=== PATIENT | male | born 1945 | race Caucasian/White ===

== ENCOUNTER 2017-01-22 02:04 | Observation (INO) | payer BC, MEDICARE ==
[~2017-01-22] VITALS: Ht 170.2 cm; Wt 97.5 kg
[~2017-01-22 02:04] MED LIST: BONE HEALTH PO; CARVEDILOL25 MG PO; CO Q-10300 MG PO; GLIMEPIRIDE2 MG PO; HYDROCHLOROTHIA25 MG PO; NORVASC10 MG PO; PRAVASTATIN SOD20 MG PO; VITAMIN B12 PO
[2017-01-22] MEDS ORDERED: LABETALOL HCL IV 5 MG/ML 20ML MDV IV STA (02:17)
[2017-01-22] MEDS ORDERED: HYDRALAZINE HCL 20 MG/ML VIAL IV STA (02:53)
[2017-01-22 02:57] LABS: ALBUMIN 3.6 g/dL (3.5-5.0); ALBUMIN/GLOBULIN RATIO 0.7 (0.8-2.0); CALCIUM 8.9 mg/dL (8.4-10.2); CREATININE, SERUM 1.31 mg/dL (0.72-1.25)
[2017-01-22 02:59] LABS: INR 0.85
[2017-01-22 03:00] LABS: PARTIAL THROMBOPLASTIN TIME 27.2 seconds (23.8-35.5)
[2017-01-22 03:03] LABS: CREATINE KINASE MB 3.3 ng/mL (0.00-5.00); TROPONIN I 0.049 ng/mL (0-0.300)
[2017-01-22 03:06] LABS: BASOPHILS # (AUTO) 0.1 (0.0-0.1); BASOPHILS % 0.7 % (0.0-1.0); EOSINOPHILS # (AUTO) 0.1 (0.0-0.4); EOSINOPHILS % 0.9 % (0.0-6.0); HEMATOCRIT 43.6 % (38.2-49.6); HEMOGLOBIN 15.1 g/dL (14.0-18.0); LYMPHOCYTES # (AUTO) 2.9 (1.0-3.2); LYMPHOCYTES % 31.3 % (18.0-39.1); MEAN CORPUSCULAR HEMOGLOBIN 32.1 pg (28-32); MEAN CORPUSCULAR HGB CONC 34.6 g/dL (31-35); MEAN CORPUSCULAR VOLUME 92.6 fL (81-99); MONOCYTES # (AUTO) 0.9 (0.2-0.8); MONOCYTES % 9.3 % (4.4-11.3); NEUTROPHILS # (AUTO) 5.4 (2.1-6.9); NEUTROPHILS % 57.5 % (38.7-80.0); PLATELET COUNT 230 x10e3/uL (140-360); RED BLOOD COUNT 4.71 x10e6/uL (4.3-5.7)
--- NOTE | 2017-01-22 03:27 | Diagnostic Imaging Report ---
CHEST SINGLE (PORTABLE), 01/22/2017 2:17 AM Technique: CHEST SINGLE (PORTABLE) Comparison: None available. Clinical history: Shortness of breath Findings: See Impression Impression: 1. Mildly enlarged cardiac silhouette. 2. Diffuse bilateral predominantly interstitial pulmonary opacities, favor edema. 3. No significant effusion appreciated on portable view. Signed by: Dr Brooklyn Serna MD on 01/22/2017 3:24 AM
[2017-01-22] MEDS ORDERED: FUROSEMIDE INJ 10 MG/ML 4 ML VIAL IV ONE (03:45)
[2017-01-22] MEDS ORDERED: ONDANSETRON HCL INJ 2 MG/ML VIAL ONE (03:53)
[2017-01-22 03:54] LABS: ANION GAP 13.4 mmol/L (8-16); POTASSIUM 3.4 mmol/L (3.5-5.1)
[2017-01-22] MEDS ORDERED: ONDANSETRON HCL INJ 2 MG/ML VIAL IV STA (03:57)
[2017-01-22] MEDS ORDERED: SODIUM CHLORIDE FLUSH 10 ML SYR INJ PRN (04:00)
[2017-01-22] MEDS ORDERED: HYDRALAZINE HCL 20 MG/ML VIAL IV PRN (04:00)
[2017-01-22 04:20] VITALS: BP 159/72
[2017-01-22] MEDS ORDERED: DEXTROSE 50% SYRINGE 50 ML IV PRN (05:00)
[2017-01-22 05:06] VITALS: BP 142/88
[2017-01-22] MEDS: INSULIN REGULAR, HUMAN 100 UNIT/1 ML 3ML VIAL SQ SCH ×5 (05:34→21:00)
[2017-01-22 07:48] VITALS: BP 146/71
[2017-01-22] MEDS ORDERED: FUROSEMIDE INJ 10 MG/ML 4 ML VIAL IV SCH (09:00)
[2017-01-22] MEDS: LISINOPRIL 10 MG TAB PO SCH (09:09)
[2017-01-22] MEDS: CARVEDILOL 3.125 MG TAB PO SCH ×2 (09:09→17:19)
[2017-01-22] MEDS ORDERED: GUAIFENESIN/DEXTROMETHORPHAN LIQD 5 ML UDC NG PRN (10:45)
[2017-01-22 10:50] LABS: CREATINE KINASE MB 3.7 ng/mL (0.00-5.00); TROPONIN I 0.12 ng/mL (0-0.300)
[2017-01-22] MEDS: CLOPIDOGREL BISULFATE 75 MG TAB PO SCH (10:54)
[2017-01-22 11:42] VITALS: BP 175/84
--- NOTE | 2017-01-22 12:32 | Consultation ---
DATE OF CONSULTATION: January 22, 2017 REASON FOR CONSULTATION: CHF. HPI: This is a 71-year-old male with history of CAD, status post LAD stent in November [address] Durham, hypertension, diabetes, and hyperlipidemia. The patient is a very poor historian and changes his story as the interview progresses. The patient presents to [facility] ER with complaints of shortness of breath for several weeks, 2 to 3 weeks in fact. He states the shortness of breath is at night. He wakes up with a cough. He has to catch his breath when he is lying in bed. After asking the patient if he takes his medications, he finally stated he has not been taking his medications for some time, at least for a month, and does not give any reason, just not taking the medication. He denies any chest pain with activities; however, he states he becomes short of breath with activities and was tired of the feeling of shortness of breath and, therefore, came for further evaluation. PAST MEDICAL HISTORY 1. Status post LAD stent in 2013. 2. Hypertension. 3. Hyperlipidemia. 4. Diabetes. SURGICAL HISTORY: Denies any surgical procedures. FAMILY HISTORY: Mother at age 65 apparently with history of stomach cancer and hypertension. Father at age 70 with history of lung cancer and hypertension. SOCIAL HISTORY: He is . 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 He denies any alcohol use, tobacco use or illicit drugs. REVIEW OF SYSTEMS GENERAL: Denies any weight gains or weight changes, any weakness, fevers, chills, night sweats. SKIN: He denies any rashes or sores or moles. HEENT: Denies any nausea, vomiting or vision changes. Any blurry vision or double vision. Denies any vertigo, earaches or tinnitus. Denies any stuffiness, sneezing or epistaxis. Denies any sore throat, hoarseness, or swollen neck. CARDIAC: Denies any chest pain. However, positive dyspnea on exertion, orthopnea and PND. Denies any lower extremity edema. RESPIRATORY: Positive for shortness of breath. Denies any wheezing. Positive for cough, dry. Denies hemoptysis. GI: Good appetite. No nausea, vomiting, diarrhea, any hematemesis, melena or hematochezia. URINARY: Denies any polyuria, dysuria, nocturia, incontinence. VASCULAR: Denies any leg edema or claudication. MUSCULOSKELETAL: Denies any weakness, joint pains, redness or swelling. NEUROLOGIC: Denies any numbness, tingling, tremors, weakness, paralysis, blackouts, seizures. HEMATOLOGY: No bruising or bleeding. ENDOCRINE: No heat or cold intolerance. No excessive swelling, polyuria, polydipsia, or claudication. PHYSICAL EXAMINATION VITAL SIGNS: Height 67 inches, weight 213 pounds. On admission, blood pressure 223/123, respiratory rate 18, pulse 98, temperature 98.0. GENERAL: Appears his stated age. Unreliable informant. In no acute distress. SKIN: No rashes or bruises noted. HEENT: Normocephalic. Pupils are equal and reactive. Extraocular motor intact. Oral mucosa pink. Poor dentition. No thyromegaly noted. No JVD. No carotid bruit. HEART: Regular rate and rhythm. No murmurs or clicks. PMI in 4th to 5th intercostal space. LUNGS: Bilateral breath sounds are clear to auscultation. No wheezes or rales. ABDOMEN: Soft. Nontender. No organomegaly noted. MUSCULOSKELETAL: Good muscle strength throughout. VASCULAR: Positive +2 bilateral radial pulses and +1 DP and PT bilateral pulses. NEUROLOGIC: Cranial nerves II through XII seem intact. LABS: Sodium 136, potassium 3.4, chloride 104, bicarb 22, BUN 15, creatinine 1.3, glucose 281. BNP 704. White count 9.4, hemoglobin 15, hematocrit 43, platelets 230. Chest x-ray: Bilateral interstitial pulmonary opacities. EKG: None on chart. ASSESSMENT 1. Hypertension urgency. 2. Noncompliance with medical therapy. 3. Congestive heart failure. 4. Coronary artery disease, status post left anterior descending stent in November 2013. 5. Diabetes. 6. Hyperlipidemia. 7. Obesity. PLAN: 1. The patient presents with shortness of breath symptoms and orthopnea for several weeks. Has not been taking his medications for at least 4 months for unknown reasoning. On admission, he was noted to be severely hypertensive, with systolic blood pressure greater than 200. Also, BNP was noted in the 700s. Will go ahead and restart the patient's home medications, his aspirin, his beta barber, his DANIEL. 2. Continue statin therapy. 3. Agree with diuresing the patient for now. 4. Will go ahead and get an echo to evaluate heart function. 5. Long discussion with the patient and at bedside regarding compliance with medical therapy. He understands the importance. 6. Will adjust therapy as clinical course progresses. 7. Will go ahead and get an EKG, since there is not one on the chart. Thank you very much for this consult. Dictated by: Harlan George NP Job#: [id number]
[2017-01-22 15:28] VITALS: BP 155/72
[2017-01-22] MEDS ORDERED: ACETAMINOPHEN 325 MG TAB PO PRN (16:00)
[2017-01-22] MEDS ORDERED: SODIUM CHLORIDE 0.9% 250ML 250 ML ONE (16:55)
[2017-01-22] MEDS: FUROSEMIDE INJ 10 MG/ML 4 ML VIAL IV SCH (16:56)
[2017-01-22] MEDS: CEFEPIME HCL 1 GM VIAL IV SCH (16:56)
[2017-01-22] MEDS: AZITHROMYCIN 500MG/NS 250 ML 250 ML IV SCH (17:19)
[2017-01-22 20:00] VITALS: BP 119/58
[2017-01-22 20:45] LABS: CREATINE KINASE MB 1.8 ng/mL (0.00-5.00); TROPONIN I 0.097 ng/mL (0-0.300)
[2017-01-22] MEDS: ATORVASTATIN 20 MG TAB PO SCH (21:00)
[2017-01-23] VITALS: BP 144/77
[2017-01-23 04:00] VITALS: BP 151/98
[2017-01-23] MEDS: CEFEPIME HCL 1 GM VIAL IV SCH ×2 (05:00→17:45)
--- NOTE | 2017-01-23 07:04 | Diagnostic Imaging Report ---
EXAM: CHEST SINGLE (PORTABLE), AP 1 view DATE: 01/23/2017 7:00 AM Time stamp on exam: 0605 hours INDICATION: Shortness of breath, history of CHF COMPARISON: AP view of the chest January 22, 2017 FINDINGS: LINES/TUBES: None LUNGS: Persistent airspace opacities predominantly in the lung bases, most likely pulmonary edema with atelectasis. PLEURA: Small to moderate bilateral layering pleural effusions. HEART AND MEDIASTINUM: Stable mild cardiac enlargement. BONES AND SOFT TISSUES: No acute findings. IMPRESSION: No interval change. Signed by: Dr. Leatha Nowak M.D. on 01/23/2017 7:01 AM
[2017-01-23 07:43] LABS: BASOPHILS % 0.5 % (0.0-1.0); EOSINOPHILS # (AUTO) 0.1 (0.0-0.4); EOSINOPHILS % 1.3 % (0.0-6.0); HEMATOCRIT 38.6 % (38.2-49.6); HEMOGLOBIN 13.3 g/dL (14.0-18.0); LYMPHOCYTES # (AUTO) 2.4 (1.0-3.2); LYMPHOCYTES % 28.9 % (18.0-39.1); MEAN CORPUSCULAR HGB CONC 34.5 g/dL (31-35); MEAN CORPUSCULAR VOLUME 92.8 fL (81-99); MONOCYTES # (AUTO) 0.9 (0.2-0.8); MONOCYTES % 11.4 % (4.4-11.3); NEUTROPHILS # (AUTO) 4.7 (2.1-6.9); NEUTROPHILS % 57.5 % (38.7-80.0); PLATELET COUNT 212 x10e3/uL (140-360); RED BLOOD COUNT 4.16 x10e6/uL (4.3-5.7); RED CELL DISTRIBUTION WIDTH 13.2 % (11.7-14.4)
[2017-01-23 08:16] LABS: ALBUMIN 3.2 g/dL (3.5-5.0); ALBUMIN/GLOBULIN RATIO 0.9 (0.8-2.0); ANION GAP 10.5 mmol/L (8-16); CALCIUM 8.6 mg/dL (8.4-10.2); CHOL/HDL RATIO 5.1 (3.9-4.7); CREATININE, SERUM 1.41 mg/dL (0.72-1.25); POTASSIUM 3.5 mmol/L (3.5-5.1)
[2017-01-23 08:28] VITALS: BP 146/80
[2017-01-23] MEDS: INSULIN REGULAR, HUMAN 100 UNIT/1 ML 3ML VIAL SQ SCH ×4 (08:30→20:21)
[2017-01-23 08:36] LABS: THYROID STIMULATING HORMONE 1.498 uIU/mL (0.350-4.940)
[2017-01-23] MEDS: LISINOPRIL 10 MG TAB PO SCH (09:13)
[2017-01-23] MEDS: FUROSEMIDE INJ 10 MG/ML 4 ML VIAL IV SCH ×2 (09:13→17:45)
[2017-01-23] MEDS: CLOPIDOGREL BISULFATE 75 MG TAB PO SCH (09:13)
[2017-01-23] MEDS: ASPIRIN 81 MG ENTERIC COATED PO SCH (09:13)
[2017-01-23 12:24] VITALS: BP 152/70
[2017-01-23 16:59] VITALS: BP 158/74
[2017-01-23] MEDS: CARVEDILOL 3.125 MG TAB PO SCH ×2 (17:45→19:25)
[2017-01-23] MEDS: AZITHROMYCIN 500MG/NS 250 ML 250 ML IV SCH (17:45)
[2017-01-23 19:55] VITALS: BP 123/59
[2017-01-23] MEDS: ATORVASTATIN 20 MG TAB PO SCH (20:21)
[2017-01-24 01:34] VITALS: BP 162/74
[2017-01-24 04:19] VITALS: BP 163/82
[2017-01-24] MEDS: CEFEPIME HCL 1 GM VIAL IV SCH (04:38)
[2017-01-24 06:23] LABS: BASOPHILS % 0.5 % (0.0-1.0); EOSINOPHILS # (AUTO) 0.1 (0.0-0.4); EOSINOPHILS % 1.6 % (0.0-6.0); HEMATOCRIT 37.4 % (38.2-49.6); HEMOGLOBIN 12.9 g/dL (14.0-18.0); LYMPHOCYTES % 25.8 % (18.0-39.1); MEAN CORPUSCULAR HEMOGLOBIN 31.7 pg (28-32); MEAN CORPUSCULAR HGB CONC 34.5 g/dL (31-35); MEAN CORPUSCULAR VOLUME 91.9 fL (81-99); MONOCYTES % 12.8 % (4.4-11.3); NEUTROPHILS # (AUTO) 4.6 (2.1-6.9); PLATELET COUNT 185 x10e3/uL (140-360); RED BLOOD COUNT 4.07 x10e6/uL (4.3-5.7); RED CELL DISTRIBUTION WIDTH 12.9 % (11.7-14.4)
[2017-01-24 06:47] LABS: ALBUMIN 3.1 g/dL (3.5-5.0); ALBUMIN/GLOBULIN RATIO 0.9 (0.8-2.0); ANION GAP 11.6 mmol/L (8-16); CALCIUM 8.6 mg/dL (8.4-10.2); CREATININE, SERUM 1.24 mg/dL (0.72-1.25); POTASSIUM 3.6 mmol/L (3.5-5.1)
[2017-01-24 08:38] VITALS: BP 166/78
[2017-01-24] MEDS: FUROSEMIDE INJ 10 MG/ML 4 ML VIAL IV SCH (08:41)
[2017-01-24] MEDS: CARVEDILOL 3.125 MG TAB PO SCH (08:41)
[2017-01-24] MEDS: ASPIRIN 81 MG ENTERIC COATED PO SCH (08:41)
[2017-01-24] MEDS: CLOPIDOGREL BISULFATE 75 MG TAB PO SCH (08:41)
[2017-01-24] MEDS: LISINOPRIL 10 MG TAB PO SCH (08:41)
[2017-01-24] MEDS: INSULIN REGULAR, HUMAN 100 UNIT/1 ML 3ML VIAL SQ SCH ×2 (08:43→13:14)
[2017-01-24 12:00] VITALS: BP 151/73
[2017-01-25] MEDS ORDERED: LISINOPRIL 10 MG TAB PO SCH (09:00)
[2017-01-25] MEDS ORDERED: FUROSEMIDE 40 MG TAB PO SCH (09:00)
== END 2017-01-24 15:19 | disposition home or self-care (01) ==
LOC: ER 02:04 → IMCU 04:13
DX: I11.0 Hypertensive heart disease with heart failure (principal); I50.21 Acute systolic (congestive) heart failure; I16.0 Hypertensive urgency; E11.9 Type 2 diabetes mellitus without complications; I25.10 Atherosclerotic heart disease of native coronary artery without angina pectoris; Z95.5 Presence of coronary angioplasty implant and graft; E78.5 Hyperlipidemia, unspecified; Z91.19 Patient's noncompliance with other medical treatment and regimen; E66.9 Obesity, unspecified; Z68.33 Body mass index [BMI] 33.0-33.9, adult
CPT/HCPCS: 36415 ×3; 71010 ×2; 80053 ×3; 80061; 82550; 82553; 82948 ×3; 83036; 83880 ×2; 84443; 84484; 85025 ×3; 85379; 85610; 85730; 87040; 87086; 93005; 93306; 96367; 96374; 99284; G0378 ×3; J0360; J0456 ×2; J0692 ×3; J1940 ×3; J2405; J3490; J7050

== ENCOUNTER 2017-03-04 14:36 | Emergency (ER) | payer BC ==
[~2017-03-04] VITALS: Ht 170.2 cm; Wt 97.5 kg
[2017-03-04] MEDS ORDERED: ACETAMINOPHEN 325 MG TAB PO ONE (15:15)
--- NOTE | 2017-03-04 16:21 | Diagnostic Imaging Report ---
EXAMINATION: PA and lateral views of the chest. COMPARISON: January 23, 2017 CLINICAL HISTORY: Cough DISCUSSION: Lines/tubes: None. Lungs: The lungs are well inflated and clear. No pneumonia or pulmonary edema. Pleura: There is no pleural effusion or pneumothorax. Heart and mediastinum: The cardiomediastinal silhouette is normal. Bones and soft tissues: No acute bony abnormalities. IMPRESSION: No acute cardiopulmonary abnormalities. Signed by: Dr. Jose Morales M.D. on 03/04/2017 4:17 PM
== END 2017-03-04 16:36 | disposition home or self-care (01) ==
LOC: ER 14:36
DX: R50.9 Fever, unspecified (principal); R05 Cough; J10.1 Influenza due to other identified influenza virus with other respiratory manifestations; J31.0 Chronic rhinitis
CPT/HCPCS: 71020; 87400; 99283

== ENCOUNTER 2018-01-23 12:53 | Emergency (ER) | payer BC ==
[~2018-01-23] VITALS: Ht 170.2 cm; Wt 97.5 kg
--- OUTSIDE RECORDS SUMMARY | 2018-01-23 12:57 | XMS REPORT ---
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 Allergies, Adverse Reactions, Alerts This patient has no known allergies or adverse reactions. Medications This patient has no known medications. Results Test Description Test Time Test Comments Text Results Atomic Results Result Comments CHEST 2 VIEWS [place] [address] Patient Name: SEA COOK MR #: [id number] : 1945 Age/Sex: 71/M Req #: [id number] Adm Physician: Ordered by: CHRISTY MADISON MD Report #: [id number] Location: ER Room/Bed: Procedure: [id number] DX/CHEST 2 VIEWS Exam Date: 03/04/17 Exam Time: 1545 REPORT STATUS: Signed EXAMINATION: PA and lateral views of the chest. COMPARISON: January 23, 2017 CLINICAL HISTORY: Cough DISCUSSION: Lines/tubes: None. Lungs: The lungs are well inflated and clear. No pneumonia or pulmonary edema. Pleura: There is no pleural effusion or pneumothorax. Heart and mediastinum: The cardiomediastinal silhouette is normal. Bones and soft tissues: No acute bony abnormalities. IMPRESSION: No acute cardiopulmonary abnormalities. Signed by: Dr. Alisia Selby M.D. on 03/04/2017 4:17 PM Dictated By: ALISIA SELBY MD 16 Transcribed By: SUMEET on 03/04/171616 COPY TO: CHRISTY MADISON MD CHEST SINGLE (PORTABLE) [place] [address] Patient Name: SEA COOK MR #: [id number] : 1945 Age/Sex: 71/M Req #: [id number] Adm Physician: BRIAN JOLLY MD Ordered by: PHONG TANG MD Report #: [id number] Location: [facility] Room/Bed: [place] [address] Procedure: [id number] DX/CHEST SINGLE (PORTABLE) Exam Date: 01/23/17 Exam Time: 0500 REPORT STATUS: Signed EXAM: CHEST SINGLE (PORTABLE), AP 1 view DATE: 01/23/2017 7:00 AM Time stamp on exam: 0605 hours INDICATION: Shortness of breath, history of CHF COMPARISON: AP view of the chest January 22, 2017 FINDINGS: LINES/TUBES: None LUNGS: Persistent airspace opacities predominantly in the lung bases, most likely pulmonary edema with atelectasis. PLEURA: Small to moderate bilateral layering pleural effusions. HEART AND MEDIASTINUM: Stable mild cardiac enlargement. BONES AND SOFT TISSUES: No acute findings. IMPRESSION: No interval change. Signed by: Dr. Es Nowak M.D. on 01/23/2017 7:01 AM Dictated By: ES NOWAK MD 0 Transcribed By: SUMEET on 01/23/17700 COPY TO: PHONG MARQUEZ MD CHEST SINGLE (PORTABLE) [place] [address] Patient Name: SEA COOK MR #: [id number] : 1945 Age/Sex: 71/M Req #: [id number] Adm Physician: BRIAN JOLLY MD Ordered by: PHONG TANG MD Report #: [id number] Location: [facility] Room/Bed: [place] [address] Procedure: [id number] DX/CHEST SINGLE (PORTABLE) Exam Date: Exam Time: REPORT STATUS: Signed CHEST SINGLE (PORTABLE), 01/22/2017 2:17 AM Technique: CHEST SINGLE (PORTABLE) Comparison: None available. Clinical history: Shortness of breath Findings: See Impression Impression: 1. Mildly enlarged cardiac silhouette. 2. Diffuse bilateral predominantly interstitial pulmonary opacities, favor edema. 3. No significant effusion appreciated on portable view. Signed by: Dr Franky Serna MD on 01/22/2017 3:24 AM Dictated By: FRANKY SERNA MD 3 Transcribed By: SUMEET on 01/22/17323 COPY TO: PHONG TANG MD
[2018-01-23 13:49] LABS: BASOPHILS % 0.5 % (0.0-1.0); EOSINOPHILS % 0.5 % (0.0-6.0); HEMATOCRIT 39.4 % (38.2-49.6); HEMOGLOBIN 13.1 g/dL (14.0-18.0); LYMPHOCYTES # (AUTO) 1.6 (1.0-3.2); LYMPHOCYTES % 19.5 % (18.0-39.1); MEAN CORPUSCULAR HEMOGLOBIN 31.4 pg (28-32); MEAN CORPUSCULAR HGB CONC 33.2 g/dL (31-35); MEAN CORPUSCULAR VOLUME 94.5 fL (81-99); MONOCYTES # (AUTO) 0.7 (0.2-0.8); MONOCYTES % 8.4 % (4.4-11.3); NEUTROPHILS # (AUTO) 5.6 (2.1-6.9); NEUTROPHILS % 70.8 % (38.7-80.0); PLATELET COUNT 194 x10e3/uL (140-360); RED BLOOD COUNT 4.17 x10e6/uL (4.3-5.7); RED CELL DISTRIBUTION WIDTH 14.2 % (11.7-14.4)
[2018-01-23 14:09] LABS: ALBUMIN 3.8 g/dL (3.5-5.0); ALBUMIN/GLOBULIN RATIO 1.1 (0.8-2.0); ANION GAP 13.6 mmol/L (8-16); CALCIUM 9.5 mg/dL (8.4-10.2); CREATININE, SERUM 1.41 mg/dL (0.72-1.25); POTASSIUM 3.6 mmol/L (3.5-5.1)
--- NOTE | 2018-01-23 14:59 | Diagnostic Imaging Report ---
EXAM: XR CHEST 2 VIEWS DATE: 01/23/2018 1:13 PM INDICATION: Cough COMPARISON: 03/04/2017, no report available FINDINGS: Lines and Tubes: None Heart and Mediastinum: Mildly prominent, stable. Lungs and Pleura: Small pleural effusions with minimal bibasilar opacities. Bones and Soft Tissues: No acute findings. IMPRESSION: 1. Small pleural effusions. 2. Basilar opacities could represent atelectasis, edema, or infectious process. Signed by: Dr. Francisco Colbert MD on 01/23/2018 2:56 PM
[2018-01-23] MEDS ORDERED: TYLENOL WITH C1 EACH PO (15:56)
[2018-01-23] MEDS ORDERED: ZITHROMAX TRI-500 MG PO (15:57)
[2018-01-23] MEDS ORDERED: CHLORASEPTIC SPRAY 177 ML BTL MM PRN (16:15)
[2018-01-23] MEDS ORDERED: ACETAMINOPHEN/CODEINE 300MG - 30MG TAB PO ONE (16:15)
== END 2018-01-23 16:31 | disposition home or self-care (01) ==
LOC: ER 12:53
DX: R05 Cough (principal); B34.9 Viral infection, unspecified
CPT/HCPCS: 36415; 71046; 80053; 82550; 82553; 84484; 85025; 87400; 93005; 99284

== ENCOUNTER 2018-01-29 13:38 | Inpatient (IN) | payer BC, MEDICARE ==
[~2018-01-29] VITALS: Ht 170.2 cm; Wt 90.0 kg
[~2018-01-29 13:38] MED LIST changes: +TYLENOL WITH C1 EACH PO; +ZITHROMAX TRI-500 MG PO
[2018-01-29] MEDS ORDERED: LOSARTAN POTAS100 MG PO (14:12)
[2018-01-29] MEDS ORDERED: NITROGLYCERIN 2% OINT 1 GM PKT TOP ONE (14:30)
[2018-01-29] MEDS ORDERED: ASPIRIN 81 MG CHEW TAB PO ONE (14:45)
[2018-01-29 14:47] LABS: BASOPHILS % 0.4 % (0.0-1.0); EOSINOPHILS % 0.4 % (0.0-6.0); HEMATOCRIT 41.5 % (38.2-49.6); HEMOGLOBIN 13.7 g/dL (14.0-18.0); LYMPHOCYTES # (AUTO) 2.1 (1.0-3.2); LYMPHOCYTES % 28.1 % (18.0-39.1); MEAN CORPUSCULAR HEMOGLOBIN 31.5 pg (28-32); MEAN CORPUSCULAR VOLUME 95.4 fL (81-99); MONOCYTES # (AUTO) 0.7 (0.2-0.8); MONOCYTES % 8.9 % (4.4-11.3); NEUTROPHILS # (AUTO) 4.6 (2.1-6.9); NEUTROPHILS % 61.9 % (38.7-80.0); PLATELET COUNT 200 x10e3/uL (140-360); RED BLOOD COUNT 4.35 x10e6/uL (4.3-5.7); RED CELL DISTRIBUTION WIDTH 14.1 % (11.7-14.4)
[2018-01-29 14:51] LABS: INR 0.95; PROTHROMBIN TIME 13.6 seconds (11.9-14.5)
[2018-01-29 14:52] LABS: PARTIAL THROMBOPLASTIN TIME 30.3 seconds (23.8-35.5)
[2018-01-29 15:03] LABS: ALBUMIN/GLOBULIN RATIO 1.1 (0.8-2.0); ANION GAP 14.9 mmol/L (8-16); CREATININE, SERUM 1.45 mg/dL (0.72-1.25); MAGNESIUM 2.1 MG/DL (1.3-2.1); POTASSIUM 3.9 mmol/L (3.5-5.1)
[2018-01-29 15:09] LABS: CREATINE KINASE MB 3.4 ng/mL (0-5.0)
[2018-01-29 15:12] LABS: BILIRUBIN,URINE NEGATIVE (NEGATIVE); CLARITY,URINE CLEAR (CLEAR); COLOR,URINE YELLOW (YELLOW); KETONES,URINE NEGATIVE (NEGATIVE); LEUKOCYTE ESTERASE ,URINE NEGATIVE (NEGATIVE); NITRITE,URINE NEGATIVE (NEGATIVE); PROTEIN,URINE DIPSTICK 2+ (NEGATIVE); URINE UROBILINOGEN 1 mg/dL (0.2 - 1)
--- NOTE | 2018-01-29 15:31 | Diagnostic Imaging Report ---
EXAMINATION: CHEST 2 VIEWS INDICATION: ^CP ^[id number] ^[id number] COMPARISON: 01/23/2018 FINDINGS: PA and lateral views TUBES and LINES: None. LUNGS: Lungs are well inflated. Mild bibasilar hazy opacification. PLEURA: No pneumothorax. HEART AND MEDIASTINUM: The cardiomediastinal silhouette is enlarged. BONES AND SOFT TISSUES: No acute osseous lesion. Degenerative changes of thoracic spine. Soft tissues are unremarkable. UPPER ABDOMEN: No free air under the diaphragm. IMPRESSION: Mild bibasilar hazy opacification, representing small effusions/atelectasis. Underlying infiltrate cannot be excluded. Signed by: Dr. Paresh Yoder MD on 01/29/2018 3:27 PM
[2018-01-29 16:10] LABS: EPITHELIAL CELLS,URINE FEW /LPF
[2018-01-29 16:12] LABS: CALCIUM OXALATE CRYSTALS,UR MODERATE (FEW)
[2018-01-29 16:13] LABS: RBC,URINE 0-5 /HPF (0-5)
[2018-01-29] MEDS ORDERED: ENOXAPARIN SODIUM INJ 100 MG/ML SYR SC ONE (16:15)
[2018-01-29] MEDS ORDERED: MORPHINE SULFATE INJ 4 MG/ML INJ IV PRN (16:30)
[2018-01-29] MEDS ORDERED: ONDANSETRON HCL INJ 2 MG/ML VIAL IV PRN (16:30)
[2018-01-29] MEDS ORDERED: NITROGLYCERIN 0.4 MG SUBL SL PRN (16:30)
[2018-01-29] MEDS ORDERED: DEXTROSE 50% SYRINGE 50 ML IV PRN (17:30)
[2018-01-29] MEDS ORDERED: FUROSEMIDE INJ 10 MG/ML 4 ML VIAL IV ONE (17:30)
[2018-01-29 18:36] VITALS: BP 155/90
--- NOTE | 2018-01-29 18:40 | NUR ---
RECEIVED PATIENT FROM ER HE ARRIVED IN STRETCHER, ABLE TO TRANSFER INDEPENDENTLY STEADY GAIT NO S/S OF RESPIRATORY DISTRESS NOTED, VITAL SIGNS 169/99 HR 80 OXYGEN 3 LITERS NASAL CANULA. ALERT AND ORIENTED X3, REPORTS HE HAS NOT HAD A BOWEL MOVEMENT SINCE DISCHARGE FROM OUR FACILITY ON 01/23/18, WILL PLACE CALL TO DR. JOLLY TO MAKE HIM AWARE PATIENT HAS NOT HAD A BM, AND REPORTS DISCOMFORT TO ABDOMEN AREA AND EPIGASTRIC AREA. PATIENT IS VERBALIZING NEEDS, ORIENTED TO ROOM AND USE OF CALL LIGHT FAMILY AT BEDSIDE, BED IN LOW POSITION, BREAKS ON, BELONGINGS AND CALL LIGHT WITHIN REACH WILL CONTINUE TO MONITOR.
[2018-01-29 18:50] VITALS: BP 169/99
[2018-01-29] MEDS: NITROGLYCERIN 2% OINT 1 GM PKT TOP SCH (18:55)
[2018-01-29] MEDS ORDERED: MAGNESIUM HYDROXIDE 30 ML UDC PO ONE ×2 (19:00→19:15)
[2018-01-29] MEDS ORDERED: SOD PHOSPHATE/SOD BIPHOSPHATE ENEMA 132 ML BTL PR ONE (19:15)
--- NOTE | 2018-01-29 19:25 | NUR ---
HANDOFF REPORT TO ONCOMING NURSE, PATIENT IS IN BED, NO S/S OF DISTRESS FAMILY AT BEDSIDE, INFORMED PATIENT DR. Chip JOLLY CALLED BACK AND GAVE ORDERS FOR MILK OF MAGNESIA 60MG PO AND IF NO BOWEL MOVEMENT IN 4 HOURS, DR. JOLLY GAVE ORDERS TO GIVE HIM AND ENEMA, PATIENT VERBALIZED UNDERSTANDING.
[2018-01-29] MEDS: ENOXAPARIN SOD INJ 40 MG/0.4 ML SYR SC SCH (20:15)
[2018-01-29] MEDS ORDERED: ACETAMINOPHEN/CODEINE 300MG - 30MG TAB PO PRN (20:15)
[2018-01-29] MEDS: PANTOPRAZOLE SOD 40 MG TABEC PO SCH (20:15)
--- NOTE | 2018-01-29 20:20 | NUR ---
DR. Julissa HERNANDEZ DOING HIS ROUNDS AT THIS TIME. NEW ORDERS RCV.
[2018-01-29 20:45] VITALS: BP 155/90
[2018-01-29 20:50] VITALS: BP 155/90
[2018-01-29] MEDS: CARVEDILOL 3.125 MG TAB PO SCH (21:38)
[2018-01-29] MEDS: AMLODIPINE BESYLATE 10 MG TAB PO SCH (21:38)
[2018-01-29] MEDS: INSULIN LISPRO 100 UNIT/1 ML 3ML VIAL SQ SCH (21:39)
[2018-01-29] MEDS: FUROSEMIDE INJ 10 MG/ML 4 ML VIAL IV SCH (21:39)
[2018-01-29] MEDS: ATORVASTATIN 10 MG TAB PO SCH (21:39)
[2018-01-29] MEDS: FAMOTIDINE 20 MG/2 ML VIAL IV SCH (21:39)
--- NOTE | 2018-01-29 22:31 | History and Physical ---
CARDIOLOGY CONSULTATION PRIMARY PHYSICIAN: Dr. Aquiles Up. I am called for cardiology at the [facility]. He has now been admitted to the hospital. I believe he came to the emergency room a couple of times. DIAGNOSES 1. Lnxyk-uh-isfryja congestive heart failure. 2. Patient's BNP is increased and found to be 1384.9 pg/mL. 3. Hypertension, not controlled well. 4. Type 2 diabetes mellitus, uncontrolled at this time. 5. Mild obesity. HISTORY: Mr. 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 He came here for shortness of breath, not able to lie down flat for 3 days. Patient currently does not complain of chest pain. Patient complains of epigastric discomfort. MEDICATIONS: ARB, simvastatin, and glimepiride. PAST SURGICAL HISTORY: Patient did not have any surgeries. ALLERGIES: No ALLERGIES. SOCIAL HISTORY: Patient is . He has got 2 children. He sees only Dr. Aquiles Up as a primary physician. He lives in [place]. Patient does not complain of previous myocardial infarction or stroke. Patient is moderately active. Patient at this time has no nausea or vomiting. No pedal edema. According to him, he has not slept for about 3 to 4 days because he is not able to lie down flat. Chest x-ray does not show any pneumonia. EKG shows nonspecific ST-T changes. His troponin is negative. Patient has renal insufficiency. Creatinine 1.45 and BUN is 19 mg/dL, GFR 48 but I will continue ARB at this time. I am going to add Norvasc 10 mg a day and also Coreg 3.125 mg once a day and also put him on Lasix 40 mg q.8h. for 3 doses and follow him closely. I ordered an echocardiogram and also abdominal ultrasound, and also he complains of constipation for 3 to 4 days, so given laxative. At this time, patient is stable. I discussed with the family members around, and daughter and granddaughter along with the patient. I will review the echocardiogram and also patient to have an abdominal ultrasound and may be we will do a nuclear stress test, we shall do it about 24 to 48 hours later when he is able to lie down flat. Hopefully, the Lasix will help his shortness of breath and also patient has got a mild systolic murmur. A newer echocardiogram will evaluate all his valves also. I will continue to follow the patient from cardiac point of view. Job#: [id number] DANDY
[2018-01-29 23:16] LABS: CREATINE KINASE MB 2.7 ng/mL (0-5.0)
[2018-01-30] VITALS (8 sets, daily range): BP systolic 121–174; BP diastolic 60–97
[2018-01-30] MEDS: ZOLPIDEM TARTRATE 10 MG TAB PO PRN (00:30)
[2018-01-30] MEDS ORDERED: SOD PHOSPHATE/SOD BIPHOSPHATE ENEMA 132 ML BTL PR ONE (00:30)
[2018-01-30] MEDS: NITROGLYCERIN 2% OINT 1 GM PKT TOP SCH ×4 (00:30→18:20)
[2018-01-30 05:38] LABS: BASOPHILS # (AUTO) 0.1 (0.0-0.1); BASOPHILS % 0.7 % (0.0-1.0); EOSINOPHILS % 0.5 % (0.0-6.0); HEMATOCRIT 39.3 % (38.2-49.6); HEMOGLOBIN 13.2 g/dL (14.0-18.0); LYMPHOCYTES # (AUTO) 2.1 (1.0-3.2); LYMPHOCYTES % 26.9 % (18.0-39.1); MEAN CORPUSCULAR HEMOGLOBIN 31.5 pg (28-32); MEAN CORPUSCULAR HGB CONC 33.6 g/dL (31-35); MEAN CORPUSCULAR VOLUME 93.8 fL (81-99); MONOCYTES # (AUTO) 0.8 (0.2-0.8); MONOCYTES % 10.8 % (4.4-11.3); NEUTROPHILS # (AUTO) 4.6 (2.1-6.9); NEUTROPHILS % 60.8 % (38.7-80.0); PLATELET COUNT 200 x10e3/uL (140-360); RED BLOOD COUNT 4.19 x10e6/uL (4.3-5.7)
--- NOTE | 2018-01-30 05:40 | NUR ---
PT VOICED HAVING LARGE BM AT THIS TIME
[2018-01-30] MEDS: FUROSEMIDE INJ 10 MG/ML 4 ML VIAL IV SCH ×2 (05:51→18:14)
[2018-01-30 06:16] LABS: CREATINE KINASE MB 2.2 ng/mL (0-5.0)
[2018-01-30 06:38] LABS: ANION GAP 14.2 mmol/L (8-16); CALCIUM 9.3 mg/dL (8.4-10.2); CHOL/HDL RATIO 2.8 (3.9-4.7); CREATININE, SERUM 1.3 mg/dL (0.72-1.25); POTASSIUM 4.2 mmol/L (3.5-5.1)
[2018-01-30] MEDS: INSULIN LISPRO 100 UNIT/1 ML 3ML VIAL SQ SCH ×4 (07:30→21:52)
[2018-01-30] MEDS ORDERED: ASPIRIN 81 MG ENTERIC COATED PO SCH (09:00)
[2018-01-30] MEDS: ASPIRIN 81 MG CHEW TAB PO SCH (09:30)
[2018-01-30] MEDS: LOSARTAN POTASSIUM 100 MG TAB PO SCH (09:30)
[2018-01-30] MEDS: GLIMEPIRIDE 2 MG TAB PO SCH (09:30)
[2018-01-30] MEDS: CARVEDILOL 3.125 MG TAB PO SCH ×2 (09:30→18:14)
[2018-01-30] MEDS: FAMOTIDINE 20 MG/2 ML VIAL IV SCH ×2 (09:30→21:52)
[2018-01-30] MEDS: PANTOPRAZOLE SOD 40 MG TABEC PO SCH (09:30)
[2018-01-30] MEDS: AMLODIPINE BESYLATE 10 MG TAB PO SCH (11:22)
--- NOTE | 2018-01-30 13:14 | Progress Note ---
DATE: January 30, 2018 CARDIOLOGY PROGRESS NOTE IMPRESSION 1. Rkeao-yo-hwcjzhf congestive heart failure. 2. Cardiomyopathy, rule out ischemic cardiomyopathy. 3. Hypertension. 4. Type 2 diabetes mellitus. 5. Obesity. The patient is having shortness of breath and orthopnea. The patient's echocardiogram showed ejection fraction of 25%, systolic congestive heart failure with mild LVH and renal function borderline high. However, the patient is on lasix. Will continue that. add coreg_ at 3.125 mg p.o.bid, and also spironolactone 25 mg once a day. The patient is on Lasix. At this time, will continue all his present medications and monitoring of nuclear stress test for tomorrow to rule out any ischemia. Possibly, he needs a coronary angiogram depending on the results because the LVEF is 20% to 25%. The patient at this time is improving. Will continue present medications. The patient needs to stay in the hospital. The patient was also put on a low salt diet. Discussed with the family about his condition. Job#: [id number] TOREY GLORIA
--- NOTE | 2018-01-30 13:21 | Diagnostic Imaging Report ---
Abdominal ultrasound dated 01/30/2018. History: Pain Comparison: <None available>. Discussion: Transverse and longitudinal images of the abdomen were obtained demonstrating a liver of normal size with increased echogenicity measuring 16.7 cm in length. The portal vein is patent with hepatopetal flow and is within normal limits measuring 9 mm in diameter. The common bile duct measures 4 mm in diameter. The gallbladder is normal without evidence of stones, wall thickening or pericholecystic fluid. The sonographic Lombardo's sign was negative. The kidneys are normal in size and echogenicity bilaterally without evidence of hydronephrosis, stones, or mass. The right kidney measures 10.0 x 4.5 x 4.3 cm and the left kidney measures 10.5 x 5.3 x 5.2 cm. There is a right lower pole renal cyst measuring 1.1 cm. The spleen is normal in size and appearance measuring 11.3 cm in length. The pancreas and aorta are insufficiently visualized to evaluate There is no evidence of free fluid. IMPRESSION: 1. Increased echogenicity of the liver without focal mass. 2. Lower pole right renal cyst. Signed by: Dr. Roberto Rai DO on 01/30/2018 1:17 PM
[2018-01-30] MEDS: POTASSIUM CHLORIDE 10MEQ EA PO SCH (18:15)
[2018-01-30] MEDS: FUROSEMIDE 40 MG TAB PO SCH (18:15)
[2018-01-30] MEDS: ENOXAPARIN SOD INJ 40 MG/0.4 ML SYR SC SCH (18:15)
[2018-01-30] MEDS: ATORVASTATIN 10 MG TAB PO SCH (21:52)
[2018-01-31] VITALS (7 sets, daily range): BP systolic 121–153; BP diastolic 61–83
[2018-01-31] MEDS: NITROGLYCERIN 2% OINT 1 GM PKT TOP SCH ×4 (00:35→17:22)
--- NOTE | 2018-01-31 06:54 | NUR ---
REPORT GIVEN TO ONCOMING NURSE,WALKING ROUNDS MADE.PT RESTING IN BED WITH NO S/S OF DISTRESS.
[2018-01-31] MEDS: INSULIN LISPRO 100 UNIT/1 ML 3ML VIAL SQ SCH ×4 (07:30→21:00)
[2018-01-31] MEDS: PANTOPRAZOLE SOD 40 MG TABEC PO SCH (09:00)
[2018-01-31] MEDS: FUROSEMIDE INJ 10 MG/ML 4 ML VIAL IV SCH ×2 (09:00→17:20)
[2018-01-31] MEDS: CARVEDILOL 3.125 MG TAB PO SCH ×2 (09:00→17:20)
[2018-01-31] MEDS: FAMOTIDINE 20 MG/2 ML VIAL IV SCH ×2 (09:00→21:30)
[2018-01-31] MEDS: POTASSIUM CHLORIDE 10MEQ EA PO SCH ×2 (09:00→17:21)
--- NOTE | 2018-01-31 09:30 | NUR ---
assessment complete no distress noted, updated on poc voiced understanding, denies pain at this time, tele 2454 sr @ 64, r ac 20g no ss of infiltration noted, no other co voiced call light in reach will continue to monitor
--- NOTE | 2018-01-31 10:30 | NUR ---
down to radiology for stress test, left in stable condition
[2018-01-31] MEDS ORDERED: REGADENOSON 0.4 MG/5 ML SYR IV ONE (11:02)
--- NOTE | 2018-01-31 12:39 | Progress Note ---
DATE: January 31, 2018 CARDIOLOGY PROGRESS NOTE The patient was seen in the room again in nuclear medicine lab. DIAGNOSES 1. Ochgq-fs-mcsnvhp congestive heart failure. 2. Type 2 diabetes mellitus. 3. Possible hypertension. The patient came in with acute heart failure. The patient on NSAIDs medication. The patient improved very much. At this time, renal function is normal. Troponin is negative. The patient is going to heart catheterization tomorrow to assess the coronary arteries and reassess left ventricular function, and also pulmonary artery pressure if necessary. It was explained to the , the family and the patient. All agreed with heart catheterization being done tomorrow. The patient's nuclear stress test done today, and results are still pending. However, he needs heart catheterization because the left ventricular ejection fraction is low about 25% to 30%. The patient never had angiogram before. For the proper addressing of the treatment of the heart failure, we need the status of the coronary artery. The patient is agreeable for that. Risks and complications explained to the patient's family. Job#: [id number] TOREY
--- NOTE | 2018-01-31 12:50 | NUR ---
back to rm aaox3 vs stable, no distress noted, call light in reach, will continue to monitor
[2018-01-31] MEDS: ASPIRIN 81 MG CHEW TAB PO SCH (13:09)
[2018-01-31] MEDS: SPIRONOLACTONE 25 MG TAB PO SCH (13:09)
[2018-01-31] MEDS: GLIMEPIRIDE 2 MG TAB PO SCH (13:09)
[2018-01-31] MEDS: LOSARTAN POTASSIUM 100 MG TAB PO SCH (13:10)
[2018-01-31] MEDS: FUROSEMIDE 40 MG TAB PO SCH (13:10)
[2018-01-31] MEDS: AMLODIPINE BESYLATE 10 MG TAB PO SCH (13:11)
--- NOTE | 2018-01-31 15:17 | NUR ---
SOCIAL WORK INITIAL ASSESSMENT Corduroy Brusher Operator to bedside to discuss plan of care with patient/family. CM/SW role and care transitions discussed. Anticipated discharge plan discussed along with duration of care. CM/SW discussed patients right to make decisions in care. CM/SW work hours given. 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 Name and number was also written on the patients whiteboard. Patient verbalized understanding of discussion. CM will follow-up with ongoing discharge and transition of care needs.
[2018-01-31] MEDS: ENOXAPARIN SOD INJ 40 MG/0.4 ML SYR SC SCH (17:21)
--- NOTE | 2018-01-31 19:10 | NUR ---
REPORT RECEIVED FROM OFF GOING NURSE, PT RESTING IN BED ALERT AND ORIENTED, VISITING WITH FAMILY, TELEMETRY NOTED, DENIES NEEDS, CALL LIGHT IN REACH, INSTRUCTED TO CALL WITH NEEDS
[2018-01-31] MEDS: ATORVASTATIN 10 MG TAB PO SCH (21:30)
[2018-01-31] MEDS: ZOLPIDEM TARTRATE 10 MG TAB PO PRN (21:30)
[2018-02-01] VITALS (7 sets, daily range): BP systolic 103–149; BP diastolic 55–72
[2018-02-01] MEDS: NITROGLYCERIN 2% OINT 1 GM PKT TOP SCH ×4 (05:14→17:09)
--- NOTE | 2018-02-01 05:15 | NUR ---
PT RESTING IN BED WITH EYES CLOSED, OPENS EYES UPON APPROACH, PT ALERT AND ORIENTED, DENIES NEEDS, NO DISTRESS NOTED, CALL LIGHT IN REACH, INSTRUCTED TO CALL WITH NEEDS, TELEMETRY IN PLACE, PT NPO SINCE MID NIGHT
--- NOTE | 2018-02-01 07:00 | NUR ---
SHIFT REPORT RECEIVED FROM NIGHT RN. PT DENIES NEEDS AT THIS TIME.
[2018-02-01] MEDS: INSULIN LISPRO 100 UNIT/1 ML 3ML VIAL SQ SCH ×4 (07:30→20:37)
[2018-02-01] MEDS: GLIMEPIRIDE 2 MG TAB PO SCH (08:00)
[2018-02-01] MEDS: FUROSEMIDE INJ 10 MG/ML 4 ML VIAL IV SCH ×2 (08:24→17:08)
[2018-02-01] MEDS: ASPIRIN 81 MG CHEW TAB PO SCH (08:25)
[2018-02-01] MEDS: SPIRONOLACTONE 25 MG TAB PO SCH (08:25)
[2018-02-01] MEDS: FAMOTIDINE 20 MG/2 ML VIAL IV SCH ×2 (08:25→20:57)
[2018-02-01] MEDS: CARVEDILOL 3.125 MG TAB PO SCH ×2 (08:26→17:08)
[2018-02-01] MEDS: FUROSEMIDE 40 MG TAB PO SCH (08:27)
[2018-02-01] MEDS: PANTOPRAZOLE SOD 40 MG TABEC PO SCH (08:27)
[2018-02-01] MEDS: LOSARTAN POTASSIUM 100 MG TAB PO SCH (08:27)
[2018-02-01] MEDS: AMLODIPINE BESYLATE 10 MG TAB PO SCH (08:28)
[2018-02-01] MEDS: POTASSIUM CHLORIDE 10MEQ EA PO SCH ×2 (08:30→17:08)
[2018-02-01] MEDS: ENOXAPARIN SOD INJ 40 MG/0.4 ML SYR SC SCH (17:00)
--- NOTE | 2018-02-01 19:10 | NUR ---
REPORT RECEIVED FROM OFF GOING NURSE, PT SITTING UP IN BED ALERT AND ORIENTED, VISITING WITH , DENIES NEEDS, TELEMETRY NOTED, CALL LIGHT IN REACH, NO DISTRESS NOTED, INSTRUCTED TO CALL WITH NEEDS
--- NOTE | 2018-02-01 20:24 | Progress Note ---
DATE: February 01, 2018 CARDIOLOGY PROGRESS NOTE Patient is seen in the room. Patient still has got some mild orthopnea. Patient still has congestive heart failure. Continue IV Lasix. EF was about 25%. I scheduled heart catheterization today, but I postponed it. I want to give him some more Lasix and able to lie down flat with less short of breath. We will do the heart catheterization on Sunday. I explained to the patient. He is agreeable. Patient need to stay in the hospital because the patient still in acute congestive heart failure. His newly diagnosed LV dysfunction, acute CHF, with which he came to the hospital, is improving slowly and gradually with rule out the possibility of coronary artery disease priot to discharging him to the house, which will do on Sunday. We will continue present medicines. Job#: [id number] REBEKAH GLORIA
[2018-02-01] MEDS: ATORVASTATIN 10 MG TAB PO SCH (20:57)
[2018-02-02] VITALS (7 sets, daily range): BP systolic 124–146; BP diastolic 66–76
[2018-02-02] MEDS: NITROGLYCERIN 2% OINT 1 GM PKT TOP SCH ×4 (00:36→17:39)
--- NOTE | 2018-02-02 05:37 | NUR ---
PT RESTING IN BED WITH EYES CLOSED, OPENS EYES UPON APPROACH, NO DISTRESS NOTED, TELEMETRY IN PLACE, PT HAS BEEN NPO SINCE MIDNIGHT AND RE EDUCATED WITH DRINKS AND FOOD OUT OF REACH DENIES NEEDS, CALL LIGHT IN REACH, INSTRUCTED TO CALL WITH NEEDS
--- NOTE | 2018-02-02 07:00 | NUR ---
SHIFT REPORT RECEIVED FROM NIGHT RN. PT DENIES NEEDS AT THIS TIME.
[2018-02-02] MEDS: INSULIN LISPRO 100 UNIT/1 ML 3ML VIAL SQ SCH ×4 (07:30→20:52)
[2018-02-02] MEDS: GLIMEPIRIDE 2 MG TAB PO SCH (08:00)
[2018-02-02] MEDS: SPIRONOLACTONE 25 MG TAB PO SCH (08:05)
[2018-02-02] MEDS: FAMOTIDINE 20 MG/2 ML VIAL IV SCH ×2 (08:05→21:00)
[2018-02-02] MEDS: ASPIRIN 81 MG CHEW TAB PO SCH (08:05)
[2018-02-02] MEDS: LOSARTAN POTASSIUM 100 MG TAB PO SCH (08:05)
[2018-02-02] MEDS: FUROSEMIDE INJ 10 MG/ML 4 ML VIAL IV SCH ×2 (08:05→16:41)
[2018-02-02] MEDS: PANTOPRAZOLE SOD 40 MG TABEC PO SCH (08:06)
[2018-02-02] MEDS: POTASSIUM CHLORIDE 10MEQ EA PO SCH ×2 (08:06→16:42)
[2018-02-02] MEDS: FUROSEMIDE 40 MG TAB PO SCH (08:06)
[2018-02-02] MEDS: CARVEDILOL 3.125 MG TAB PO SCH ×2 (09:00→16:41)
[2018-02-02] MEDS: AMLODIPINE BESYLATE 10 MG TAB PO SCH (09:00)
--- NOTE | 2018-02-02 13:28 | Progress Note ---
DATE: INTERNAL MEDICINE PROGRESS NOTE Patient is doing well. No significant complaint. PHYSICAL EXAMINATION VITAL SIGNS: Blood pressure 130/76, temperature 96.8, heart rate 68 per minute, respiratory rate 20 per minute, oxygen saturation 94%. HEART: Showed regular rhythm. Normal S1, S2 sounds. LUNGS: Clear bilaterally. ABDOMEN: Soft. EXTREMITIES: Show no evidence of cyanosis, edema, or trauma. LABORATORY DATA: On the BMP, sodium 141, potassium 4.2, chloride 101, CO2 of 30, BUN 19, creatinine 1.30, glucose 175. On the CBC, white blood count 7.61, hemoglobin 13.2, hematocrit 39.3, platelet count 200,000. PT 13.6, PTT 30.3, INR 0.95. AST 15, ALT 23, total bilirubin 4.0, alkaline phosphatase 77. FINAL IMPRESSION 1. Gykwz-qc-mkvkgdg systolic congestive heart failure. 2. Uncontrolled diabetes mellitus type 2 with chronic renal insufficiency. 3. Chronic renal insufficiency, stage 3. 4. Hypertension with chronic renal insufficiency. Patient had a cardiac cath done. We are waiting for the report. We are going to continue in the meantime morphine 2 mg IV q.3 hours as needed for pain, Pepcid 20 mg twice a day, nitroglycerin 1 g q.6 hours topically, amlodipine 10 mg daily, Lovenox 40 mg subcutaneously daily, losartan 100 mg daily, furosemide 40 mg daily, Zofran 4 mg IV q.4 hours as needed, carvedilol 3.125 mg twice a day, Ambien 10 mg at night p.r.n. for sleep, Protonix 40 mg daily, potassium chloride 10 mEq twice a day, aspirin 81 mg daily, Tylenol No. 3 one tablet q.6 hours as needed for pain, Aldactone 25 mg daily. Continue monitoring blood sugar a.c. and at bedtime. Continue Lipitor 10 mg daily, glimepiride 2 mg daily, and furosemide 40 mg twice a day. We are waiting for the report on the cardiac cath done by Dr. Rodriguez. Job#: [id number] JESSE
[2018-02-02] MEDS: ENOXAPARIN SOD INJ 40 MG/0.4 ML SYR SC SCH (16:36)
--- NOTE | 2018-02-02 17:58 | Progress Note ---
DATE: February 02, 2018 CARDIOLOGY PROGRESS NOTE Patient seen in the room. Patient is ambulatory and also got physical therapy involved for him to rehabilitate on the floor. Patient is dramatically improved with anti CHF medications. I postponed heart catheterization to Sunday so that he can be able to lie down flat on heart catheterization table. Patient is having heart catheterization to rule out any coronary artery disease. Patient's ejection fraction is 35%. He has new onset acute congestive failure. Patient has already been investigated for cardiac issue. At this time, patient agreeable to heart catheterization which is scheduled for Sunday. I explained the risks and complications. We will continue all his present medications. Job#: [id number] LPA
--- NOTE | 2018-02-02 19:05 | NUR ---
REPORT RECEIVED FROM OFF GOING NURSE, PT SITTING IN RECLINER AT BEDSIDE, TELEMETRY NOTED, AT BEDSIDE, NO DISTRESS NOTED, DENIES NEEDS, CALL LIGHT IN REACH, INSTRUCTED TO CALL WITH NEEDS
[2018-02-02] MEDS: ATORVASTATIN 10 MG TAB PO SCH (21:00)
[2018-02-03] VITALS (8 sets, daily range): BP systolic 111–153; BP diastolic 53–79
[2018-02-03] MEDS: NITROGLYCERIN 2% OINT 1 GM PKT TOP SCH ×4 (05:40→17:18)
--- NOTE | 2018-02-03 05:41 | NUR ---
PT RESTING IN BED ALERT AND ORIENTED, NO DISTRESS NOTED, TELEMETRY NOTED, HOB ELEVATED, DENIES NEEDS, CALL LIGHT IN REACH, INSTRUCTED TO CALL WITH NEEDS
--- NOTE | 2018-02-03 07:00 | NUR ---
SHIFT REPORT RECEIVED FROM NIGHT RN. PT DENIES NEEDS AT THIS TIME.
[2018-02-03 07:11] LABS: ANION GAP 14.6 mmol/L (8-16); CALCIUM 9.1 mg/dL (8.4-10.2); CREATININE, SERUM 1.3 mg/dL (0.72-1.25); POTASSIUM 3.6 mmol/L (3.5-5.1)
[2018-02-03] MEDS: ASPIRIN 81 MG CHEW TAB PO SCH (08:59)
[2018-02-03] MEDS: GLIMEPIRIDE 2 MG TAB PO SCH (08:59)
[2018-02-03] MEDS: FUROSEMIDE INJ 10 MG/ML 4 ML VIAL IV SCH ×2 (08:59→17:17)
[2018-02-03] MEDS: SPIRONOLACTONE 25 MG TAB PO SCH (08:59)
[2018-02-03] MEDS: CARVEDILOL 3.125 MG TAB PO SCH ×2 (08:59→17:17)
[2018-02-03] MEDS: FAMOTIDINE 20 MG/2 ML VIAL IV SCH ×2 (08:59→20:40)
[2018-02-03] MEDS: LOSARTAN POTASSIUM 100 MG TAB PO SCH (09:00)
[2018-02-03] MEDS: FUROSEMIDE 40 MG TAB PO SCH (09:00)
[2018-02-03] MEDS: PANTOPRAZOLE SOD 40 MG TABEC PO SCH (09:00)
[2018-02-03] MEDS: POTASSIUM CHLORIDE 10MEQ EA PO SCH ×2 (09:00→17:17)
[2018-02-03] MEDS: AMLODIPINE BESYLATE 10 MG TAB PO SCH (09:00)
[2018-02-03] MEDS: INSULIN LISPRO 100 UNIT/1 ML 3ML VIAL SQ SCH ×4 (09:03→20:40)
--- NOTE | 2018-02-03 13:42 | Progress Note ---
DATE: INTERNAL MEDICINE PROGRESS NOTE SUBJECTIVE: Patient is doing well. No significant complaint. PHYSICAL EXAM VITAL SIGNS: Blood pressure 138/68, temperature 96.4, heart rate is 62 per minute, respiratory rate 18 per minute, and oxygen saturation 96%. HEART: Shows regular rate and rhythm. Normal S1, S2 sounds. LUNGS: Clear bilaterally. ABDOMEN: Soft. EXTREMITIES: Show no evidence of cyanosis, edema, or trauma. BLOOD WORK: We have BMP with sodium 136, potassium 3.6, chloride 102, CO2 of 23, BUN 22, creatinine 1.30, glucose 165. On the CBC, white blood count 7.61, hemoglobin 13.2, hematocrit 39.3, platelet count 200,000. PT 13.6, INR 0.95, and PTT 30.3. AST 16, ALT 23, total bilirubin 4.0, alkaline phosphatase 77. FINAL IMPRESSION 1. Episode of chest pain, rule out coronary artery disease. 2. Znnqc-nt-zrgwntp systolic and diastolic congestive heart failure. 3. Uncontrolled diabetes mellitus type 2 with chronic renal insufficiency. 4. Chronic renal insufficiency stage 2 to 3. 5. Hypertension with chronic renal insufficiency. PLAN OF TREATMENT: Continue morphine 2 mg IV every 3 hours as needed for pain, Pepcid 20 mg twice a day, nitroglycerin patch 1 inch q.6 hours, nitroglycerin sublingual 0.5 mg q.5 minutes p.r.n. sublingual for chest pain, no more than 3 tablets. Continue amlodipine 10 mg daily, Lovenox 40 mg 1 tablet daily for DVT prophylaxis, losartan 100 mg daily, furosemide 40 mg daily, Zofran 4 mg IV q.4 hours as needed, carvedilol 3.125 mg twice a day, Ambien 10 mg at night p.r.n. for sleep, Protonix 40 mg daily, potassium chloride 10 mEq twice a day, aspirin 81 mg daily, Tylenol No. 3 one tablet q.6 hours as needed for pain, and Aldactone 25 mg daily. Continue monitoring blood sugar a.c. and h.s. Continue diabetic and renal diet. Continue Lipitor 10 mg daily, glimepiride 2 mg daily, and furosemide 40 mg twice a day. Job#: [id number] EDWIGE
--- NOTE | 2018-02-03 15:55 | Progress Note ---
DATE: CARDIOLOGY PROGRESS NOTE Patient is seen in the room. Patient is awake and alert. Patient with no chest pain, no orthopnea. Patient came in with acute and chronic congestive heart failure and some atypical chest pain; however, patient has got low ejection fraction about 20 to 25%. He has got risk factors for coronary artery disease. Nuclear stress shows mild abnormalities. At this time, he is going to schedule to have heart catheterization tomorrow rule out any significant coronary artery disease. Patient is to continue present medication and discussed with him risk and complications of procedure and the benefits. This patient understands and signed the consent. Job#: [id number] TANNER
[2018-02-03] MEDS: ENOXAPARIN SOD INJ 40 MG/0.4 ML SYR SC SCH (17:00)
--- NOTE | 2018-02-03 19:10 | NUR ---
REPORT RECEIVED FROM OFF GOING NURSE, PT SITTING UP IN BED ALERT AND ORIENTED, AT BEDSIDE, TELEMETRY IN PLACE, CALL LIGHT IN REACH, INSTRUCTED TO CALL WITH NEEDS
[2018-02-03] MEDS: ATORVASTATIN 10 MG TAB PO SCH (20:40)
[2018-02-04] VITALS (23 sets, daily range): BP systolic 121–162; BP diastolic 69–91
[2018-02-04] MEDS: NITROGLYCERIN 2% OINT 1 GM PKT TOP SCH ×2 (01:00→06:00)
--- NOTE | 2018-02-04 06:06 | NUR ---
PT ALERT AND ORIENTED, NO DISTRESS NOTED, DENIES NEEDS, CALL LIGHT IN REACH, PT HAS HAD HIBICLENS SHOWER, INSTRUCTED TO CALL WITH NEEDS, PT HAS BEEN NPO SINCE MIDNIGHT
--- NOTE | 2018-02-04 07:00 | NUR ---
SHIFT REPORT RECEIVED FROM NIGHT RN. PT DENIES NEEDS AT THIS TIME.
[2018-02-04] MEDS: INSULIN LISPRO 100 UNIT/1 ML 3ML VIAL SQ SCH ×4 (07:30→21:27)
[2018-02-04] MEDS: GLIMEPIRIDE 2 MG TAB PO SCH ×2 (08:00→13:53)
[2018-02-04] MEDS: FUROSEMIDE INJ 10 MG/ML 4 ML VIAL IV SCH ×2 (08:10→16:33)
[2018-02-04] MEDS: FAMOTIDINE 20 MG/2 ML VIAL IV SCH ×2 (08:10→21:26)
[2018-02-04] MEDS: AMLODIPINE BESYLATE 10 MG TAB PO SCH ×2 (08:11→13:54)
[2018-02-04] MEDS: SPIRONOLACTONE 25 MG TAB PO SCH (08:11)
[2018-02-04] MEDS: PANTOPRAZOLE SOD 40 MG TABEC PO SCH (08:11)
[2018-02-04] MEDS: ASPIRIN 81 MG CHEW TAB PO SCH (08:11)
[2018-02-04] MEDS: POTASSIUM CHLORIDE 10MEQ EA PO SCH ×2 (08:11→16:34)
[2018-02-04] MEDS: FUROSEMIDE 40 MG TAB PO SCH (08:11)
[2018-02-04] MEDS: LOSARTAN POTASSIUM 100 MG TAB PO SCH ×2 (08:11→13:53)
[2018-02-04] MEDS: CARVEDILOL 3.125 MG TAB PO SCH ×2 (08:13→16:34)
[2018-02-04] MEDS ORDERED: MIDAZOLAM HCL 2 MG/2 ML VIAL ONE (09:22)
[2018-02-04] MEDS ORDERED: SODIUM CHLORIDE 0.9% 1000ML 1,000 ML ONE (09:23)
[2018-02-04] MEDS ORDERED: FENTANYL CITRATE/PF 100MCG/2 ML INJ ONE (09:23)
[2018-02-04] MEDS ORDERED: HEPARIN SOD/SOD CHLORIDE 2,000 ML ONE (09:23)
[2018-02-04] MEDS ORDERED: IOPAMIDOL 370 MG/ML 200 ML INFUS..BTL INJ ONE ×2 (09:23→10:11)
[2018-02-04] MEDS ORDERED: LIDOCAINE HCL 1% LOCAL INJ 20 ML VIAL ONE (09:49)
--- NOTE | 2018-02-04 09:50 | NUR ---
PT OFF THE UNIT TO DEVELOPER PROGRAMMER ANALYST.
[2018-02-04] MEDS ORDERED: NITROGLYCERIN/D5W 200 MCG/ML 250 ML ONE (10:13)
[2018-02-04] MEDS ORDERED: HEPARIN SOD (PORCINE) 1000 UNIT/ML 30ML ONE (10:13)
[2018-02-04] MEDS ORDERED: EPTIFIBATIDE 100 ML ONE (10:32)
[2018-02-04] MEDS ORDERED: EPTIFIBATIDE 20 ML ONE (10:32)
[2018-02-04] MEDS ORDERED: CLOPIDOGREL BISULFATE 75 MG TAB ONE (10:49)
[2018-02-04] MEDS ORDERED: ASPIRIN 325 MG TAB ONE (10:50)
--- NOTE | 2018-02-04 11:36 | Progress Note ---
DATE: February 04, 2018 CARDIOLOGY PROGRESS NOTE Patient came with severe congestive heart failure and some substernal discomfort. Nuclear stress test was abnormal. The patient's CHF is very much improved. Left ventricular ejection fraction is about 25%. After complete treatment of congestive heart failure, the patient underwent a coronary angiogram today, 02/04/2018. The patient was found to have significant 95% lesion, which was stented with a 3.5 x 38-mm Resolute Mer[place] stent. The patient tolerated the procedure well. The patient will stay in the ICU 24 hours. I discussed with the about it. The patient is in stable condition without significant problem or chest pain. Job#: [id number]
--- NOTE | 2018-02-04 12:35 | NUR ---
Called report to Frieda RUSH. Reviewed medications given in procedure, orders, and procedural events. Frieda RUSH verbalized understanding and did not have any questions at this time.
--- NOTE | 2018-02-04 12:41 | NUR ---
Patient transferred to room 190. No distress noted at time of transfer. Bedside handoff performed with Frieda RUSH.
--- NOTE | 2018-02-04 12:43 | NUR ---
Rec'd patient to Room 190; VSS, no acute distress. at bedside; patient verbalizes understand to keep right leg straight and immobilized.
--- NOTE | 2018-02-04 12:46 | Operative Report ---
DATE OF PROCEDURE: PROCEDURES PERFORMED 1. Left heart catheterization, left ventricular angiogram, and coronary angiogram. 2. Angioplasty, stent placement of the 95% lesion in the mid right coronary artery with 3.5 x 38-mm Resolute Penfield stent. INDICATIONS FOR PROCEDURE: Severe congestive heart failure class 3 and EF 25% and abnormal nuclear stress test. The procedure done at [facility] with informed consent, after conscious sedation, the right femoral artery. After draping the patient and sterilizing the right groin area, right femoral artery was punctured using Seldinger technique. A 6 sheath was introduced. After that, proceeded with the procedure with 6 diagnostic RCA GR side-hole catheter for the intervention of right coronary artery. Results of tests as follows: Right coronary arteriogram shows 95% mid RCA lesion noted. Left coronary arteriogram shows left main artery is normal, significant calcification noted, circumflex artery 20% lesion noted and 25% lesion noted to mid circumflex artery is 1.52 mm diameter. Mild disease noted OM-1 and OM-2 arteries. LAD artery proximally has got a 50% to 60% lesion of the diagonal-1 artery and some disease noted to the diagonal-2 artery at bifurcation and LAD is noted to have 30% lesion at the bifurcation of diagonal-2 arteries. Diffuse disease of the LAD noted distally. Left ventricular angiogram showed ejection fraction is 25% due to global hypokinesia noted. CORONARY INTERVENTION: At this time, I performed RCA coronary intervention with Hi-Torque floppy guidewire, extra support, and first dilated with 2.5 x 15 mm balloon that I deployed, drug-eluting Resolute Franki stent which is 3.5 x 38 mm. Post stent lesion is 0%. NITHIN-3 flow noted and pre-stent lesion is 95% NITHIN-3 noted. Patient was given aspirin, heparin, Integrilin, Plavix per protocol. Patient will go to ICU and will continue Integrilin for 18 hours and the patient's right femoral artery sheath was removed by the ICU nurse. This will be done after 6 hours. Meantime, patient will follow in ICU. Job#: [id number] NELY
[2018-02-04] MEDS ORDERED: INFLUENZA VIRUS VAC SPLIT INJ 0.5 ML SYR IM NR (13:00)
[2018-02-04] MEDS ORDERED: PNEUMOCOCCAL VACCINE POLYVALENT 23 MCG/0.5 ML VIAL IM NR (13:00)
[2018-02-04] MEDS: ENOXAPARIN SOD INJ 40 MG/0.4 ML SYR SC SCH (16:34)
--- NOTE | 2018-02-04 16:34 | NUR ---
Nutrition Screen Note RD Recommendation for Physician: -Rec adding ADA to cardiac diet Plan of Care: RD following, monitoring for tolerance and adequacy Nutrition reason for involvement: LOS Primary Diagnose(s): 1. Episode of chest pain, rule out coronary artery disease. 2. Fvldk-lf-jqyxedk systolic and diastolic congestive heart failure. 3. Uncontrolled diabetes mellitus type 2 with chronic renal insufficiency. PMH: HTN, DM, obesity Ht: 67in Wt: 214.44lb BMI: 33.6kg/m2 IBW: 148lb RD Assessment: (02/04/18) Chart reviewed. Labs and meds reviewed. 72 yo M, who is admitted for SOB. Visited pt in the room. Pt was out for heart cath; provided all info. Pt has been eating well without any GI complains. LBM 02/03. No chewing or swallowing difficulty reported. No recent weight loss reported. Will continue to monitor and follow. Current Diet: cardiac diet Malnutrition Evaluation (02/04/18) The patient does not meet criteria for a specified degree of malnutrition at this time. Will re-evaluate at follow-up as appropriate. Diet Education Needs Assessment: Diet education not indicated. Nutrition Care Level: low Signed: Melissa Akins, MS, RD, LD
[2018-02-04] MEDS: EPTIFIBATIDE 100 ML IV SCH ×2 (16:37→23:00)
--- NOTE | 2018-02-04 16:44 | NUR ---
CM SPOKE TO PATIENT AT BEDSIDE. PATIENT LIVES IN [place], [place] IN [place] [address] HOME WITH JOAQUIN COOK: [phone]. PATIENT HAS CPAP AT HOME BUT NO DME. PATIENT EMPLOYED AND GETS SUPPORT FROM DAUGHTER JYOTI WOMACK [phone]. PATIENT SEES DR. IGGY PETIT HIS PCP. CM TO ASSIST WITH SET UP FOR FOLLOW UP APPOINTMENT PRIOR TO DISCHARGE.
--- NOTE | 2018-02-04 19:00 | NUR ---
Report received. Assumed care. Assessment done.
--- NOTE | 2018-02-04 20:26 | NUR ---
ACT 131. Right femoral sheath dcd. Manual pressure held x 20 min with hemostasis. Pressure drsg applied.
[2018-02-04] MEDS: ATORVASTATIN 10 MG TAB PO SCH (21:26)
[2018-02-04] MEDS: ZOLPIDEM TARTRATE 10 MG TAB PO PRN (21:45)
--- NOTE | 2018-02-04 21:45 | NUR ---
Scout given for sleep per request.
--- NOTE | 2018-02-04 23:32 | NUR ---
Right fem site remains without signs of hematoma.
[2018-02-05] VITALS (18 sets, daily range): BP systolic 118–154; BP diastolic 59–86
[2018-02-05] MEDS: INSULIN LISPRO 100 UNIT/1 ML 3ML VIAL SQ SCH ×4 (07:30→21:00)
[2018-02-05] MEDS: GLIMEPIRIDE 2 MG TAB PO SCH (07:41)
[2018-02-05] MEDS: SPIRONOLACTONE 25 MG TAB PO SCH (08:44)
[2018-02-05] MEDS: AMLODIPINE BESYLATE 10 MG TAB PO SCH (08:44)
[2018-02-05] MEDS: FUROSEMIDE INJ 10 MG/ML 4 ML VIAL IV SCH (08:44)
[2018-02-05] MEDS: ASPIRIN 81 MG CHEW TAB PO SCH (08:44)
[2018-02-05] MEDS: POTASSIUM CHLORIDE 10MEQ EA PO SCH ×2 (08:44→16:54)
[2018-02-05] MEDS: LOSARTAN POTASSIUM 100 MG TAB PO SCH (08:44)
[2018-02-05] MEDS: PANTOPRAZOLE SOD 40 MG TABEC PO SCH (08:44)
[2018-02-05] MEDS: FAMOTIDINE 20 MG/2 ML VIAL IV SCH ×2 (08:44→21:48)
[2018-02-05] MEDS: CARVEDILOL 3.125 MG TAB PO SCH ×2 (08:44→16:54)
--- NOTE | 2018-02-05 13:15 | NUR ---
Report given to ADRI Contreras for Room 204. Telemetry box placed on patient.
[2018-02-05] MEDS ORDERED: CLOPIDOGREL BISULFATE 75 MG TAB PO ONE (17:45)
--- NOTE | 2018-02-05 17:53 | Progress Note ---
DATE: February 05, 2018 CARDIOLOGY PROGRESS NOTE Patient is seen in room. Patient at this time does not have any complains. Patient dispensed from the ICU. Groin is normal. DIAGNOSES 1. Ischemic cardiomyopathy. 2. Significant osteal lesion, had a stent put in on February 04, 2018. 3. Type 2 diabetes mellitus. 4. History of hypertension. Patient mainly came with significant orthopnea and acute congestive heart failure. This is a new diagnosis of him. The LVEF was about 25% to 30%. Coronary angiogram shows significant osteal lesion, stented. He still has some diffuse LAD that will be treated medially. Patient will discharge on February 06, 2018 with the following medications; aspirin 75 mg once a day, Plavix 75 mg once a day, Lipitor 20 mg once a day, metoprolol tartrate 50 mg p.o. b.i.d. and lisinopril 10 mg once a day. Patient at this time also need to continue diabetic medication. Will continue what home medication he was taking. Advised low-fat low-salt diet. Monitor . Patient may discharge cardiac point of view. The patient discharged. I would like to follow him in the office in 1 week and then discharge, advised to go home, take at least minimum 2 to 3 weeks rest. Then, only he can go back to work. I advised to come for cardiac rehab at [facility]. He was available. Otherwise, we can make arrangements any place; however, he prefer he comes to hospital for cardiac rehabilitation. Patient at this time still with table condition. Job#: [id number] TANNER
--- NOTE | 2018-02-05 18:34 | Progress Note ---
DATE: February 05, 2018 CARDIOLOGY PROGRESS NOTE Patient seen again in the room and have been through all his medications. Patient is doing well. Patient has no chest pain. Groin is normal. Patient is ambulatory. Patient is anxious to go home. We will discharge him tomorrow. DIAGNOSES 1. Ischemic cardiomyopathy. 2. Coronary artery disease. 3. Hypertension. 4. Type 2 diabetes mellitus. 5. New onset congestive heart failure. Angioplasty and stent placed for coronary artery. Please see my operative report. Patient has to go home with a LifeVest because his left ventricular ejection fraction is about 25% and he is to go with the following medications include aspirin 325 mg once a day, Plavix 75 mg once a day, Coreg 6.25 mg p.o. b.i.d., spironolactone 25 mg once a day, Lasix 40 mg once a day, amlodipine 10 mg once a day, Amaryl 2 mg once a day, and Lipitor 20 mg once a day. The patient is to take all his medications, especially he should not miss aspirin and Plavix. If he misses the aspirin or Plavix, he will have a stent thrombosis . This explained to him very well. He understands and also he needs to have a LifeVest because his ejection fraction is 25%, which he is to bear for the next 3 months. Then, we will reassess the left ventricular ejection fraction. Patient is advised not to go to work for next 3 weeks. He has to go to cardiac rehab. He is to come back to this hospital for cardiac rehab. I explained to him everything very clearly. is not there. I left a prescription with the nurse for the above such medications. Patient can be discharged tomorrow. Patient is to follow with my office in 1 week from the discharge. Job#: [id number] SANJUANA
[2018-02-05] MEDS: ATORVASTATIN 10 MG TAB PO SCH (21:48)
[2018-02-06] VITALS: BP 131/67
[2018-02-06 02:59] VITALS: BP 131/67
[2018-02-06 04:00] VITALS: BP 118/55
[2018-02-06] MEDS: INSULIN LISPRO 100 UNIT/1 ML 3ML VIAL SQ SCH ×3 (07:30→16:30)
[2018-02-06 08:00] VITALS: BP 120/62
[2018-02-06] MEDS: FAMOTIDINE 20 MG/2 ML VIAL IV SCH (08:20)
[2018-02-06] MEDS: SPIRONOLACTONE 25 MG TAB PO SCH (08:20)
[2018-02-06] MEDS: GLIMEPIRIDE 2 MG TAB PO SCH (08:20)
[2018-02-06] MEDS: CARVEDILOL 3.125 MG TAB PO SCH ×2 (08:21→16:55)
[2018-02-06] MEDS: LOSARTAN POTASSIUM 100 MG TAB PO SCH (08:21)
[2018-02-06] MEDS: POTASSIUM CHLORIDE 10MEQ EA PO SCH ×2 (08:21→17:03)
[2018-02-06] MEDS: AMLODIPINE BESYLATE 10 MG TAB PO SCH (08:21)
[2018-02-06] MEDS: PANTOPRAZOLE SOD 40 MG TABEC PO SCH (08:21)
[2018-02-06] MEDS ORDERED: ASPIRIN 325 MG TAB PO SCH (09:00)
[2018-02-06] MEDS ORDERED: CLOPIDOGREL BISULFATE 75 MG TAB PO SCH (09:00)
[2018-02-06] MEDS ORDERED: FUROSEMIDE 40 MG TAB PO SCH (09:00)
--- NOTE | 2018-02-06 11:13 | NUR ---
LOTUS spoke with ADRI Colunga. Per Tonio with Life[employer]est, he needs more documentation to get LifeVest approved at this time. Dr. Rodriguez was informed by nursing he needs to finalize testing reports and Tonio left a form for him to sign on pt's chart.
[2018-02-06 11:40] VITALS: BP 101/55
[2018-02-06 16:16] VITALS: BP 116/56
--- NOTE | 2018-02-06 18:25 | NUR ---
PATIENT DISCHARGE HOME- PATIENT OFF THE UNIT AT 1804 PER WHEELCHAIR ACCOMPANIED BY STAFF MEMBER AND TO THE FRONT LOBBY. PATIENT IS IN STABLE CONDITION WITH NO S/S OF RESPIRATORY DISTRESS. NO PAIN VOICED. IV REMOVED WITH TIP INTACT AT 1755. DISCHARGE TEACHING, INSTRUCTIONS, AND MEDICATIONS GIVEN TO THE PATIENT. ALL PERSONAL ITEMS TAKEN WITH THE PATIENT AND HIS FAMILY ( AND SON-IN-LAW).
--- NOTE | 2018-02-08 13:37 | Cardiology Report ---
DATE OF STUDY: January 29, 2018 NUCLEAR GATED MYOCARDIAL PERFUSION SCAN Nuclear gated myocardial perfusion scan performed as per protocol at nuclear medicine lab at [facility]. I supervised and interpreted the stress test. Lexiscan injected 0.4 mg intravenously as stress agent. No evidence of any EKG changes. Patient had abnormal EKG and Cardiolite injected 10.9 mCi for resting protocol and 33 mCi for stress protocol. IMPRESSION: Abnormal nuclear gated myocardial perfusion scan. Inferoapical ischemia noted. Dilated left ventricle noted. Left ventricular ejection fraction 25%. Dilated ischemic cardiomyopathy, abnormal nuclear stress test described above. Job#: [id number] TA
== END 2018-02-06 18:05 | disposition home or self-care (01) | DRG 246 ==
LOC: ER 13:38 → ERHOLD 16:19 → MED/SURG 18:36 → ICU 02-04 11:46 → MED/SURG2 02-05 13:53
PROC: 027034Z Dilation of Coronary Artery, One Artery with Drug-eluting Intraluminal Device, Percutaneous Approach (ICD-10-PCS; principal; 2018-02-04)
PROC: 4A023N7 Measurement of Cardiac Sampling and Pressure, Left Heart, Percutaneous Approach (ICD-10-PCS; 2018-02-04)
PROC: B2111ZZ Fluoroscopy of Multiple Coronary Arteries using Low Osmolar Contrast (ICD-10-PCS; 2018-02-04)
PROC: B2151ZZ Fluoroscopy of Left Heart using Low Osmolar Contrast (ICD-10-PCS; 2018-02-04)
DX: I13.0 Hypertensive heart and chronic kidney disease with heart failure and stage 1 through stage 4 chronic kidney disease, or unspecified chronic kidney disease (principal); I50.23 Acute on chronic systolic (congestive) heart failure; E66.9 Obesity, unspecified; I25.10 Atherosclerotic heart disease of native coronary artery without angina pectoris; E11.65 Type 2 diabetes mellitus with hyperglycemia; N18.3 Chronic kidney disease, stage 3 (moderate); Z79.4 Long term (current) use of insulin; Z68.33 Body mass index [BMI] 33.0-33.9, adult; E11.22 Type 2 diabetes mellitus with diabetic chronic kidney disease
CPT/HCPCS: 36415; 71046; 76700; 78452; 80048; 80053; 80061; 81001; 82550; 82553; 82948; 83690; 83735; 83880; 84152; 84484; 85025; 85347; 85610; 85730; 87086; 92928; 93005; 93017; 93306; 93458; 96372; 96376; 99284; A9502; C1766; C1874; J1327; J1644; J1650; J1940; J2001; J2250; J7030; Q9967

== ENCOUNTER → 2019-05-08 | Outpatient (CLI) | payer BC, MEDICARE ==
[~2019-05-08] MED LIST changes: +AMIODARONE HCL200 MG; +CARVEDILOL12.5 MG PO; +LASIX40 MG PO; +LIPITOR20 MG; +LOSARTAN POTAS100 MG PO; +SPIRONOLACTONE25 MG PO; +TESSALON PERLE100 MG
--- NOTE | 2019-05-08 13:51 | Diagnostic Imaging Report ---
EXAM: CHEST 2 VIEWS DATE: 05/08/2019 12:00 AM INDICATION: Cough, shortness of breath COMPARISON: 01/29/2018 FINDINGS: Left-sided dual-lead AICD identified in place. The trachea is midline. There are increased right basilar opacities which may reflect atelectasis and/or trace effusion. There is no evidence for large focal consolidation or pneumothorax. There is a questionable nodular opacity identified within the mid left lower lung zone on the frontal view measuring up to 1.7 cm. The cardiomediastinal mediastinal silhouette remains prominent. No acute osseous abnormality is identified. IMPRESSION: Possible nodular opacity identified within the left lower lung zone. Consider further evaluation with dedicated CT of the chest. Right basilar opacities which may reflect atelectasis and/or trace effusion. No evidence for lobar pneumonia. Signed by: Dr. Domo Gilliland MD on 05/08/2019 1:47 PM
== END ==
LOC: RAD 12:40
DX: R06.02 Shortness of breath (principal); R05 Cough
CPT/HCPCS: 71046

== ENCOUNTER 2019-05-14 16:30 | Emergency (ER) | payer BC, MEDICARE ==
[~2019-05-14] VITALS: Ht 170.2 cm; Wt 89.8 kg
[~2019-05-14 16:30] MED LIST changes: -AMIODARONE HCL200 MG; -CARVEDILOL12.5 MG PO; -LASIX40 MG PO; -LIPITOR20 MG; -SPIRONOLACTONE25 MG PO; -TESSALON PERLE100 MG
[2019-05-15] MEDS ORDERED: TESSALON PERLE100 MG (00:01)
[2019-05-15] MEDS ORDERED: CARVEDILOL12.5 MG PO (00:03)
[2019-05-15] MEDS ORDERED: LASIX40 MG PO (00:03)
[2019-05-15] MEDS ORDERED: GLIMEPIRIDE2 MG PO (00:03)
[2019-05-15] MEDS ORDERED: SPIRONOLACTONE25 MG PO (00:03)
[2019-05-15] MEDS ORDERED: LIPITOR20 MG (00:03)
[2019-05-15] MEDS ORDERED: AMIODARONE HCL200 MG (00:03)
== END 2019-05-14 17:09 | disposition home or self-care (01) ==
LOC: ER 16:30
DX: R05 Cough (principal); J12.9 Viral pneumonia, unspecified; I10 Essential (primary) hypertension; E11.9 Type 2 diabetes mellitus without complications
CPT/HCPCS: 36415; 82948; 99282

== ENCOUNTER 2019-05-14 18:36 | Inpatient (IN) | payer BC, MEDICARE, OTHER ==
[~2019-05-14] VITALS: Ht 170.2 cm; Wt 89.8 kg
[2019-05-14 19:02] LABS: BASOPHILS # (AUTO) 0.1 (0.0-0.1); BASOPHILS % 0.5 % (0.0-1.0); EOSINOPHILS # (AUTO) 0.1 (0.0-0.4); EOSINOPHILS % 0.6 % (0.0-6.0); HEMATOCRIT 37.5 % (38.2-49.6); HEMOGLOBIN 12.2 g/dL (14.0-18.0); LYMPHOCYTES # (AUTO) 1.7 (1.0-3.2); LYMPHOCYTES % 17.9 % (18.0-39.1); MEAN CORPUSCULAR HEMOGLOBIN 30.7 pg (28-32); MEAN CORPUSCULAR HGB CONC 32.5 g/dL (31-35); MEAN CORPUSCULAR VOLUME 94.5 fL (81-99); MONOCYTES # (AUTO) 1.2 (0.2-0.8); MONOCYTES % 12.1 % (4.4-11.3); NEUTROPHILS # (AUTO) 6.5 (2.1-6.9); NEUTROPHILS % 68.6 % (38.7-80.0); PLATELET COUNT 236 x10e3/uL (140-360); RED BLOOD COUNT 3.97 x10e6/uL (4.3-5.7); RED CELL DISTRIBUTION WIDTH 13.8 % (11.7-14.4)
[2019-05-14 19:08] LABS: INR 1.05; PROTHROMBIN TIME 14.3 seconds (11.9-14.5)
[2019-05-14] MEDS ORDERED: ALBUTEROL SULFATE HFA 8GM INHALATION AEROSOL INH PRN ×2 (19:15)
[2019-05-14 19:20] LABS: ALBUMIN 3.5 g/dL (3.5-5.0); ANION GAP 13.2 mmol/L (8-16); CALCIUM 9.2 mg/dL (8.4-10.2); CREATININE, SERUM 1.54 mg/dL (0.72-1.25); POTASSIUM 4.2 mmol/L (3.5-5.1)
--- NOTE | 2019-05-14 19:20 | NUR ---
DENNY JIM (DR. MUNIZ) SPOKE TO DR. REYNOLDS
[2019-05-14 19:30] LABS: CREATINE KINASE MB 2.2 ng/mL (0-5.0)
[2019-05-14] MEDS: CEFTRIAXONE SOD 1 GM/NS 50 ML 50 ML IV SCH (19:38)
[2019-05-14 19:46] LABS: STREPTOCOCCUS GRP A ANTIGEN NEGATIVE (NEGATIVE)
[2019-05-14 19:53] LABS: INFLUENZAE A&B ANTIGEN (RAPID) NEGATIVE (NEGATIVE)
[2019-05-14] MEDS: AZITHROMYCIN 500MG/NS 250 ML 250 ML IV SCH (20:04)
[2019-05-14 20:11] LABS: MAGNESIUM 1.9 MG/DL (1.3-2.1)
--- NOTE | 2019-05-14 20:35 | Diagnostic Imaging Report ---
EXAMINATION: CHEST SINGLE (PORTABLE) INDICATION: ^COUGH ^[id number] ^1944 COMPARISON: Chest radiograph 05/08/2019 FINDINGS: AP view TUBES and LINES: Stable 2-lead ICD with leads overlying the right atrial appendage and right ventricle. LUNGS: Lungs are well inflated. Bilateral pulmonary edema. Bibasilar atelectasis. PLEURA: Small right pleural effusion. No pneumothorax. HEART AND MEDIASTINUM: Moderate enlargement of the cardiac silhouette, unchanged. Enlarged pulmonary arteries consistent with pulmonary hypertension. BONES AND SOFT TISSUES: No acute osseous lesion. Soft tissues are unremarkable. UPPER ABDOMEN: No free air under the diaphragm. IMPRESSION: Interval development of bilateral pulmonary edema and small right pleural effusion. Signed by: Dr. Stacey Mccartney M.D. on 05/14/2019 8:32 PM
[2019-05-14] MEDS ORDERED: DEXTROSE 50% SYRINGE 50 ML IV PRN (21:45)
[2019-05-14] MEDS ORDERED: ACETAMINOPHEN 325 MG TAB PO PRN (21:45)
[2019-05-14] MEDS ORDERED: FUROSEMIDE INJ 10 MG/ML 4 ML VIAL IV ONE (21:45)
[2019-05-14] MEDS ORDERED: ACETAMINOPHEN/CODEINE 300MG - 30MG TAB PO PRN (21:45)
--- NOTE | 2019-05-14 21:55 | NUR ---
Pulmonary [id number] rx pneumonia rx CHF pleural effusion Thanks
[2019-05-14 23:00] VITALS: BP 145/88
[2019-05-14 23:01] VITALS: BP 145/88
[2019-05-14 23:29] VITALS: BP 145/88
[2019-05-14 23:30] VITALS: BP 145/88
[2019-05-15] VITALS (9 sets, daily range): BP systolic 145–162; BP diastolic 70–88
[2019-05-15] MEDS ORDERED: TESSALON PERLE100 MG (00:01)
[2019-05-15] MEDS ORDERED: CARVEDILOL12.5 MG PO (00:03)
[2019-05-15] MEDS ORDERED: LIPITOR20 MG (00:03)
[2019-05-15] MEDS ORDERED: GLIMEPIRIDE2 MG PO (00:03)
[2019-05-15] MEDS ORDERED: SPIRONOLACTONE25 MG PO (00:03)
[2019-05-15] MEDS ORDERED: AMIODARONE HCL200 MG (00:03)
[2019-05-15] MEDS ORDERED: LASIX40 MG PO (00:03)
[2019-05-15 00:37] LABS: CREATINE KINASE 54 IU/L (30-200)
--- NOTE | 2019-05-15 00:55 | Consultation ---
DATE OF CONSULTATION: 05/14/2019 Pulmonary Medicine Consult REASON FOR REFERRAL: Pneumonia. HISTORY OF PRESENT ILLNESS: Mr. Linda is a pleasant 74-year-old gentleman with shortness of breath. Onset for just less than 2 weeks. The patient with pattern of persistence and progression. The patient went to his PCP today, Dr. Avelar and was found to have infiltrate on x-ray. The patient with significant concern for worsening based on his chronic comorbidities. X-ray showed bilateral involvement. He is admitted. PAST MEDICAL HISTORY: Hypertension, diabetes, hyperlipidemia, coronary artery disease status post PTCA on February 04, 2018, January 2018, echocardiogram with LVEF 20-25% EF, obstructive sleep apnea, not on therapy, diabetes, hypertension. MEDICATIONS: Medication list reviewed per the chart record, include: 1. Tylenol No. 3. 2. Glimepiride. 3. Losartan. 4. Pravastatin. 5. Azithromycin just written. ALLERGIES: NO KNOWN DRUG ALLERGIES. SOCIAL HISTORY: No smoking. No drinking. No drugs. 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 The patient with a current job in [employer] for the last 15 years with people who just got out of [employer]. 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 FAMILY HISTORY: Noncontributory to this. REVIEW OF SYSTEMS: GENERAL: No weight changes. OPHTHALMOLOGIC: No double vision. ENT: Includes no mouth ulcers. ENDOCRINE: No known thyroid disease. PULMONARY: No asthma. IMMUNOLOGIC: No allergies. CARDIAC: No MA known. GI: No bleeding from rectum. : No kidney stones. PSYCHIATRIC: No depression. NEUROLOGIC: No seizures. OBJECTIVE: VITAL SIGNS: Temperature 98 degrees, 88 heart rate, 157/88 blood pressure, other vitals per the chart record. GENERAL: In no acute distress. Alert, slightly pale and weak, but talking. HEENT: Normocephalic, atraumatic. NECK: Supple. Throat midline. LUNGS: Bilateral air entry, decreased breath sounds at bases. CARDIOVASCULAR: S1, S2. No murmurs, rubs, or gallops. ABDOMEN: Soft, nontender. EXTREMITIES: No clubbing. No cyanosis. There is only trace edema. INTEGUMENT: No rash or purpura. LABORATORY DATA: White count 9.5, 37 hematocrit, 236 platelets. Coagulation times normal. Chemistry includes 4.2 potassium, 18 BUN, 1.5 creatinine, total bilirubin 2.8, CK 66, albumin 3.5. IMPRESSION AND PLAN: 1. Community-acquired pneumonia. 2. Suggesting associated fluid overload. 3. Acute on chronic systolic congestive heart failure. 4. Chronic kidney disease. 5. Coronary artery disease, status post percutaneous coronary intervention in 2018. 6. Diabetes. 7. Hypertension. 8. Hyperlipidemia. 9. Obstructive sleep apnea, not on therapy. 10. Mild decrease exertional capacity, walks 2 blocks at baseline. 11. 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 12. History of environmental exposure, COVID-19 pandemic in community. Check TSH level. Check BNP. Give diuretics as tolerated. Empiric antibiotics continue. Mobilize early. Assess the patient. Improve strong by tomorrow. He did end up on a February 2018 echocardiogram with LVEF 20-25%, so we will consider if we have a need to repeat any echocardiogram. Follow up closely. Thank you very much, Dr. Avelar for this consult. Please call for questions. MD SONYA Tobias/MODL /[id number]
[2019-05-15 06:39] LABS: CREATINE KINASE MB 1.9 ng/mL (0-5.0)
[2019-05-15 06:57] LABS: ANION GAP 14.2 mmol/L (8-16); CREATININE, SERUM 1.35 mg/dL (0.72-1.25); POTASSIUM 4.2 mmol/L (3.5-5.1)
--- NOTE | 2019-05-15 07:00 | NUR ---
RECEIVED PATIENT RESTING IN BED NO S/S OF DISTRESS. BED LOW, WHEELS LOCKED, SIDE RAILS X2. CALL LIGHT IN REACH WILL CONTINUE TO MONITOR PATIENT.
[2019-05-15 07:20] LABS: FREE THYROXINE INDEX 2.6102 (1.4-3.8); THYROID STIMULATING HORMONE 1.961 uIU/mL (0.350-4.940)
[2019-05-15] MEDS: INSULIN REGULAR, HUMAN 100 UNIT/1 ML 3ML VIAL SQ SCH ×4 (07:30→20:13)
[2019-05-15] MEDS ORDERED: PRAVASTATIN 20 MG TAB PO SCH (09:00)
--- NOTE | 2019-05-15 10:55 | Diagnostic Imaging Report ---
EXAM: CHEST SINGLE (PORTABLE) DATE: 05/15/2019 5:00 AM INDICATION: CHF, pneumonia COMPARISON: 05/14/2019 FINDINGS: Left-sided AICD identified in stable position. The trachea is midline. There is prominence of the interstitium and central pulmonary vasculature. There is a stable small right pleural effusion. Again noted are patchy bibasilar opacities which may reflect atelectasis. There is no evidence for new large focal consolidation or pneumothorax. The cardiac silhouette remains enlarged. Mediastinal contours are unremarkable. No acute osseous abnormality is identified. IMPRESSION: No significant interval change from 05/14/2019. Small right pleural effusion and findings suggestive of interstitial edema. Signed by: Dr. Dmoo Gilliland MD on 05/15/2019 10:51 AM
--- NOTE | 2019-05-15 11:00 | Consultation ---
DATE OF CONSULTATION: HISTORY OF PRESENT ILLNESS: Mr. Linda is a very pleasant 74-year-old gentleman, comes to the emergency room with shortness of breath. The patient has been sick for a couple of weeks, getting progressively worse since we are in the mid of COVID-19 outbreak. There was concern that this could be it. The patient to have history of hypertension, diabetes mellitus, hyperlipidemia, coronary artery disease, PTCA in February 04, 2018. In January 2018, echocardiogram with left ventricle ejection fraction 20% to 25%, obstructive sleep apnea, diabetes mellitus, hypertension. HOME MEDICATIONS: 1. Glyburide. 2. Losartan. 3. Pravastatin. The patient came to the emergency room, where he was admitted, discussed with the ER physician. LABORATORY DATA: On admission, his white count 9.52, hemoglobin of 12, his platelet of 236, monocyte is elevated 21. Influenza A and B are negative. COVID-19 is pending. Sodium 141, potassium 4.2, creatinine 1.54. PHYSICAL EXAMINATION: GENERAL: He is currently alert, oriented, does not seem acute distress. VITAL SIGNS: Stable, currently afebrile. HEENT: Not icteric. NECK: Supple. CHEST: Few crackles. COR: S1, S2. No S3, S4, or murmur. ABDOMEN: Soft. Bowel sounds present. No tenderness. EXTREMITIES: No edema. SKIN: No rash. IMPRESSION: Community-acquired pneumonia, concerned about COVID-19, agree with Rocephin, agree with azithromycin. History of underlying congestive heart failure, chronic obstructive pulmonary disease. We will put the patient on droplet isolation. Obtain COVID-19, suspicious for COVID-19 case. MD STEPH Suárez/KRZYSZTOF /[id number]
--- NOTE | 2019-05-15 12:54 | NUR ---
Pulmonary Medicine DATE 05/15/2019 SUBJECTIVE: no fevers better mildly sob on speaking still CXR with stable right moderate pleural effusion, right pneumonitis RA fio2 REVIEW OF SYSTEMS: no headaches, no rash OBJECTIVE: VITAL SIGNS: vitals reviewed per the chart record. GENERAL: no acute distress. Alert, slightly pale and weak, but talking. HEENT: Normocephalic, atraumatic. NECK: Supple. Throat midline. LUNGS: Bilateral air entry, decreased breath sounds at bases. CARDIOVASCULAR: S1, S2. No murmurs, rubs, or gallops. ABDOMEN: Soft, nontender. EXTREMITIES: No clubbing. No cyanosis. trace edema. INTEGUMENT: No rash, no purpura. LABORATORY DATA: 4.2 k , cr 1.36. IMPRESSION AND PLAN: 1. Community-acquired pneumonia. 2. Suggesting associated fluid overload. BNP 890. 3. Acute on chronic systolic congestive heart failure. 4. Chronic kidney disease. 5. Coronary artery disease, status post percutaneous coronary intervention in 2018. 6. Diabetes. 7. Hypertension. 8. Hyperlipidemia. 9. Obstructive sleep apnea, not on therapy. 10. Mild decrease exertional capacity, walks 2 blocks at baseline. 11. 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 12. History of environmental exposure, COVID-19 pandemic in community. tfts normal Continue diuretics redose Empiric antibiotics Mobilize early February 2018 echocardiogram with LVEF 20-25%. Follow if repeat necessary Intermittent CXR until clear. Check US chest, assess if drainable effusion Thank you very much, Dr. Avelar for this consult. Please call for questions.
[2019-05-15 13:02] LABS: CREATINE KINASE MB 1.7 ng/mL (0-5.0)
[2019-05-15] MEDS ORDERED: FUROSEMIDE INJ 10 MG/ML 4 ML VIAL IV SCH (14:15)
--- NOTE | 2019-05-15 15:24 | Diagnostic Imaging Report ---
EXAM: US CHEST (INCL MEDIASTINUM) DATE: 05/15/2019 12:00 AM INDICATION: Pleural effusion COMPARISON: Chest radiograph from earlier 05/15/2019 FINDINGS: Limited sonographic images were obtained of the right chest with assessment of pleural fluid. There is at most trace pleural fluid present. Not sufficient for diagnostic or therapeutic thoracentesis. IMPRESSION: Trace right pleural fluid present. Not sufficient for diagnostic or therapeutic thoracentesis. Signed by: Dr. Domo Gilliland MD on 05/15/2019 3:21 PM
--- NOTE | 2019-05-15 17:31 | NUR ---
PATIENT COMPLAINING OF COUGHING SPELLS. DR. JOLLY PAGED FOR ORDERS.
--- NOTE | 2019-05-15 17:41 | NUR ---
SPOKE WITH DR. JOLLY NEW ORDERS FOR TESSALON PERLES 200 MG PO TID AND ROBITUSSIN DM 5CC Q4 HR PRN. NEW ORDERS IMPLEMENTED.
[2019-05-15] MEDS: GUAIFENESIN/DEXTROMETHORPHAN LIQD 5 ML UDC PO PRN (18:11)
[2019-05-15] MEDS: BENZONATATE 100 MG CAP PO SCH (19:50)
[2019-05-15] MEDS: CEFTRIAXONE SOD 1 GM/NS 50 ML 50 ML IV SCH (19:50)
[2019-05-15] MEDS: FUROSEMIDE INJ 10 MG/ML 4 ML VIAL IV SCH (19:50)
[2019-05-15] MEDS: AZITHROMYCIN 500MG/NS 250 ML 250 ML IV SCH (21:08)
[2019-05-16] VITALS (8 sets, daily range): BP systolic 115–172; BP diastolic 59–106
[2019-05-16] MEDS: GUAIFENESIN/DEXTROMETHORPHAN LIQD 5 ML UDC PO PRN ×3 (04:34→20:25)
[2019-05-16 05:05] LABS: BASOPHILS # (AUTO) 0.1 (0.0-0.1); BASOPHILS % 0.5 % (0.0-1.0); EOSINOPHILS # (AUTO) 0.1 (0.0-0.4); EOSINOPHILS % 0.6 % (0.0-6.0); HEMATOCRIT 40.2 % (38.2-49.6); HEMOGLOBIN 12.9 g/dL (14.0-18.0); LYMPHOCYTES # (AUTO) 1.8 (1.0-3.2); LYMPHOCYTES % 19.7 % (18.0-39.1); MEAN CORPUSCULAR HEMOGLOBIN 30.6 pg (28-32); MEAN CORPUSCULAR HGB CONC 32.1 g/dL (31-35); MEAN CORPUSCULAR VOLUME 95.5 fL (81-99); MONOCYTES # (AUTO) 1.1 (0.2-0.8); MONOCYTES % 11.4 % (4.4-11.3); NEUTROPHILS # (AUTO) 6.2 (2.1-6.9); NEUTROPHILS % 67.4 % (38.7-80.0); PLATELET COUNT 163 x10e3/uL (140-360); RED BLOOD COUNT 4.21 x10e6/uL (4.3-5.7); RED CELL DISTRIBUTION WIDTH 13.8 % (11.7-14.4)
[2019-05-16 05:23] LABS: ANION GAP 15.8 mmol/L (8-16); CALCIUM 9.2 mg/dL (8.4-10.2); CREATININE, SERUM 1.25 mg/dL (0.72-1.25); POTASSIUM 3.8 mmol/L (3.5-5.1)
--- NOTE | 2019-05-16 07:11 | NUR ---
RECEIVED PATIENT RESTING IN BED NO S/S OF DISTRESS. BED LOW, WHEELS LOCKED, SIDE RAILS X2. CALL LIGHT IN REACH WILL CONTINUE TO MONITOR PATIENT.
[2019-05-16] MEDS: INSULIN REGULAR, HUMAN 100 UNIT/1 ML 3ML VIAL SQ SCH ×4 (07:30→20:25)
[2019-05-16] MEDS: BENZONATATE 100 MG CAP PO SCH ×3 (08:21→20:25)
[2019-05-16] MEDS: FUROSEMIDE INJ 10 MG/ML 4 ML VIAL IV SCH ×2 (08:21→20:25)
--- NOTE | 2019-05-16 08:49 | NUR ---
SPOKE WITH DR. SHANAE HOPE TO CONTINUE CARVEDILOL.
--- NOTE | 2019-05-16 09:05 | NUR ---
Telephonic visit. Pt. expressed no spiritual or emotional concerns at this time. Defect Cutter provided hospitality and information on how to reach cnc service technician, if needed. No need to follow at this time. KATE VELIZ Defect Cutter Spiritual Care Department O: [phone]
[2019-05-16] MEDS: CARVEDILOL 12.5 MG TAB PO SCH ×2 (09:27→16:36)
[2019-05-16 09:36] LABS: CLARITY,URINE CLEAR (CLEAR); COLOR,URINE YELLOW (YELLOW); LEUKOCYTE ESTERASE ,URINE NEGATIVE (NEGATIVE); NITRITE,URINE NEGATIVE (NEGATIVE)
[2019-05-16 09:37] LABS: BILIRUBIN,URINE NEGATIVE (NEGATIVE); KETONES,URINE NEGATIVE (NEGATIVE); PROTEIN,URINE DIPSTICK 1+ (NEGATIVE); URINE UROBILINOGEN 0.2 mg/dL (0.2 - 1)
[2019-05-16 09:44] LABS: BACTERIA,URINE FEW /HPF; EPITHELIAL CELLS,URINE FEW /LPF
--- NOTE | 2019-05-16 18:00 | NUR ---
Pulmonary attending I saw and examined the patient on 05/16/19 with Inés Johnson NP. I agree with her findings. Await COVID testing. Repeat CXR tomorrow. Rx pneumonia + fluid overload
[2019-05-16] MEDS: CEFTRIAXONE SOD 1 GM/NS 50 ML 50 ML IV SCH (20:25)
[2019-05-16] MEDS ORDERED: PRAVASTATIN 20 MG TAB PO SCH (21:00)
[2019-05-16] MEDS: AZITHROMYCIN 500MG/NS 250 ML 250 ML IV SCH (21:00)
[2019-05-16] MEDS ORDERED: FUROSEMIDE INJ 10 MG/ML 4 ML VIAL IV SCH (21:00)
--- NOTE | 2019-05-16 21:10 | NUR ---
RECEIVED PT (R) SIDE LAYING SEMI FOWLERS IN BED, AAOX3, RR EEN AND NON-LABORED, DRY COUGH NOTED. PT HAS NON-REBREATHER IN PLACE O2 AT BEDSIDE IS 96-98%. INSTRUCTED PT ON HOW TO CALL NURSES AND STEREOTYPE MOLDER'S. LEFT PT (R) SIDE LAYING IN BED, BED IN LOW LOCKED POSITION, SIDE RAILS UPX2, CALL LIGHT AND PHONE WITHIN REACH. Addendum: 05/16/19 at 2123 by Alisha Collier RN INCORRECT TIME, CORRECT TIME IS 2009.
[2019-05-17] VITALS: BP 123/63
[2019-05-17 04:00] VITALS: BP 138/65
[2019-05-17] MEDS: GUAIFENESIN/DEXTROMETHORPHAN LIQD 5 ML UDC PO PRN ×2 (04:30→10:45)
[2019-05-17 05:26] LABS: BASOPHILS % 0.4 % (0.0-1.0); EOSINOPHILS # (AUTO) 0.1 (0.0-0.4); HEMOGLOBIN 12.4 g/dL (14.0-18.0); LYMPHOCYTES # (AUTO) 1.9 (1.0-3.2); LYMPHOCYTES % 19.2 % (18.0-39.1); MEAN CORPUSCULAR HEMOGLOBIN 30.4 pg (28-32); MEAN CORPUSCULAR HGB CONC 32.6 g/dL (31-35); MEAN CORPUSCULAR VOLUME 93.1 fL (81-99); MONOCYTES # (AUTO) 1.2 (0.2-0.8); MONOCYTES % 12.3 % (4.4-11.3); NEUTROPHILS # (AUTO) 6.4 (2.1-6.9); NEUTROPHILS % 66.8 % (38.7-80.0); PLATELET COUNT 231 x10e3/uL (140-360); RED BLOOD COUNT 4.08 x10e6/uL (4.3-5.7); RED CELL DISTRIBUTION WIDTH 13.8 % (11.7-14.4)
[2019-05-17 05:46] LABS: ANION GAP 13.8 mmol/L (8-16); CALCIUM 9.2 mg/dL (8.4-10.2); CREATININE, SERUM 1.38 mg/dL (0.72-1.25); POTASSIUM 3.8 mmol/L (3.5-5.1)
--- NOTE | 2019-05-17 06:53 | Progress Note ---
DATE: 05/16/2019 SUBJECTIVE: Mr. Linda who is remains in medical floor, doing better. He is feeling better. OBJECTIVE: VITAL SIGNS: Stable. There is no fever since admission. HEENT: Not icteric. CHEST: Clear bilateral. HEART: S1, S2. No S3, S4 or murmurs. ABDOMEN: Soft. Bowel sounds present. No tenderness. EXTREMITIES: No edema. SKIN: No rash. His COVID-19 is still pending. IMPRESSION: 1. Pulmonary edema. 2. Acute on chronic congestive heart failure. His COVID-19 still pending. 3. Influenza A and B are negative. 4. Acute on chronic kidney disease, stable. Creatinine is 1.25. He is currently on Rocephin and azithromycin. I think mainly his issue is congestive heart failure, probably could be discharged home soon. We will discuss with the medical team. MD STEPH Suárez/KRZYSZTOF /[id number]
--- NOTE | 2019-05-17 07:00 | NUR ---
bedside report received pt in stable condition, denies pain at this time, updated on poc voiced understanding, call light in reach will continue to monitor
[2019-05-17] MEDS: INSULIN REGULAR, HUMAN 100 UNIT/1 ML 3ML VIAL SQ SCH ×2 (07:30→11:30)
[2019-05-17 08:00] VITALS: BP 146/77
[2019-05-17 10:45] VITALS: BP 146/77
[2019-05-17] MEDS: BENZONATATE 100 MG CAP PO SCH (10:45)
[2019-05-17] MEDS: FUROSEMIDE INJ 10 MG/ML 4 ML VIAL IV SCH (10:45)
[2019-05-17] MEDS: CARVEDILOL 12.5 MG TAB PO SCH (10:45)
[2019-05-17 12:00] VITALS: BP 125/66
--- NOTE | 2019-05-17 13:01 | Diagnostic Imaging Report ---
EXAMINATION: CHEST SINGLE (PORTABLE) INDICATION: ^Pneumonia ^[id number] ^1210 COMPARISON: Chest radiograph 05/15/2019 FINDINGS: AP view TUBES and LINES: 2-lead ICD device overlying the left upper chest with leads overlying the right atrial appendage and right ventricle, unchanged. LUNGS: Lungs are well inflated. Stable bilateral interstitial edema and right lower lobe consolidation. No new consolidations. PLEURA: Small right pleural effusion. HEART AND MEDIASTINUM: Stable enlargement of the cardiac silhouette.. BONES AND SOFT TISSUES: No acute osseous lesion. Soft tissues are unremarkable. UPPER ABDOMEN: No free air under the diaphragm. IMPRESSION: Stable bilateral interstitial edema and small right pleural effusion. More confluent airspace opacity in the right lower lobe likely loculated edema but cannot exclude overlying pneumonia. Continue to follow-up. Signed by: Dr. Stacey Mccartney M.D. on 05/17/2019 12:58 PM
--- NOTE | 2019-05-17 14:15 | Progress Note ---
DATE: SUBJECTIVE: Mr. Linda is feeling better. No new complaint. His COVID-19 test came back negative. He is happy about it. Discussed with Internal Medicine. REVIEW OF SYSTEMS: HEENT: Negative. PULMONARY: Negative. CARDIAC: Negative. His review of systems otherwise unremarkable. LABORATORY DATA: White count is 9.6, hemoglobin 12.4. His sodium 139, potassium 3.8. PHYSICAL EXAMINATION: GENERAL: He is currently alert, oriented, does not seem to be in acute distress. VITALS: Stable, currently afebrile. HEENT: Not icteric. NECK: Supple. CHEST: Clear. COR: S1, S2. ABDOMEN: Soft. IMPRESSION: Acute on chronic congestive heart failure, seems to be better. From Infectious Disease point of view, the patient could be discharged home to remain social distances and to cover his face with a homemade mask for the next couple of weeks. Follow up with me in 2 weeks. He is to call me if he have fever or worsening shortness of breath. Discussed with the medical team. MD STEPH Suárez/KRZYSZTOF /[id number]
--- NOTE | 2019-05-17 14:50 | NUR ---
PT WHEELED OUT TO FAMILY CAR SEE DISCHARGE NOTED, PT INSTRUCTED TO STAY AT HOME FOR 2 WEEKS AND WEAR MASK, PT TO FOLLOW UP WITH DR REYNOLDS IN 2 WEEKS FOR RETURN TO WORK SLIP, PT VOICED UNDERSTANDING, PT LEFT IN STABLE CONDITION WITH ALL BELONGINGS
--- NOTE | 2019-05-17 15:31 | NUR ---
PULMONARY MEDICINE DATE 05/17/19 SUBJECTIVE: RA fio2 sob better mildly again walked REVIEW OF SYSTEMS: no headaches, no rash OBJECTIVE: VITAL SIGNS: vitals reviewed per the chart record. GENERAL: no acute distress. Alert, slightly pale and weak, but talking. HEENT: Normocephalic, atraumatic. NECK: Supple. Throat midline. LUNGS: Bilateral air entry, decreased breath sounds at bases. CARDIOVASCULAR: S1, S2. No murmurs, rubs, or gallops. ABDOMEN: Soft, nontender. EXTREMITIES: No clubbing. No cyanosis. trace edema. INTEGUMENT: No rash, no purpura. LABORATORY DATA: cr 1.38. IMPRESSION AND PLAN: 1. Community-acquired pneumonia. 2. Suggesting associated fluid overload. BNP 890. 3. Acute on chronic systolic congestive heart failure. 4. Chronic kidney disease. 5. Coronary artery disease, status post percutaneous coronary intervention in 2018. 6. Diabetes. 7. Hypertension. 8. Hyperlipidemia. 9. Obstructive sleep apnea, not on therapy. 10. Mild decrease exertional capacity, walks 2 blocks at baseline. 11. 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 12. History of environmental exposure, COVID-19 pandemic in community. tfts normal Continue diuretics Continue antibiotics Mobilize early February 2018 echocardiogram with LVEF 20-25%. Follow if repeat necessary Intermittent CXR until clear. possible home today if he continues to improve Thank you very much, Dr. Avelar for this consult. Please call for questions.
== END 2019-05-17 15:26 | disposition home or self-care (01) | DRG 177 ==
LOC: ER 18:36 → ERHOLD 19:51 → IMCU 22:45 → OBSVTOIN 05-15 09:46
DX: J69.0 Pneumonitis due to inhalation of food and vomit (principal); I50.23 Acute on chronic systolic (congestive) heart failure; I13.0 Hypertensive heart and chronic kidney disease with heart failure and stage 1 through stage 4 chronic kidney disease, or unspecified chronic kidney disease; N17.9 Acute kidney failure, unspecified; E78.5 Hyperlipidemia, unspecified; I25.10 Atherosclerotic heart disease of native coronary artery without angina pectoris; Z95.5 Presence of coronary angioplasty implant and graft; G47.33 Obstructive sleep apnea (adult) (pediatric); E11.22 Type 2 diabetes mellitus with diabetic chronic kidney disease; N18.3 Chronic kidney disease, stage 3 (moderate); Z79.84 Long term (current) use of oral hypoglycemic drugs; Z20.828 Contact with and (suspected) exposure to other viral communicable diseases
CPT/HCPCS: 36415; 71045; 76604; 80048; 80053; 81001; 82550; 82553; 82948; 83518; 83735; 83880; 84436; 84443; 84479; 84484; 85025; 85610; 85730; 87040; 87070; 87086; 87400; 87635; 99284; G0378; J0456; J0696; J1817; J1940

== ENCOUNTER 2019-11-04 10:59 | Observation (INO) | payer BC, MEDICARE, OTHER ==
[~2019-11-04] VITALS: Ht 170.2 cm; Wt 97.2 kg
[~2019-11-04 10:59] MED LIST changes: +AMIODARONE HCL200 MG; +CARVEDILOL12.5 MG PO; +LASIX40 MG PO; +LIPITOR20 MG; +SPIRONOLACTONE25 MG PO; +TESSALON PERLE100 MG
[2019-11-04 11:26] LABS: BASOPHILS % 0.5 % (0.0-1.0); EOSINOPHILS % 0.3 % (0.0-6.0); HEMATOCRIT 38.6 % (38.2-49.6); HEMOGLOBIN 12.3 g/dL (14.0-18.0); LYMPHOCYTES # (AUTO) 1.5 (1.0-3.2); LYMPHOCYTES % 25.3 % (18.0-39.1); MEAN CORPUSCULAR HEMOGLOBIN 29.6 pg (28-32); MEAN CORPUSCULAR HGB CONC 31.9 g/dL (31-35); MEAN CORPUSCULAR VOLUME 92.8 fL (81-99); MONOCYTES # (AUTO) 0.4 (0.2-0.8); MONOCYTES % 7.3 % (4.4-11.3); NEUTROPHILS % 66.1 % (38.7-80.0); PLATELET COUNT 154 x10e3/uL (140-360); RED BLOOD COUNT 4.16 x10e6/uL (4.3-5.7); RED CELL DISTRIBUTION WIDTH 17.9 % (11.7-14.4)
[2019-11-04 11:49] LABS: ALBUMIN 4.2 g/dL (3.5-5.0); ALBUMIN/GLOBULIN RATIO 1.4 (0.8-2.0); ANION GAP 16.4 mmol/L (8-16); CREATININE, SERUM 1.3 mg/dL (0.72-1.25); POTASSIUM 4.4 mmol/L (3.5-5.1)
--- NOTE | 2019-11-04 11:55 | Emergency Department Note ---
History of Present Illnes History of Present Illness Chief Complaint: General Medicine Complaints History of Present Illness This is a 74 year old male Chief Complaint Comment Patient in from home with complaints of abdominal distension, bilateral lower extremity edema, shortness of breath and decreased appetite. Patient denies liver problems or known liver disease as well as heavy alcohol abuse. 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 Any updates have been documented here. Past Medical History Recent Fever: No Clinical Suspicion of Infectio: No New/Unexplained Change in Ment: No Past Medical History: Hypertension, Diabetes, CHF, Chronic Kidney Disease Past Surgical History: None Other Last Tetanus: UTD Review of Systems Review of Systems Constitutional: Reports no symptoms EENTM: Reports no symptoms Cardiovascular: Reports as per HPI, Reports edema Respiratory: Reports no symptoms Gastrointestinal: Reports as per HPI, Reports other (Swelling) Genitourinary: Reports no symptoms Musculoskeletal: Reports no symptoms Integumentary: Reports no symptoms Neurological: Reports no symptoms Psychological: Reports no symptoms Endocrine: Reports no symptoms Hematological/Lymphatic: Reports no symptoms Physical Exam Related Data Allergies: Coded Allergies: No Known Allergies (Unverified , 01/29/18) Triage Vital Signs Vital Signs Date Time Temp Pulse Resp B/P (MAP) Pulse Ox O2 Delivery O2 Flow Rate FiO2 11/04/19 11:03 97.6 84 16 162/98 100 Room Air Vital signs reviewed: Yes Physical Exam CONSTITUTIONAL Constitutional: Present well-developed, Present well-nourished HENT HENT: Present normocephalic, Present atraumatic, Present oropharynx clear/moist, Present nose normal HENT L/R: Present left ext ear normal, Present right ext ear normal EYES Eyes: Reports PERRL, Reports conjunctivae normal NECK Neck: Present ROM normal PULMONARY Pulmonary: Present effort normal, Present breath sounds normal CARDIOVASCULAR Cardiovascular: Present regular rhythm, Present heart sounds normal, Present capillary refill normal, Present normal rate, Present LLE edema, Present RLE edema GASTROINTESTINAL Abdominal: Present soft, Present nontender, Present bowel sounds normal GENITOURINARY Genitourinary: Present exam deferred SKIN Skin: Present warm, Present dry MUSCULOSKELETAL Musculoskeletal: Present ROM normal NEUROLOGICAL Neurological: Present alert, Present oriented x 3, Present no gross motor or sensory deficits PSYCHOLOGICAL Psychological: Present mood/affect normal, Present judgement normal Results Laboratory Result Diagram: 11/04/19 1116 Laboratory Laboratory Tests Test 11/04/19 11:16 White Blood Count 6.01 x10e3/uL (4.8-10.8) Red Blood Count 4.16 x10e6/uL (4.3-5.7) Hemoglobin 12.3 g/dL (14.0-18.0) Hematocrit 38.6 % (38.2-49.6) Mean Corpuscular Volume 92.8 fL (81-99) Mean Corpuscular Hemoglobin 29.6 pg (28-32) Mean Corpuscular Hemoglobin Concent 31.9 g/dL (31-35) Red Cell Distribution Width 17.9 % (11.7-14.4) Platelet Count 154 x10e3/uL (140-360) Neutrophils (%) (Auto) 66.1 % (38.7-80.0) Lymphocytes (%) (Auto) 25.3 % (18.0-39.1) Monocytes (%) (Auto) 7.3 % (4.4-11.3) Eosinophils (%) (Auto) 0.3 % (0.0-6.0) Basophils (%) (Auto) 0.5 % (0.0-1.0) Neutrophils # (Auto) 4.0 (2.1-6.9) Lymphocytes # (Auto) 1.5 (1.0-3.2) Monocytes # (Auto) 0.4 (0.2-0.8) Eosinophils # (Auto) 0.0 (0.0-0.4) Basophils # (Auto) 0.0 (0.0-0.1) Absolute Immature Granulocyte (auto 0.03 x10e3/uL (0-0.1) Ammonia 33 UG/DL (31-123) Assessment & Plan Medical Decision Making MDM 74-year-old male presents for bilateral lower extremity swelling as well as abdominal swelling. He states he is also short of breath. Examination shows 4+ pitting edema, legs up to the mid abdomen. Vital signs stable, within except limits. Initial differential includes liver failure versus CHF versus dependent edema versus anasarca. Workup shows BNP of 4700. Diagnosis favors CHF exacerbation. He was given 60 mg of IV Lasix and discussed with Dr. Dalton tovar was agreed to admit for CHF exacerbation. Patient is appropriate for transfer to floor. Reassessment Reassessment time: 12:31 Reassessment Well appearing, NAD Assessment & Plan Final Impression: (1) CHF (congestive heart failure) Depart Disposition: ADMITTED Last Vital Signs Date Time Temp Pulse Resp B/P (MAP) Pulse Ox O2 Delivery O2 Flow Rate FiO2 11/04/19 11:03 97.6 84 16 162/98 100 Room Air Home Meds Active Scripts Azithromycin (ZITHROMAX TRI-KI) 500 Mg Tablet, 500 MG PO DAILY for 3 Days, #3 Prov:LISSET CAMPBELL, DO 01/23/18 Acetaminophen With Codeine (TYLENOL WITH CODEINE #3 TABLET) 1 Each Tablet, 300 MG PO Q6H PRN for COUGH, #10 TAB Prov:LISSET CAMPBELL, DO 01/23/18 Reported Medications Atorvastatin Calcium (LIPITOR) 20 Mg Tablet, 20 MG DAILY, #30 TAB 05/15/19 Amiodarone Hcl (AMIODARONE HCL) 200 Mg Tablet, DAILY 05/15/19 Furosemide (LASIX) 40 Mg Tablet, 40 MG PO DAILY, #30 TAB 05/15/19 Carvedilol (CARVEDILOL) 12.5 Mg Tablet, 12.5 MG PO BID, #60 TAB 05/15/19 Glimepiride (GLIMEPIRIDE) 2 Mg Tablet, 2 MG PO DAILY, TAB 05/15/19 Spironolactone (SPIRONOLACTONE) 25 Mg Tablet, 25 MG PO BID, #60 TAB 05/15/19 Benzonatate (TESSALON PERLE) 100 Mg Capsule, 200 TID 05/15/19 Glimepiride (GLIMEPIRIDE) 2 Mg Tablet, 2 MG PO DAILY 08/01/12 EDITH WASHINGTON MD Nov 04, 2019 11:55
[2019-11-04 11:57] LABS: B-TYPE NATRIURETIC PEPTIDE2 4767.1 pg/mL (0-100)
--- NOTE | 2019-11-04 12:16 | Diagnostic Imaging Report ---
EXAM: CHEST SINGLE (PORTABLE) DATE: 11/04/2019 11:35 AM INDICATION: Chest erect, chest pain COMPARISON: 05/15/2019 FINDINGS/IMPRESSION: Left-sided ACD identified in stable position. The trachea is midline. There is persistent opacification of the right lower lung zone which which is favored to represent a combination of small effusion and atelectasis. An underlying airspace process can't be entirely excluded. There is no evidence for pneumothorax. There is stable enlargement of the cardiac silhouette. There is mild prominence of the central pulmonary vasculature which can be seen in setting of edema. No acute osseous abnormality is identified. Signed by: Dr. Domo Gilliland MD on 11/04/2019 12:13 PM
[2019-11-04] MEDS ORDERED: FUROSEMIDE INJ 10 MG/ML 4 ML VIAL IV ONE (12:30)
--- OUTSIDE RECORDS SUMMARY | 2019-11-04 12:43 | XMS REPORT | Continuity of Care Document ---
Author Author [facility] t Organization [facility] Address [address] [place] [address] Phone Unavailable Care Team Providers Care Salt Operator Name Role Phone SHANAE JIM, BRIAN PCP Luther Bean Attphys Unavailable AVELAR, SOUHEKRISTY Attphys Unavailable Dalton WATSON Attphys Unavailable Joy MADISON Attphys Unavailable AVELAR, SOUHEKRISTY Admphys Unavailable Payers Payer Name Policy Type Policy Number Effective Date Expiration Date S dunia Ahuja Medicare [id number] 2018 00:00:00 [facility] Ppo [id number] 2017 00:00:00 [facility] Cdc Review Covid19 [id number] [facility] Medicare A & B [id number] 2012 00:00:00 [facility] Problems Condition Name Condition Details Condition Category Status Onset Date Resolution Date Last Treatment Date Treating Clinician Comments Source Influenza due to influenza virus, type A, human Influenza A Problem Active [facility] Chest pain Chest pain Problem Active [facility] Dyspnea Dyspnea Problem Active [facility] New onset of congestive heart failure New onset of congestiv e heart failure Problem Active [facility] Pneumonia Pneumonia Problem Active [facility] Allergies, Adverse Reactions, Alerts Allergy Name Allergy Type Status Severity Reaction(s) Onset Date Inacti ve Date Treating Clinician Comments Source No Known Allergies DA Active U 2018-05-15 00:00:00 [facility] Medications Ordered Medication Name Filled Medication Name Start Date Stop Da te Current Medication? Ordering Clinician Indication Dosage Frequency Signature (SIG) Comments Components Source Acetaminophen With Codeine (Tylenol With Codeine #3 Ta blet) 1 Each Tablet Acetaminophen With Codeine (Tylenol With Codeine #3 Tablet) 1 Each Tablet 2018-01-23 00:00:00 Yes Ambtra Parrishr Do 300 Every 6 Hours as needed for Cough [facility] Azithromycin (Zithromax Tri-Nathan) 500 Mg Tablet Azithro mycin (Zithromax Tri-Nathan) 500 Mg Tablet 2018-01-23 00:00:00 Yes Ambtra Bethhir Do 500 Daily [facility] Amiodarone Hcl 200 Mg Tablet Amiodarone Hcl 200 Mg Tablet Yes Daily [facility] Atorvastatin Calcium (Lipitor) 20 Mg Tablet Atorvastat in Calcium (Lipitor) 20 Mg Tablet Yes 20 Daily [facility] Benzonatate (Tessalon Perle) 100 Mg Capsule Benzonatat e (Tessalon Perle) 100 Mg Capsule Yes 200 Three Times A Day [facility] Carvedilol 12.5 Mg Tablet Carvedilol 12.5 Mg Tablet Yes 12.5 Twice A Day [facility] Furosemide (Lasix) 40 Mg Tablet Furosemide (Lasix) 40 Mg Tablet Yes 40 Daily [facility] Glimepiride 2 Mg Tablet Glimepiride 2 Mg Tablet Yes 2 Daily [facility] Glimepiride 2 Mg Tablet Glimepiride 2 Mg Tablet Yes 2 Daily [facility] Spironolactone 25 Mg Tablet Spironolactone 25 Mg Tablet Yes 25 Twice A Day [facility] Amlodipine Besylate (Norvasc) 10 Mg Tab, 10 Mg Oral Am lodipine Besylate (Norvasc) 10 Mg Tab, 10 Mg Oral 2018-01-29 00:00:00 No 10 Daily [facility] Bone Health D3 , 2000 Units Oral Bone Health D3 , 2000 Units Ora l 2018-01-29 00:00:00 No 2000 Daily [facility] Carvedilol 25 Mg Tablet, 25 Mg Oral Carvedilol 25 Mg Tablet, 25 Mg Oral 2018-01-29 00:00:00 No 25 Twice A Day [facility] Ubidecarenone (Co Q-10) 300 Mg Capsule, 300 Mg Oral Ub idecarenone (Co Q-10) 300 Mg Capsule, 300 Mg Oral 2018-01-29 00:00:00 No 300 Twice A Day [facility] Vitamin B12 , 1000 Mg Oral Vitamin B12 , 1000 Mg Oral 2017 00:00:00 No 1000 Daily [facility] Hydrochlorothiazide 25 Mg Tablet, 25 Mg Oral Hydrochlo rothiazide 25 Mg Tablet, 25 Mg Oral 2017-01-24 00:00:00 No 25 Daily [facility] Procedures Procedure Date / Time Performed Performing Clinician [facility] e Ultrasound of chest including mediastinum 2019-05-15 00:00:0 0 SOMMER GRIMES [facility] X-ray of chest, two views 2019-05-08 00:00:00 BRIAN AVELAR [facility] Encounters Start Date/Time End Date/Time Encounter Type Admission Type Attendi [facility] Care Department Encounter ID Source 2019-05-15 09:46:00 2019-05-17 15:26:00 Discharged Inpatient 1 JOHNY AVELARKRISTY [facility] [id number] [facility] 2019-05-14 16:30:00 2019-05-14 17:09:00 Departed Emergency Room [facility] [id number] [facility] 2019-05-08 12:40:00 2019-05-08 12:40:00 Registered Clinic 3 BRIAN AVELAR [facility] [id number] [facility] 2018-01-29 16:19:00 2018-02-06 18:05:00 Discharged Inpatient 1 BRIAN AVELAR [facility] [id number] [facility] 2018-01-23 12:53:00 2018-01-23 16:31:00 Departed Emergency Room 1 LISSET WATSON [facility] [id number] [facility] Results Test Description Test Time Test Comments Results Result Comments Source CHEST SINGLE (PORTABLE) 2019-11-04 12:10:00 [facility] [address] [place] [address] Patient Name: SEA COOK MR #: [id number] : 1945 Age/Sex: 74/M Req #: [id number] Adm Physician: Ordered by: Edith Bean MD Report #: [id number] Location: ER Room/Bed: Procedure: [id number] DX/CHEST SINGLE (PORTABLE) Exam Date: 11/04/19 Exam Time: 1135 REPORT STATUS: Signed EXAM: CHEST SINGLE (PORTABLE) DATE: 11/04/2019 11:35 AM INDICATION: Chest erect, chest pain COMPARISON: 05/15/2019 FINDINGS/IMPRESSION: Left-sided ACD identified in stable position. The trachea is midline. There is persistent opacification of the right lower lung zone which which is favored to represent a combination of small effusion and atelectasis. An underlying airspace process can't be entirely excluded. There is no evidence for pneumothorax. There is stable enlargement of the cardiac silhouette. There is mild prominence of the central pulmonary vasculature which can be seen in setting of edema. No acute osseous abnormality is identified. Signed by: Dr. Domo Gilliland MD on 11/04/2019 12:13 PM Dictated By: DOMO GILLILAND MD 12 Transcribed By: SUMEET on 11/04/191212 COPY TO: EDITH BEAN MD CHEST SINGLE (PORTABLE) 2019-05-17 12:56:00 [place] [address] Patient Name: SEA COOK MR #: [id number] : 1945 Age/Sex: 74/M Req #: [id number] Adm Physician: BRIAN AVELAR MD Ordered by: SOMMER GRIMES MD Report #: [id number] Location: [facility] Room/Bed: [place] [address] Procedure: [id number] DX/CHEST SINGLE (PORTABLE) Exam Date: 05/17/19 Exam Time: 1210 REPORT STATUS: Signed EXAMINATION: CHEST SINGLE (PORTABLE) INDICATION: Pneumonia [id number] COMPARISON: Chest radiograph 05/15/2019 FINDINGS: AP view TUBES and LINES: 2-lead ICD device overlying the left upper chest with leads overlying the right atrial appendage and right ventricle, unchanged. LUNGS: Lungs are well inflated. Stable bilateral interstitial edema and right lower lobe consolidation. No new consolidations. PLEURA: Small right pleural effusion. HEART AND MEDIASTINUM: Stable enlargement of the cardiac silhouette.. BONES AND SOFT TISSUES: No acute osseous lesion. Soft tissues are unremarkable. UPPER ABDOMEN: No free air under the diaphragm. IMPRESSION: Stable bilateral interstitial edema and small right pleural effusion. More confluent airspace opacity in the right lower lobe likely loculated edema but cannot exclude overlying pneumonia. Continue to follow-up. Signed by: Dr. Stacey Mccartney M.D. on 05/17/2019 12:58 PM Dictated By: STACEY MCCARTNEY MD 1258 Transcribed By: SUMEET on 05/17/19 1258 COPY TO: SOMMER GRIMES MD, [facility] Coronavirus (PCR) 2019-05-17 12:27:00 Test Item Coronavirus (PCR) (test code = Coronavirus (PCR)) NOT DETECTED NOTD ETECTED SARS-COV-2 (COVID19), HIGHRISK, RT-PCRNegative results do not preclude SARS-CoV- 2 infection and should not be used as the sole basis for patient management deci sions. Negative results must be combined with clinical observations, patient his tory, and epidemiological information. Optimum specimen types and timing for pea k viral levels during infections caused by SARS-CoV-2 have not been determined. Collection of multiple specimens ot types of specimens may be necessary to detec t virus. Improper specimen collection and handling, sequence variability under p rimers/probes, or organism present below the limit of detection may lead to fals e negative results. Positive and negative predictive values of testing are highl y dependent on prevalance. False negative test results are more likely when prev alence is high.The expected result is negative (not detected).The SARS-CoV-2 pema t is intended for the qualitative detection of nucleic acid from SARS-CoV-2 in n asopharyngeal and oropharyngeal swab samples from patients who meet COVID-19 cli nical and or epidemiological criteria. For lower respiratory tract specimens, th e assay is submitted for authoriztion by FDA under an Emergency Use Authorizatio n (EUA). Testing methodology is real time RT-PCR. If received as separate collec tion devices, nasopharygeal and oropharyngeal specimens are combined for analysi s. Additional specimens may be split to a separate accession for analysi and rep orting as this test includes a single unit of service.Test results must be corre lated with clinical presentation and evaluated in the context of other laborator y and epidemiologic data. Test performance can be affected because the epidemiol ogy and clinical spectrum of infection caused by SARS-CoV-2 is not fully known. For example, the optimum types of specimens to collect and when during the cours e of infection these specimens are most likely to contain detectable viral RNA m ay not be known.This test has not been Food and Drug Administration (FDA) cleare d or approved and has been authorized by FDA under an Emergency Use Authorizatio n (EUA). The test is only authorized for the duration of the declaration that ci rcumstances exist justifying the authorization of emergency use of in vitro diag nostic tests for detection and/or diagnosis of SARS-CoV-2 under section 564(b) o f the Act, 21 U.S.C. section 360bbb-3(b)(1), unless the authorization is termina candy or revoked sooner. [facility] are certified under the C linical Laboratory Improvement Amendments of 1988 (CLIA), 42 U.S.C. section 263a , to perform high complexity tests.Specimen sent to [facility] and testing performed by [facility] [address] [place] [address] [phone] Director: Jose Plata M.D.CLIA # [id number] Scott & [facility] IrvingBedside Qyipmqh7777-92-25 08:52:00* Test Item Value Reference Range Interpretation Comments Bedside Glucose (test code = 28954-4) 142 70-120 H Meter ID: [id number] Methodist West HospitalWhite Blood Count 2019-05-17 05:53:00* Test Item Value Reference Range Interpretation Comments White Blood Count (test code = 6690-2) 9.63 4.8-10.8 [facility] IrvingRed Blood Yadtj8305-44-90 05:53:00* Test Item Value Reference Range Interpretation Comments Red Blood Count (test code = 789-8) 4.08 4.3-5.7 L [facility] IrvingHemoglobin2020-04-11 05:53:00* Test Item Value Reference Range Interpretation Comments Hemoglobin (test code = 11745-6) 12.4 14.0-18.0 L [facility] IrvingHematocrit2020-04-11 05:53:00* Test Item Value Reference Range Interpretation Comments Hematocrit (test code = 4544-3) 38.0 38.2-49.6 L [facility] IrvingMean Corpuscular Qkvqbx9526-30-84 05:53:00* Test Item Value Reference Range Interpretation Comments Mean Corpuscular Volume (test code = 787-2) 93.1 81-99 [facility] IrvingMean Corpuscular Zyyfimzncl3314-14-95 05:53:00* Test Item Value Reference Range Interpretation Comments Mean Corpuscular Hemoglobin (test code = 785-6) 30.4 28-32 [facility] IrvingMean Corpuscular Hemoglobin Concent 2019-05-17 05:53:00* Test Item Value Reference Range Interpretation Comments Mean Corpuscular Hemoglobin Concent (test code = 786-4) 32.6 31-35 [facility] IrvingRed Cell Distribution Idiew1457-98-99 05:53:00* Test Item Value Reference Range Interpretation Comments Red Cell Distribution Width (test code = 16798-6) 13.8 11.7 -14.4 [facility] IrvingPlatelet Tmbyf1929-12-05 05:53:00* Test Item Value Reference Range Interpretation Comments Platelet Count (test code = 777-3) 231 140-360 [facility] IrvingNeutrophils (%) (Auto)2019-05-17 05:53:00 * Test Item Value Reference Range Interpretation Comments Neutrophils (%) (Auto) (test code = 25017-0) 66.8 38.7-80.0 [facility] IrvingLymphocytes (%) (Auto)2019-05-17 05:53:00 * Test Item Value Reference Range Interpretation Comments Lymphocytes (%) (Auto) (test code = 736-9) 19.2 18.0-39.1 [facility] IrvingMonocytes (%) (Auto)2019-05-17 05:53:00* Test Item Value Reference Range Interpretation Comments Monocytes (%) (Auto) (test code = 5905-5) 12.3 4.4-11.3 H [facility] IrvingEosinophils (%) (Auto)2019-05-17 05:53:00 * Test Item Value Reference Range Interpretation Comments Eosinophils (%) (Auto) (test code = 713-8) 1.0 0.0-6.0 [facility] IrvingBasophils (%) (Auto)2019-05-17 05:53:00* Test Item Value Reference Range Interpretation Comments Basophils (%) (Auto) (test code = 706-2) 0.4 0.0-1.0 [facility] IrvingIM GRANULOCYTES %2019-05-17 05:53:00* Test Item Value Reference Range Interpretation Comments IM GRANULOCYTES % (test code = IM GRANULOCYTES %) 0.3 0.0- 1.0 [facility] IrvingNeutrophils # (Auto)2019-05-17 05:53:00* Test Item Value Reference Range Interpretation Comments Neutrophils # (Auto) (test code = 751-8) 6.4 2.1-6.9 [facility] IrvingLymphocytes # (Auto)2019-05-17 05:53:00* Test Item Value Reference Range Interpretation Comments Lymphocytes # (Auto) (test code = 41692-7) 1.9 1.0-3.2 [facility] IrvingMonocytes # (Auto)2019-05-17 05:53:00* Test Item Value Reference Range Interpretation Comments Monocytes # (Auto) (test code = 742-7) 1.2 0.2-0.8 H [facility] IrvingEosinophils # (Auto)2019-05-17 05:53:00* Test Item Value Reference Range Interpretation Comments Eosinophils # (Auto) (test code = 711-2) 0.1 0.0-0.4 [facility] IrvingBasophils # (Auto)2019-05-17 05:53:00* Test Item Value Reference Range Interpretation Comments Basophils # (Auto) (test code = 704-7) 0.0 0.0-0.1 [facility] IrvingAbsolute Immature Granulocyte (auto 2019-05-17 05:53:00* Test Item Value Reference Range Interpretation Comments Absolute Immature Granulocyte (auto (pema t code = Absolute Immature Granulocyte (auto) 0.03 0-0.1 [facility] Campusodium Kjhwy4969-34-09 05:48:00* Test Item Value Reference Range Interpretation Comments Sodium Level (test code = 2951-2) 139 136-145 [facility] IrvingPotassium Afevd1575-80-40 05:48:00* Test Item Value Reference Range Interpretation Comments Potassium Level (test code = 2823-3) 3.8 3.5-5.1 [facility] IrvingChloride Nzwda3959-90-31 05:48:00* Test Item Value Reference Range Interpretation Comments Chloride Level (test code = 2075-0) 101 98-107 [facility] IrvingCarbon Dioxide Hvgks4073-66-45 05:48:00* Test Item Value Reference Range Interpretation Comments Carbon Dioxide Level (test code = 2028-9) 28 22-29 [facility] IrvingAnion Adu2366-40-33 05:48:00* Test Item Value Reference Range Interpretation Comments Anion Gap (test code = 97077-6) 13.8 8-16 [facility] IrvingBlood Urea Vzytltyt4923-75-25 05:48:00* Test Item Value Reference Range Interpretation Comments Blood Urea Nitrogen (test code = 3094-0) 28 7-26 H [facility] IrvingCreatinine2020-04-11 05:48:00* Test Item Value Reference Range Interpretation Comments Creatinine (test code = 2160-0) 1.38 0.72-1.25 H [facility] IrvingBUN/Creatinine Fwgvx2916-98-99 05:48:00* Test Item Value Reference Range Interpretation Comments BUN/Creatinine Ratio (test code = 3097-3) 20 6-25 [facility] IrvingEstimat Glomerular Filtration Rate 2019-05-17 05:48:00* Test Item Value Reference Range Interpretation Comments Estimat Glomerular Filtration Rate (test code = 274140017) 51 >60 L Ranges were taken from the National Kidney Disease Education Program and the [facility] literature.Reference ranges:60 or greater: Saboda16-97 ( for 3 consecutive months): Chronic kidney disease 15 or less: Kidney failureBaylor Scott & White Medical Center – IrvingGlucose Xdqxi2417-03-75 05:48:00* Test Item Value Reference Range Interpretation Comments Glucose Level (test code = DKI6687) 106 74-118 [facility] IrvingCalcium Yuusx5323-72-13 05:48:00* Test Item Value Reference Range Interpretation Comments Calcium Level (test code = 93238-4) 9.2 8.4-10.2 [facility] IrvingBlood Kjgpkgm6738-19-89 18:58:00* Test Item Value Reference Range Interpretation Comments Blood Culture (test code = 75322799) NO GROWTH AFTER 48 HOURS [facility] IrvingUrine HLB2542-43-41 09:47:00* Test Item Value Reference Range Interpretation Comments Urine WBC (test code = 5821-4) 6-10 0-5 H [facility] IrvingUrine NJE6120-30-82 09:47:00* Test Item Value Reference Range Interpretation Comments Urine RBC (test code = 82976-1) 6-10 0-5 H [facility] IrvingUrine Rjcjuifb4446-16-75 09:47:00* Test Item Value Reference Range Interpretation Comments Urine Bacteria (test code = 75251-4) FEW NONE [facility] IrvingUrine Epithelial Qruez2310-79-93 09:47:00 * Test Item Value Reference Range Interpretation Comments Urine Epithelial Cells (test code = 60288-9) FEW NONE [facility] IrvingUrine Ulxrj6237-80-36 09:37:00* Test Item Value Reference Range Interpretation Comments Urine Color (test code = 5778-6) YELLOW YELLOW [facility] IrvingUrine Gdrsvjq8474-96-43 09:37:00* Test Item Value Reference Range Interpretation Comments Urine Clarity (test code = 05598-4) CLEAR CLEAR [facility] IrvingUrine Specific Dmmparf5393-90-56 09:37:00 * Test Item Value Reference Range Interpretation Comments Urine Specific Tryon (test code = 5811-5) 1.025 1.010-1.02 5 [facility] IrvingUrine pX3398-79-09 09:37:00* Test Item Value Reference Range Interpretation Comments Urine pH (test code = 92901-7) 5.5 5-7 [facility] IrvingUrine Leukocyte Rmhpgqik4095-64-96 09:37:00* Test Item Value Reference Range Interpretation Comments Urine Leukocyte Esterase (test code = 5799-2) NEGATIVE NEGATIVE [facility] IrvingUrine Bicwqrv7799-16-81 09:37:00* Test Item Value Reference Range Interpretation Comments Urine Nitrite (test code = 46009-0) NEGATIVE NEGATIVE [facility] IrvingUrine Qhfxdaz7753-95-95 09:37:00* Test Item Value Reference Range Interpretation Comments Urine Protein (test code = 5804-0) 1+ NEGATIVE H [facility] Glucose (UA)2019-05-16 09:37:00* Test Item Value Reference Range Interpretation Comments Urine Glucose (UA) (test code = 2349-9) NEGATIVE NEGATIVE [facility] Msahavw0290-10-57 09:37:00* Test Item Value Reference Range Interpretation Comments Urine Ketones (test code = 14600-4) NEGATIVE NEGATIVE [facility] Sioqiqubzdkc5819-51-90 09:37:00* Test Item Value Reference Range Interpretation Comments Urine Urobilinogen (test code = 53519-9) 0.2 0.2-1 [facility] Abacbowck4936-35-97 09:37:00* Test Item Value Reference Range Interpretation Comments Urine Bilirubin (test code = 1978-6) NEGATIVE NEGATIVE [facility] Ozddg4739-14-81 09:37:00* Test Item Value Reference Range Interpretation Comments Urine Blood (test code = 74619-8) TRACE NEGATIVE [facility] Xzvua9725-93-55 05:30:00* Test Item Value Reference Range Interpretation Comments Sodium Level (test code = 2951-2) 139 136-145 [facility] IrvingPotassium Kzyng6597-07-77 05:30:00* Test Item Value Reference Range Interpretation Comments Potassium Level (test code = 2823-3) 3.8 3.5-5.1 [facility] IrvingChloride Ayzwa0161-24-05 05:30:00* Test Item Value Reference Range Interpretation Comments Chloride Level (test code = 2075-0) 102 98-107 [facility] IrvingCarbon Dioxide Ixxqz6030-15-92 05:30:00* Test Item Value Reference Range Interpretation Comments Carbon Dioxide Level (test code = 2028-9) 25 22-29 [facility] IrvingAnion Mow2179-59-61 05:30:00* Test Item Value Reference Range Interpretation Comments Anion Gap (test code = 08325-8) 15.8 8-16 [facility] IrvingBlood Urea Errrzclj8448-25-10 05:30:00* Test Item Value Reference Range Interpretation Comments Blood Urea Nitrogen (test code = 3094-0) 18 7-26 [facility] IrvingCreatinine2020-04-10 05:30:00* Test Item Value Reference Range Interpretation Comments Creatinine (test code = 2160-0) 1.25 0.72-1.25 [facility] IrvingBUN/Creatinine Ouspk9712-54-96 05:30:00* Test Item Value Reference Range Interpretation Comments BUN/Creatinine Ratio (test code = 3097-3) 14 6-25 [facility] IrvingEstimat Glomerular Filtration Rate 2019-05-16 05:30:00* Test Item Value Reference Range Interpretation Comments Estimat Glomerular Filtration Rate (test code = 633988719) 57 >60 L Ranges were taken from the National Kidney Disease Education Program and the [facility] literature.Reference ranges:60 or greater: Bthvsb38-12 ( for 3 consecutive months): Chronic kidney disease 15 or less: Kidney failureBaylor Scott & White Medical Center – IrvingGlucose Rnxhs5647-39-89 05:30:00* Test Item Value Reference Range Interpretation Comments Glucose Level (test code = FQM9077) 107 74-118 [facility] IrvingCalcium Pawmy0749-60-84 05:30:00* Test Item Value Reference Range Interpretation Comments Calcium Level (test code = 26099-7) 9.2 8.4-10.2 [facility] IrvingWhite Blood Viywt5707-16-75 05:06:00* Test Item Value Reference Range Interpretation Comments White Blood Count (test code = 6690-2) 9.24 4.8-10.8 [facility] IrvingRed Blood Ycjjm4014-49-60 05:06:00* Test Item Value Reference Range Interpretation Comments Red Blood Count (test code = 789-8) 4.21 4.3-5.7 L [facility] IrvingHemoglobin2020-04-10 05:06:00* Test Item Value Reference Range Interpretation Comments Hemoglobin (test code = 27667-3) 12.9 14.0-18.0 L [facility] IrvingHematocrit2020-04-10 05:06:00* Test Item Value Reference Range Interpretation Comments Hematocrit (test code = 4544-3) 40.2 38.2-49.6 [facility] Irving[facility] Corpuscular Cykpvu1106-37-59 05:06:00* Test Item Value Reference Range Interpretation Comments Mean Corpuscular Volume (test code = 787-2) 95.5 81-99 [facility] IrvingMean Corpuscular Zfjkxrnnvq1558-96-74 05:06:00* Test Item Value Reference Range Interpretation Comments Mean Corpuscular Hemoglobin (test code = 785-6) 30.6 28-32 [facility] IrvingMean Corpuscular Hemoglobin Concent 2019-05-16 05:06:00* Test Item Value Reference Range Interpretation Comments Mean Corpuscular Hemoglobin Concent (test code = 786-4) 32.1 31-35 [facility] IrvingRed Cell Distribution Wtygk2316-16-05 05:06:00* Test Item Value Reference Range Interpretation Comments Red Cell Distribution Width (test code = 08395-0) 13.8 11.7 -14.4 [facility] IrvingPlatelet Xzelw3086-08-51 05:06:00* Test Item Value Reference Range Interpretation Comments Platelet Count (test code = 777-3) 163 140-360 [facility] IrvingNeutrophils (%) (Auto)2019-05-16 05:06:00 * Test Item Value Reference Range Interpretation Comments Neutrophils (%) (Auto) (test code = 43240-6) 67.4 38.7-80.0 [facility] IrvingLymphocytes (%) (Auto)2019-05-16 05:06:00 * Test Item Value Reference Range Interpretation Comments Lymphocytes (%) (Auto) (test code = 736-9) 19.7 18.0-39.1 [facility] IrvingMonocytes (%) (Auto)2019-05-16 05:06:00* Test Item Value Reference Range Interpretation Comments Monocytes (%) (Auto) (test code = 5905-5) 11.4 4.4-11.3 H [facility] IrvingEosinophils (%) (Auto)2019-05-16 05:06:00 * Test Item Value Reference Range Interpretation Comments Eosinophils (%) (Auto) (test code = 713-8) 0.6 0.0-6.0 [facility] IrvingBasophils (%) (Auto)2019-05-16 05:06:00* Test Item Value Reference Range Interpretation Comments Basophils (%) (Auto) (test code = 706-2) 0.5 0.0-1.0 [facility] IrvingIM GRANULOCYTES %2019-05-16 05:06:00* Test Item Value Reference Range Interpretation Comments IM GRANULOCYTES % (test code = IM GRANULOCYTES %) 0.4 0.0- 1.0 [facility] IrvingNeutrophils # (Auto)2019-05-16 05:06:00* Test Item Value Reference Range Interpretation Comments Neutrophils # (Auto) (test code = 751-8) 6.2 2.1-6.9 [facility] IrvingLymphocytes # (Auto)2019-05-16 05:06:00* Test Item Value Reference Range Interpretation Comments Lymphocytes # (Auto) (test code = 01999-4) 1.8 1.0-3.2 [facility] IrvingMonocytes # (Auto)2019-05-16 05:06:00* Test Item Value Reference Range Interpretation Comments Monocytes # (Auto) (test code = 742-7) 1.1 0.2-0.8 H [facility] IrvingEosinophils # (Auto)2019-05-16 05:06:00* Test Item Value Reference Range Interpretation Comments Eosinophils # (Auto) (test code = 711-2) 0.1 0.0-0.4 [facility] IrvingBasophils # (Auto)2019-05-16 05:06:00* Test Item Value Reference Range Interpretation Comments Basophils # (Auto) (test code = 704-7) 0.1 0.0-0.1 [facility] IrvingAbsolute Immature Granulocyte (auto 2019-05-16 05:06:00* Test Item Value Reference Range Interpretation Comments Absolute Immature Granulocyte (auto (pema t code = Absolute Immature Granulocyte (auto) 0.04 0-0.1 [facility] IrvingBlood Bssgpex2162-98-72 18:58:00* Test Item Value Reference Range Interpretation Comments Blood Culture (test code = 72309072) NO GROWTH AFTER 24 HOURS [facility] IrvingUS CHEST (INCL MEDIASTINUM)2019-05-15 15:18:00 [place] [address] Patient Name: SEA COOK MR #: [id number] : 1945 Age/Sex: 74/M Req #: [id number] Adm Physician: BRIAN AVELAR MD Ordered by: SOMMER GRIMES MD Report #: [id number] Location: [facility] Room/Bed: [place] [address] Procedure: [id number] US/US CHEST (INCL MEDIASTINUM) Exam Date: 05/15/19 Exam Time: 1348 REPORT STATUS: Sig john EXAM: US CHEST (INCL MEDIASTINUM) DATE: 05/15/2019 12:00 AM IN DICATION: Pleural effusion COMPARISON: Chest radiograph from earlier 2019 FINDINGS: Limited sonographic images were obtained of the right ches t with assessment of pleural fluid. There is at most trace pleural fluid prese nt. Not sufficient for diagnostic or therapeutic thoracentesis. IMPRES CHIP: Trace right pleural fluid present. Not sufficient for diagnostic or t herapeutic thoracentesis. Signed by: Dr. Domo Gilliland MD on 05/15/2019 3:2 1 PM Dictated By: DOMO GILLILAND MD 1521 Transcribed By: SUMEET on 05/15/19 1521 COPY TO: SOMMER GRIMES MD, ABI Creatine Kinase [id number] 13:03:00* Test Item Value Reference Range Interpretation Comments Creatine Kinase MB (test code = 77506-2) 1.70 0-5.0 [facility] [id number] 13:03:00* Test Item Value Reference Range Interpretation Comments Troponin I (test code = 47799-0) 0.018 0-0.300 [facility] IrvingCreatine Kinase [id number] 13:03:00* Test Item Value Reference Range Interpretation Comments Creatine Kinase MB (test code = 75901-8) 1.70 0-5.0 [facility] [id number] 13:03:00* Test Item Value Reference Range Interpretation Comments Troponin I (test code = 66843-8) 0.018 0-0.300 [facility] IrvingCreatine Dcwnup4486-79-84 12:20:00* Test Item Value Reference Range Interpretation Comments Creatine Kinase (test code = 2157-6) 46 30-200 [facility] IrvingCreatine Psylhm2241-55-79 12:20:00* Test Item Value Reference Range Interpretation Comments Creatine Kinase (test code = 2157-6) 46 30-200 [facility] IrvingCHEST SINGLE (PORTABLE)2019-05-15 10:49:00 [place] [address] Patient Name: SEA COOK MR #: [id number] : 1945 Age/Sex: 74/M Req #: [id number] Adm Physician: BRIAN AVELAR MD Ordered by: SOMMER GRIMES MD Report #: [id number] Location: [facility] Room/Bed: [place] [address] Procedure: [id number] 8 DX/CHEST SINGLE (PORTABLE) Exam Date: 05/15/19 Robby acosta Time: 1023 REPORT STATUS: Signed EXAM: CHEST SINGLE (PORTABLE) DATE: 05/15/2019 5:00 AM INDICATION: CHF, pneumonia COMPARISON: 05/14/2019 FINDINGS: Left-sided AICD lan ntified in stable position. The trachea is midline. There is prominence of the interstitium and central pulmonary vasculature. There is a stable small ri ght pleural effusion. Again noted are patchy bibasilar opacities which may ref lect atelectasis. There is no evidence for new large focal consolidation or pn eumothorax. The cardiac silhouette remains enlarged. Mediastinal contours a re unremarkable. No acute osseous abnormality is identified. IMPRESSIO N: No significant interval change from 05/14/2019. Small right pleural e ffusion and findings suggestive of interstitial edema. Signed by: Dr. Domo Gilliland MD on 05/15/2019 10:51 AM Dictated By: DOMO GILLILAND MD Electronic ally Signed By: DOMO GILLILAND MD on 05/15/19 1051 Transcribed By: SUMEET on 10/25 1051 COPY TO: SOMMER GRIMES MD, ABIM Free Thyroxine Jkxzt1416-04-74 07:22:00* Test Item Value Reference Range Interpretation Comments Free Thyroxine Index (test code = 84008-6) 2.6102 1.4-3.8 [facility] IrvingThyroxine (T4)2019-05-15 07:22:00* Test Item Value Reference Range Interpretation Comments Thyroxine (T4) (test code = 3026-2) 7.61 4.5-10.9 [facility] IrvingTriiodothyronine (T3) Nwyebf4965-02-28 07:22:00* Test Item Value Reference Range Interpretation Comments Triiodothyronine (T3) Uptake (test code = 3050-2) 34.30 22.5 -37.0 [facility] IrvingThyroid Stimulating Hormone (TSH) 2019-05-15 07:22:00* Test Item Value Reference Range Interpretation Comments Thyroid Stimulating Hormone (TSH) (test code = 31866-0) 1.961 0.350-4.940 [facility] IrvingFree Thyroxine Lqgwq3880-48-23 07:22:00* Test Item Value Reference Range Interpretation Comments Free Thyroxine Index (test code = 45297-9) 2.6102 1.4-3.8 [facility] IrvingThyroxine (T4)2019-05-15 07:22:00* Test Item Value Reference Range Interpretation Comments Thyroxine (T4) (test code = 3026-2) 7.61 4.5-10.9 [facility] IrvingTriiodothyronine (T3) Frdqzk0610-03-90 07:22:00* Test Item Value Reference Range Interpretation Comments Triiodothyronine (T3) Uptake (test code = 3050-2) 34.30 22.5 -37.0 [facility] IrvingThyroid Stimulating Hormone (TSH) 2019-05-15 07:22:00* Test Item Value Reference Range Interpretation Comments Thyroid Stimulating Hormone (TSH) (test code = 59624-9) 1.961 0.350-4.940 [facility] IrvingMagnesium Kuafo6577-25-53 06:58:00* Test Item Value Reference Range Interpretation Comments Magnesium Level (test code = 11339-9) 2.0 1.3-2.1 [facility] IrvingMagnesium Bgeqr8189-54-95 06:58:00* Test Item Value Reference Range Interpretation Comments Magnesium Level (test code = 79247-3) 2.0 1.3-2.1 [facility] IrvingB-Type Natriuretic Pxsjpxw3827-47-61 06:25:00* Test Item Value Reference Range Interpretation Comments B-Type Natriuretic Peptide (test code = 36792-5) 890.9 0-100 H [facility] IrvingB-Type Natriuretic Zffgrsp6290-10-76 06:25:00* Test Item Value Reference Range Interpretation Comments B-Type Natriuretic Peptide (test code = 00937-0) 890.9 0-100 H [facility] IrvingCHEST SINGLE (PORTABLE)2019-05-14 20:29:00 [facility] [address] [place] [address] Patient Name: SEA COOK MR #: [id number] : 1945 Age/Sex: 74/M Req #: [id number] Adm Physician: BRIAN AVELAR MD Ordered by: NELI MUNIZ MD Report #: [id number] Location: [facility] Room/Bed: [place] [address] Procedure: [id number] DX/CHEST SINGLE (PORTABLE) Exam Date: 05/14/19 Exam Time: 1944 REPORT STATUS: Signed EXAMINATION: CHEST SINGLE (PORTABLE) INDICATION: COUGH 2 [id number] COMPARISON: Chest radiograph 05/08/2019 FINDIN GS: AP view TUBES and LINES: Stable 2-lead ICD with leads overlying th e right atrial appendage and right ventricle. LUNGS: Lungs are well infl ated. Bilateral pulmonary edema. Bibasilar atelectasis. PLEURA: Small right pleural effusion. No pneumothorax. HEART AND MEDIASTINUM: Moderate enlargement of the cardiac silhouette, unchanged. Enlarged pulmonary arteries consistent with pulmonary hypertension. BONES AND SOFT TISSUES: No acute osseous lesion. Soft tissues are unremarkable. UPPER ABDOMEN: No free ai r under the diaphragm. IMPRESSION: Interval development of bilateral pulmonary edema and small right pleural effusion. Signed by: Dr. Malorie Mccartney M.D. on 05/14/2019 8:32 PM Dictated By: STACEY MCCARTNEY MD 2 032 Transcribed By: SUMEET on 05/14/192031 COPY TO: NELI MUNIZ MD Aspartate Amino Transf (AST/SGOT)2019-05-14 20:12:00* Test Item Value Reference Range Interpretation Comments Aspartate Amino Transf (AST/SGOT) (test code = Aspartate Amino Transf (AST/SGOT)) 11 [facility] IrvingAlanine Aminotransferase (ALT/SGPT) 2019-05-14 20:12:00* Test Item Value Reference Range Interpretation Comments Alanine Aminotransferase (ALT/SGPT) (test code = 1742-6) 10 0- [facility] IrvingAspartate Amino Transf (AST/SGOT) 2019-05-14 20:12:00* Test Item Value Reference Range Interpretation Comments Aspartate Amino Transf (AST/SGOT) (test code = Aspartate Amino Transf (AST/SGOT)) 11 [facility] IrvingAlanine Aminotransferase (ALT/SGPT) 2019-05-14 20:12:00* Test Item Value Reference Range Interpretation Comments Alanine Aminotransferase (ALT/SGPT) (test code = 1742-6) 10 0-55 [facility] IrvingInfluenza Virus Types A,B Antigen 2019-05-14 19:53:00* Test Item Value Reference Range Interpretation Comments Influenza Virus Types A,B Antigen (test code = 04505-9) NEGATIVE NEGATIVE [facility] IrvingInfluenza Virus Types A,B Antigen 2019-05-14 19:53:00* Test Item Value Reference Range Interpretation Comments Influenza Virus Types A,B Antigen (test code = 74793-7) NEGATIVE NEGATIVE [facility] IrvingGroup A Streptococcus Fjtpva0406-10-09 19:46:00* Test Item Value Reference Range Interpretation Comments Group A Streptococcus Screen (test code = 08436-8) NEGATIVE NEG ATIVE [facility] IrvingGroup A Streptococcus Pkpmbc8145-65-84 19:46:00* Test Item Value Reference Range Interpretation Comments Group A Streptococcus Screen (test code = 69515-3) NEGATIVE NEG ATIVE [facility] IrvingProthrombin Uyte7337-78-25 19:27:00* Test Item Value Reference Range Interpretation Comments Prothrombin Time (test code = 5902-2) 14.3 11.9-14.5 [facility] IrvingProthromb Time International Ratio 2019-05-14 19:27:00* Test Item Value Reference Range Interpretation Comments Prothromb Time International Ratio (test code = 6301-6) 1.05 Oral Anticoagulant Therapy INR Values:1. Low Intensity Therapy 1.5 - 2.02 . Moderate Intensity Therapy 2.0 - 3.03. High Intensity Therapy(1) 2.5 - 3. 54. High Intensity Therapy(2) 3.0 - 4.05. Panic Value INR > 5.0 [facility] IrvingActivated Partial Thromboplast Time 2019-05-14 19:27:00* Test Item Value Reference Range Interpretation Comments Activated Partial Thromboplast Time (test code = 44444-8) 32.0 23.8-35.5 [facility] IrvingProthrombin Gfib3588-15-60 19:27:00* Test Item Value Reference Range Interpretation Comments Prothrombin Time (test code = 5902-2) 14.3 11.9-14.5 [facility] IrvingProthromb Time International Ratio 2019-05-14 19:27:00* Test Item Value Reference Range Interpretation Comments Prothromb Time International Ratio (test code = 6301-6) 1.05 Oral Anticoagulant Therapy INR Values:1. Low Intensity Therapy 1.5 - 2.02 . Moderate Intensity Therapy 2.0 - 3.03. High Intensity Therapy(1) 2.5 - 3. 54. High Intensity Therapy(2) 3.0 - 4.05. Panic Value INR > 5.0 [facility] IrvingActivated Partial Thromboplast Time 2019-05-14 19:27:00* Test Item Value Reference Range Interpretation Comments Activated Partial Thromboplast Time (test code = 58887-9) 32.0 23.8-35.5 [facility] IrvingTotal Qvtlciyyg4389-41-73 19:24:00* Test Item Value Reference Range Interpretation Comments Total Bilirubin (test code = 1974-2) 2.8 0.2-1.2 H [facility] Urkouvj1637-86-74 19:24:00* Test Item Value Reference Range Interpretation Comments Total Protein (test code = 2885-2) 7.1 6.5-8.1 [facility] IrvingAlbumin2020-04-08 19:24:00* Test Item Value Reference Range Interpretation Comments Albumin (test code = 1751-7) 3.5 3.5-5.0 [facility] IrvingGlobulin2020-04-08 19:24:00* Test Item Value Reference Range Interpretation Comments Globulin (test code = 12157-6) 3.6 2.3-3.5 H [facility] IrvingAlbumin/Globulin Mmdag5832-96-03 19:24:00 * Test Item Value Reference Range Interpretation Comments Albumin/Globulin Ratio (test code = 1759-0) 1.0 0.8-2.0 [facility] IrvingAlkaline Jpqrnthzxjj0304-70-71 19:24:00* Test Item Value Reference Range Interpretation Comments Alkaline Phosphatase (test code = 6768-6) 105 40-150 [facility] Nvkqiekis2522-74-25 19:24:00* Test Item Value Reference Range Interpretation Comments Total Bilirubin (test code = 1974-2) 2.8 0.2-1.2 H [facility] Fsrqmat9982-15-63 19:24:00* Test Item Value Reference Range Interpretation Comments Total Protein (test code = 2885-2) 7.1 6.5-8.1 [facility] IrvingAlbumin2020-04-08 19:24:00* Test Item Value Reference Range Interpretation Comments Albumin (test code = 1751-7) 3.5 3.5-5.0 [facility] IrvingGlobulin2020-04-08 19:24:00* Test Item Value Reference Range Interpretation Comments Globulin (test code = 91423-2) 3.6 2.3-3.5 H [facility] IrvingAlbumin/Globulin Ectje9568-13-18 19:24:00 * Test Item Value Reference Range Interpretation Comments Albumin/Globulin Ratio (test code = 1759-0) 1.0 0.8-2.0 [facility] IrvingAlkaline Xifeaznvzsw5143-90-83 19:24:00* Test Item Value Reference Range Interpretation Comments Alkaline Phosphatase (test code = 6768-6) 105 40-150 [facility] IrvingCHEST 2 RAINP7735-11-45 13:40:00 [facility] [address] [place] [address] Patient Name: SEA COOK MR #: [id number] : 1945 Age/Sex: 74/M Req #: [id number] Adm Physician: Ordered by: BRIAN AVELAR MD Report #: [id number] Location: [facility] Room/Bed: Procedure: [id number] D X/CHEST 2 VIEWS Exam Date: 05/08/19 Exam Time: 1257 REPORT STATUS: Signed EXAM: [facility] 2 VIEWS DATE: 05/08/2019 12:00 AM INDICATION: Cough, shortness of b reath COMPARISON: 01/29/2018 FINDINGS: Left-sided dual-lead AICD i dentified in place. The trachea is midline. There are increased right basil ar opacities which may reflect atelectasis and/or trace effusion. There is no evidence for large focal consolidation or pneumothorax. There is a questionabl e nodular opacity identified within the mid left lower lung zone on the fronta l view measuring up to 1.7 cm. The cardiomediastinal mediastinal silhouet te remains prominent. No acute osseous abnormality is identified. IMPR ESSION: Possible nodular opacity identified within the left lower lung zone. C onsider further evaluation with dedicated CT of the chest. Right basilar opacities which may reflect atelectasis and/or trace effusion. No evidence for lobar pneumonia. Signed by: Dr. Domo Gilliland MD on 05/08/2019 1:47 PM Dictated By: DOMO GILLILAND MD 1347 COPY TO: JOHNY AVELAR MD [id number] 08:27:00* Test Item Value Reference Range Interpretation Comments GLUBED (test code = GLUBED) 153 mg/dL 74-106 H Performed by certified operator ground based air defence at [facility] [id number] 20:48:00* Test Item Value Reference Range Interpretation Comments GLUBED (test code = GLUBED) 110 mg/dL 74-106 H Performed by certified operator ground based air defence at [facility] VCFEHR9071-39-91 16:06:00* Test Item Value Reference Range Interpretation Comments GLUBED (test code = GLUBED) 159 mg/dL 74-106 H Performed by certified operator ground based air defence at [facility] [id number] 12:58:00* Test Item Value Reference Range Interpretation Comments GLUBED (test code = GLUBED) 89 mg/dL 74-106 N Performed by certified operator ground based air defence at [facility] - XR CHEST 1 [id number] 11:32:00 FAX: Brian Ortez MD [phone] [place]: B St: REG FAX: Lio Zuniga [phone] Name: SEA COOK [facility] : 1945 Age/S: 73/M [address] Unit #: [id number] Loc: [place] [address] Phys: Lio Segura MD Acct: [id number] Dis Date: Status: REG SDC PHONE #: [phone] Exam Date: 05/17/2018 1112 FAX #: [phone] Reason: ICD EXAMS: CPT CODE: [id number] XR CHEST 1 V 95946 HISTORY: ICD placement. COMPARISON: May 15, 2018. Left ICD with the leads in the right atrium and right ventricle. No pneumothorax. Dependent changes. No infiltrates, effusion or congestion. Moderate cardiomegaly. IMPRESSION: No pneumothorax after left ICD placement with leads in the right atrium and right ventricle. at 1132 Reported and signed by: Wilfred Palomo M.D. CC: Brian Avelar MD; Lio Segura MD Technologist: Shama Pacheco(Bibi) Trnscrd Date/Time/By: 05/17/2018 (1134) : By: [email or web address] Orig Print D/T: S: 05/17/2018 (5981) PAGE 1 Signed Report [id number] 09:22:00* Test Item Value Reference Range Interpretation Comments GLUBED (test code = GLUBED) 126 mg/dL 74-106 H Performed by certified operator ground based air defence at [facility] COMPREHENSIVE METABOLIC [id number] 09:52:00* Test Item Value Reference Range Interpretation Comments SODIUM (test code = NA) 141 mmol/L 136-145 N POTASSIUM (test code = K) 3.9 mmol/L 3.5-5.1 N CHLORIDE (test code = CL) 103.0 mmol/L 98-107 N CARBON DIOXIDE (test code = CO2) 31.0 mmol/L 21-32 N ANION GAP (test code = GAP) 10.9 10-20 N GLUCOSE (test code = GLU) 164 mg/dL 74-106 H BLOOD UREA NITROGEN (test code = BUN) 21 mg/dL 7-18 H GLOMERULAR FILTRATION RATE (test code = GFR) 46 mL/min >=60 Estimated GFR by using Modified MDRD formula.Chronic kidney disease is defined as either kidney damageor GFR <60 mL/min/1.73 m2 for >3 months. CREATININE (test code = CREAT) 1.50 mg/dL 0.7-1.3 H BUN/CREATININE RATIO (test code = BUN/CREA) 14.0 10-20 N TOTAL PROTEIN (test code = PROT) 7.8 gram/dL 6.4-8.2 N ALBUMIN (test code = ALB) 3.9 g/dL 3.4-5.0 N GLOBULIN (test code = GLOB) 3.9 gram/dL 2.7-4.2 N ALBUMIN/GLOBULIN RATIO (test code = A/G) 1.0 0.75-1.50 N CALCIUM (test code = CA) 9.0 mg/dL 8.5-10.1 N BILIRUBIN TOTAL (test code = BILT) 2.10 mg/dL 0.0-1.0 H SGOT/AST (test code = AST) 9 IUnit/L 15-37 L SGPT/ALT (test code = ALT) 18 IUnit/L 12-78 N ALKALINE PHOSPHATASE TOTAL (test code = ALKP) 106 IUnit/L 45-117 N Note change in reference range due to change in reagent. LIPID PROFILE (CORONARY RISK)2018-05-15 09:52:00* Test Item Value Reference Range Interpretation Comments TRIGLYCERIDES (test code = TRIG) 134 mg/dL 20-150 N CHOLESTEROL (test code = CHOL) 90 mg/dL 0-200 N CHOLESTEROL/HDL RATIO (test code = CHOLHDL) 2.0 RATIO 0-4.9 N RISK ASSOCIATED WITH CHOL/HDL RATIOS: Risk Male Female1/2 AVERAGE 3.43 3.27AVERAGE 4.97 4.442X AVERAGE 9.55 7.053X AVERAGE 23.39 11.04 REFERENCE VALUE IS RELATED TO RISK LEVELS ASRECOMMENDED BY THE RACHELL. HEART, LUNG, AND BLOOD INST. HDL CHOLESTEROL (test code = HDL) 36 mg/dL 40-60 L LIPOPROTEIN LDL (test code = LDL) 50 mg/dL 100-129 L Reference Interval: mg/dL mmol/L Optimal <100 <2.6Near/above optimal 100-129 2.6- 3.3Borderline High 130-159 3.4-4.1High 160-189 4.1-4.9Very High >=190 >=4.9========= This LDL result is a direct measurement.========= THYROID STIMULATING [id number] 09:52:00* Test Item Value Reference Range Interpretation Comments THYROID STIMULATING HORMONE (test code = TSH) 3.520 uIU/mL 0.36-3.7 4 N TSH REFERENCE RANGES: EUTHYROID: 0.35 - 4.3 mIU/mL HYPO : > 5.5 mIU/mL HYPER : < 0.35 mIU/mL COMPREHENSIVE METABOLIC [id number] 09:37:00* Test Item Value Reference Range Interpretation Comments SODIUM (test code = NA) 141 mmol/L 136-145 N POTASSIUM (test code = K) 3.9 mmol/L 3.5-5.1 N CHLORIDE (test code = CL) 103.0 mmol/L 98-107 N CARBON DIOXIDE (test code = CO2) mmol/L 21-32 ANION GAP (test code = GAP) 10-20 GLUCOSE (test code = GLU) mg/dL 74-106 BLOOD UREA NITROGEN (test code = BUN) mg/dL 7-18 GLOMERULAR FILTRATION RATE (test code = GFR) mL/min >=60 CREATININE (test code = CREAT) mg/dL 0.7-1.3 BUN/CREATININE RATIO (test code = BUN/CREA) 10-20 TOTAL PROTEIN (test code = PROT) gram/dL 6.4-8.2 ALBUMIN (test code = ALB) g/dL 3.4-5.0 GLOBULIN (test code = GLOB) gram/dL 2.7-4.2 ALBUMIN/GLOBULIN RATIO (test code = A/G) 0.75-1.50 CALCIUM (test code = CA) mg/dL 8.5-10.1 BILIRUBIN TOTAL (test code = BILT) mg/dL 0.0-1.0 SGOT/AST (test code = AST) IUnit/L 15-37 SGPT/ALT (test code = ALT) IUnit/L 12-78 ALKALINE PHOSPHATASE TOTAL (test code = ALKP) IUnit/L 45-117 LIPID PROFILE (CORONARY RISK)2018-05-15 09:37:00* Test Item Value Reference Range Interpretation Comments TRIGLYCERIDES (test code = TRIG) mg/dL 20-150 CHOLESTEROL (test code = CHOL) mg/dL 0-200 CHOLESTEROL/HDL RATIO (test code = CHOLHDL) RATIO 0-4.9 HDL CHOLESTEROL (test code = HDL) mg/dL 40-60 LIPOPROTEIN LDL (test code = LDL) mg/dL 100-129 THYROID STIMULATING [id number] 09:37:00* Test Item Value Reference Range Interpretation Comments THYROID STIMULATING HORMONE (test code = TSH) uIU/mL 0.36-3.7 4 PROTHROMBIN [id number] 09:30:00* Test Item Value Reference Range Interpretation Comments PROTHROMBIN TIME PATIENT (test code = PTP) 11.5 seconds 9.0-14.0 N INTERNATIONAL NORMAL RATIO (test code = INR) 1.0 0.8-1.2 N The therapeutic range for oral anticoagulant therapy formost indications is an international normalized ratio (INR)of between 2.0 and 3.0. The recommended therapeutic INRrange for various clinical situations is listed below: Clinical Situation INR range Pulmonary e mbolism treatment (2.0-3.0)Venous thrombosis treatmentVenous thrombosis prophylaxis (high risk surgery)Prevention of systemic embolism from: Acute myocardial infarction Valvular heart disease Atrial fibrillation Mechanical prosthetic heart valves (2.5-3.5) THROMBOPLASTIN TIME [id number] 09:30:00* Test Item Value Reference Range Interpretation Comments THROMBOPLASTIN TIME PARTIAL (test code = PTT) 35.4 seconds 25.0-36. 5 N CBC W/AUTO LCPT8016-65-66 09:01:00* Test Item Value Reference Range Interpretation Comments WHITE BLOOD CELL (test code = WBC) 8.2 K/mm3 4.5-12.5 N RED BLOOD CELL (test code = RBC) 4.40 mill/mm3 4.0-5.8 N HEMOGLOBIN (test code = HGB) 13.1 gram/dL 13.0-17.5 N HEMATOCRIT (test code = HCT) 42.3 % 42.0-52.0 N MEAN CELL VOLUME (test code = MCV) 96.1 fL 80-98 N MEAN CELL HGB (test code = MCH) 29.8 picogram 27.0-33.0 N MEAN CELL HGB CONCETRATION (test code = MCHC) 31.0 gram/dL 33.0-36. 0 L RED CELL DISTRIBUTION WIDTH (test code = RDW) 14.9 % 11.6-16. 2 N RED CELL DISTRIBUTION WIDTH SD (test code = RDW-SD) 53.8 fL 37 .0-51.0 H PLATELET COUNT (test code = PLT) 207 K/mm3 150-450 N MEAN PLATELET VOLUME (test code = MPV) 10.6 fL 6.7-11.0 N NEUTROPHIL % (test code = NT%) 61.0 % 39.0-69.0 N IMMATURE GRANULOCYTE % (test code = IG%) 0.5 % 0.0-5.0 N LYMPHOCYTE % (test code = LY%) 26.3 % 25.0-55.0 N MONOCYTE % (test code = MO%) 10.7 % 0.0-10.0 H EOSINOPHIL % (test code = EO%) 0.9 % 0.0-5.0 N BASOPHIL % (test code = BA%) 0.6 % 0.0-1.0 N NUCLEATED RBC % (test code = NRBC%) 0.0 % 0-0 N NEUTROPHIL # (test code = NT#) 5.02 K/mm3 1.8-7.7 N IMMATURE GRANULOCYTE # (test code = IG#) 0.04 x10 3/uL 0-0.03 H LYMPHOCYTE # (test code = LY#) 2.16 K/mm3 1.0-5.0 N MONOCYTE # (test code = MO#) 0.88 K/mm3 0-0.8 H EOSINOPHIL # (test code = EO#) 0.07 K/mm3 0.0-0.5 N BASOPHIL # (test code = BA#) 0.05 K/mm3 0.0-0.2 N NUCLEATED RBC # (test code = NRBC#) 0.00 K/mm3 0.0-0.1 N MANUAL DIFF REQUIRED (test code = MDIFF) NO - XR CHEST 2 [id number] 07:31:00 FAX: Brian Ortez MD [phone] [place]: St: PRE FAX: Lio Zuniga [phone] Name: SEA COOK [facility] : 1945 Age/S: 73/M [address] [facility] Unit #: [id number] Loc: [place] [address] Phys: Lio Segura MD Acct: [id number] Dis Date: [facility] PHONE #: [phone] Exam Date: 05/15/2018 0840 FAX #: [phone] Reason: PRE OP EXAMS: CPT CODE: [id number] XR CHEST 2 V 99088 EXAM: Chest x-ray, 2 views; INFORMATION: I50.22; I 2 5.10; preop; FINDINGS: Lungs are clear; infiltrates, edema; no effusions. No pneumothorax. The heart is slightly enlarged. There is a well circumscribed round density projecting over the infra carinal portion of the mediastinum. This has no correlate on the lateral view. IMPRESSION: 1. No signs of active cardiopulmonary disease. 2. Well-circumscribed mediastinal lesion. It is not clear whether this is a cardiac structure or extracardiac mediastinal mass. I recommend a contrast-enhanced CT scan of the chest. at 0731 Reported and signed by: Elias Shell M.D. CC: Brian Avelar MD; Lio Segura MD Technologist: RT Nory(Bibi) Papi rnsdeepti Date/Time/By: 05/15/2018 (0731) : By: ShaniquaW Orig Print D/T: S: 05/15/2018 (0840) PAGE 1 Sign ed Report Stress Test - Treadmill DWER4144-69-32 11:53:00 [place] [address] Patient Name : SEA COOK MR #: [id number] : 1945 Age/Sex: 72/M Adm Physician : BRIAN AVELAR MD Admit Date : 01/29/18 Location : MED/SURG2 Room/Bed : [facility] REPORT: Ca rdiology Report DATE OF STUDY: January 29, 2018 NUCLEAR GATED MYOC ARDIAL PERFUSION SCAN Nuclear gated myocardial perfusion scan performed as per protocol at nuclear medicine lab at [facility]. I supervised and interpreted the stress test. Lexiscan injected 0.4 mg intravenously as stress agent. No evidence of any EKG changes. Patient had abnormal EKG and Cardiolite injected 10.9 mCi for resting protocol and 33 mCi for stress protocol. IMPRESSION: Abnormal nuclear gated myocardial perfus ion scan. Inferoapical ischemia noted. Dilated left ventricle noted. Left ventricular ejection fraction 25%. Dilated ischemic cardiomyopathy, abno rmal nuclear stress test described above. 11: 53 Job#: [id number] TA Signature Date Dictated By: JOHNNA HERNANDEZ MD Transcribed By: SMEDS on 02/08/18 < Electronically signed by JOHNNA HERNANDEZ MD><<Signature on File>>02/20/181911 COPY TO: Bedside Grpszim5069-93-70 16:09:00* Test Item Value Reference Range Interpretation Comments Bedside Glucose (test code = 62796-1) 140 70-120 H Meter ID: [id number] Scott & [facility] – IrvingActivated Clotting Degr4087-87-45 10:29:00* Test Item Value Reference Range Interpretation Comments Activated Clotting Time (test code = BBW2055) 241 Line pull <170 sec or baselinePeripheral and Neuroradiology <400 secAngioplasty 220 secThe [facility] Campusodium Dcwob2946-02-58 07:13:00* Test Item Value Reference Range Interpretation Comments Sodium Level (test code = 2951-2) 136 136-145 [facility] IrvingPotassium Cyzdf0935-53-88 07:13:00* Test Item Value Reference Range Interpretation Comments Potassium Level (test code = 2823-3) 3.6 3.5-5.1 [facility] IrvingChloride Utupj7152-30-03 07:13:00* Test Item Value Reference Range Interpretation Comments Chloride Level (test code = 2075-0) 102 98-107 [facility] IrvingCarbon Dioxide Purjt4291-01-94 07:13:00* Test Item Value Reference Range Interpretation Comments Carbon Dioxide Level (test code = 2028-9) 23 22-29 [facility] IrvingAnion Gao5858-92-41 07:13:00* Test Item Value Reference Range Interpretation Comments Anion Gap (test code = 38743-1) 14.6 8-16 [facility] IrvingBlood Urea Oncchlct3133-39-36 07:13:00* Test Item Value Reference Range Interpretation Comments Blood Urea Nitrogen (test code = 3094-0) 22 7-26 [facility] IrvingCreatinine2018-12-30 07:13:00* Test Item Value Reference Range Interpretation Comments Creatinine (test code = 2160-0) 1.30 0.72-1.25 H [facility] IrvingBUN/Creatinine Awvpa2750-23-69 07:13:00* Test Item Value Reference Range Interpretation Comments BUN/Creatinine Ratio (test code = 3097-3) 17 6-25 [facility] IrvingEstimat Glomerular Filtration Rate 2018-02-03 07:13:00* Test Item Value Reference Range Interpretation Comments Estimat Glomerular Filtration Rate (test code = 016700955) 55 >60 L Ranges were taken from the National Kidney Disease Education Program and the [facility] Foundation literature.Reference ranges:60 or greater: Ubgeah43-35 ( for 3 consecutive months): Chronic kidney disease 15 or less: Kidney failureBaylor Scott & White Medical Center – IrvingGlucose Ondfd0237-53-58 07:13:00* Test Item Value Reference Range Interpretation Comments Glucose Level (test code = KLJ4109) 165 74-118 H [facility] IrvingCalcium Mdjvi7432-78-69 07:13:00* Test Item Value Reference Range Interpretation Comments Calcium Level (test code = 15719-9) 9.1 8.4-10.2 [facility] IrvingProstate Specific Mfkigxp9711-94-10 07:44:00* Test Item Value Reference Range Interpretation Comments Prostate Specific Antigen (test code = 2857-1) 0.6 0.0-4.0 Talib ECLIA methodology.According to the [employer], Serum PSAshould decrease and remain at undetectable levels afterradical prostatectomy. The AUA defines biochemicalrecurrence as an initial PSA value 0.2 ng/mL or grea terfollowed by a subsequent confirmatory PSA value 0.2 ng/mLor greater. Values o btained with different assay methods orkits cannot be used interchangeably. Resu lts cannot beinterpreted as absolute evidence of the presence or absenceof malig nant disease.Performed at: [address] [id number] Director: Dany Carr MD, Phone: [phone] [facility] CenterUS ABDOMEN SWSQBSVQ3114-64-18 13:13:00 [facility] [address] [place] [address] Patient Name: SEA COOK MR #: [id number] : 1945 Age/Sex: 72/M Req #: [id number] Adm Physician: BRIAN AVELAR MD Ordered by: JOHNNA HERNANDEZ MD Report #: [id number] Location: MED/SURG Room/Bed: [facility] Procedure: [id number] US/US ABDOMEN COMPLETE Exam Date: 01/30/18 Exam Time: 0843 REPORT STATUS: Signed Abdominal ultrasound dated 01/30/2018. History: Pain Comparison: <None available>. Discussion: Transverse and longitudinal images of the abdomen were obtained demonstrating a liver of normal size with increased echogenicity measuring 16.7 cm in length. The portal vein is patent with hepatopetal flow and is within normal limits measuring 9 mm in diameter. The common bile duct measures 4 mm in diameter. The gallbladder is normal without evidence of stones, wall thickening or pericholecystic fluid. The sonographic Lombardo's sign was negative. The kidneys are normal in size and echogenicity bilaterally without evidence of hydronephrosis, stones, or mass. The right kidney measures 10.0 x 4.5 x 4.3 cm and the left kidney measures 10.5 x 5.3 x 5.2 cm. There is a right lower pole renal cyst measuring 1.1 cm. The spleen is normal in size and appearance measuring 11.3 cm in length. The pancreas and aorta are insufficiently visualized to evaluate There is no evidence of free fluid. IMPRESSION: 1. Increased echogenicity of the liver without focal mass. 2. Lower pole right renal cyst. Signed by: Dr. Roberto Fletcher DO on 01/30/2018 1:17 PM Dictated By: ROBERTO FLETCHER DO Transcribed By: SUMEET on 01/30/187 COPY TO: JOHNNA HERNANDEZ MD Triglycerides Zoazz3019-24-92 06:57:00* Test Item Value Reference Range Interpretation Comments Triglycerides Level (test code = 2571-8) 142 0-149 [facility] IrvingLDL Ytnushqwfxs9000-97-48 06:57:00* Test Item Value Reference Range Interpretation Comments LDL Cholesterol (test code = 2089-1) 32 60-130 L [facility] IrvingCholesterol Cxxnx0509-99-94 06:38:00* Test Item Value Reference Range Interpretation Comments Cholesterol Level (test code = 2093-3) 93 0-199 Less than 200 mg/dL Low Fkra529 - 239 mg/dL Borderline Jtdj879 m g/dl and greater High Risk [facility] IrvingHDL Fdvvsshipif1851-71-80 06:38:00* Test Item Value Reference Range Interpretation Comments HDL Cholesterol (test code = 2085-9) 33 40-60 L [facility] IrvingCholesterol/HDL Toncx9616-92-23 06:38:00 * Test Item Value Reference Range Interpretation Comments Cholesterol/HDL Ratio (test code = 9830-1) 2.8 3.9-4.7 L [facility] IrvingCreatine Xygerp4099-12-44 06:21:00* Test Item Value Reference Range Interpretation Comments Creatine Kinase (test code = 2157-6) 60 30-200 [facility] IrvingCreatine Kinase GS1120-55-31 06:21:00* Test Item Value Reference Range Interpretation Comments Creatine Kinase MB (test code = 89641-0) 2.20 0-5.0 [facility] IrvingTroponin F9452-15-91 06:21:00* Test Item Value Reference Range Interpretation Comments Troponin I (test code = ZCL0728) 0.173 0-0.300 [facility] IrvingWhite Blood Wubeq7514-27-17 05:40:00* Test Item Value Reference Range Interpretation Comments White Blood Count (test code = 6690-2) 7.61 4.8-10.8 [facility] IrvingRed Blood Vgxym0085-23-84 05:40:00* Test Item Value Reference Range Interpretation Comments Red Blood Count (test code = 789-8) 4.19 4.3-5.7 L [facility] IrvingHemoglobin2018-12-26 05:40:00* Test Item Value Reference Range Interpretation Comments Hemoglobin (test code = 02085-0) 13.2 14.0-18.0 L [facility] IrvingHematocrit2018-12-26 05:40:00* Test Item Value Reference Range Interpretation Comments Hematocrit (test code = 4544-3) 39.3 38.2-49.6 [facility] IrvingMean Corpuscular Ayogpa5572-79-24 05:40:00* Test Item Value Reference Range Interpretation Comments Mean Corpuscular Volume (test code = 787-2) 93.8 81-99 [facility] IrvingMean Corpuscular Mdhznkpfld7475-67-59 05:40:00* Test Item Value Reference Range Interpretation Comments Mean Corpuscular Hemoglobin (test code = 785-6) 31.5 28-32 [facility] IrvingMean Corpuscular Hemoglobin Concent 2018-01-30 05:40:00* Test Item Value Reference Range Interpretation Comments Mean Corpuscular Hemoglobin Concent (test code = 786-4) 33.6 31-35 [facility] IrvingRed Cell Distribution Biqfl2350-30-60 05:40:00* Test Item Value Reference Range Interpretation Comments Red Cell Distribution Width (test code = 67966-9) 14.0 11.7 -14.4 [facility] IrvingPlatelet Fnzjj8744-74-59 05:40:00* Test Item Value Reference Range Interpretation Comments Platelet Count (test code = 777-3) 200 140-360 [facility] IrvingNeutrophils (%) (Auto)2018-01-30 05:40:00 * Test Item Value Reference Range Interpretation Comments Neutrophils (%) (Auto) (test code = 33792-9) 60.8 38.7-80.0 [facility] IrvingLymphocytes (%) (Auto)2018-01-30 05:40:00 * Test Item Value Reference Range Interpretation Comments Lymphocytes (%) (Auto) (test code = 736-9) 26.9 18.0-39.1 [facility] IrvingMonocytes (%) (Auto)2018-01-30 05:40:00* Test Item Value Reference Range Interpretation Comments Monocytes (%) (Auto) (test code = 5905-5) 10.8 4.4-11.3 [facility] IrvingEosinophils (%) (Auto)2018-01-30 05:40:00 * Test Item Value Reference Range Interpretation Comments Eosinophils (%) (Auto) (test code = 713-8) 0.5 0.0-6.0 [facility] IrvingBasophils (%) (Auto)2018-01-30 05:40:00* Test Item Value Reference Range Interpretation Comments Basophils (%) (Auto) (test code = 706-2) 0.7 0.0-1.0 [facility] IrvingIM GRANULOCYTES %2018-01-30 05:40:00* Test Item Value Reference Range Interpretation Comments IM GRANULOCYTES % (test code = IM GRANULOCYTES %) 0.3 0.0- 1.0 [facility] IrvingNeutrophils # (Auto)2018-01-30 05:40:00* Test Item Value Reference Range Interpretation Comments Neutrophils # (Auto) (test code = 751-8) 4.6 2.1-6.9 [facility] IrvingLymphocytes # (Auto)2018-01-30 05:40:00* Test Item Value Reference Range Interpretation Comments Lymphocytes # (Auto) (test code = 89296-2) 2.1 1.0-3.2 [facility] IrvingMonocytes # (Auto)2018-01-30 05:40:00* Test Item Value Reference Range Interpretation Comments Monocytes # (Auto) (test code = 742-7) 0.8 0.2-0.8 [facility] IrvingEosinophils # (Auto)2018-01-30 05:40:00* Test Item Value Reference Range Interpretation Comments Eosinophils # (Auto) (test code = 711-2) 0.0 0.0-0.4 [facility] IrvingBasophils # (Auto)2018-01-30 05:40:00* Test Item Value Reference Range Interpretation Comments Basophils # (Auto) (test code = 704-7) 0.1 0.0-0.1 [facility] IrvingAbsolute Immature Granulocyte (auto 2018-01-30 05:40:00* Test Item Value Reference Range Interpretation Comments Absolute Immature Granulocyte (auto (pema t code = Absolute Immature Granulocyte (auto) 0.02 0-0.1 [facility] IrvingUrine HEY5465-20-00 16:13:00* Test Item Value Reference Range Interpretation Comments Urine WBC (test code = 5821-4) 6-10 0-5 H [facility] IrvingUrine IOL8361-34-29 16:13:00* Test Item Value Reference Range Interpretation Comments Urine RBC (test code = 73937-6) 0-5 0-5 [facility] IrvingUrine Uxjxcyxb1231-67-86 16:13:00* Test Item Value Reference Range Interpretation Comments Urine Bacteria (test code = 36413-9) NONE NONE [facility] IrvingUrine Epithelial Cyclz1367-63-05 16:13:00 * Test Item Value Reference Range Interpretation Comments Urine Epithelial Cells (test code = 46645-7) FEW NONE [facility] IrvingUrine Calcium Oxalate Xdulkupy9278-39-29 16:13:00* Test Item Value Reference Range Interpretation Comments Urine Calcium Oxalate Crystals (test code = 5774-5) MODERATE FE W H [facility] IrvingB-Type Natriuretic Anbehcb2141-45-13 15:39:00* Test Item Value Reference Range Interpretation Comments B-Type Natriuretic Peptide (test code = 57414-3) 1384.9 0-100 H [facility] CenterCHES 2 MYDVN0493-05-29 15:26:00 [facility] [address] [address] Patient Name: SEA COOK MR #: [id number] : 1945 Age/Sex: 72/M Req #: [id number] Adm Physician: Ordered by: NELI MUNIZ MD Report #: [id number] Location: ER Room/Bed: Procedure: [id number] DX/C HEST 2 VIEWS Exam Date: 01/29/18 Exam Time: 1445 REPORT STATUS: Signed EXAMINATION: CHEST 2 VIEWS INDICATION: [id number] COMPARI SON: 01/23/2018 FINDINGS: PA and lateral views TUBES and LINES: None. LUNGS: Lungs are well inflated. Mild bibasilar hazy opacification. PLEURA: No pneumothorax. HEART AND MEDIASTINUM: The cardiomediastinal silhouette is enlarged. BONES AND SOFT TISSUES: No acute osseous le chip. Degenerative changes of thoracic spine. Soft tissues are unremarkable. UPPER ABDOMEN: No free air under the diaphragm. IMPRESSION: Mild bibasilar hazy opacification, representing small effusions/atelectasis. Under lying infiltrate cannot be excluded. Signed by: Dr. Paresh Steen MD on 01/29/2018 3:27 PM Dictated By: PARESH STEEN MD 1527 Transcribed By: SUMEET on 01/29/181526 COPY TO: NELI MUNIZ MD Urine Kmifj2118-90-69 15:13:00* Test Item Value Reference Range Interpretation Comments Urine Color (test code = 5778-6) YELLOW YELLOW [facility] IrvingUrine Ozywrud3068-64-69 15:13:00* Test Item Value Reference Range Interpretation Comments Urine Clarity (test code = 50752-9) CLEAR CLEAR [facility] Specific Lhigvlv4216-69-44 15:13:00 * Test Item Value Reference Range Interpretation Comments Urine Specific Tryon (test code = 5811-5) 1.025 1.010-1.02 5 [facility] IrvingUrine pY4380-40-80 15:13:00* Test Item Value Reference Range Interpretation Comments Urine pH (test code = 98689-7) 6 5-7 [facility] IrvingUrine Leukocyte Nurdlrzy2345-31-10 15:13:00* Test Item Value Reference Range Interpretation Comments Urine Leukocyte Esterase (test code = 5799-2) NEGATIVE NEGATIVE [facility] Sohtghe8421-44-24 15:13:00* Test Item Value Reference Range Interpretation Comments Urine Nitrite (test code = 78971-1) NEGATIVE NEGATIVE [facility] Eycdubz4245-96-72 15:13:00* Test Item Value Reference Range Interpretation Comments Urine Protein (test code = 5804-0) 2+ NEGATIVE H [facility] Glucose (UA)2018-01-29 15:13:00* Test Item Value Reference Range Interpretation Comments Urine Glucose (UA) (test code = 2349-9) 2+ NEGATIVE H [facility] Jxawlyl5137-17-98 15:13:00* Test Item Value Reference Range Interpretation Comments Urine Ketones (test code = 90469-0) NEGATIVE NEGATIVE [facility] Spurkbhoyhoj6077-44-37 15:13:00* Test Item Value Reference Range Interpretation Comments Urine Urobilinogen (test code = 12093-4) 1 0.2-1 [facility] IrvingUrine Kjfnnimgi9255-74-05 15:13:00* Test Item Value Reference Range Interpretation Comments Urine Bilirubin (test code = 1978-6) NEGATIVE NEGATIVE [facility] Jdhht7030-17-82 15:13:00* Test Item Value Reference Range Interpretation Comments Urine Blood (test code = 05095-3) 1+ NEGATIVE H [facility] IrvingMagnesium Qxldz5527-99-80 15:06:00* Test Item Value Reference Range Interpretation Comments Magnesium Level (test code = 43073-2) 2.1 1.3-2.1 [facility] IrvingTotal Mprikohmb0957-28-47 15:06:00* Test Item Value Reference Range Interpretation Comments Total Bilirubin (test code = 1975-2) 4.0 0.2-1.2 H [facility] IrvingAspartate Amino Transf (AST/SGOT) 2018-01-29 15:06:00* Test Item Value Reference Range Interpretation Comments Aspartate Amino Transf (AST/SGOT) (test code = Aspartate Amino Transf (AST/SGOT)) 15 5-34 [facility] IrvingAlanine Aminotransferase (ALT/SGPT) 2018-01-29 15:06:00* Test Item Value Reference Range Interpretation Comments Alanine Aminotransferase (ALT/SGPT) (test code = 1742-6) 23 0-55 [facility] IrvingTotal Wfsxgdr4847-97-18 15:06:00* Test Item Value Reference Range Interpretation Comments Total Protein (test code = 2885-2) 7.5 6.5-8.1 [facility] IrvingAlbumin2018-12-25 15:06:00* Test Item Value Reference Range Interpretation Comments Albumin (test code = 1751-7) 4.0 3.5-5.0 [facility] IrvingGlobulin2018-12-25 15:06:00* Test Item Value Reference Range Interpretation Comments Globulin (test code = 96030-8) 3.5 2.3-3.5 [facility] IrvingAlbumin/Globulin Eizhy6686-90-94 15:06:00 * Test Item Value Reference Range Interpretation Comments Albumin/Globulin Ratio (test code = 1759-0) 1.1 0.8-2.0 [facility] IrvingAlkaline Tuyqwodzhtp2014-41-48 15:06:00* Test Item Value Reference Range Interpretation Comments Alkaline Phosphatase (test code = 6768-6) 77 40-150 [facility] IrvingLipase2018-12-25 15:06:00* Test Item Value Reference Range Interpretation Comments Lipase (test code = 3040-3) 10 8-78 [facility] IrvingProthrombin Pfhq6227-84-22 14:55:00* Test Item Value Reference Range Interpretation Comments Prothrombin Time (test code = 5902-2) 13.6 11.9-14.5 [facility] IrvingProthromb Time International Ratio 2018-01-29 14:55:00* Test Item Value Reference Range Interpretation Comments Prothromb Time International Ratio (test code = 6301-6) 0.95 Oral Anticoagulant Therapy INR Values:1. Low Intensity Therapy 1.5 - 2.02 . Moderate Intensity Therapy 2.0 - 3.03. High Intensity Therapy(1) 2.5 - 3. 54. High Intensity Therapy(2) 3.0 - 4.05. Panic Value INR > 5.0 [facility] IrvingActivated Partial Thromboplast Time 2018-01-29 14:55:00* Test Item Value Reference Range Interpretation Comments Activated Partial Thromboplast Time (test code = 61096-7) 30.3 23.8-35.5 [facility] IrvingCHEST 2 CKOBK5498-01-90 14:54:00 [facility] [address] [place] [address] Patient Name: SEA COOK MR #: [id number] : 1945 Age/Sex: 72/M Req #: [id number] Adm Physician: Ordered by: LISSET WATSON MD Report #: [id number] Location: ER Room/Bed: Procedure: [id number] DX /CHEST 2 VIEWS Exam Date: Exam Time: REPORT STATUS: Signed EXAM: XR CHEST 2 VIEWS DATE: 01/23/2018 1:13 PM INDICATION: Cough COMPARISON: 03/04/2017, no report available FINDINGS: Lines and Tubes: None Heart and Me diastinum: Mildly prominent, stable. Lungs and Pleura: Small pleural effusi ons with minimal bibasilar opacities. Bones and Soft Tissues: No acute find ings. IMPRESSION: 1. Small pleural effusions. 2. Basilar opacitie s could represent atelectasis, edema, or infectious process. Signed by: Noreen Colbert MD on 01/23/2018 2:56 PM Dictated By: EMMANUEL COLBERT MD 55 Transcribed By: Farzad CREWS on 01/23/181455 COPY TO: LISSET WATSON MD Creatine Kinase [id number] 14:20:00* Test Item Value Reference Range Interpretation Comments Creatine Kinase MB (test code = 21206-5) 3.00 0-5.0 [facility] IrvingTroponin [id number] 14:20:00* Test Item Value Reference Range Interpretation Comments Troponin I (test code = KKE6145) 0.036 0-0.300 [facility] Zwhze2222-84-26 14:10:00* Test Item Value Reference Range Interpretation Comments Sodium Level (test code = 2951-2) 138 136-145 [facility] IrvingPotassium Fnjcf4717-13-13 14:10:00* Test Item Value Reference Range Interpretation Comments Potassium Level (test code = 2823-3) 3.6 3.5-5.1 [facility] IrvingChloride Pdaxv7629-19-34 14:10:00* Test Item Value Reference Range Interpretation Comments Chloride Level (test code = 2075-0) 104 98-107 [facility] IrvingInfluenza Virus Types A,B Antigen 2018-01-23 14:10:00* Test Item Value Reference Range Interpretation Comments Influenza Virus Types A,B Antigen (test code = 19182-6) NEGATIVE NEGATIVE [facility] IrvingCarbon Dioxide Tsnnj8903-71-73 14:10:00* Test Item Value Reference Range Interpretation Comments Carbon Dioxide Level (test code = 2028-9) 24 22-29 [facility] IrvingAnion Qhn8857-64-10 14:10:00* Test Item Value Reference Range Interpretation Comments Anion Gap (test code = 96347-6) 13.6 8-16 [facility] IrvingBlood Urea Squyqjnp0600-98-97 14:10:00* Test Item Value Reference Range Interpretation Comments Blood Urea Nitrogen (test code = 3094-0) 16 7-26 [facility] IrvingCreatinine2018-12-19 14:10:00* Test Item Value Reference Range Interpretation Comments Creatinine (test code = 2160-0) 1.41 0.72-1.25 H [facility] IrvingBUN/Creatinine Pbvvk7253-09-48 14:10:00* Test Item Value Reference Range Interpretation Comments BUN/Creatinine Ratio (test code = 3097-3) 11 6- [facility] IrvingEstimat Glomerular Filtration Rate 2018-01-23 14:10:00* Test Item Value Reference Range Interpretation Comments Estimat Glomerular Filtration Rate (test code = 002492591) 50 >60 L Ranges were taken from the National Kidney Disease Education Program and the [facility] literature.Reference ranges:60 or greater: Glgrzb85-49 ( for 3 consecutive months): Chronic kidney disease 15 or less: Kidney failureBaylor [facility] & [facility] – IrvingGlucose Vexbi0593-58-42 14:10:00* Test Item Value Reference Range Interpretation Comments Glucose Level (test code = BLX3498) 235 74-118 H [facility] IrvingCalcium Hqsrp9364-24-18 14:10:00* Test Item Value Reference Range Interpretation Comments Calcium Level (test code = 21028-6) 9.5 8.4-10.2 [facility] IrvingTotal Xslwwysww6601-00-46 14:10:00* Test Item Value Reference Range Interpretation Comments Total Bilirubin (test code = 1975-2) 3.8 0.2-1.2 H [facility] IrvingAspartate Amino Transf (AST/SGOT) 2018-01-23 14:10:00* Test Item Value Reference Range Interpretation Comments Aspartate Amino Transf (AST/SGOT) (test code = Aspartate Amino Transf (AST/SGOT)) 18 5-34 [facility] IrvingAlanine Aminotransferase (ALT/SGPT) 2018-01-23 14:10:00* Test Item Value Reference Range Interpretation Comments Alanine Aminotransferase (ALT/SGPT) (test code = 1742-6) 31 0-55 [facility] IrvingTotal Gydkond9531-47-92 14:10:00* Test Item Value Reference Range Interpretation Comments Total Protein (test code = 2885-2) 7.3 6.5-8.1 [facility] IrvingAlbumin2018-12-19 14:10:00* Test Item Value Reference Range Interpretation Comments Albumin (test code = 1751-7) 3.8 3.5-5.0 [facility] IrvingGlobulin2018-12-19 14:10:00* Test Item Value Reference Range Interpretation Comments Globulin (test code = 43262-1) 3.5 2.3-3.5 [facility] IrvingAlbumin/Globulin Lqwwi0822-07-88 14:10:00 * Test Item Value Reference Range Interpretation Comments Albumin/Globulin Ratio (test code = 1759-0) 1.1 0.8-2.0 [facility] IrvingAlkaline Edmavjazbbe6319-50-58 14:10:00* Test Item Value Reference Range Interpretation Comments Alkaline Phosphatase (test code = 6768-6) 91 40-150 [facility] IrvingCreatine Ozdqay3710-42-86 14:10:00* Test Item Value Reference Range Interpretation Comments Creatine Kinase (test code = 2157-6) 148 30-200 [facility] IrvingInfluenza Virus Types A,B Antigen 2018-01-23 14:10:00* Test Item Value Reference Range Interpretation Comments Influenza Virus Types A,B Antigen (test code = 75407-6) NEGATIVE NEGATIVE [facility] IrvingWhite Blood Kajjh6347-65-18 13:52:00* Test Item Value Reference Range Interpretation Comments White Blood Count (test code = 6690-2) 7.95 4.8-10.8 [facility] IrvingRed Blood Wuqfx3562-98-41 13:52:00* Test Item Value Reference Range Interpretation Comments Red Blood Count (test code = 789-8) 4.17 4.3-5.7 L [facility] IrvingHemoglobin2018-12-19 13:52:00* Test Item Value Reference Range Interpretation Comments Hemoglobin (test code = 05890-9) 13.1 14.0-18.0 L [facility] IrvingHematocrit2018-12-19 13:52:00* Test Item Value Reference Range Interpretation Comments Hematocrit (test code = 4544-3) 39.4 38.2-49.6 [facility] IrvingMean Corpuscular Lpbzes4541-82-20 13:52:00* Test Item Value Reference Range Interpretation Comments Mean Corpuscular Volume (test code = 787-2) 94.5 81-99 [facility] IrvingMean Corpuscular Egqgxzkubv9229-77-11 13:52:00* Test Item Value Reference Range Interpretation Comments Mean Corpuscular Hemoglobin (test code = 785-6) 31.4 28-32 [facility] IrvingMean Corpuscular Hemoglobin Concent 2018-01-23 13:52:00* Test Item Value Reference Range Interpretation Comments Mean Corpuscular Hemoglobin Concent (test code = 786-4) 33.2 31-35 [facility] IrvingRed Cell Distribution Daqum1706-07-15 13:52:00* Test Item Value Reference Range Interpretation Comments Red Cell Distribution Width (test code = 80973-1) 14.2 11.7 -14.4 [facility] IrvingPlatelet Uznlc4682-00-16 13:52:00* Test Item Value Reference Range Interpretation Comments Platelet Count (test code = 777-3) 194 140-360 [facility] IrvingNeutrophils (%) (Auto)2018-01-23 13:52:00 * Test Item Value Reference Range Interpretation Comments Neutrophils (%) (Auto) (test code = 57789-0) 70.8 38.7-80.0 [facility] IrvingLymphocytes (%) (Auto)2018-01-23 13:52:00 * Test Item Value Reference Range Interpretation Comments Lymphocytes (%) (Auto) (test code = 736-9) 19.5 18.0-39.1 [facility] IrvingMonocytes (%) (Auto)2018-01-23 13:52:00* Test Item Value Reference Range Interpretation Comments Monocytes (%) (Auto) (test code = 5905-5) 8.4 4.4-11.3 [facility] IrvingEosinophils (%) (Auto)2018-01-23 13:52:00 * Test Item Value Reference Range Interpretation Comments Eosinophils (%) (Auto) (test code = 713-8) 0.5 0.0-6.0 [facility] IrvingBasophils (%) (Auto)2018-01-23 13:52:00* Test Item Value Reference Range Interpretation Comments Basophils (%) (Auto) (test code = 706-2) 0.5 0.0-1.0 [facility] IrvingIM GRANULOCYTES %2018-01-23 13:52:00* Test Item Value Reference Range Interpretation Comments IM GRANULOCYTES % (test code = IM GRANULOCYTES %) 0.3 0.0- 1.0 [facility] IrvingNeutrophils # (Auto)2018-01-23 13:52:00* Test Item Value Reference Range Interpretation Comments Neutrophils # (Auto) (test code = 751-8) 5.6 2.1-6.9 [facility] IrvingLymphocytes # (Auto)2018-01-23 13:52:00* Test Item Value Reference Range Interpretation Comments Lymphocytes # (Auto) (test code = 83025-8) 1.6 1.0-3.2 [facility] IrvingMonocytes # (Auto)2018-01-23 13:52:00* Test Item Value Reference Range Interpretation Comments Monocytes # (Auto) (test code = 742-7) 0.7 0.2-0.8 [facility] IrvingEosinophils # (Auto)2018-01-23 13:52:00* Test Item Value Reference Range Interpretation Comments Eosinophils # (Auto) (test code = 711-2) 0.0 0.0-0.4 [facility] IrvingBasophils # (Auto)2018-01-23 13:52:00* Test Item Value Reference Range Interpretation Comments Basophils # (Auto) (test code = 704-7) 0.0 0.0-0.1 [facility] IrvingAbsolute Immature Granulocyte (auto 2018-01-23 13:52:00* Test Item Value Reference Range Interpretation Comments Absolute Immature Granulocyte (auto (pema t code = Absolute Immature Granulocyte (auto) 0.02 0-0.1 [facility] IrvingCHEST 2 VIEWS [facility] [address] [address] Patient Name: SEA COOK MR #: [id number] : 1945 Age/Sex: 71/M Req #: [id number] Adm Physician: Ordered by: CHRISTY MADISON MD Report #: [id number] Location: ER Room/Bed: Procedure: [id number] DX/CHEST 2 VIEWS Exam Date : 03/04/17 Exam Time: 1545 REPORT STATUS: Orly d EXAMINATION: PA and lateral views of the chest. COMPARISON: Nikolay garcia 2016 CLINICAL HISTORY: Cough DISCUSSION: Lines/tubes: None. Lungs: The lungs are well inflated and clear. No pneumonia or pulm onary edema. Pleura: There is no pleural effusion or pneumothorax. He art and mediastinum: The cardiomediastinal silhouette is normal. Bones and soft tissues: No acute bony abnormalities. IMPRESSION: No acute c ardiopulmonary abnormalities. Signed by: Susana Ramon on 03/04/2017 4:17 PM Dictated By: ALISIA SELBY MD 16 Transcribed By: SUMEET on 02/06 COPY TO: CHRISTY MADISON MD CHEST SINGLE (PORTABLE) [address] [address] Patient Name: SEA COOK MR #: [id number] : 0 1945 Age/Sex: 71/M Req #: [id number] Adm Physician: BRIAN AVELAR MD Ordered by: PHONG TANG MD Report #: [id number] Loca tion: IMCU Room/Bed: [address] [address] Procedure: [id number] DX/CHEST SINGLE (PORTABLE) Exam Date: 01/23/17 Exam Time: 0500 REPORT STATUS: Signed EXAM: CHEST SINGLE (PORTABLE), AP 1 vi ew DATE: 01/23/2017 7:00 AM Time stamp on exam: 0605 hours INDICATION: Shor tness of breath, history of CHF COMPARISON: AP view of the chest January 22, 2017 FINDINGS: LINES/TUBES: None LUNGS: Persistent airspace opacitie s predominantly in the lung bases, most likely pulmonary edema with atelectasi s. PLEURA: Small to moderate bilateral layering pleural effusions. HE ART AND MEDIASTINUM: Stable mild cardiac enlargement. BONES AND SOFT TISSUE S: No acute findings. IMPRESSION: No interval change. Signed by: Dr. Es Nowak M.D. on 01/23/2017 7:01 AM Dictated By: ES NOWAK MD 0 COPY TO: PHONG TANG MD CHEST SINGLE (PORTABLE) [place] [address] Patient Name: SEA COOK MR #: [id number] : 1945 Age/Sex: 71/M Req #: [id number] Adm Physician: BRIAN AVELAR MD Ordered by: PHONG TANG MD Report #: [id number] Location: [facility] Room/Bed: [address] [address] Procedure: [id number] DX/CHEST SINGLE (PORTABLE) Exam Date: Exam Time: REPORT STATUS: Signed CHEST SINGLE (PORTABLE), 01/22/2017 2:17 AM T echnique: CHEST SINGLE (PORTABLE) Comparison: None available. Clinical histo ry: Shortness of breath Findings: See Impression Impression: 1. Mi ldly enlarged cardiac silhouette. 2. Diffuse bilateral predominantly interstit ial pulmonary opacities, favor edema. 3. No significant effusion appreciated on portable view. Signed by: Dr Franky Vargas MD on 01/22/2017 3:24 AM Dictated By: FRANKY VARGAS MD 3 Transcribed By: SUMEET on 01/22/17323 COPY TO: PHONG MARQUEZ MD
--- NOTE | 2019-11-04 12:55 | Diagnostic Imaging Report ---
CT of the abdomen , without contrast. History: Abdominal distention. Comparison: Abdominal ultrasound from 01/30/2018. Technique: Multidetector CT scanning of the abdomen was performed from without the use of contrast material. Coronal and sagittal multiplanar reformations were obtained. RADIATION DOSE: Total DLP: 523.52 mGy*cm Dose modulation, iterative reconstruction, and/or weight based adjustment of the mA/kV was utilized to reduce the radiation dose to as low as reasonably achievable. FINDINGS: There is a moderate right-sided and small left-sided pleural effusion with associated compressive atelectasis of the lower lobes. Partially visualized pacing leads in coronary atherosclerotic calcifications noted within the heart. There is a moderate volume of ascites present within the abdomen. The liver demonstrates a nodular contour suggestive of cirrhosis. Please note evaluation for focal hepatic lesion is not possible on this noncontrast enhanced examination. The gallbladder is unremarkable without evidence for radiopaque stone. There is no biliary ductal dilatation. The stomach, spleen, pancreas, and bilateral adrenal glands demonstrate an unremarkable noncontrast appearance. The kidneys are normal in size and location. There is no evidence for. Sinuses or hydronephrosis. The visualized portions of the ureters are unremarkable. The abdominal aorta is normal in course and caliber with extensive atherosclerotic calcification within its course and branch vessels. The IVC is normal in caliber. Please note evaluation of bowel is limited without the use of contrast material. The visualized loops of small and large bowel within the abdomen demonstrate no significant abnormalities. There is no intraperitoneal free air visualized within the abdomen. No abnormally enlarged lymph node are identified within the abdomen. The osseous structures demonstrate no evidence for acute fracture or destructive process. Body wall edema noted. IMPRESSION: Limited noncontrast CT of the abdomen demonstrates nodular contour of the liver suggestive of hepatic dysfunction/cirrhosis. Moderate volume of ascites. Moderate right and small left pleural effusions with associated compressive atelectasis. Signed by: Dr. Domo Gilliland MD on 11/04/2019 12:51 PM
[2019-11-04 17:28] VITALS: BP 154/91
--- NOTE | 2019-11-04 17:30 | NUR ---
PT TO THE FLOOR FROM ER. PT'S VITAL WNL. PT DENIES NEEDS AT THIS TIME.
[2019-11-04 17:45] VITALS: BP 154/91
--- NOTE | 2019-11-04 18:55 | NUR ---
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
--- NOTE | 2019-11-04 19:40 | NUR ---
BESIDE SHIFT REPORT RECEIVED FROM DAY RN. PT IS ALERT AND ORIENTED X3. RESPIRATIONS ARE EVEN AND UNLABORED. TELE ON. ENCOURAGED PT TO LIMIT FLUIDS PO. BNP ELEVATED. PT DENIES PAIN. INTERMITENT COUGH NOTED. VOIDING WITHOUT DIFFICULTY. 20 LEFT AC ON. SITE HEALTHY. CALL LIGHT WITHIN REACH. BED IN LOW POSITION.
[2019-11-04 20:00] VITALS: BP 135/89
[2019-11-04] MEDS: ATORVASTATIN 20 MG TAB PO SCH (21:21)
[2019-11-05] VITALS (10 sets, daily range): BP systolic 110–144; BP diastolic 77–94
[2019-11-05 05:58] LABS: BASOPHILS % 0.5 % (0.0-1.0); EOSINOPHILS % 0.3 % (0.0-6.0); HEMATOCRIT 36.1 % (38.2-49.6); HEMOGLOBIN 11.4 g/dL (14.0-18.0); LYMPHOCYTES # (AUTO) 1.4 (1.0-3.2); LYMPHOCYTES % 22.2 % (18.0-39.1); MEAN CORPUSCULAR HEMOGLOBIN 29.5 pg (28-32); MEAN CORPUSCULAR HGB CONC 31.6 g/dL (31-35); MEAN CORPUSCULAR VOLUME 93.5 fL (81-99); MONOCYTES # (AUTO) 0.6 (0.2-0.8); MONOCYTES % 10.1 % (4.4-11.3); NEUTROPHILS # (AUTO) 4.1 (2.1-6.9); NEUTROPHILS % 66.6 % (38.7-80.0); PLATELET COUNT 148 x10e3/uL (140-360); RED BLOOD COUNT 3.86 x10e6/uL (4.3-5.7)
[2019-11-05 06:19] LABS: ANION GAP 15.6 mmol/L (8-16); CALCIUM 8.9 mg/dL (8.4-10.2); CREATININE, SERUM 1.24 mg/dL (0.72-1.25); POTASSIUM 3.6 mmol/L (3.5-5.1)
[2019-11-05] MEDS: SPIRONOLACTONE 25 MG TAB PO SCH ×2 (08:44→16:46)
[2019-11-05] MEDS: GLIMEPIRIDE 2 MG TAB PO SCH (08:44)
[2019-11-05] MEDS ORDERED: FUROSEMIDE 40 MG TAB PO SCH (09:00)
[2019-11-05] MEDS: CARVEDILOL 12.5 MG TAB PO SCH ×2 (09:03→16:47)
--- NOTE | 2019-11-05 10:41 | NUR ---
Attempted to do CHF and DM teaching with patient this am with handouts, the patient education channel and one on one, but patient states he knows about his disease process and takes care of it at home. He states he walks for exercise but could not tell me about his diet.
[2019-11-05 15:55] LABS: INR 1.34; PROTHROMBIN TIME 17.2 seconds (11.9-14.5)
[2019-11-05] MEDS: PIPER-TAZ 3.375 GM 50 ML IV SCH (16:53)
[2019-11-05] MEDS ORDERED: SODIUM CHLORIDE 0.9% 250ML 250 ML ONE (16:56)
[2019-11-05] MEDS ORDERED: AZITHROMYCIN 250MG/NS 100 ML 100 ML IV SCH (17:00)
--- NOTE | 2019-11-05 19:05 | NUR ---
WALKING ROUNDS PERFORMED, RECEIVED PT LAYING SEMI FOWLERS IN BED, AAOX3, RR EVEN AND NON-LABORED, ON ROOM AIR. NO S/SX OF DISTRESS NOTED. LEFT PT LAYING SEMI FOWLERS IN BED, BED IN LOW LOCKED POSITION, SIDE RAILS UPX2, CALL LIGHT AND PHONE WITHIN REACH.
[2019-11-05] MEDS: ATORVASTATIN 20 MG TAB PO SCH (20:33)
[2019-11-06] VITALS: BP 127/85
[2019-11-06] MEDS: PIPER-TAZ 3.375 GM 50 ML IV SCH ×3 (00:16→16:00)
[2019-11-06 04:00] VITALS: BP 140/77
[2019-11-06 06:13] LABS: ALBUMIN 3.5 g/dL (3.5-5.0); ALBUMIN/GLOBULIN RATIO 1.4 (0.8-2.0); ALKALINE PHOSPHATASE 69 IU/L (40-150); ANION GAP 14.7 mmol/L (8-16); BLOOD UREA NITROGEN 17 mg/dL (7-26); BUN/CREATININE RATIO 14 (6-25); CALCIUM 8.5 mg/dL (8.4-10.2); CARBON DIOXIDE 23 mmol/L (22-29); CHLORIDE 104 mmol/L (98-107); CREATININE, SERUM 1.23 mg/dL (0.72-1.25); EST GLOMERULAR FILTRATION RATE 58 ML/MIN (60-); GLUCOSE 60 mg/dL (74-118); POTASSIUM 3.7 mmol/L (3.5-5.1); SODIUM 138 mmol/L (136-145)
[2019-11-06 06:22] LABS: ALANINE AMINOTRANSFERASE < 6 IU/L (0-55)
[2019-11-06 06:38] LABS: BILIRUBIN,DIRECT 0.8 mg/dL (0.0-0.5)
[2019-11-06 08:12] LABS: HEMATOCRIT 36.1 % (38.2-49.6); HEMOGLOBIN 11.5 g/dL (14.0-18.0); MEAN CORPUSCULAR HEMOGLOBIN 29.4 pg (28-32); MEAN CORPUSCULAR HGB CONC 31.9 g/dL (31-35); MEAN CORPUSCULAR VOLUME 92.3 fL (81-99); PLATELET COUNT 133 x10e3/uL (140-360); RED BLOOD COUNT 3.91 x10e6/uL (4.3-5.7); RED CELL DISTRIBUTION WIDTH 17.9 % (11.7-14.4)
[2019-11-06 08:13] LABS: BASOPHILS % 0.4 % (0.0-1.0); EOSINOPHILS % 0.7 % (0.0-6.0); LYMPHOCYTES # (AUTO) 1.3 (1.0-3.2); LYMPHOCYTES % 23.7 % (18.0-39.1); MONOCYTES # (AUTO) 0.5 (0.2-0.8); MONOCYTES % 9.8 % (4.4-11.3); NEUTROPHILS # (AUTO) 3.5 (2.1-6.9); NEUTROPHILS % 65.2 % (38.7-80.0)
[2019-11-06 08:19] VITALS: BP 135/86
--- NOTE | 2019-11-06 08:20 | Diagnostic Imaging Report ---
Exam: CHEST 2 VIEWS Date: 11/06/2019 8:15 AM INDICATION: ^SOB ^[id number] ^0640 Comparison: 11/04/2019 FINDINGS: Lines/Tubes:Left chest wall dual-lead pacemaker is stable. Overlying EKG leads are noted. Lungs:Stable right basilar opacification consistent with a small to moderate right pleural effusion/atelectasis. Negative for pneumothorax. Left lung is clear. Heart/Mediastinum:The cardiomediastinal silhouette is mildly enlarged, stable. Mild central vascular congestion is stable. Bones/Soft Tissues: No acute osseous abnormality. Upper abdomen: Unremarkable. IMPRESSION: Stable exam demonstrating right basilar effusion/atelectasis. Superimposed infection difficult to exclude. Signed by: Cory Vanegas MD on 11/06/2019 8:17 AM
[2019-11-06] MEDS: SPIRONOLACTONE 25 MG TAB PO SCH (08:44)
[2019-11-06] MEDS: GLIMEPIRIDE 2 MG TAB PO SCH (08:44)
[2019-11-06] MEDS: CARVEDILOL 12.5 MG TAB PO SCH (08:45)
[2019-11-06] MEDS ORDERED: FUROSEMIDE INJ 10 MG/ML 4 ML VIAL IV SCH (09:00)
[2019-11-06 09:28] VITALS: BP 135/86
--- NOTE | 2019-11-06 11:13 | NUR ---
Progress Note Note: patient has transferred to Dr Sid Avelar's care from Dr Dalton Avelar Subjective No acute overnight events. Patient is comfortable at this time and asking to go home. Awaiting paracentesis. Physical Exam Vitals: Temp: 97.5FP: 64BP: 135/86RR: 17SpO2 95% General Appearance: The patient is alert, oriented and in no acute distress. Skin: Warm and hydrated without any rash. HEENT: Head is normocephalic, atraumatic. Nontender sinuses. Pupils are equal and reactive. The nares are patent. Oropharynx is moist and clear without lesions. Neck: Supple without lymphadenopathy. No JVD. 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 Normal S1 and S2 without S3/S4. No murmurs, rubs or gallops. Peripheral pulses symmetric +2. Respiratory / Chest: No crackles or wheezes are heard. Symmetric breath sounds. Preserved chest expansion. Abdomen: +distended abdomen, positive for fluid wave; denies tenderness to palpation; unable to assess for organomegaly due to large volume ascites Renal: There is no costovertebral angle tenderness. Extremities: 2+ pitting edema in bilateral lower extremities; otherwise well perfused with full range of motion Neurological: Gross nonfocal. Patient oriented x 3. Cranial nerves II - 12 Grossly intact. DTRs +2. MS: 5/5 globally. Assessment/Plan #Cirrhosis, unspecified #large volume ascites - Large volume ascites causing dyspnea, will likely improve after paracentesis today - paracentesis labs: will need gram stain and culture, cell count and differential, ascites protein (albumin), LDH, and glucose - patient does not drink alcohol; no evidence of stones on CT - further w/u with AFP, hepatitis panel, lipid panel, and iron panel; will need further w/u of cirrhosis outpatient #Lower extremity edema #enlarged cardiac sillhouette - TTE ordered; patient has no known history of heart failure; however presented with BNP >4000 #Right pleural effusion #Community acquired pneumonia? 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
[2019-11-06 11:49] LABS: CHOL/HDL RATIO 2.5 (3.9-4.7)
[2019-11-06 12:02] VITALS: BP 134/76
--- NOTE | 2019-11-06 12:08 | Diagnostic Imaging Report ---
EXAM: US LIVER DATE: 11/06/2019 10:52 AM INDICATION: ^R/O PORTAL VEIN THROMBOSIS ^[id number] ^1052 ^Y COMPARISON: CT dated 11/04/2019 TECHNIQUE: Transverse and longitudinal rodarte scale and color doppler sonographic images of the right upper quadrant were obtained. FINDINGS: LIVER 19.4 cm in the right midclavicular line. Heterogeneous echotexture with nodular contours, no masses. GALLBLADDER No gallbladder wall thickening, distension, stone, or pericholecystic fluid. Negative reported sonographic Lombardo's sign. BILE DUCTS No intra nor extra-hepatic biliary dilation. Common bile duct measures 0.3cm PANCREAS: Visualized portions are normal. RIGHT KIDNEY: 9.9 cm Echogenicity: Normal Collecting System: No hydronephrosis Stones: None Cyst/Mass: None VESSELS: Aorta: Visualized portions are within normal size limits Inferior Vena Cava: Visualized portions are normal Main Portal Vein: 1.0 cm, normal size with hepatopetal flow. FREE FLUID: Small volume ascites is noted. IMPRESSION: 1. Cirrhotic morphology with small volume ascites. 2. Main portal vein is patent with hepatopedal flow. Signed by: Cory Vanegas MD on 11/06/2019 12:05 PM
[2019-11-06 12:11] LABS: FERRITIN 207.58 ng/mL (21.81-274.66)
--- NOTE | 2019-11-06 14:04 | Diagnostic Imaging Report ---
HISTORY : Symptomatic ascites. Technique/findings: Informed written consent was obtained. Discussion of risks, benefits, and alternatives were made with the patient. The patient expressed understanding and agreed to proceed. A universal timeout was performed prior to starting the procedure. Initial ultrasound images demonstrate small volume of ascites. A pocket of fluid was identified in the left lower quadrant of the abdomen. This area was marked. The area was prepped and draped in the usual sterile fashion. 1% lidocaine was applied to the skin and deep soft tissues. Color ultrasound was used to assess for any vessels within the vicinity of the planned trajectory of the one-step, a image was saved. A 5 Yi one-step catheter was inserted and removed from the peritoneal space and approximately 1.75 liters of clear nya fluid was aspirated from the abdomen. Specimens were collected for the lab. There were no immediate complications. Impression: Successful ultrasound guided paracentesis with aspiration of 1.75 liters of fluid. Signed by: Cory Vanegas MD on 11/06/2019 2:00 PM
[2019-11-06 14:32] LABS: BODY FLUID TYPE PERITONEAL
[2019-11-06 14:33] LABS: BODY FLUID APPEARANCE CLOUDY; BODY FLUID COLOR STRAW
[2019-11-06] MEDS ORDERED: LEVOFLOXACIN250 MG PO ×2 (15:17→15:23)
[2019-11-06 15:36] LABS: RBC,BODY FLUID 3940 cells/uL; WBC,BODY FLUID 356 cells/uL
[2019-11-06 16:39] LABS: LYMPHOCYTES,BODY FLUID 22 %; MONO/MACROPHG,BODY FLUID 66 %; NEUTROPHILS,BODY FLUID 12 %
--- NOTE | 2019-11-06 16:43 | NUR ---
Discharge Summary Patient: Miguel Linda Admission date: 11/04/2019 Discharge date: 11/06/2019 Attending physician: Sid Avelar MD Consultation: Shekhar Avelar MD - GI Admitting Diagnosis: dyspnea, lower extremity edema, abdominal distension, Right pleural effusion, community acquired pneumonia Discharge Diagnosis: unspecified decompensated cirrhosis, hepatic hydrothorax - right, large volume ascites, community acquired pneumonia Procedures: None Hospital Course: Mr Linda is a 74 yo M with PMH significant for non-alcoholic cirrhosis who presented with dyspnea, lower extremity edema, and abdominal distension who as found to have large volume ascites. Patient has been diagnosed in the past with cirrhosis in the outpatient setting but no obvious cause was found yet. He denies drinking alcohol. Imaging confirmed cirrhosis and large volume ascites. He is s/p therapeutic and diagnostic paracentesis on 11/05 with 1.75L removed. Fluid analysis is pending along with further w/u of his ascites. TTE was performed and is pending read. We will follow up all of these results in my clinic. Patient was also seen by Dr Shekhar Avelar and will follow up in his clinic. Prescribed 3 days of 750mg levofloxacin to complete therapy for community acquired pneumonia. Physical Exam Vitals: Temp: 97.5FP: 64BP: 135/86RR: 17SpO2 95% General Appearance: The patient is alert, oriented and in no acute distress. Skin: Warm and hydrated without any rash. HEENT: Head is normocephalic, atraumatic. Nontender sinuses. Pupils are equal and reactive. The nares are patent. Oropharynx is moist and clear without lesions. Neck: Supple without lymphadenopathy. No JVD. 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 Normal S1 and S2 without S3/S4. No murmurs, rubs or gallops. Peripheral pulses symmetric +2. Respiratory / Chest: No crackles or wheezes are heard. Symmetric breath sounds. Preserved chest expansion. Abdomen: +distended abdomen, positive for fluid wave; denies tenderness to palpation; unable to assess for organomegaly due to large volume ascites Renal: There is no costovertebral angle tenderness. Extremities: 2+ pitting edema in bilateral lower extremities; otherwise well perfused with full range of motion Neurological: Gross nonfocal. Patient oriented x 3. Cranial nerves II - 12 Grossly intact. DTRs +2. MS: 5/5 globally. Discharge medications: Levofloxacin 750mg daily x3 days Coreg 12.5mg bid Spironolactone 25mg BID Lasix 40mg daily Atorvastatin 20mg qhs Glimepiride 2mg daily Discharge plan: Condition on discharge: Good Activity: as tolerated Diet: Sodium restricted diet Follow-up: follow-up with Dr Avelar in 1 week, f/u with his network programmer in 1 week Time spent on discharge: 45 minutes
== END 2019-11-06 16:26 | disposition home or self-care (01) ==
LOC: ER 11:18 → ERHOLD 12:40 → INTOOBSV 12:40 → MED/SURG 17:28
DX: K74.60 Unspecified cirrhosis of liver (principal); R18.8 Other ascites; I13.0 Hypertensive heart and chronic kidney disease with heart failure and stage 1 through stage 4 chronic kidney disease, or unspecified chronic kidney disease; I50.9 Heart failure, unspecified; E11.22 Type 2 diabetes mellitus with diabetic chronic kidney disease; N18.2 Chronic kidney disease, stage 2 (mild); Z11.59 Encounter for screening for other viral diseases; Z79.84 Long term (current) use of oral hypoglycemic drugs; J94.8 Other specified pleural conditions; J18.9 Pneumonia, unspecified organism
CPT/HCPCS: 36415 ×3; 49083; 71045; 71046; 74150; 76705; 80048; 80053 ×2; 80061; 82105; 82140; 82248; 82728; 82945; 82948 ×2; 83540; 83880; 84155; 84157; 84466; 84484; 85025 ×3; 85610; 86704; 86706; 86803; 87070; 87205; 87340; 89051; 93005; 93306; 99284; G0378 ×3; J1940 ×2; J2543 ×2; J7050; U0002

== ENCOUNTER 2020-01-05 11:34 | Inpatient (IN) | payer BC, MEDICARE ==
[~2020-01-05] VITALS: Ht 170.2 cm; Wt 84.8 kg
[~2020-01-05 11:34] MED LIST changes: +LEVOFLOXACIN250 MG PO
--- OUTSIDE RECORDS SUMMARY | 2020-01-05 11:47 | XMS REPORT | Clinical Summary ---
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 Default OP ins Active furosemide (LASIX) 40 mg Take 40 mg by 0 tablet mouth 2 (two) times a day. Active lisinopriL (PRINIVIL) 5 Take 5 mg by 0 mg tablet mouth daily. Active carvediloL (COREG) 12.5 Take 12.5 mg 0 MG tablet by mouth 2 (two) times a day with meals. Active amIODarone (PACERONE) 200 Take 200 mg 0 MG tablet by mouth daily. Active spironolactone Take 25 mg by 0 (ALDACTONE) 25 MG tablet mouth daily. 11/10/2019 Discontinued (Stop Taking at Discharge) glimepiride (AMARYL) 2 MG Take 2 mg by 0 tablet mouth daily before breakfast. Active Problems No known active problems Resolved Problems Problem Noted Date Resolved Date Hypoglycemia secondary to sulfonylurea 11/08/2019 11/10/2019 Hypoglycemia 11/08/2019 11/10/2019 Encounters Care Team Description Date Type Specialty 11/08/2019 Travel Garrett Courtney MD Roberts, Nate Pruett, Zamzam Steve MD Bavare, Arusha Amod, MD Hypoglycemia secondary to sulfonylurea, accidental or unintentional, initial encounter (Primary Dx) 11/07/2019 [facility] dicine - Encounter 11/10/2019 after 01/04/2019 Medical History Medical History Date Comments Diabetes mellitus (HCC) Liver damage Pacemaker Hypertension Social History Date Tobacco Use Types Packs/Day Years Used Never Smoker Smokeless Tobacco: Never Used Drinks/Week oz/Week Comments Alcohol Use Not Currently Alcohol Habits Answer Date Recorded How often do you have a drink containing alcohol? Never 11/07/2019 How many drinks containing alcohol do you have on No t asked a typical day when you are drinking? How often do you have six or more drinks on one Not asked occasion? Sex Assigned at Date Recorded Not on file Last Filed Vital Signs Reading Time Taken Comments Vital Sign 133/68 11/10/2019 10:15 AM CDT Blood Pressure 58 11/10/2019 10:15 AM CDT Pulse 36.2 C (97.2 F) 11/10/2019 10:15 AM CDT Temperature 18 11/10/2019 10:15 AM CDT Respiratory Rate 97% 11/10/2019 10:15 AM CDT Oxygen Saturation - - Inhaled Oxygen Concentration 99.8 kg (220 lb) 11/08/2019 5:34 AM CDT Weight 170.2 cm (5' 7") 11/08/2019 5:34 AM CDT Height 34.46 11/08/2019 5:34 AM CDT Body Mass Index Plan of Treatment Health Maintenance Due Date Last Done Comments COLONOSCOPY SCREENING 1997 SHINGLES VACCINES (#1) 1997 65+ PNEUMOCOCCAL VACCINE 2012 (1 of 1 - PPSV23) INFLUENZA VACCINE 09/06/2019 Procedures Comments Procedure Name Priority Date/Time Associated Diag nosis POC GLUCOSE Routine 11/10/2019 6:31 AM CDT IONIZED CALCIUM Routine 11/09/2019 9:20 PM CDT POC GLUCOSE Routine 11/09/2019 8:28 PM CDT POC GLUCOSE Routine 11/09/2019 3:56 PM CDT POC GLUCOSE Routine 11/09/2019 11:31 AM CDT POC GLUCOSE Routine 11/09/2019 10:16 AM CDT POC GLUCOSE Routine 11/09/2019 7:42 AM CDT POC GLUCOSE Routine 11/09/2019 6:18 AM CDT POC GLUCOSE Routine 11/09/2019 3:41 AM CDT MAGNESIUM LEVEL Routine 11/09/2019 3:34 AM CDT IONIZED CALCIUM Routine 11/09/2019 3:34 AM CDT PHOSPHORUS LEVEL Routine 11/09/2019 3:34 AM CDT ESTIMATED GFR Routine 11/09/2019 3:34 AM CDT COMPREHENSIVE METABOLIC Routine 11/09/2019 PANEL 3:34 AM CDT HC COMPLETE BLD COUNT Routine 11/09/2019 W/AUTO DIFF 3:34 AM CDT POC GLUCOSE Routine 11/08/2019 11:31 PM CDT POC GLUCOSE Routine 11/08/2019 9:00 PM CDT POC GLUCOSE Routine 11/08/2019 7:22 PM CDT POC GLUCOSE Routine 11/08/2019 6:25 PM CDT POC GLUCOSE Routine 11/08/2019 5:32 PM CDT POC GLUCOSE Routine 11/08/2019 3:39 PM CDT URINALYSIS SCREEN AND STAT 11/08/2019 MICROSCOPY, WITH REFLEX 3:19 PM CDT TO CULTURE URINE CULTURE STAT 11/08/2019 3:19 PM CDT POC GLUCOSE Routine 11/08/2019 3:05 PM CDT POC GLUCOSE Routine 11/08/2019 2:24 PM CDT POC GLUCOSE Routine 11/08/2019 12:12 PM CDT POC GLUCOSE Routine 11/08/2019 11:02 AM CDT POC GLUCOSE Routine 11/08/2019 10:16 AM CDT POC GLUCOSE Routine 11/08/2019 9:20 AM CDT POC GLUCOSE Routine 11/08/2019 8:45 AM CDT POC GLUCOSE Routine 11/08/2019 6:45 AM CDT POC GLUCOSE Routine 11/08/2019 6:21 AM CDT POC GLUCOSE Routine 11/08/2019 5:51 AM CDT ESTIMATED GFR Routine 11/08/2019 4:56 AM CDT BASIC METABOLIC PANEL Routine 11/08/2019 4:56 AM CDT HC COMPLETE BLD COUNT Routine 11/08/2019 W/AUTO DIFF 4:56 AM CDT HEMOGLOBIN A1C Routine 11/08/2019 4:56 AM CDT POC GLUCOSE Routine 11/08/2019 3:48 AM CDT POC GLUCOSE Routine 11/08/2019 2:49 AM CDT POC GLUCOSE Routine 11/08/2019 2:04 AM CDT COVID-19 QUALITATIVE PCR STAT 11/08/2019 1:36 AM CDT POC GLUCOSE Routine 11/08/2019 1:34 AM CDT POC GLUCOSE Routine 11/08/2019 1:00 AM CDT POC GLUCOSE Routine 11/08/2019 12:24 AM CDT POC GLUCOSE Routine 11/07/2019 11:52 PM CDT XR CHEST 1 VW STAT 11/07/2019 11:45 PM CDT ECG ED PRELIMINARY Routine 11/07/2019 INTERPRETATION 11:23 PM CDT ESTIMATED GFR STAT 11/07/2019 11:23 PM CDT MAGNESIUM LEVEL STAT 11/07/2019 11:23 PM CDT COMPREHENSIVE METABOLIC STAT 11/07/2019 PANEL 11:23 PM CDT HC COMPLETE BLD COUNT STAT 11/07/2019 W/AUTO DIFF 11:23 PM CDT ECG 12-LEAD STAT 11/07/2019 11:17 PM CDT POC GLUCOSE Routine 11/07/2019 11:08 PM CDT after 01/04/2019 Results * POC glucose (11/10/2019 6:31 AM CDT) Only the most recent of 32 results within the time period is included. [facility] POC glucose 110 (H) 65 - 100 mg/dL ABSECON Comment: [facility] Customer Solutions Representative Name: Beena Islas PELICAN Device ID: [id number] HOSPITAL Specimen Blood Performing Organization Address City/[facility] [place] [address] PATHOLOGY AND GENOMIC MEDICINE [address] * Ionized calcium (11/09/2019 9:20 PM CDT) Only the most recent of 2 results within the time period is included. [facility] pH 7.39 [facility] Ionized calcium 1.13 1.11 - 1.32 mmol/L [facility] Specimen Blood Performing Organization Address City/[facility] [place] [address] PATHOLOGY AND GENOMIC MEDICINE [address] * Estimated GFR (11/09/2019 3:34 AM CDT) Only the most recent of 3 results within the time period is included. [facility] Estimated GFR 54 (A) mL/min/1.73 m2 ABSECON Comment: [facility]EL[facility] G1 >=90 Normal or high G2 60-89 Mildly decreased G3a 45-59 Mildly to moderately decreased G3b 30-44 Moderately to severely decreased G4 15-29 Severely decreased G5 <15 Kidney failure The eGFR was calculated using the Chronic Kidney Disease Epidemiology Collaboration (CKD-EPI) equation. Interpretation is based on recommendations of the National Kidney Foundation-Kidney Disease Outcomes Quality Initiative (NKF-KDOQI) published in 2014. Specimen Performing Organization Address City/State/ZIP Code P beck Number [facility] [place] [address] [place] [address] PATHOLOGY AND GENOMIC MEDICINE [facility] [address] [place] [id number] [facility]ITAL * CBC with platelet and differential (11/09/2019 3:34 AM CDT) Only the most recent of 3 results within the time period is included. WBC 7.1 4.2 - 11.0 k/uL [facility] RBC 3.44 (L) 4.04 - 5.86 m/uL [facility] HGB 10.5 (L) 13.0 - 17.3 g/dL [facility] HCT 31.8 (L) 34.0 - 45.0 % [facility] MCV 92.4 80.0 - 98.0 fL [facility] MCH 30.5 27.0 - 34.0 pg [facility] MCHC 33.0 31.5 - 36.5 g/dL [facility] RDW - SD 59.1 (H) 37.0 - 51.0 fL [facility] MPV 12.3 (H) 7.4 - 10.4 fL [facility] Platelet count 101 (L) 150 - 400 k/uL [facility] Nucleated RBC 0.00 /100 WBC [facility] Neutrophils 89.6 (H) 36.0 - 66.0 % [facility] Lymphocytes 8.4 (L) 24.0 - 44.0 % [facility] Monocytes 1.5 0.0 - 6.0 % [facility] Eosinophils 0.0 0.0 - 6.0 % [facility] Basophils 0.1 0.0 - 1.2 % [facility] Immature 0.4 0.0 - 1.0 % [facility] granulocytes [facility] Specimen Blood Performing Organization Address City/[facility] P beck Number [facility] [place] [address] [place] [address] PATHOLOGY AND GENOMIC MEDICINE [facility] [address] [place] [address] * Phosphorus level (11/09/2019 3:34 AM CDT) Phosphorus 3.1 2.4 - 4.5 mg/dL [facility] Specimen Performing Organization Address [facility] P beck Number [facility] [place] [address] [place] [address] PATHOLOGY AND GENOMIC MEDICINE [address] * Magnesium level (11/09/2019 3:34 AM CDT) Only the most recent of 2 results within the time period is included. Magnesium 1.80 1.60 - 2.40 mg/dL [facility] Specimen Blood Performing Organization Address [facility] P beck Number [facility] [place] [address] PATHOLOGY AND GENOMIC MEDICINE [address] * Comprehensive metabolic panel (11/09/2019 3:34 AM CDT) Only the most recent of 2 results within the time period is included. Sodium 136 135 - 150 mEq/L [facility] Potassium 3.6 3.5 - 5.0 mEq/L [facility] Chloride 98 98 - 112 mEq/L [facility] CO2 28 24 - 31 mmol/L [facility] Anion gap 10@ANIO 7 - 15 mEq/L [facility] BUN 18 7 - 18 mg/dL [facility] Creatinine 1.30 (H) 0.70 - 1.20 mg/dL [facility] Glucose 210 (H) 65 - 100 mg/dL [facility] Calcium 8.4 (L) 8.8 - 10.2 mg/dL [facility] Protein 5.6 (L) 6.3 - 8.3 g/dL [facility] Albumin 3.1 (L) 3.5 - 5.0 g/dL [facility] A/G ratio 1.2 0.7 - 3.8 [facility] Alkaline 60 0 - 129 U/L [facility] phosphatase [facility] AST 10 10 - 50 U/L [facility] ALT 5 5 - 50 U/L [facility] Total bilirubin 2.9 (H) 0.2 - 1.2 mg/dL [facility] Specimen Blood Performing Organization Address City/State/ZIP Code P beck Number [facility] [place] [address] [facility] [place] [place] [address] PATHOLOGY AND GENOMIC MEDICINE [facility] [address] [facility] [address] * Urinalysis screen and microscopy, with reflex to culture (11/08/2019 3:19 PM CDT) Specimen site Catheterized [facility] Color, UA Yellow [facility] Appearance, UA Clear [facility] Specific 1.010 1.001 - 1.035 [facility] gravity, [facility] pH, UA 6.0 5.0 - 8.5 [facility] Protein, UA Negative Negative [facility] Glucose, UA Negative Negative [facility] Ketones, UA Negative Negative [facility] Bilirubin, UA Negative Negative [facility] Blood, UA Small (A) Negative [facility] Nitrite, UA Negative Negative [facility] Urobilinogen, 2.0 (A) <2.0 [facility] Leukocyte Negative Negative [facility] esterase, [facility] Epithelial Few /HPF [facility] cells, UA [facility] WBC, UA 1 0 - 1 /HPF [facility] RBC, UA 2 0 - 5 /HPF [facility] Bacteria, UA None seen None seen [facility] Yeast, UA None seen [facility] Yeast with None seen [facility] pseudohyphae, [facility] Specimen Urine Performing Organization Address City/State/ZIP Code P beck Number [facility] [place] [address] [place] [address] PATHOLOGY AND GENOMIC MEDICINE [facility] [address] * Urine culture (11/08/2019 3:19 PM CDT) Urine culture SEE COMMENTComment: ABSECON Bacteriuria screen negative. [facility] Specimen Urine Performing Organization Address City/[facility] P beck Number [facility] [place] [place] [address] [place] [address] PATHOLOGY AND GENOMIC MEDICINE [facility] [address] [place] [address] * Hemoglobin A1c (11/08/2019 4:56 AM CDT) Hemoglobin A1C 5.7 (H) 4.0 - 5.6 % AB[facility]CON Comment: EVANGELICAL HbA1c cutoffs for diagnosing PELICAN diabetes: HOSPITAL 4.0% - 5.6% = normal 5.7% - 6.4% = increased risk for diabetes (prediabetes)9 >=6.5% = diabetes9 Goals for glycemic control (ADA 2016) < 7.0% Target for non adults with diabetes. More or less stringent targets may be appropriate for individual patients. <7.5% Target for Children and adolescents with type 1 diabetes. Specimen Blood Performing Organization Address City/[facility] P beck Number [facility] [place] [address] [place] [address] PATHOLOGY AND GENOMIC MEDICINE [facility] [address] * Basic metabolic panel (11/08/2019 4:56 AM CDT) Sodium 142 135 - 150 mEq/L [facility] Potassium 3.4 (L) 3.5 - 5.0 mEq/L [facility] Chloride 101 98 - 112 mEq/L [facility] CO2 33 (H) 24 - 31 mmol/L [facility] Anion gap 8@ANIO 7 - 15 mEq/L [facility] BUN 17 7 - 18 mg/dL [facility] Creatinine 1.50 (H) 0.70 - 1.20 mg/dL [facility] Glucose 27 (LL) 65 - 100 mg/dL [facility] Comment: EVANGELICAL Results called to and read PELICAN back by __KIAN MORENO RN HOSPITAL at 11/08/2019 05:40 (date/time) by SM__. Calcium 8.7 (L) 8.8 - 10.2 mg/dL [facility] Specimen Blood Performing Organization Address City/[facility]/ZIP Code P beck Number [facility] [place] [address] [place] [address] PATHOLOGY AND GENOMIC MEDICINE [facility] [address] * COVID-19 qualitative PCR (11/08/2019 1:36 AM CDT) Interpretation Negative results do not ARREAGA preclude 2019-nCoV infection [facility] and should not be used as the HOSPITAL sole basis for treatment or other patient management decisions. Negative results must be combined with clinical observations, patient history, and epidemiological information. COVID-19 Not-Detected Not-Detected [facility] qualitative PCR [facility] result HOSPITAL COVID-19 See link below for PDF Lab ABSECON qualitative PCR ReportComment: Case Number: [facility] [id number] [facility]OSPITAL Specimen Nasal swab Performing Organization Address [facility] P beck Number [facility] DEPARTMENT OF [address] [place] [address] PATHOLOGY AND GENOMIC MEDICINE [facility] [address] [place] [address] [facility] * XR Chest 1 Vw (11/07/2019 11:45 PM CDT) Specimen Narrative Performed At EXAMINATION: XR CHEST 1 VW RADIANT CLINICAL HISTORY: syncope COMPARISON: None. IMPRESSION: Moderate enlargement of cardiac silhoue tte. Left cardiac device is in place. Hilar and perihilar infiltrates bilater ally are identified suggestive of moderate vascular congestion/edema. Mul tifocal infection could cause similar appearance. Small right pleural effusio n. No pneumothorax. No acute osseous abnormalities. Mild de generative change of the thoracic spine. Left cardiac device is in satisfactory location. [facility]-[id number] Procedure Note Hm Interface, Radiology Results Incoming - 11/08/2019 12:02 AM CDT EXAMINATION: XR CHEST 1 VW CLINICAL HISTORY: syncope COMPARISON: None. IMPRESSION: Moderate enlargement of cardiac silhouette. Left cardiac device is in place. Hilar and perihilar infiltrates bilaterally are identified suggestive of moderate vascular congestion/edema. Multifocal infection could cause similar appearance. Small right pleural effusion. No pneumothorax. No acute osseous abnormalities. Mild degenerative change of the thoracic spine. Left cardiac device is in satisfactory location. [facility]-[id number] Performing Organization Address City/[facility]/ZIP Code [facility] [address] [place] [address] * ECG ED Preliminary Interpretation - Not an Order (11/07/2019 11:23 PM CDT) Narrative Performed At Garrett Courtney MD 11/08/2019 1:42 PM ECG ED Preliminary Interpretation - Not an Order Performed by: Garrett Courtney MD Authorized by: Garrett Courtney MD ECG reviewed by ED Physician in the abs ence of a bankruptcy processor: yes Interpretation: Interpretation: non-specific Rate: ECG rate: 61 ECG rate assessment: normal Rhythm: Rhythm: sinus rhythm Ectopy: Ectopy: none QRS: QRS axis: Normal QRS intervals: Normal Conduction: Conduction: normal ST segments: ST segments: Non-specific T waves: T waves: non-specific Other findings: Other findings: poor R wave progressi on Comments: Low voltage * ECG 12 lead (11/07/2019 11:17 PM CDT) Ventricular 61 [facility] rate Atrial rate 61 [facility] OK interval 188 [facility] QRSD interval 102 [facility] QT interval 444 [facility] QTC interval 446 [facility] P axis 1 61 [facility] QRS axis 1 11 [facility] T wave axis 162 [facility] EKG impression Sinus rhythm with premature [facility] atrial complexes-Low voltage QRS-Septal infarct , age undetermined-Abnormal ECG-No previous ECGs available- Specimen Narrative Performed At This result has an attachment that is n ot available. 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
--- OUTSIDE RECORDS SUMMARY | 2020-01-05 11:48 | XMS REPORT | Continuity of Care Document ---
Author Author [facility] t Organization [facility] Address [address] [place] [address] Phone Unavailable Care Team Providers Care Hotel Receptionist Name Role Phone SHANAE JIM, MD TORRES PCP Roz JIM, Bobby Tucker Attphys Flynn Mo DO Attphys [phone] Zac JIM, Patricia Antoinesealfonzo Attphys Carlos JIM, Oneyda Bryant Attphys BRIAN JOLLY Attphys Unavailable Dalton WATSON Attphys Unavailable Joy MADISON Attphys Unavailable EDITH MO Admphys Unavailable BRIAN JOLLY Admphys Unavailable Payers Payer Name Policy Type Policy Number Effective Date Expiration Date S [facility] [id number] [id number] 2018 00:00:00 [facility] Medicare [id number] 2018 00:00:00 [facility] Ppo [id number] 2017 00:00:00 [facility] Cdc Review Covid19 [id number] [facility] Medicare A & B [id number] 2012 00:00:00 C [facility] Problems Condition Name Condition Details Condition Category Status Onset Date Resolution Date Last Treatment Date Treating Clinician Comments Source Influenza due to influenza virus, type A, human Influenza A Problem Active [facility] Chest pain Chest pain Problem Active [facility] Dyspnea Dyspnea Problem Active [facility] Congestive heart failure New onset of congestive heart failure Proble m Active [facility] Pneumonia Pneumonia Problem Active [facility] Decompensation of cirrhosis of liver Problem Active [facility] Hypoglycemia Hypoglycemia Disease Resolved 2019-11-08 00:00:00 2 00:00:00 2019-11-10 09:38:16 Gibson Meth odist Allergies, Adverse Reactions, Alerts Allergy Name Allergy Type Status Severity Reaction(s) Onset Date Inacti ve Date Treating Clinician Comments Source No Known Allergies DA Active U 2018-05-15 00:00:00 [facility] Social History Social Habit Start Date Stop Date Quantity Comments Source History SDOH Alcohol Std Drinks Gibson Choi History SDOH Alcohol Binge Gibson Choi Sex Assigned At Yanely Choi Tobacco use and exposure 2019-11-08 00:00:00 2019-11-08 00:00:00 Joanne garcia used Gibson Choi Alcohol intake 2019-11-08 00:00:00 2019-11-08 00:00:00 Ex-drinker (fi nding) Gibson Choi History SDOH Alcohol Frequency 2019-11-07 00:00:00 2019-11-07 00:00:0 0 1 Gibson Choi Smoking Status Start Date Stop Date Source Never smoker Gibson jasso Medications Ordered Medication Name Filled Medication Name Start Date Stop Da te Current Medication? Ordering Clinician Indication Dosage Frequency Signature (SIG) Comments Components Source glimepiride (AMARYL) 2 MG tablet 2019-11-10 12:56:01 2019-11 00:00:00 No 2mg QD Take 2 mg by mouth daily before breakfast. Gibson Choi atorvastatin (LIPITOR) 20 mg tablet 2019-11-10 12:55:59 Yes 20mg QD Take 20 mg by mouth daily. Default OP ins Yanely Choi furosemide (LASIX) 40 mg tablet 2019-11-10 12:55:59 Yes 40mg Q.5D Take 40 mg by mouth 2 (two) times a day. Ayesha Choi lisinopriL (PRINIVIL) 5 mg tablet 2019-11-10 12:55:59 Yes 5mg QD Take 5 mg by mouth daily. Gibson Choi carvediloL (COREG) 12.5 MG tablet 2019-11-10 12:55:59 Yes 12.5mg Q.5D Take 12.5 mg by mouth 2 (two) times a day with meals. Gibson Choi amIODarone (PACERONE) 200 MG tablet 2019-11-10 12:55:59 Yes 200mg QD Take 200 mg by mouth daily. Gibson Young odist spironolactone (ALDACTONE) 25 MG tablet 2019-11-10 12:55:59 Yes 25mg QD Take 25 mg by mouth daily. Gibson Stinson dist Azithromycin (Zithromax Tri-Nathan) 500 Mg TABLET Azithro mycin (Zithromax Tri-Nathan) 500 Mg TABLET 2018-01-23 14:57:00 2019-11-04 00:00:00 No 500 Daily [facility] Acetaminophen With Codeine (Tylenol With Codeine #3 Ta blet) 1 Each TABLET Acetaminophen With Codeine (Tylenol With Codeine #3 Tablet) 1 Each TABLET 2018-01-23 14:56:00 Yes 300 Every 6 Hours as n eeded for Cough [facility] Amiodarone Hcl Amiodarone Hcl Yes Daily [facility] Atorvastatin Calcium (Lipitor) 20 Mg TABLET Atorvastat in Calcium (Lipitor) 20 Mg TABLET Yes 20 Daily [facility] Carvedilol Carvedilol Yes 12.5 Twice A Day [facility] Furosemide (Lasix) 40 Mg TABLET Furosemide (Lasix) 40 Mg TABLET Yes 40 Daily [facility] Glimepiride Glimepiride Yes 2 Daily [facility] Glimepiride Glimepiride Yes 2 Daily [facility] Levofloxacin Levofloxacin Yes 250 Daily [facility] Spironolactone Spironolactone Yes 25 Twice A Da y [facility] Levofloxacin Levofloxacin 2019-11-06 00:00:00 No 250 Daily [facility] Benzonatate (Tessalon Perle) 100 Mg CAPSULE Benzonatat e (Tessalon Perle) 100 Mg CAPSULE 2019-11-04 00:00:00 No 200 Three Times A Da y [facility] Amlodipine Besylate (Norvasc) 10 Mg TAB Amlodipine Besylate (Norvasc) 10 Mg TAB 2018-01-29 00:00:00 No 10 Daily [facility] Bone Health D3 Bone Health D3 2018-01-29 00:00:00 No 2000 Daily [facility] Carvedilol Carvedilol 2018-01-29 00:00:00 No 25 Twi ce A Day [facility] Ubidecarenone (Co Q-10) 300 Mg CAPSULE Ubidecarenone (Co Q-10) 3 00 Mg CAPSULE 2018-01-29 00:00:00 No 300 Twice A Day [facility] Vitamin B12 Vitamin B12 2018-01-29 00:00:00 No 1000 D aily [facility] Hydrochlorothiazide Hydrochlorothiazide 2017-01-24 00:00:00 No 25 Daily [facility] Vital Signs Vital Name Observation Time Observation Value Comments Source Systolic blood pressure 2019-11-10 10:15:07 133 mm[Hg] Gibson Martinezist Diastolic blood pressure 2019-11-10 10:15:07 68 mm[Hg] Gibson Choi Heart rate 2019-11-10 10:15:07 58 /min [facility] Body temperature 2019-11-10 10:15:07 36.22 Marah Hous ton Mandaeism Respiratory rate 2019-11-10 10:15:07 18 /min [place] [facility] Oxygen saturation in Arterial blood by Pulse oximetry 2019-02 10:15:07 97 /min Gibson Choi Body height 2019-11-08 05:34:00 170.2 cm Gibson Choi Body weight 2019-11-08 05:34:00 99.791 kg Gibson Choi BMI 2019-11-08 05:34:00 34.46 kg/m2 Gibson Choi Body Temperature 2019-11-06 12:02:00 97.5 [degF] [facility] BMI (Body Mass Index) 2019-11-06 09:29:00 33.6 kg/m2 [facility] Weight 2019-11-04 18:02:00 214.31 [lb_av] [facility] Procedures Procedure Date / Time Performed Performing Clinician Sourc e POC GLUCOSE 2019-11-10 06:31:00 AbouelseZamzam christy ohjunior A Arreaga Mandaeism IONIZED CALCIUM 2019-11-09 21:20:00 Denisha Olivares Mandaeism POC GLUCOSE 2019-11-09 20:28:00 AbouelseZamzam christy ohamed A Arreaga Mandaeism POC GLUCOSE 2019-11-09 15:56:00 DwayneuelseZamzam christy ohamed A Arreaga Mandaeism POC GLUCOSE 2019-11-09 11:31:00 AbouelseoudZamzam ohamed A Arreaga Mandaeism POC GLUCOSE 2019-11-09 10:16:00 AbouelseoudArashsealfonzo Acosta ohamed A Arreaga Mandaeism POC GLUCOSE 2019-11-09 07:42:00 AbouelsekirstydZamzam ohamed A Arreaga Mandaeism POC GLUCOSE 2019-11-09 06:18:00 AbouelsekirstydArashsealfonzo Acosta ohamed A Garrison Mandaeism POC GLUCOSE 2019-11-09 03:41:00 AbouelseZamzam christy ohamed A Arreaga Mandaeism HC COMPLETE BLD COUNT W/AUTO DIFF 2019-11-09 03:34:00 Isrrael Lopez COMPREHENSIVE METABOLIC PANEL 2019-11-09 03:34:00 Jairo Lopez ESTIMATED GFR 2019-11-09 03:34:00 Jairo Lopez PHOSPHORUS LEVEL 2019-11-09 03:34:00 Jairo Lopez IONIZED CALCIUM 2019-11-09 03:34:00 Jairo Lopez MAGNESIUM LEVEL 2019-11-09 03:34:00 Denisha Olivares Mandaeism POC GLUCOSE 2019-11-08 23:31:00 AbouelseoudZamzam ohamed A Garrison Mandaeism POC GLUCOSE 2019-11-08 21:00:00 AbouelseoudZamzam ohamed A Garrison Mandaeism POC GLUCOSE 2019-11-08 19:22:00 AbouelseoudZamzam ohamed A Garrison Mandaeism POC GLUCOSE 2019-11-08 18:25:00 Abouelseoud, Zamzam Acosta ohamed A Garrison Mandaeism POC GLUCOSE 2019-11-08 17:32:00 Abouelseoud, Zamzam Acosta ohamed A Garrison Mandaeism POC GLUCOSE 2019-11-08 15:39:00 Abouelseoud, Zamzam Acosta ohamed A Garrison Mandaeism URINE CULTURE 2019-11-08 15:19:00 AbouelseoudZamzam ohamed A Garrison Mandaeism URINALYSIS SCREEN AND MICROSCOPY, WITH REFLEX TO CULTURE 202 15:19:00 Abouelseoud, Zamzam Colemanamed A Garrison Mandaeism POC GLUCOSE 2019-11-08 15:05:00 Abouelseoud, Zamzam Acosta ohamed A Garrison Mandaeism POC GLUCOSE 2019-11-08 14:24:00 Abouelseoud, Zamzam Acosta ohamed A Garrison Mandaeism POC GLUCOSE 2019-11-08 12:12:00 Abouelseoud, Zamzam Acosta ohamed A Garrison Mandaeism POC GLUCOSE 2019-11-08 11:02:00 Abouelseoud, Zamzam Acosta ohamed A Garrison Mandaeism POC GLUCOSE 2019-11-08 10:16:00 Abouelseoud, Zamzam Acosta ohamed A Garrison Mandaeism POC GLUCOSE 2019-11-08 09:20:00 Abouelseoud, Zamzam Acosta ohamed A Garrison Mandaeism POC GLUCOSE 2019-11-08 08:45:00 Abouelseoud, Zamzam Acosta ohamed A Garrison Mandaeism POC GLUCOSE 2019-11-08 06:45:00 Edith Mo ton Mandaeism POC GLUCOSE 2019-11-08 06:21:00 Edith Mo ton Mandaeism POC GLUCOSE 2019-11-08 05:51:00 Edith Mo Mandaeism HEMOGLOBIN A1C 2019-11-08 04:56:00 Katya Cullen odfabrizio HC COMPLETE BLD COUNT W/AUTO DIFF 2019-11-08 04:56:00 Garrett Courtney BASIC METABOLIC PANEL 2019-11-08 04:56:00 Garrett Courtney Yanely jones Mandaeism ESTIMATED GFR 2019-11-08 04:56:00 Garrett Courtney Gibson Acosta ethodist POC GLUCOSE 2019-11-08 03:48:00 Edith Mo Mandaeism POC GLUCOSE 2019-11-08 02:49:00 Edith Mo Mandaeism POC GLUCOSE 2019-11-08 02:04:00 Edith Mo Mandaeism COVID-19 QUALITATIVE PCR 2019-11-08 01:36:00 Garrett Courtney POC GLUCOSE 2019-11-08 01:34:00 Edith Mo Mandaeism POC GLUCOSE 2019-11-08 01:00:00 Garrett Courtney Arreaga Karla ethodist POC GLUCOSE 2019-11-08 00:24:00 Garrett Courtney Gibson Acosta ethodist POC GLUCOSE 2019-11-07 23:52:00 Garrett Courtney Arreaga Karla ethodist XR CHEST 1 VW 2019-11-07 23:45:17 Garrett Courtney Gibson Acosta ethodist ECG ED PRELIMINARY INTERPRETATION 2019-11-07 23:23:16 Garrett Courtney HC COMPLETE BLD COUNT W/AUTO DIFF 2019-11-07 23:23:00 Garrett Courtney COMPREHENSIVE METABOLIC PANEL 2019-11-07 23:23:00 Zhou MAGNESIUM LEVEL 2019-11-07 23:23:00 Garrett Courtney Arreaga Karla ethodist ESTIMATED GFR 2019-11-07 23:23:00 Garrett Courtney Gibson Karla ethodist ECG 12-LEAD 2019-11-07 23:17:24 Garrett Courtney Gibson Karla ethodist POC GLUCOSE 2019-11-07 23:08:00 Provider, Naman Arreaga Va thodist X-ray of chest, two views 2019-11-06 00:00:00 [facility] US guided paracentesis 2019-11-06 00:00:00 [facility] US Liver 2019-11-06 00:00:00 [facility] Computed tomography of abdomen without contrast 2019-11-04 00:00 :00 [facility] Ultrasound of chest including mediastinum 2019-05-15 00:00:0 0 SOMMER GRIMES [facility] X-ray of chest, two views 2019-05-08 00:00:00 BRIAN JOLLY [facility] Plan of Care Planned Activity Planned Date Details Comments Source Future Scheduled Test 2019-09-06 00:00:00 INFLUENZA VACCINE [code = INFLUENZA VACCINE] [facility] Scheduled Test 2012 00:00:00 65+ PNEUMOCOCCAL V ACCINE (1 of - PPSV23) [code = 65+ PNEUMOCOCCAL VACCINE (1 of - PPSV23)] [facility] Scheduled Test 1997 00:00:00 COLONOSCOPY SCREEN ING [code = COLONOSCOPY SCREENING] [facility] Scheduled Test 1997 00:00:00 SHINGLES VACCINES (#1) [code = SHINGLES VACCINES (#1)] [facility] Instructions Type 2 Diabetes [facility] Instructions Diabetes and Diet [facility] Instructions Hypertension [facility] Instructions Low Sodium Diet [facility] Encounters Start Date/Time End Date/Time Encounter Type Admission Type Attendi [facility] Care Department Encounter ID Source 2019-11-07 00:00:00 2019-11-10 00:00:00 Inpatient ZAMZAM CALLAHAN [facility] [id number] [facility] 2019-05-15 09:46:00 2019-05-17 15:26:00 Discharged Inpatient 1 BRIAN JOLLY [facility] [id number] [facility] 2019-05-14 16:30:2019-05-14 17:09:[address] [facility] [id number] [facility] dical [place] 2019-05-08 12:40:00 2019-05-08 12:40:00 Registered Clinic [facility] [id number] [facility] 2018-01-29 16:19:00 2018-02-06 18:05:00 Discharged Inpatient 1 BRIAN JOLLY [facility] [id number] [facility] 2018-01-23 12:53:00 2018-01-23 16:31:00 Departed Emergency Room 1 LISSET WATSON [facility] [id number] [facility] Results Test Description Test Time Test Comments Results Result Comments Source ECG 12 lead 2019-11-12 23:14:22 Test Item Ventricular rate (test code = 253) 61 Atrial rate (test code = 255) 61 [place] interval (test code = 266) 188 QRSD interval (test code = 260) 102 QT interval (test code = 264) 444 QTC interval (test code = 265) 446 P axis 1 (test code = 267) 61 QRS axis 1 (test code = 268) 11 T wave axis (test code = 270) 162 EKG impression (test code = 273) Sinus rhythm with pre mature atrial complexes- Low voltage QRS-Septal infarct , age undetermined-Abnormal ECG-No previous ECGs available- [facility] [id number] 06:40:20* Test Item Value Reference Range Interpretation Comments POC glucose (test code = 43663-6) 110 mg/dL 65-100 [facility] Executive Director Name: Beena Tan ID: [id number] Lab Interpretation (test code = 51050-1) Abnormal [facility] [id number] 21:31:06* Test Item Value Reference Range Interpretation Comments pH (test code = 2753-2) 7.39 Ionized calcium (test code = 1994-0) 1.13 mmol/L 1.11-1.32 [facility] [id number] 10:45:43* Test Item Value Reference Range Interpretation Comments Magnesium (test code = 46710-8) 1.80 mg/dL 1.6-2.4 [facility] [id number] 07:54:07* Test Item Value Reference Range Interpretation Comments Sodium (test code = 2951-2) 136 135- 150 mEq/L Potassium (test code = 2823-3) 3.6 3.5- 5.0 mEq/L Chloride (test code = 2075-0) 98 98- 112 mEq/L CO2 (test code = 8-9) 28 mmol/L 24-31 Anion gap (test code = 12630-7) 10@ANIO 7- 15 mEq/L BUN (test code = 3094-0) 18 mg/dL 7-18 Creatinine (test code = 2160-0) 1.30 mg/dL 0.7-1.2 H Glucose (test code = 2345-7) 210 mg/dL 65-100 H Calcium (test code = 79182-9) 8.4 mg/dL 8.8-10.2 L Protein (test code = 2885-2) 5.6 g/dL 6.3-8.3 L Albumin (test code = 1751-7) 3.1 g/dL 3.5-5 L A/G ratio (test code = 1759-0) 1.2 0.7-3.8 Alkaline phosphatase (test code = 6768-6) 60 U/L 0-129 AST (test code = 192-8) 10 U/L 10-50 ALT (test code = 1742-6) 5 U/L 5-50 Total bilirubin (test code = 1974-2) 2.9 mg/dL 0.2-1.2 H Lab Interpretation (test code = 76831-0) Abnormal [facility] MethodistPhosph[facility] [id number] 03:56:45* Test Item Value Reference Range Interpretation Comments Phosphorus (test code = 2777-1) 3.1 mg/dL 2.4-4.5 [facility] MethodistEstimated [id number] 03:56:45* Test Item Value Reference Range Interpretation Comments Estimated GFR (test code = 5488) 54 mL/min/1.73 m2 A Catergory Units InterpretationG1 >=90 Normal or highG2 60-89 Mildly kmalxjazuN3b 45-59 Mildly to moderately tcrmonbojK1w 30-44 Moderately to severely decreasedG4 15-29 Severely decreasedG5 <15 Kidney failureThe eGFR was calculated using the Chronic Kidney Disease Epidemiology Collaboration (CKD-EPI) equation. Interpretation is based on recommendations of the National Kidney Foundation-Kidney Disease Outcomes Quality Initiative (NKF-KDOQI) published in 2014. Lab Interpretation (test code = 38925-9) Abnormal [facility] MethodistCBC with platelet and [id number] 03:46:21* Test Item Value Reference Range Interpretation Comments WBC (test code = 32693-2) 7.1 4.2- 11.0 k/uL RBC (test code = 42190-3) 3.44 m/uL 4.04-5.86 L HGB (test code = 718-7) 10.5 g/dL 13-17.3 L HCT (test code = 4544-3) 31.8 % 34-45 L MCV (test code = 787-2) 92.4 fL 80-98 MCH (test code = 785-6) 30.5 pg 27-34 MCHC (test code = 786-4) 33.0 g/dL 31.5-36.5 RDW - SD (test code = 82599-1) 59.1 fL 37-51 H MPV (test code = 28613-2) 12.3 fL 7.4-10.4 H Platelet count (test code = 35093-9) 101 150- 400 k/uL L Nucleated RBC (test code = 33120-7) 0.00 /100 WBC Neutrophils (test code = 04675-0) 89.6 % 36-66 H Lymphocytes (test code = 74597-3) 8.4 % 24-44 L Monocytes (test code = 28555-2) 1.5 % 0-6 Eosinophils (test code = 47813-3) 0.0 % 0-6 Basophils (test code = 26229-1) 0.1 % 0-1.2 Immature granulocytes (test code = 07604-8) 0.4 % 0-1 Lab Interpretation (test code = 65764-6) Abnormal [facility] MethodistUrinalysis screen and microscopy, with reflex to culture 2019-11-08 15:53:49* Test Item Value Reference Range Interpretation Comments Specimen site (test code = 2504015) Catheterized Color, UA (test code = 5778-6) Yellow Appearance, UA (test code = 5767-9) Clear Specific gravity, UA (test code = 5811-5) 1.010 1.001-1.035 pH, UA (test code = 5803-2) 6.0 5.0-8.5 Protein, UA (test code = 01116-4) Negative Negative Glucose, UA (test code = 30468-5) Negative Negative Ketones, UA (test code = 2514-8) Negative Negative Bilirubin, UA (test code = 5770-3) Negative Negative Blood, UA (test code = 5794-3) Small Negative A Nitrite, UA (test code = 5802-4) Negative Negative Urobilinogen, UA (test code = 26626-5) 2.0 <2.0 A Leukocyte esterase, UA (test code = 5799-2) Negative Negative Epithelial cells, UA (test code = 5787-7) Few /HPF WBC, UA (test code = 5821-4) 1 0- 1 /HPF RBC, UA (test code = 94045-0) 2 0- 5 /HPF Bacteria, UA (test code = 88197-8) None seen None seen Yeast, UA (test code = 43407-3) None seen Yeast with pseudohyphae, UA (test code = 57514-3) None seen Lab Interpretation (test code = 85987-2) Abnormal Arreaga MandaeismUrine [id number] 15:50:21* Test Item Value Reference Range Interpretation Comments Urine culture (test code = 3184631) SEE COMMENT Bacteriuria screen negative. Gibson MartinezistCOVID-19 qualitative [id number] 09:57:13* Test Item Value Reference Range Interpretation Comments Interpretation (test code = 0239213) Negative results do not preclude 2019-nCoV infection and should not be used as the sole basis for treatment or other patient management decisions. Negative results must be combined with clinical observations, patient history, and epidemiological information. COVID-19 qualitative PCR result (test code = 04365-4) Not-Detect ed Not-Detected COVID-19 qualitative PCR (test code = 8684) See link below for P DF Lab Report [facility] MethodistBasic metabolic [id number] 05:40:22* Test Item Value Reference Range Interpretation Comments Sodium (test code = 2951-2) 142 135- 150 mEq/L Potassium (test code = 2823-3) 3.4 3.5- 5.0 mEq/L L Chloride (test code = 2075-0) 101 98- 112 mEq/L CO2 (test code = 2027-9) 33 mmol/L 24-31 H Anion gap (test code = 42288-8) 8@ANIO 7- 15 mEq/L BUN (test code = 3094-0) 17 mg/dL 7-18 Creatinine (test code = 2160-0) 1.50 mg/dL 0.7-1.2 H Glucose (test code = 2345-7) 27 mg/dL 65-100 LL Results called to and read back by __KIAN MORENO RN at 11/08/2019 05:40 (date/time) by SM__. Calcium (test code = 66873-9) 8.7 mg/dL 8.8-10.2 L Lab Interpretation (test code = 41127-6) Abnormal [facility] MethodistHemoglobin [id number] 05:31:17* Test Item Value Reference Range Interpretation Comments Hemoglobin A1C (test code = 67152-4) 5.7 % 4-5.6 H HbA1c cutoffs for diagnosing diabetes:4.0% - 5.6% = normal5.7% - 6.4% = increased risk for diabetes (prediabetes)9>=6.5% = [id number] for glycemic control (ADA 2016)< 7.0% Target for non adults with diabetes. More or less stringent targets may be appropriate for individual patients. <7.5% Target for Children and adolescents with type 1 diabetes. Lab Interpretation (test code = 97778-7) Abnormal [facility] MethodistXR Chest 1 [id number] 23:59:03Hm Interface, Radiology Results - 11/08/2019 12:02 AM CDTEXAMINATION: XR CHEST 1 VWCLINICAL HISTORY: syncopeCOMPARISON: None.IMPRESSION:Moderate enlargement of cardiac silhouette. Left cardiac device is in place.Hilar and perihilar infiltrates bilaterally are identified suggestive of moderate vascular congestion/edema. Multifocal infection could cause similar appearance. Small right pleural effusion. No pneumothorax.No acute osseous abnormalities. Mild degenerative change of the thoracic spine.Left cardiac device is in satisfactory location.[facility]-[id number] [facility] ED Preliminary Interpretation - Not an [id number] 23:23:16Garrett Courtney MD 11/08/2019 1:42 [facility] ED Preliminary Interpretation - Not an OrderPerformed by: Garrett Courtney MDAuthorized by: Garrett Courtney MD ECG reviewed by ED Physician in the absence of a alley worker: yes Interpretation: Interpretation: non-specific Rate: ECG rate: 61 ECG rate assessment: normal Rhythm: Rhythm: sinus rhythm Ectopy: Ectopy: none QRS: QRS axis: Normal QRS intervals: NormalConduction: Conduction: normal ST segments: ST segments: Non-specificT waves: T waves: non-specific Other findings: Other findings: poor R wave progression Comments: Low voltageGarrison MethodistBody fluid glucose measurement (mass/volume)2019-11-06 15:07:00* Test Item Value Reference Range Interpretation Comments Body Fluid Glucose (test code = 2344-0) 72 [facility] (mass/volume)2019-11-06 15:07:00* Test Item Value Reference Range Interpretation Comments Body Fluid Total Protein (test code = 2881-1) 3.1 [facility] [id number] 14:00:00 [place] [address] Patient Name: SEA LINDA MR #: [id number] : 1945 Age/Sex: 74/M Req #: [id number] Adm Physician: BRIAN JOLLY MD Ordered by: JEANNE JOLLY MD R eport #: [id number] Location: MED/SURG Room /Bed: [facility] Procedure: [id number] US/US GUIDED PARACENTESIS Exam Date: 11/06/19 Exam Time: 1308 REPORT STATUS: Signed HISTORY : Sy mptomatic ascites. Technique/findings: Informed written consent was obtai john. Discussion of risks, benefits, and alternatives were made with the patien t. The patient expressed understanding and agreed to proceed. A universal franc eout was performed prior to starting the procedure. Initial ultrasound images demonstrate small volume of ascites. A pocket of fluid was identified i n the left lower quadrant of the abdomen. This area was marked. The area was p repped and draped in the usual sterile fashion. 1% lidocaine was applied to th e skin and deep soft tissues. Color ultrasound was used to assess for any vess els within the vicinity of the planned trajectory of the one-step, a image was saved. A 5 Greek one-step catheter was inserted and removed from the periton eal space and approximately 1.75 liters of clear nya fluid was aspirated fro m the abdomen. Specimens were collected for the lab. There were no immediat e complications. Impression: Successful ultrasound guided paracente sis with aspiration of 1.75 liters of fluid. Signed by: MD jose l Felton 11/06/2019 2:00 PM Dictated By: CORY CHE MD 1400 Transcribed By: SUMEET on 11/06/19 1400 COPY TO: JEANNE JOLLY MD Specimen source identification of body [id number] 13:26:00* Test Item Value Reference Range Interpretation Comments Body Fluid Type (test code = 70930-7) [facility] 2019-11-06 13:26:00* Test Item Value Reference Range Interpretation Comments Body Fluid Color (test code = 6824-7) STRAW [facility]BERCH[facility] TylerDetermination of appearance of body [id number] 13:26:00* Test Item Value Reference Range Interpretation Comments Body Fluid Appearance (test code = 9335-1) [facility] leukocytes count (number/volume)2019-11-06 13:26:00* Test Item Value Reference Range Interpretation Comments Body Fluid WBC (test code = 6743-9) [address] [facility] [place], [place] body fluid erythrocytes count (number/volume)2019-11-06 13:26:00* Test Item Value Reference Range Interpretation Comments Body Fluid RBC (test code = 6741-3) 3940 [facility] CenterUS FIPVS2337-36-80 12:03:00 [facility] [address] [address] Patient Name: SEA LINDA MR #: [id number] : 1945 Age/Sex: 74/M Req #: [id number] Adm Physician: BRIAN JOLLY MD Ordered by: JEANNE JOLLY MD Report #: [id number] Location: MED/SURG Room/Bed: [facility] Procedure: [id number] US/US LIVER Exam Date: 11/06/19 Exam Time: 1052 REPORT STATUS: Signed EXAM: US LIVER DATE: 11/06/2019 10:52 AM INDICATION: R/O PORTAL VEIN THROMBOSIS [id number] 10 54 Y COMPARISON: CT dated 11/04/2019 TECHNIQUE: Transverse and longitudin al rodarte scale and color doppler sonographic images of the right upper quadrant were obtained. FINDINGS: LIVER 19.4 cm in the right midclavic ular line. Heterogeneous echotexture with nodular contours, no masses. GA LLBLADDER No gallbladder wall thickening, distension, stone, or pericholecysti c fluid. Negative reported sonographic Lombardo's sign. BILE DUCTS No int ra nor extra-hepatic biliary dilation. Common bile duct measures 0.3cm PA NCREAS: Visualized portions are normal. RIGHT KIDNEY: 9.9 cm Echogenicity : Normal Collecting System: No hydronephrosis Stones: None Cyst/Mass: No ne VESSELS: Aorta: Visualized portions are within normal size limits Inferior Vena Cava: Visualized portions are normal Main Portal Vein: 1.0 cm, normal size with hepatopetal flow. FREE FLUID: Small volume ascites is note d. IMPRESSION: 1. Cirrhotic morphology with small volume ascites. 2. Main portal vein is patent with hepatopedal flow. Signed by: Cory Che MD on 11/06/2019 12:05 PM Dictated By: CORY CHE MD Electronically Si gned By: CORY CHE MD on 11/06/19 1205 Transcribed By: SUMEET on 11/06/19 1205 COPY TO: JEANNE JOLLY MD Serum or plasma iron measurement (mass/volume)2019-11-06 11:16:00* Test Item Value Reference Range Interpretation Comments Iron Level (test code = 2498-4) 34 65-175 [facility] iron binding capacity measurement (mass/volume)2019-11-06 11:16:00* Test Item Value Reference Range Interpretation Comments Total Iron Binding Capacity (test code = 2500-7) 251 261-4 78 [facility] or plasma iron saturation measurement (mass fraction)2019-11-06 11:16:00* Test Item Value Reference Range Interpretation Comments Percent Iron Saturation (test code = 2502-3) 14 15-50 [facility] or plasma transferrin measurement (mass/volume)2019-11-06 11:16:00* Test Item Value Reference Range Interpretation Comments Transferrin (test code = 3034-6) 179 174-364 [facility] or plasma ferritin measurement (mass/volume)2019-11-06 11:16:00* Test Item Value Reference Range Interpretation Comments Ferritin (test code = 2276-4) 207.58 21.81-274.66 [facility] or plasma triglyceride measurement (mass/volume)2019-11-06 11:16:00* Test Item Value Reference Range Interpretation Comments Triglycerides Level (test code = 2571-8) 86 0-149 [facility] or plasma cholesterol measurement (mass/volume)2019-11-06 11:16:00* Test Item Value Reference Range Interpretation Comments Cholesterol Level (test code = 2093-3) 69 0-199 Less than 200 mg/dL Low Lkjc158 - 239 mg/dL Borderline Fqrh358 m g/dl and greater High Risk [facility] or plasma cholesterol in LDL measurement (mass/volume) 2019-11-06 11:16:00* Test Item Value Reference Range Interpretation Comments LDL Cholesterol (test code = 2089-1) 24 60-130 [facility] or plasma cholesterol in HDL measurement (mass/volume)2019-11-06 11:16:00* Test Item Value Reference Range Interpretation Comments HDL Cholesterol (test code = 2085-9) 28 40-60 [facility] or plasma total cholesterol/cholesterol in HDL mass plagk9755-11-30 11:16:00* Test Item Value Reference Range Interpretation Comments Cholesterol/HDL Ratio (test code = 9830-1) 2.5 3.9-4.7 [facility] CenterCHEST 2 MAJNP6535-93-82 08:15:00 [facility] [address] [place] [address] Patient Name: SEA LINDA MR #: [id number] : 1945 Age/Sex: 74/M Req #: [id number] Adm Physician: MISTY JOLLY MD Ordered by: BRIAN JOLLY MD Report #: [id number] Location: MED/SURG Room/Bed: [facility] Procedure: [id number] DX/CHEST 2 V IEWS Exam Date: 11/06/19 Exam Time: 0640 REPORT STATUS: Signed Exam: CHEST 2 VIEWS Date: 11/06/2019 8:15 AM INDICATION: SOB [id number] Colt rison: 11/04/2019 FINDINGS: Lines/Tubes:Left chest wall dual-lead pacem munir is stable. Overlying EKG leads are noted. Lungs:Stable right basilar opacification consistent with a small to moderate right pleural effusion/atel ectasis. Negative for pneumothorax. Left lung is clear. Heart/Mediastinum :The cardiomediastinal silhouette is mildly enlarged, stable. Mild central vas cular congestion is stable. Bones/Soft Tissues: No acute osseous abnormalit y. Upper abdomen: Unremarkable. IMPRESSION: Stable exam demonstra ting right basilar effusion/atelectasis. Superimposed infection difficult to e xclude. Signed by: Cory Che MD on 11/06/2019 8:17 AM Dictated By: CORY CHE MD 6 Transcribed By: SUMEET on 11/06/19816 COPY TO: BRIAN JOLLY MD Blood leukocytes automated count (number/volume)2019-11-06 07:36:00* Test Item Value Reference Range Interpretation Comments White Blood Count (test code = 6690-2) 5.40 4.8-10.8 [facility] CenterBlood erythrocytes automated count (number/volume)2019-11-06 07:36:00* Test Item Value Reference Range Interpretation Comments Red Blood Count (test code = 789-8) 3.91 4.3-5.7 [facility] CenterBlood hemoglobin measurement (moles/volume)2019-11-06 07:36:00* Test Item Value Reference Range Interpretation Comments Hemoglobin (test code = 51240-8) 11.5 14.0-18.0 [facility] CenterAutomated blood hematocrit (volume fraction)2019-11-06 07:36:00* Test Item Value Reference Range Interpretation Comments Hematocrit (test code = 4544-3) 36.1 38.2-49.6 [facility] CenterAutomated erythrocyte mean corpuscular zmgwvx6164-55-27 07:36:00* Test Item Value Reference Range Interpretation Comments Mean Corpuscular Volume (test code = 787-2) 92.3 81-99 [facility] CenterAutomated erythrocyte mean corpuscular hemoglobin (mass per erythrocyte)2019-11-06 07:36:00* Test Item Value Reference Range Interpretation Comments Mean Corpuscular Hemoglobin (test code = 785-6) 29.4 28-32 [facility] CenterAutomated erythrocyte mean corpuscular hemoglobin concentration measurement (mass/volume)2019-11-06 07:36:00* Test Item Value Reference Range Interpretation Comments Mean Corpuscular Hemoglobin Concent (test code = 786-4) 31.9 31-35 [facility] CenterRDW LuzDq-Xvj4498-41-01 07:36:00* Test Item Value Reference Range Interpretation Comments Red Cell Distribution Width (test code = 46367-8) 17.9 11.7 -14.4 [facility] CenterAutomated blood platelet count (count/volume)2019-11-06 07:36:00* Test Item Value Reference Range Interpretation Comments Platelet Count (test code = 777-3) 133 140-360 [facility] segmented neutrophil count as percentage of total rzowgmbrqu2378-16-08 07:36:00* Test Item Value Reference Range Interpretation Comments Neutrophils (%) (Auto) (test code = 28780-9) 65.2 38.7-80.0 [facility] CenterAutomated blood lymphocyte count as percentage ot total fdwxzwzrbh4175-54-53 07:36:00* Test Item Value Reference Range Interpretation Comments Lymphocytes (%) (Auto) (test code = 736-9) 23.7 18.0-39.1 [facility] monocyte count as percentage of total wipnvglaet1765-87-93 07:36:00* Test Item Value Reference Range Interpretation Comments Monocytes (%) (Auto) (test code = 5905-5) 9.8 4.4-11.3 [facility] CenterAutomated blood eosinophil count as percentage of total vdwqervxlk9587-14-55 07:36:00* Test Item Value Reference Range Interpretation Comments Eosinophils (%) (Auto) (test code = 713-8) 0.7 0.0-6.0 [facility] CenterAutadventhealthed blood basophil count as percentage of total nxjuahvbfr5751-12-08 07:36:00* Test Item Value Reference Range Interpretation Comments Basophils (%) (Auto) (test code = 706-2) 0.4 0.0-1.0 [facility] CenterFluoroscopic procedure less than one hour vgbpopim6820-44-32 07:36:00* Test Item Value Reference Range Interpretation Comments IM GRANULOCYTES % (test code = IM GRANULOCYTES %) 0.2 0.0- 1.0 [facility] CenterAutadventhealthed blood neutrophil count 2019-11-06 07:36:00* Test Item Value Reference Range Interpretation Comments Neutrophils # (Auto) (test code = 751-8) 3.5 2.1-6.9 [facility] CenterBlood lymphocytes count (number/volume) 2019-11-06 07:36:00* Test Item Value Reference Range Interpretation Comments Lymphocytes # (Auto) (test code = 12405-0) 1.3 1.0-3.2 [facility] CenterBlood monocytes automated count (number/volume)2019-11-06 07:36:00* Test Item Value Reference Range Interpretation Comments Monocytes # (Auto) (test code = 742-7) 0.5 0.2-0.8 [facility] CenterAutomated blood eosinophil count 2019-11-06 07:36:00* Test Item Value Reference Range Interpretation Comments Eosinophils # (Auto) (test code = 711-2) 0.0 0.0-0.4 [facility] CenterAutomated blood basophil count (count/volume)2019-11-06 07:36:00* Test Item Value Reference Range Interpretation Comments Basophils # (Auto) (test code = 704-7) 0.0 0.0-0.1 [facility] CenterFluoroscopic procedure less than one hour ktcywear5073-66-56 07:36:00* Test Item Value Reference Range Interpretation Comments Absolute Immature Granulocyte (auto (pema t code = Absolute Immature Granulocyte (auto) 0.01 0-0.1 [facility] or plasma sodium measurement (moles/volume)2019-11-06 05:15:00* Test Item Value Reference Range Interpretation Comments Sodium Level (test code = 2951-2) 138 136-145 [facility] Camp[facility]um or plasma potassium measurement (moles/volume)2019-11-06 05:15:00* Test Item Value Reference Range Interpretation Comments Potassium Level (test code = 2823-3) 3.7 3.5-5.1 [facility] Camp[facility]um or plasma chloride measurement (moles/volume)2019-11-06 05:15:00* Test Item Value Reference Range Interpretation Comments Chloride Level (test code = 2075-0) 104 98-107 [facility] Camp[facility]um or plasma carbon dioxide, total measurement (moles/volume)2019-11-06 05:15:00* Test Item Value Reference Range Interpretation Comments Carbon Dioxide Level (test code = 2028-9) 23 22-29 [facility] Camp[facility]um or plasma anion sas5226-46-22 05:15:00* Test Item Value Reference Range Interpretation Comments Anion Gap (test code = 09178-7) 14.7 8-16 [facility] or plasma urea nitrogen measurement (mass/volume)2019-11-06 05:15:00* Test Item Value Reference Range Interpretation Comments Blood Urea Nitrogen (test code = 3094-0) 17 7-26 [facility] or plasma creatinine measurement (mass/volume)2019-11-06 05:15:00* Test Item Value Reference Range Interpretation Comments Creatinine (test code = 2160-0) 1.23 0.72-1.25 [facility] or plasma urea nitrogen/creatinine mass ykqww8600-72-36 05:15:00* Test Item Value Reference Range Interpretation Comments BUN/Creatinine Ratio (test code = 3097-3) 14 6-25 [facility] CenterEstimated glomerular filtration rate (GFR) hhoeaynuzrssq1868-06-08 05:15:00* Test Item Value Reference Range Interpretation Comments Estimat Glomerular Filtration Rate (test code = 308953469) 58 >60 Ranges were taken from the National Kidney Disease Education Program and the [facility] literature.Reference ranges:60 or greater: Tfnblx19-14 ( for 3 consecutive months): Chronic kidney disease 15 or less: Kidney failurePeterson Regional Medical CenterGlucose rgiybehzzuj5063-56-80 05:15:00* Test Item Value Reference Range Interpretation Comments Glucose Level (test code = NEA3465) 60 74-118 [facility] or plasma calcium measurement (mass/volume)2019-11-06 05:15:00* Test Item Value Reference Range Interpretation Comments Calcium Level (test code = 14776-9) 8.5 8.4-10.2 [facility] Camp[facility]um or plasma total bilirubin measurement (mass/volume)2019-11-06 05:15:00* Test Item Value Reference Range Interpretation Comments Total Bilirubin (test code = 1975-2) 5.7 0.2-1.2 [facility] Camp[facility]um or plasma conjugated bilirubin measurement (mass/volume)2019-11-06 05:15:00* Test Item Value Reference Range Interpretation Comments Direct Bilirubin (test code = 21790-4) 0.8 0.0-0.5 [facility] Camp[facility]um or plasma indirect bilirubin measurement (mass/volume)2019-11-06 05:15:00* Test Item Value Reference Range Interpretation Comments Indirect Bilirubin (test code = 1971-1) 4.9 0.3-1.2 [facility] CenterFluoroscopic procedure less than one hour gqspxanj3552-46-92 05:15:00* Test Item Value Reference Range Interpretation Comments Aspartate Amino Transf (AST/SGOT) (test code = Aspartate Amino Transf (AST/SGOT)) 13 5-34 [facility] Camp[facility] or plasma alanine aminotransferase measurement (enzymatic activity/volume)2019-11-06 05:15:00* Test Item Value Reference Range Interpretation Comments Alanine Aminotransferase (ALT/SGPT) (test code = 1742-6) < 6 0-55 [facility] Camp[facility] or plasma protein measurement (mass/volume)2019-11-06 05:15:00* Test Item Value Reference Range Interpretation Comments Total Protein (test code = 2885-2) 6.0 6.5-8.1 [facility] or plasma albumin measurement (mass/volume)2019-11-06 05:15:00* Test Item Value Reference Range Interpretation Comments Albumin (test code = 1751-7) 3.5 3.5-5.0 [facility] CenterPlasma globulin measurement (mass/volume) 2019-11-06 05:15:00* Test Item Value Reference Range Interpretation Comments Globulin (test code = 48120-3) 2.5 2.3-3.5 [facility] or plasma albumin/globulin mass rpxzp8506-86-48 05:15:00* Test Item Value Reference Range Interpretation Comments Albumin/Globulin Ratio (test code = 1759-0) 1.4 0.8-2.0 [facility] or plasma alkaline phosphatase measurement (enzymatic activity/volume)2019-11-06 05:15:00* Test Item Value Reference Range Interpretation Comments Alkaline Phosphatase (test code = 6768-6) 69 40-150 [facility] CenterProthrombin time (PT) in platelet poor plasma by coagulation hyvyj0768-26-98 15:40:00* Test Item Value Reference Range Interpretation Comments Prothrombin Time (test code = 5902-2) 17.2 11.9-14.5 [facility] CenterINR in Platelet poor plasma by Coagulation ksigi5794-93-85 15:40:00* Test Item Value Reference Range Interpretation Comments Prothromb Time International Ratio (test code = 6301-6) 1.34 Oral Anticoagulant Therapy INR Values:1. Low Intensity Therapy 1.5 - 2.02 . Moderate Intensity Therapy 2.0 - 3.03. High Intensity Therapy(1) 2.5 - 3. 54. High Intensity Therapy(2) 3.0 - 4.05. Panic Value INR > 5.0 [facility] CenterFluoroscopic procedure less than one hour foyziqew6043-00-13 13:00:00* Test Item Value Reference Range Interpretation Comments Coronavirus (PCR) (test code = Coronavirus (PCR)) NOT DETECTED NOTD ETECTED SARS-CoV-2 PCRHologic Aptima SARS-CoV-2 assay is a nucleic amplification test in tended for the qualitative detection of RNA from SARS-CoV-2 from nasopharyngeal (OPTIONS ADVISOR) specimens. It is used under Emergency Use Authorization (EUA) by FDA.A posi tive result is indicative of the presence of SARS-CoV-2 RNA. Clinical correlatio n with patient history and other diagnostic information is necessary to determin e patient infection status.A negative (Not Detected) result does not preclude SA RS-CoV-2 infection. Clinical Correlation with patient history and other diagnost ic information should be used in patient management decisions.Invalid: Unable to generate a valid result on this specimen. Please submit a new specimen for repr at testing oc clinically indicated.Tesing performed by:[facility] Laboratory Services[address] [place] [address] [id number], Jairo manrique MD, PhDPeterson Regional Medical CenterCT ABDOMEN QF5832-88-75 12:44:[address] [address] Patient Name: SEA LINDA MR #: [id number] : 1945 Age/Sex: 74/M Req #: [id number] Adm Physician: BRIAN JOLLY MD Ordered by: Edith Bean MD Report #: [id number] Location: [facility] Room/Bed: [place] [address] Procedure: [id number] CT/CT AB [place] Exam Date: 11/04/19 Exam Time: 1200 REPORT STATUS: Signed CT of the abdomen , without contrast. History: Abdominal distention. Comparison: Ab dominal ultrasound from 01/30/2018. Technique: Multidetector CT scanning of the abdomen was performed from without the use of contrast material. Coronal and sagittal multiplanar reformations were obtained. RADIATION DOSE: Total DLP: 523.52 mGy*cm Dose modulation, iterative reconstruction, and/or weight based adjustment of the mA/kV was utilized to reduce the radiati on dose to as low as reasonably achievable. FINDINGS: There is a moder ate right-sided and small left-sided pleural effusion with associated compress ronak atelectasis of the lower lobes. Partially visualized pacing leads in coron william atherosclerotic calcifications noted within the heart. There is a moder ate volume of ascites present within the abdomen. The liver demonstrates a nodular contour suggestive of cirrhosis. Please note evaluation for focal hepa tic lesion is not possible on this noncontrast enhanced examination. The gallb ladder is unremarkable without evidence for radiopaque stone. There is no bili william ductal dilatation. The stomach, spleen, pancreas, and bilateral adrenal gl ands demonstrate an unremarkable noncontrast appearance. The kidneys are normal in size and location. There is no evidence for. Sinuses or hydronephros is. The visualized portions of the ureters are unremarkable. The abdominal aorta is normal in course and caliber with extensive atherosclerotic calcifica tion within its course and branch vessels. The IVC is normal in caliber. Please note evaluation of bowel is limited without the use of contrast materia l. The visualized loops of small and large bowel within the abdomen demonstrat e no significant abnormalities. There is no intraperitoneal free air visualize d within the abdomen. No abnormally enlarged lymph node are identified within the abdomen. The osseous structures demonstrate no evidence for acute fract ure or destructive process. Body wall edema noted. IMPRESSION: Roxy sutton noncontrast CT of the abdomen demonstrates nodular contour of the liver suggestive of hepatic dysfunction/cirrhosis. Moderate volume of ascites. Moderate right and small left pleural effusions with associated compressive atelectasis. Signed by: Dr. Domo Gilliland MD on 11/04/2019 12:51 PM Dictated By: DOMO GILLILAND MD 1251 COPY TO: HILLARY BEAN MD CHEST SINGLE (PORTABLE)2019-11-04 12:10:00 [facility] [address] [address] Patient Name: SEA LINDA MR #: [id number] : 1945 Age/Sex: 74/M Req #: [id number] Adm Physician: Ordered by: Edith Bean MD Report #: [id number] Location: ER Room/Bed: Procedure: [id number] DX/CHEST SINGLE (PORTABLE) Exam Date: 11/04/19 Exam Time: 11 35 REPORT STATUS: Signed EXAM: CHEST SINGLE (PORTABLE) DATE: 11/04/2019 11:35 AM INDICATION: Chest e rect, chest pain COMPARISON: 05/15/2019 FINDINGS/IMPRESSION: Left-si ded ACD identified in stable position. The trachea is midline. There is per sistent opacification of the right lower lung zone which which is favored to r epresent a combination of small effusion and atelectasis. An underlying airspa ce process can't be entirely excluded. There is no evidence for pneumothorax. There is stable enlargement of the cardiac silhouette. There is mild promin ence of the central pulmonary vasculature which can be seen in setting of maxi a. No acute osseous abnormality is identified. Signed by: Dr. Domo Griffith i, MD on 11/04/2019 12:13 PM Dictated By: DOMO GILLILAND MD 1213 Transcribed By: SUMEET on 11/04/19 1213 COPY TO: EDITH BEAN MD Ammonia Hga-iBeu8767-02-29 11:16:00* Test Item Value Reference Range Interpretation Comments Ammonia (test code = 35129-8) 33 31-123 [facility] Uyn-nKew7707-97-29 11:16:00* Test Item Value Reference Range Interpretation Comments B-Type Natriuretic Peptide (test code = 62505-7) 4767.1 0-100 [facility] CenterTroponin I measurement by highly sensitive enzyme yfsneanopcr0152-24-54 11:16:00* Test Item Value Reference Range Interpretation Comments Troponin I (test code = 75420-6) 0.026 0-0.300 [facility] CenterCHEST SINGLE (PORTABLE)2019-05-17 12:56:00 [place] [address] Patient Name: SEA LINDA MR #: [id number] : 1945 Age/Sex: 74/M Req #: [id number] Adm Physician: BRIAN JOLLY MD Ordered by: SOMMER GRIMES MD Report #: [id number] Location: [facility] Room/Bed: [place] [address] Procedure: [id number] DX/CHEST SINGLE (PORTABLE) Exam Date: 05/17/19 Robby karla Time: 1210 REPORT STATUS: Signed EXAMINATION: CHEST SINGLE (PORTABLE) INDICATION: Pneumonia [id number] COMPARISON: Chest radiograph 05/15/2019 FINDINGS: AP view TUBES and LINES: 2-lead ICD device overlying the lef t upper chest with leads overlying the right atrial appendage and right ventri blane, unchanged. LUNGS: Lungs are well inflated. Stable bilateral intersti tial edema and right lower lobe consolidation. No new consolidations. P LEURA: Small right pleural effusion. HEART AND MEDIASTINUM: Stable enlarg ement of the cardiac silhouette.. BONES AND SOFT TISSUES: No acute osseo us lesion. Soft tissues are unremarkable. UPPER ABDOMEN: No free air und er the diaphragm. IMPRESSION: Stable bilateral interstitial edema an d small right pleural effusion. More confluent airspace opacity in the righ t lower lobe likely loculated edema but cannot exclude overlying pneumonia. Co ntinue to follow-up. Signed by: Dr. Stacey Rincon M.D. on 05/06 12:58 PM Dictated By: STACEY RINCON MD Electronically S igned By: SATCEY RINCON MD on 05/17/19 1258 Transcribed By: SUMEET mcgovern 05/17/19 1258 COPY TO: SOMMER GRIMES MD, [facility] Coronavirus (PCR)2019-05-17 12:27:00* Test Item Value Reference Range Interpretation Comments Coronavirus (PCR) (test code = Coronavirus (PCR)) [...] to perform high complexity tests.Specimen sent to [facility] and testing performed by Clinical Pathology [address] [place] [address] [phone] Director: Jose Plata M.D.CLIA # [id number] Regional Medical CenterBedside Hvufsfy1393-95-02 08:52:00* Test Item Value Reference Range Interpretation Comments Bedside Glucose (test code = 50240-2) 142 70-120 H Meter ID: [id number] [facility] TylerWhite Blood Count 2019-05-17 05:53:00* Test Item Value Reference Range Interpretation Comments White Blood Count (test code = 6690-2) 9.63 4.8-10.8 [facility] CenterRed Blood Pqkdq3711-57-49 05:53:00* Test Item Value Reference Range Interpretation Comments Red Blood Count (test code = 789-8) 4.08 4.3-5.7 L [facility] CenterHemoglobin2020-04-11 05:53:00* Test Item Value Reference Range Interpretation Comments Hemoglobin (test code = 03190-8) 12.4 14.0-18.0 L [facility] CenterHematocrit2020-04-11 05:53:00* Test Item Value Reference Range Interpretation Comments Hematocrit (test code = 4544-3) 38.0 38.2-49.6 L [facility] CenterMean Corpuscular Nskvgg7909-77-86 05:53:00* Test Item Value Reference Range Interpretation Comments Mean Corpuscular Volume (test code = 787-2) 93.1 81-99 [facility] CenterMean Corpuscular Fwitbrrzfd4414-29-62 05:53:00* Test Item Value Reference Range Interpretation Comments Mean Corpuscular Hemoglobin (test code = 785-6) 30.4 28-32 [facility] CenterMean Corpuscular Hemoglobin Concent 2019-05-17 05:53:00* Test Item Value Reference Range Interpretation Comments Mean Corpuscular Hemoglobin Concent (test code = 786-4) 32.6 31-35 [facility] CenterRed Cell Distribution Oywuq8545-25-53 05:53:00* Test Item Value Reference Range Interpretation Comments Red Cell Distribution Width (test code = 14826-9) 13.8 11.7 -14.4 [facility] CenterPlatelet Wtppv4263-01-41 05:53:00* Test Item Value Reference Range Interpretation Comments Platelet Count (test code = 777-3) 231 140-360 [facility] CenterNeutrophils (%) (Auto)2019-05-17 05:53:00 * Test Item Value Reference Range Interpretation Comments Neutrophils (%) (Auto) (test code = 17718-4) 66.8 38.7-80.0 [facility] CenterLymphocytes (%) (Auto)2019-05-17 05:53:00 * Test Item Value Reference Range Interpretation Comments Lymphocytes (%) (Auto) (test code = 736-9) 19.2 18.0-39.1 [facility] CenterMonocytes (%) (Auto)2019-05-17 05:53:00* Test Item Value Reference Range Interpretation Comments Monocytes (%) (Auto) (test code = 5905-5) 12.3 4.4-11.3 H [facility] CenterEosinophils (%) (Auto)2019-05-17 05:53:00 * Test Item Value Reference Range Interpretation Comments Eosinophils (%) (Auto) (test code = 713-8) 1.0 0.0-6.0 [facility] CenterBasophils (%) (Auto)2019-05-17 05:53:00* Test Item Value Reference Range Interpretation Comments Basophils (%) (Auto) (test code = 706-2) 0.4 0.0-1.0 [facility] CenterIM GRANULOCYTES %2019-05-17 05:53:00* Test Item Value Reference Range Interpretation Comments IM GRANULOCYTES % (test code = IM GRANULOCYTES %) 0.3 0.0- 1.0 [facility] CenterNeutrophils # (Auto)2019-05-17 05:53:00* Test Item Value Reference Range Interpretation Comments Neutrophils # (Auto) (test code = 751-8) 6.4 2.1-6.9 [facility] CenterLymphocytes # (Auto)2019-05-17 05:53:00* Test Item Value Reference Range Interpretation Comments Lymphocytes # (Auto) (test code = 13633-9) 1.9 1.0-3.2 [facility] CenterMonocytes # (Auto)2019-05-17 05:53:00* Test Item Value Reference Range Interpretation Comments Monocytes # (Auto) (test code = 742-7) 1.2 0.2-0.8 H [facility] CenterEosinophils # (Auto)2019-05-17 05:53:00* Test Item Value Reference Range Interpretation Comments Eosinophils # (Auto) (test code = 711-2) 0.1 0.0-0.4 [facility] CenterBasophils # (Auto)2019-05-17 05:53:00* Test Item Value Reference Range Interpretation Comments Basophils # (Auto) (test code = 704-7) 0.0 0.0-0.1 [facility] CenterAbsolute Immature Granulocyte (auto 2019-05-17 05:53:00* Test Item Value Reference Range Interpretation Comments Absolute Immature Granulocyte (auto (pema t code = Absolute Immature Granulocyte (auto) 0.03 0-0.1 [facility] Campusodium Odosc1638-56-83 05:48:00* Test Item Value Reference Range Interpretation Comments Sodium Level (test code = 2951-2) 139 136-145 [facility] CenterPotassium Ylumk1675-59-60 05:48:00* Test Item Value Reference Range Interpretation Comments Potassium Level (test code = 2823-3) 3.8 3.5-5.1 [facility] CenterChloride Mnbpx8970-56-56 05:48:00* Test Item Value Reference Range Interpretation Comments Chloride Level (test code = 2075-0) 101 98-107 [facility] CenterCarbon Dioxide Uweqs1686-98-92 05:48:00* Test Item Value Reference Range Interpretation Comments Carbon Dioxide Level (test code = 2028-9) 28 22-29 [facility] CenterAnion Bnn8851-75-30 05:48:00* Test Item Value Reference Range Interpretation Comments Anion Gap (test code = 74800-3) 13.8 8-16 [facility] CenterBlood Urea Aeixjnkv3840-39-09 05:48:00* Test Item Value Reference Range Interpretation Comments Blood Urea Nitrogen (test code = 3094-0) 28 7-26 H [facility] CenterCreatinine2020-04-11 05:48:00* Test Item Value Reference Range Interpretation Comments Creatinine (test code = 2160-0) 1.38 0.72-1.25 H [facility] CenterBUN/Creatinine Dzdcg9316-89-51 05:48:00* Test Item Value Reference Range Interpretation Comments BUN/Creatinine Ratio (test code = 3097-3) 20 6-25 [facility] CenterEstimat Glomerular Filtration Rate 2019-05-17 05:48:00* Test Item Value Reference Range Interpretation Comments Estimat Glomerular Filtration Rate (test code = 491281741) 51 >60 L Ranges were taken from the National Kidney Disease Education Program and the [facility] literature.Reference ranges:60 or greater: Kkfzgx90-11 ( for 3 consecutive months): Chronic kidney disease 15 or less: Kidney failurePeterson [facility] Medical CenterGlucose Yrcdn0849-61-87 05:48:00* Test Item Value Reference Range Interpretation Comments Glucose Level (test code = WNA2070) 106 74-118 [facility] CenterCalcium Txbse1590-72-58 05:48:00* Test Item Value Reference Range Interpretation Comments Calcium Level (test code = 21883-1) 9.2 8.4-10.2 [facility] CenterBlood Xtvrwoi7073-57-36 18:58:00* Test Item Value Reference Range Interpretation Comments Blood Culture (test code = 48908597) NO GROWTH AFTER 48 HOURS [facility] CenterUrine GSX0007-26-67 09:47:00* Test Item Value Reference Range Interpretation Comments Urine WBC (test code = 5821-4) 6-10 0-5 H [facility] CenterUrine HRN1348-06-71 09:47:00* Test Item Value Reference Range Interpretation Comments Urine RBC (test code = 35940-3) 6-10 0-5 H [facility] CenterUrine Dfpgasbi7685-18-27 09:47:00* Test Item Value Reference Range Interpretation Comments Urine Bacteria (test code = 69573-8) FEW NONE [facility] CenterUrine Epithelial Bmvyr5344-28-71 09:47:00 * Test Item Value Reference Range Interpretation Comments Urine Epithelial Cells (test code = 92381-7) FEW NONE [facility] CenterUrine Ilcnl1418-15-65 09:37:00* Test Item Value Reference Range Interpretation Comments Urine Color (test code = 5778-6) YELLOW YELLOW [facility] CenterUrine Anyazpk0727-68-73 09:37:00* Test Item Value Reference Range Interpretation Comments Urine Clarity (test code = 41830-0) CLEAR CLEAR [facility] CenterUrine Specific Pqjuflp8818-10-92 09:37:00 * Test Item Value Reference Range Interpretation Comments Urine Specific [place] (test code = 5811-5) 1.025 1.010-1.02 5 [facility] CenterUrine vB3074-25-79 09:37:00* Test Item Value Reference Range Interpretation Comments Urine pH (test code = 33050-3) 5.5 5-7 [facility] CenterUrine Leukocyte Lahjwrre9712-60-82 09:37:00* Test Item Value Reference Range Interpretation Comments Urine Leukocyte Esterase (test code = 5799-2) NEGATIVE NEGATIVE [facility] Nqccauy7318-15-35 09:37:00* Test Item Value Reference Range Interpretation Comments Urine Nitrite (test code = 55013-3) NEGATIVE NEGATIVE [facility] Rghaqjp2612-20-84 09:37:00* Test Item Value Reference Range Interpretation Comments Urine Protein (test code = 5804-0) 1+ NEGATIVE H [facility] Glucose (UA)2019-05-16 09:37:00* Test Item Value Reference Range Interpretation Comments Urine Glucose (UA) (test code = 2349-9) NEGATIVE NEGATIVE [facility] CenterUrine Vjclkon8327-60-78 09:37:00* Test Item Value Reference Range Interpretation Comments Urine Ketones (test code = 35840-9) NEGATIVE NEGATIVE [facility] Zfzyfwixpyjj2289-79-92 09:37:00* Test Item Value Reference Range Interpretation Comments Urine Urobilinogen (test code = 39652-0) 0.2 0.2-1 [facility] CenterUrine Pgcxhqdzw2057-38-88 09:37:00* Test Item Value Reference Range Interpretation Comments Urine Bilirubin (test code = 1978-6) NEGATIVE NEGATIVE [facility] CenterUrine Ixdtq2067-39-19 09:37:00* Test Item Value Reference Range Interpretation Comments Urine Blood (test code = 88132-4) TRACE NEGATIVE [facility] CenterUrine color tfzgbfrnwqwhn1076-89-40 09:20:00* Test Item Value Reference Range Interpretation Comments Urine Color (test code = 5778-6) YELLOW YELLOW [facility] CenterUrine zebvxpg7375-69-96 09:20:00* Test Item Value Reference Range Interpretation Comments Urine Clarity (test code = 92761-9) CLEAR CLEAR [facility]pecific gravity of Urine by Test strip 2019-05-16 09:20:00* Test Item Value Reference Range Interpretation Comments Urine Specific [place] (test code = 5811-5) 1.025 1.010-1.02 5 [facility] CenterUrine pH measurement by automated test zvohj1724-77-65 09:20:00* Test Item Value Reference Range Interpretation Comments Urine pH (test code = 86295-3) 5.5 5-7 [facility] CenterUrine leukocyte esterase detection by iujlslyo6633-92-58 09:20:00* Test Item Value Reference Range Interpretation Comments Urine Leukocyte Esterase (test code = 5799-2) NEGATIVE NEGATIVE [facility] CenterUrine nitrite vsxankixb4343-95-70 09:20:00* Test Item Value Reference Range Interpretation Comments Urine Nitrite (test code = 30223-4) NEGATIVE NEGATIVE [facility] CenterUrine protein measurement by test strip (mass/volume)2019-05-16 09:20:00* Test Item Value Reference Range Interpretation Comments Urine Protein (test code = 5804-0) 1+ NEGATIVE [facility] CenterUrine glucose styrutqpm1718-35-19 09:20:00* Test Item Value Reference Range Interpretation Comments Urine Glucose (UA) (test code = 2349-9) NEGATIVE NEGATIVE [facility] CenterUrine ketones detection by automated test nsslb7545-57-57 09:20:00* Test Item Value Reference Range Interpretation Comments Urine Ketones (test code = 72335-7) NEGATIVE NEGATIVE [facility] CenterUrine urobilinogen measurement by test strip (mass/volume)2019-05-16 09:20:00* Test Item Value Reference Range Interpretation Comments Urine Urobilinogen (test code = 72556-6) 0.2 0.2-1 [facility] CenterUrine total bilirubin measurement (mass/volume)2019-05-16 09:20:00* Test Item Value Reference Range Interpretation Comments Urine Bilirubin (test code = 1978-6) NEGATIVE NEGATIVE [facility] CenterUrine erythrocytes kemfskups0842-49-31 09:20:00* Test Item Value Reference Range Interpretation Comments Urine Blood (test code = 15536-5) TRACE NEGATIVE [facility] CenterAutomated urine sediment leukocyte count by microscopy (number/high power field)2019-05-16 09:20:00* Test Item Value Reference Range Interpretation Comments Urine WBC (test code = 5821-4) 6-10 0-5 [facility] CenterErythrocytes detection in urine sediment by light ghuphlpjmi0145-24-33 09:20:00* Test Item Value Reference Range Interpretation Comments Urine RBC (test code = 95220-1) 6-10 0-5 [facility] CenterBacteria detection in urine sediment by light zscmxklezx4421-76-83 09:20:00* Test Item Value Reference Range Interpretation Comments Urine Bacteria (test code = 69276-3) FEW NONE [facility] CenterEpithelial cells detection in urine sediment by light pwndplnvkl3997-10-28 09:20:00* Test Item Value Reference Range Interpretation Comments Urine Epithelial Cells (test code = 27461-4) FEW NONE [facility] Campusodium Bpenu8223-20-80 05:30:00* Test Item Value Reference Range Interpretation Comments Sodium Level (test code = 2951-2) 139 136-145 [facility] CenterPotassium Qsbsu1577-20-42 05:30:00* Test Item Value Reference Range Interpretation Comments Potassium Level (test code = 2823-3) 3.8 3.5-5.1 [facility] CenterChloride Dnoha5864-64-64 05:30:00* Test Item Value Reference Range Interpretation Comments Chloride Level (test code = 2075-0) 102 98-107 [facility] CenterCarbon Dioxide Ygjcg1474-92-72 05:30:00* Test Item Value Reference Range Interpretation Comments Carbon Dioxide Level (test code = 2028-9) 25 22-29 [facility] CenterAnion Tsf3911-54-82 05:30:00* Test Item Value Reference Range Interpretation Comments Anion Gap (test code = 19534-5) 15.8 8-16 [facility] CenterBlood Urea Pldnxval6553-57-16 05:30:00* Test Item Value Reference Range Interpretation Comments Blood Urea Nitrogen (test code = 3094-0) 18 7-26 [facility] CenterCreatinine2020-04-10 05:30:00* Test Item Value Reference Range Interpretation Comments Creatinine (test code = 2160-0) 1.25 0.72-1.25 [facility] CenterBUN/Creatinine Jmeuu0166-76-21 05:30:00* Test Item Value Reference Range Interpretation Comments BUN/Creatinine Ratio (test code = 3097-3) 14 6- [facility] CenterEstimat Glomerular Filtration Rate 2019-05-16 05:30:00* Test Item Value Reference Range Interpretation Comments Estimat Glomerular Filtration Rate (test code = 421454390) 57 >60 L Ranges were taken from the National Kidney Disease Education Program and the [facility] Kidney Foundation literature.Reference ranges:60 or greater: Lbqjzu94-15 ( for 3 consecutive months): Chronic kidney disease 15 or less: Kidney failurePeters[facility] Regional Medical CenterGlucose Bkgls8993-90-78 05:30:00* Test Item Value Reference Range Interpretation Comments Glucose Level (test code = ASM5942) 107 74-118 [facility] CenterCalcium Ilfxy0960-40-68 05:30:00* Test Item Value Reference Range Interpretation Comments Calcium Level (test code = 62588-7) 9.2 8.4-10.2 [facility] CenterWhite Blood Vuetk7369-97-04 05:06:00* Test Item Value Reference Range Interpretation Comments White Blood Count (test code = 6690-2) 9.24 4.8-10.8 [facility] CenterRed Blood Zfwpz4174-20-64 05:06:00* Test Item Value Reference Range Interpretation Comments Red Blood Count (test code = 789-8) 4.21 4.3-5.7 L [facility] CenterHemoglobin2020-04-10 05:06:00* Test Item Value Reference Range Interpretation Comments Hemoglobin (test code = 53363-8) 12.9 14.0-18.0 L [facility] CenterHematocrit2020-04-10 05:06:00* Test Item Value Reference Range Interpretation Comments Hematocrit (test code = 4544-3) 40.2 38.2-49.6 [facility] CenterMean Corpuscular Sjihaz8282-43-76 05:06:00* Test Item Value Reference Range Interpretation Comments Mean Corpuscular Volume (test code = 787-2) 95.5 81-99 [facility] CenterMean Corpuscular Jbjpzpsnuw3054-39-10 05:06:00* Test Item Value Reference Range Interpretation Comments Mean Corpuscular Hemoglobin (test code = 785-6) 30.6 28-32 [facility] CenterMean Corpuscular Hemoglobin Concent 2019-05-16 05:06:00* Test Item Value Reference Range Interpretation Comments Mean Corpuscular Hemoglobin Concent (test code = 786-4) 32.1 31-35 [facility] CenterRed Cell Distribution Rxilo7206-90-13 05:06:00* Test Item Value Reference Range Interpretation Comments Red Cell Distribution Width (test code = 19702-6) 13.8 11.7 -14.4 [facility] CenterPlatelet Adqbp3653-43-22 05:06:00* Test Item Value Reference Range Interpretation Comments Platelet Count (test code = 777-3) 163 140-360 [facility] CenterNeutrophils (%) (Auto)2019-05-16 05:06:00 * Test Item Value Reference Range Interpretation Comments Neutrophils (%) (Auto) (test code = 63326-6) 67.4 38.7-80.0 [facility] CenterLymphocytes (%) (Auto)2019-05-16 05:06:00 * Test Item Value Reference Range Interpretation Comments Lymphocytes (%) (Auto) (test code = 736-9) 19.7 18.0-39.1 [facility] CenterMonocytes (%) (Auto)2019-05-16 05:06:00* Test Item Value Reference Range Interpretation Comments Monocytes (%) (Auto) (test code = 5905-5) 11.4 4.4-11.3 H [facility] CenterEosinophils (%) (Auto)2019-05-16 05:06:00 * Test Item Value Reference Range Interpretation Comments Eosinophils (%) (Auto) (test code = 713-8) 0.6 0.0-6.0 [facility] CenterBasophils (%) (Auto)2019-05-16 05:06:00* Test Item Value Reference Range Interpretation Comments Basophils (%) (Auto) (test code = 706-2) 0.5 0.0-1.0 [facility] CenterIM GRANULOCYTES %2019-05-16 05:06:00* Test Item Value Reference Range Interpretation Comments IM GRANULOCYTES % (test code = IM GRANULOCYTES %) 0.4 0.0- 1.0 [facility] CenterNeutrophils # (Auto)2019-05-16 05:06:00* Test Item Value Reference Range Interpretation Comments Neutrophils # (Auto) (test code = 751-8) 6.2 2.1-6.9 [facility] CenterLymphocytes # (Auto)2019-05-16 05:06:00* Test Item Value Reference Range Interpretation Comments Lymphocytes # (Auto) (test code = 08125-0) 1.8 1.0-3.2 [facility] CenterMonocytes # (Auto)2019-05-16 05:06:00* Test Item Value Reference Range Interpretation Comments Monocytes # (Auto) (test code = 742-7) 1.1 0.2-0.8 H [facility] CenterEosinophils # (Auto)2019-05-16 05:06:00* Test Item Value Reference Range Interpretation Comments Eosinophils # (Auto) (test code = 711-2) 0.1 0.0-0.4 [facility] CenterBasophils # (Auto)2019-05-16 05:06:00* Test Item Value Reference Range Interpretation Comments Basophils # (Auto) (test code = 704-7) 0.1 0.0-0.1 [facility] CenterAbsolute Immature Granulocyte (auto 2019-05-16 05:06:00* Test Item Value Reference Range Interpretation Comments Absolute Immature Granulocyte (auto (pema t code = Absolute Immature Granulocyte (auto) 0.04 0-0.1 [facility] CenterBlood Pexftsu0652-02-19 18:58:00* Test Item Value Reference Range Interpretation Comments Blood Culture (test code = 74234561) NO GROWTH AFTER 24 HOURS [facility] CenterUS CHEST (INCL MEDIASTINUM)2019-05-15 15:18:00 [facility] [address] [address] Patient Name: SEA LINDA MR #: [id number] : 1945 Age/Sex: 74/M Req #: [id number] Adm Physician: BRIAN JOLLY MD Ordered by: SOMMER GRIMES MD Report #: [id number] Location: [facility] Room/Bed: [place] [address] Procedure: 0409-000 5 US/US CHEST (INCL MEDIASTINUM) [...] sufficient for diagnostic or therapeutic thoracentesis. IMPRES AJAY: Trace right pleural fluid present. Not sufficient for diagnostic or t herapeutic thoracentesis. Signed by: Dr. Domo Gilliland MD on 05/15/2019 3:2 1 PM Dictated By: DOMO GILLILAND MD 20 Transcribed By: SUMEET on 05/15/19 152 COPY TO: SOMMER GRIMES MD, [facility] Capillary blood glucose measurement by glucometer (mass/volume)2019-05-15 15:00:00* Test Item Value Reference Range Interpretation Comments Bedside Glucose (test code = 86080-0) 143 70-120 Meter ID: [id number] Regional Medical CenterCreatine Kinase MB 2019-05-15 13:03:00* Test Item Value Reference Range Interpretation Comments Creatine Kinase MB (test code = 94358-1) 1.70 0-5.0 [place] 12108020-04-09 13:03:00* Test Item Value Reference Range Interpretation Comments Troponin I (test code = 80399-4) 0.018 0-0.300 [facility] CenterCreatine Kinase II9951-10-61 13:03:00* Test Item Value Reference Range Interpretation Comments Creatine Kinase MB (test code = 38548-0) 1.70 0-5.0 [place] 12108020-04-09 13:03:00* Test Item Value Reference Range Interpretation Comments Troponin I (test code = 59463-8) 0.018 0-0.300 [facility] CenterCreatine Fyqshb7488-19-04 12:20:00* Test Item Value Reference Range Interpretation Comments Creatine Kinase (test code = 2157-6) 46 30-200 [facility] CenterCreatine Uadxhe7076-87-65 12:20:00* Test Item Value Reference Range Interpretation Comments Creatine Kinase (test code = 2157-6) 46 30-200 [facility] Campuserum or plasma creatine kinase measurement (enzymatic activity/volume)2019-05-15 11:15:00* Test Item Value Reference Range Interpretation Comments Creatine Kinase (test code = 2157-6) 46 30-200 [facility] Campuserum or plasma creatine kinase MB measurement (mass/volume)2019-05-15 11:15:00* Test Item Value Reference Range Interpretation Comments Creatine Kinase MB (test code = 85039-0) 1.70 0-5.0 [facility]2019-05-15 10:49:00 [facility] [address] [address] Patient Name: SEA LINDA MR #: [id number] : 1945 Age/Sex: 74/M Req #: [id number] Adm Physician: BRIAN JOLLY MD Ordered by: SOMMER GRIMES MD Report #: [id number] Location: [facility] Room/Bed: [place] [address] Procedure: 0409-000 8 DX/CHEST SINGLE (PORTABLE) Exam [...] 10/25 1051 COPY TO: SOMMER GRIMES MD, ABI Free Thyroxine Wimsn1183-18-62 07:22:00* Test Item Value Reference Range Interpretation Comments Free Thyroxine Index (test code = 35766-6) 2.6102 1.4-3.8 [facility] CenterThyroxine (T4)2019-05-15 07:22:00* Test Item Value Reference Range Interpretation Comments Thyroxine (T4) (test code = 3026-2) 7.61 4.5-10.9 [facility] CenterTriiodothyronine (T3) Uudjav1924-86-22 07:22:00* Test Item Value Reference Range Interpretation Comments Triiodothyronine (T3) Uptake (test code = 3050-2) 34.30 22.5 -37.0 [facility] CenterThyroid Stimulating Hormone (TSH) 2019-05-15 07:22:00* Test Item Value Reference Range Interpretation Comments Thyroid Stimulating Hormone (TSH) (test code = 06349-3) 1.961 0.350-4.940 [facility] CenterFree Thyroxine Tvjwl0082-98-30 07:22:00* Test Item Value Reference Range Interpretation Comments Free Thyroxine Index (test code = 10633-9) 2.6102 1.4-3.8 [facility] CenterThyroxine (T4)2019-05-15 07:22:00* Test Item Value Reference Range Interpretation Comments Thyroxine (T4) (test code = 3026-2) 7.61 4.5-10.9 [facility] CenterTriiodothyronine (T3) Qprlme9802-16-44 07:22:00* Test Item Value Reference Range Interpretation Comments Triiodothyronine (T3) Uptake (test code = 3050-2) 34.30 22.5 -37.0 [facility] CenterThyroid Stimulating Hormone (TSH) 2019-05-15 07:22:00* Test Item Value Reference Range Interpretation Comments Thyroid Stimulating Hormone (TSH) (test code = 87309-0) 1.961 0.350-4.940 [facility] CenterMagnesium Lffjx7001-78-50 06:58:00* Test Item Value Reference Range Interpretation Comments Magnesium Level (test code = 77798-6) 2.0 1.3-2.1 [facility] CenterMagnesium Clkvo4063-36-14 06:58:00* Test Item Value Reference Range Interpretation Comments Magnesium Level (test code = 19088-1) 2.0 1.3-2.1 [facility] CenterB-Type Natriuretic Gllhcro6638-09-17 06:25:00* Test Item Value Reference Range Interpretation Comments B-Type Natriuretic Peptide (test code = 88392-0) 890.9 0-100 H [facility] CenterB-Type Natriuretic Jfvvafp0095-50-48 06:25:00* Test Item Value Reference Range Interpretation Comments B-Type Natriuretic Peptide (test code = 43226-1) 890.9 0-100 H [facility] Campuserum or plasma magnesium measurement (mass/volume)2019-05-15 04:50:00* Test Item Value Reference Range Interpretation Comments Magnesium Level (test code = 86054-2) 2.0 1.3-2.1 [facility] CenterFree thyroxine qzyvd4863-78-97 04:50:00* Test Item Value Reference Range Interpretation Comments Free Thyroxine Index (test code = 06212-6) 2.6102 1.4-3.8 [facility] Camp[facility]um or plasma thyroxine (T4) measurement (mass/volume)2019-05-15 04:50:00* Test Item Value Reference Range Interpretation Comments Thyroxine (T4) (test code = 3026-2) 7.61 4.5-10.9 [facility] Campuserum or plasma triiodothyronine resin uptake (T3RU)2019-05-15 04:50:00* Test Item Value Reference Range Interpretation Comments Triiodothyronine (T3) Uptake (test code = 3050-2) 34.30 22.5 -37.0 [facility] Camp[facility]um or plasma thyrotropin measurement by detection limit <= 0.005 miu/l (units/volume)2019-05-15 04:50:00* Test Item Value Reference Range Interpretation Comments Thyroid Stimulating Hormone (TSH) (test code = 19629-6) 1.961 0.350-4.940 [facility] SINGLE (PORTABLE)2019-05-14 20:29:00 [facility] [address] [address] Patient Name: SEA LINDA MR #: [id number] : 1945 Age/Sex: 74/M Req #: [id number] Adm Physician: BRIAN JOLLY MD Ordered by: NELI MUNIZ MD Report #: [id number] Location: [facility] Room/Bed: [place] [address] Procedure: [id number] DX/CHEST SINGLE (PORTABLE) Exam Date: 05/14/19 Exam Time: 1944 REPORT STATUS: Signed EXAMINATION: CHEST SINGLE (PORTABLE) INDICATION: COUGH 2 [id number] COMPARISON: Chest radiograph 05/08/2019 FINDIN GS: AP [...] right pleural effusion. Signed by: Dr. Malorie Rincon M.D. on 05/14/2019 8:32 PM Dictated By: STACEY RINCON MD 2 032 Transcribed By: SUMEET on 05/14/192031 COPY TO: NELI MUNIZ MD Aspartate Amino Transf (AST/SGOT)2019-05-14 20:12:00* Test Item Value Reference Range Interpretation Comments Aspartate Amino Transf (AST/SGOT) (test code = Aspartate Amino Transf (AST/SGOT)) 11 -34 [facility] CenterAlanine Aminotransferase (ALT/SGPT) 2019-05-14 20:12:00* Test Item Value Reference Range Interpretation Comments Alanine Aminotransferase (ALT/SGPT) (test code = 1742-6) 10 0-55 [facility] CenterAspartate Amino Transf (AST/SGOT) 2019-05-14 20:12:00* Test Item Value Reference Range Interpretation Comments Aspartate Amino Transf (AST/SGOT) (test code = Aspartate Amino Transf (AST/SGOT)) 11 [facility] CenterAlanine Aminotransferase (ALT/SGPT) 2019-05-14 20:12:00* Test Item Value Reference Range Interpretation Comments Alanine Aminotransferase (ALT/SGPT) (test code = 1742-6) 10 0-55 [facility] CenterInfluenza Virus Types A,B Antigen 2019-05-14 19:53:00* Test Item Value Reference Range Interpretation Comments Influenza Virus Types A,B Antigen (test code = 85401-7) NEGATIVE NEGATIVE [facility] CenterInfluenza Virus Types A,B Antigen 2019-05-14 19:53:00* Test Item Value Reference Range Interpretation Comments Influenza Virus Types A,B Antigen (test code = 59149-7) NEGATIVE NEGATIVE [facility] CenterGroup A Streptococcus Ztaaut2150-56-59 19:46:00* Test Item Value Reference Range Interpretation Comments Group A Streptococcus Screen (test code = 11207-2) NEGATIVE NEG ATIVE [facility] CenterGroup A Streptococcus Ofiafs8562-83-84 19:46:00* Test Item Value Reference Range Interpretation Comments Group A Streptococcus Screen (test code = 78401-3) NEGATIVE NEG ATIVE [facility] CenterProthrombin Jlsf8852-91-97 19:27:00* Test Item Value Reference Range Interpretation Comments Prothrombin Time (test code = 5902-2) 14.3 11.9-14.5 [facility] CenterProthromb Time International Ratio 2019-05-14 19:27:00* Test Item Value Reference Range Interpretation Comments Prothromb Time International Ratio (test code = 6301-6) 1.05 Oral Anticoagulant Therapy INR Values:1. Low Intensity Therapy 1.5 - 2.02 . Moderate Intensity Therapy 2.0 - 3.03. High Intensity Therapy(1) 2.5 - 3. 54. High Intensity Therapy(2) 3.0 - 4.05. Panic Value INR > 5.0 [facility] CenterActivated Partial Thromboplast Time 2019-05-14 19:27:00* Test Item Value Reference Range Interpretation Comments Activated Partial Thromboplast Time (test code = 27507-1) 32.0 23.8-35.5 [facility] CenterProthrombin Rtwx3509-01-14 19:27:00* Test Item Value Reference Range Interpretation Comments Prothrombin Time (test code = 5902-2) 14.3 11.9-14.5 [facility] CenterProthromb Time International Ratio 2019-05-14 19:27:00* Test Item Value Reference Range Interpretation Comments Prothromb Time International Ratio (test code = 6301-6) 1.05 Oral Anticoagulant Therapy INR Values:1. Low Intensity Therapy 1.5 - 2.02 . Moderate Intensity Therapy 2.0 - 3.03. High Intensity Therapy(1) 2.5 - 3. 54. High Intensity Therapy(2) 3.0 - 4.05. Panic Value INR > 5.0 [facility] CenterActivated Partial Thromboplast Time 2019-05-14 19:27:00* Test Item Value Reference Range Interpretation Comments Activated Partial Thromboplast Time (test code = 72131-5) 32.0 23.8-35.5 [facility] CenterTotal Inemgztaq9263-92-32 19:24:00* Test Item Value Reference Range Interpretation Comments Total Bilirubin (test code = 1975-2) 2.8 0.2-1.2 H [facility] Dutraog4183-02-95 19:24:00* Test Item Value Reference Range Interpretation Comments Total Protein (test code = 2885-2) 7.1 6.5-8.1 [facility] CenterAlbumin2020-04-08 19:24:00* Test Item Value Reference Range Interpretation Comments Albumin (test code = 1751-7) 3.5 3.5-5.0 [facility] CenterGlobulin2020-04-08 19:24:00* Test Item Value Reference Range Interpretation Comments Globulin (test code = 65154-6) 3.6 2.3-3.5 H [facility] CenterAlbumin/Globulin Wkqfx1076-25-24 19:24:00 * Test Item Value Reference Range Interpretation Comments Albumin/Globulin Ratio (test code = 1759-0) 1.0 0.8-2.0 [facility] CenterAlkaline Mtukjnzmelr3702-87-55 19:24:00* Test Item Value Reference Range Interpretation Comments Alkaline Phosphatase (test code = 6768-6) 105 40-150 [facility] CenterTotal Xiklgaxbc1541-54-66 19:24:00* Test Item Value Reference Range Interpretation Comments Total Bilirubin (test code = 1975-2) 2.8 0.2-1.2 H [facility] Qnfgyps4329-13-61 19:24:00* Test Item Value Reference Range Interpretation Comments Total Protein (test code = 2885-2) 7.1 6.5-8.1 [facility] CenterAlbumin2020-04-08 19:24:00* Test Item Value Reference Range Interpretation Comments Albumin (test code = 1751-7) 3.5 3.5-5.0 [facility] CenterGlobulin2020-04-08 19:24:00* Test Item Value Reference Range Interpretation Comments Globulin (test code = 05361-9) 3.6 2.3-3.5 H [facility] CenterAlbumin/Globulin Gpeyn1401-22-67 19:24:00 * Test Item Value Reference Range Interpretation Comments Albumin/Globulin Ratio (test code = 1759-0) 1.0 0.8-2.0 [facility] CenterAlkaline Skeekfyzhdf7707-70-36 19:24:00* Test Item Value Reference Range Interpretation Comments Alkaline Phosphatase (test code = 6768-6) 105 40-150 [facility] CenterInfluenza virus A and B antigen identification by qtkuqxjznqnvdfvmfa2845-91-01 19:18:00* Test Item Value Reference Range Interpretation Comments Influenza Virus Types A,B Antigen (test code = 63823-0) NEGATIVE NEGATIVE [facility] Campustreptococcus pyogenes antigen detection in ktbgqb9124-33-90 19:18:00* Test Item Value Reference Range Interpretation Comments Group A Streptococcus Screen (test code = 01794-2) NEGATIVE NEG ATIVE [facility] CenterActivated partial thromboplastin time (aPTT) in platelet poor plasma by coagulation cojgh0656-22-90 18:48:00* Test Item Value Reference Range Interpretation Comments Activated Partial Thromboplast Time (test code = 27000-8) 32.0 23.8-35.5 [facility] CenterBlood qhvdrcf4035-88-43 18:48:00* Test Item Value Reference Range Interpretation Comments Blood Culture (test code = 85076508) NO GROWTH AFTER 5 DAYS, FINAL REPORT [facility] CenterCHEST 2 GATXZ8016-14-44 13:40:00 [facility] [address] [address] Patient Name: SEA LINDA MR #: [id number] : 1945 Age/Sex: 74/M Req #: [id number] Adm Physician: Ordered by: BRIAN JOLLY MD Report #: [id number] Location: [facility] Room/Bed: Procedure: [id number] D X/CHEST 2 VIEWS Exam Date: 05/08/19 Exam Time: 1257 REPORT STATUS: Signed EXAM: NE ST 2 VIEWS DATE: 05/08/2019 12:00 AM [...] DOMO GILLILAND MD 1347 COPY TO: JOHNY JOLLY MD LJCOUC0706-87-42 08:27:00* Test Item Value Reference Range Interpretation Comments GLUBED (test code = GLUBED) 153 mg/dL 74-106 H Performed by certified casting machine operator at [facility] FUGEAL7210-69-98 20:48:00* Test Item Value Reference Range Interpretation Comments GLUBED (test code = GLUBED) 110 mg/dL 74-106 H Performed by certified casting machine operator at [facility] XINQRQ7317-27-24 16:06:00* Test Item Value Reference Range Interpretation Comments GLUBED (test code = GLUBED) 159 mg/dL 74-106 H Performed by certified casting machine operator at [facility] BRNETE5413-39-07 12:58:00* Test Item Value Reference Range Interpretation Comments GLUBED (test code = GLUBED) 89 mg/dL 74-106 N Performed by certified casting machine operator at [facility] - XR CHEST 1 U9835-30-35 11:32:00 FAX: Brian Ortez MD [phone] [place]: St: REG FAX: Lio Zuniga [phone] Name: SEA LINDA [facility] : 1945 Age/S: 73/M [address] [facility]: [id number] Loc: [place] [address] Phys: Lio Segura MD Acct: [id number] Dis Date: Status: REG SDC PHONE #: [phone] Exam Date: 05/17/2018 1112 FAX #: [phone] Reason: ICD EXAMS: CPT CODE: [id number] XR CHEST 1 V 16160 HISTORY: ICD placement. COMPARISON: May 15, 2018. Left ICD with the leads in the right atrium and right ventricle. No pneumothorax. Dependent changes. No infiltrates, effusion or congestion. Moderate cardiomegaly. IMPRESSION: No pneumothorax after left ICD placement with leads in the right atrium and right ventricle. at 1132 Reported and signed by: Wilfred Palomo M.D. CC: Brian Jolly MD; Lio Segura MD Technologist: Shama Pacheco(Bibi) Trnscrd Date/Time/By: 05/17/2018 (5281) : By: FortinoTH4 Orig Print D/T: S: 05/17/2018 (7276) PAGE 1 Signed Report [id number] 09:22:00* Test Item Value Reference Range Interpretation Comments GLUBED (test code = GLUBED) 126 mg/dL 74-106 H Performed by certified casting machine operator at [facility] COMPREHENSIVE METABOLIC HXUXW0678-89-55 09:52:00* Test Item Value Reference Range Interpretation [...] RELATED TO RISK LEVELS ASRECOMMENDED BY THE CIRA. HEART, LUNG, AND BLOOD INST. HDL CHOLESTEROL (test code = HDL) 36 mg/dL 40-60 L LIPOPROTEIN LDL (test code = LDL) 50 mg/dL 100-129 L Reference Interval: mg/dL mmol/L Optimal <100 <2.6Near/above optimal 100-129 2.6- 3.3Borderline High 130-159 3.4-4.1High 160-189 4.1-4.9Very High >=190 >=4.9========= This LDL result is a direct measurement.========= THYROID STIMULATING KPAZIPA3508-73-49 09:52:00* Test Item Value Reference Range Interpretation Comments THYROID STIMULATING HORMONE (test code = TSH) 3.520 uIU/mL 0.36-3.7 4 N TSH REFERENCE RANGES: EUTHYROID: 0.35 - 4.3 mIU/mL HYPO : > 5.5 mIU/mL HYPER : < 0.35 mIU/mL COMPREHENSIVE METABOLIC CKPYY1225-16-67 09:37:00* Test Item Value Reference Range Interpretation [...] code = LDL) mg/dL 100-129 THYROID STIMULATING SUJDDSH0192-68-81 09:37:00* Test Item Value Reference Range Interpretation Comments THYROID STIMULATING HORMONE (test code = TSH) uIU/mL 0.36-3.7 4 PROTHROMBIN WBLL4844-35-95 09:30:00* Test Item Value Reference Range Interpretation [...] Mechanical prosthetic heart valves (2.5-3.5) THROMBOPLASTIN TIME MPOXXTN7078-65-23 09:30:00* Test Item Value Reference Range Interpretation Comments THROMBOPLASTIN TIME PARTIAL (test code = PTT) 35.4 seconds 25.0-36. 5 N CBC W/AUTO JTQC0821-14-18 09:01:00* Test Item Value Reference Range Interpretation [...] = MDIFF) NO - XR CHEST 2 N1021-53-34 07:31:00 FAX: Brian Ortez MD [phone] [place]: O St: PRE FAX: Lio Zuniga [phone] Name: SEA LINDA [facility] : 1945 Age/S: 73/M [address] [facility] Unit #: [id number] Loc: [place] [address] Phys: Lio Segura MD Acct: [id number] Dis Date: Status: PRE SDC PHONE #: [phone] Exam Date: 05/15/2018 08 FAX #: [phone] Reason: PRE OP EXAMS: CPT CODE: [id number] XR CHEST 2 V 79825 EXAM: Chest x-ray, 2 views; INFORMATION: I50.22; [...] signed by: Elias Shell M.D. CC: Brian Jolly MD; Lio Segura MD Technologist: RT Nory(Bibi) Papi rnscrd Date/Time/By: 05/15/2018 (31) : By: FortinoGRW Orig Print D/T: S: 05/15/2018 (0840) PAGE 1 Sign ed Report Stress Test - Treadmill KTRU3409-60-62 11:53:[address] [place] [address] Patient Name : SEA LINDA MR #: [id number] : 1945 Age/Sex: 72/M Adm Physician : BRIAN JOLLY MD Admit Date : 01/29/18 Location : MED/SURG2 Room/Bed : [facility] REPORT: Ca rdiology Report DATE OF STUDY: January 29, 2018 NUCLEAR GATED MYOC ARDIAL PERFUSION SCAN Nuclear gated myocardial perfusion scan performed as per protocol at nuclear medicine lab at [facility]. I supervised and interpreted the stress test. [...] stress test described above. 11: 53 Job#: [id number] TA Signature Date Dictated By: JOHNNA HERNANDEZ MD Transcribed By: SMEDS on 02/08/18 < Electronically signed by JOHNNA HERNANDEZ MD><<Signature on File>>02/20/181911 COPY TO: Bedside Rklvtwj1263-68-47 16:09:00* Test Item Value Reference Range Interpretation Comments Bedside Glucose (test code = 54523-7) 140 70-120 H Meter ID: [id number] Regional Medical CenterActivated Clotting Mnzr4939-82-66 10:29:00* Test Item Value Reference Range Interpretation Comments Activated Clotting Time (test code = DZR0106) 241 Line pull <170 sec or baselinePeripheral and Neuroradiology <400 secAngioplasty 220 secThe Hospitals of Providence Transmountain Campusodium Dxyen4624-39-94 07:13:00* Test Item Value Reference Range Interpretation Comments Sodium Level (test code = 2951-2) 136 136-145 [facility] CenterPotassium Rmbqm4435-98-53 07:13:00* Test Item Value Reference Range Interpretation Comments Potassium Level (test code = 2823-3) 3.6 3.5-5.1 [facility] CenterChloride Yyloi2409-97-07 07:13:00* Test Item Value Reference Range Interpretation Comments Chloride Level (test code = 2075-0) 102 98-107 [facility] CenterCarbon Dioxide Dgwud6349-61-97 07:13:00* Test Item Value Reference Range Interpretation Comments Carbon Dioxide Level (test code = 2028-9) 23 22-29 [facility] CenterAnion Pvf0340-00-19 07:13:00* Test Item Value Reference Range Interpretation Comments Anion Gap (test code = 90357-6) 14.6 8-16 [facility] CenterBlood Urea Rdzhaemm0676-18-91 07:13:00* Test Item Value Reference Range Interpretation Comments Blood Urea Nitrogen (test code = 3094-0) 22 7- [facility] CenterCreatinine2018-12-30 07:13:00* Test Item Value Reference Range Interpretation Comments Creatinine (test code = 2160-0) 1.30 0.72-1.25 H [facility] CenterBUN/Creatinine Ojixi2327-28-07 07:13:00* Test Item Value Reference Range Interpretation Comments BUN/Creatinine Ratio (test code = 3097-3) 17 - [facility] Medical CenterEstimat Glomerular Filtration Rate 2018-02-03 07:13:00* Test Item Value Reference Range Interpretation Comments Estimat Glomerular Filtration Rate (test code = 088803219) 55 >60 L Ranges were taken from the National Kidney Disease Education Program and the [facility] Foundation literature.Reference ranges:60 or greater: Mwwgnz29-16 ( for 3 consecutive months): Chronic kidney disease 15 or less: Kidney failurePeterson Regional Medical CenterGlucose Hphca3982-10-11 07:13:00* Test Item Value Reference Range Interpretation Comments Glucose Level (test code = BRI1787) 165 74-118 H [facility] CenterCalcium Fhjbi8286-85-87 07:13:00* Test Item Value Reference Range Interpretation Comments Calcium Level (test code = 28947-0) 9.1 8.4-10.2 [facility] CenterProstate Specific Rtxqnjs8996-74-87 07:44:00* Test Item Value Reference Range Interpretation Comments Prostate Specific Antigen (test code = 2857-1) 0.6 0.0-4.0 Talib ECLIA methodology.According to the [place] [employer], Serum PSAshould decrease and remain at undetectable levels afterradical prostatectomy. The AUA defines biochemicalrecurrence as an initial PSA value 0.2 ng/mL or grea terfollowed by a subsequent confirmatory PSA value 0.2 ng/mLor greater. Values o btained with different assay methods orkits cannot be used interchangeably. Resu lts cannot beinterpreted as absolute evidence of the presence or absenceof malig nant disease.Performed at: - [facility] [address] [id number] Director: Dany Carr MD, Phone: [phone] Regional Medical CenterUS ABDOMEN ZGHLAOQF3279-28-19 13:13:00 [place] [address] Patient Name: SEA LINDA MR #: [id number] : 1945 Age/Sex: 72/M Req #: [id number] Adm Physician: BRIAN JOLLY MD Ordered by: JOHNNA HERNANDEZ MD Report #: [id number] Location: MED/SURG Room/Bed: [facility] Procedure: [id number] US/US ABDOMEN COMPLETE Exam [...] pole right renal cyst. Signed by: Dr. Colten Fletcher DO on 01/30/2018 1:17 PM Dictated By: COLTEN FLETCHER DO 1317 Transcribed By: SUMEET on 01/30/18 1317 COPY TO: JOHNNA HERNANDEZ MD Triglycerides Ltcyz0000-47-21 06:57:00* Test Item Value Reference Range Interpretation Comments Triglycerides Level (test code = 2571-8) 142 0-149 [facility] CenterLDL Vfruvpbeoad5762-73-12 06:57:00* Test Item Value Reference Range Interpretation Comments LDL Cholesterol (test code = 2089-1) 32 60-130 L [facility] CenterCholesterol Ctzxe1750-03-49 06:38:00* Test Item Value Reference Range Interpretation Comments Cholesterol Level (test code = 2093-3) 93 0-199 Less than 200 mg/dL Low Pejs805 - 239 mg/dL Borderline Plgt114 m g/dl and greater High Risk [facility] CenterHDL Srwqstvavaq1036-21-76 06:38:00* Test Item Value Reference Range Interpretation Comments HDL Cholesterol (test code = 2085-9) 33 40-60 L [facility] CenterCholesterol/HDL Dkzmi2341-14-20 06:38:00 * Test Item Value Reference Range Interpretation Comments Cholesterol/HDL Ratio (test code = 9830-1) 2.8 3.9-4.7 L [facility] CenterCreatine Llwwwt7199-49-28 06:21:00* Test Item Value Reference Range Interpretation Comments Creatine Kinase (test code = 2157-6) 60 30-200 [facility] CenterCreatine Kinase HE1909-88-62 06:21:00* Test Item Value Reference Range Interpretation Comments Creatine Kinase MB (test code = 38551-0) 2.20 0-5.0 [facility] CenterTroponin L4746-30-78 06:21:00* Test Item Value Reference Range Interpretation Comments Troponin I (test code = WXL5994) 0.173 0-0.300 [facility] CenterWhite Blood Mtavz2000-09-53 05:40:00* Test Item Value Reference Range Interpretation Comments White Blood Count (test code = 6690-2) 7.61 4.8-10.8 [facility] CenterRed Blood Gwhij4248-39-62 05:40:00* Test Item Value Reference Range Interpretation Comments Red Blood Count (test code = 789-8) 4.19 4.3-5.7 L [facility] CenterHemoglobin2018-12-26 05:40:00* Test Item Value Reference Range Interpretation Comments Hemoglobin (test code = 47669-6) 13.2 14.0-18.0 L [facility] CenterHematocrit2018-12-26 05:40:00* Test Item Value Reference Range Interpretation Comments Hematocrit (test code = 4544-3) 39.3 38.2-49.6 [facility] CenterMean Corpuscular Ttzpxz0261-02-02 05:40:00* Test Item Value Reference Range Interpretation Comments Mean Corpuscular Volume (test code = 787-2) 93.8 81-99 [facility] CenterMean Corpuscular Vbjcfcdntc7797-45-58 05:40:00* Test Item Value Reference Range Interpretation Comments Mean Corpuscular Hemoglobin (test code = 785-6) 31.5 28-32 [facility] CenterMean Corpuscular Hemoglobin Concent 2018-01-30 05:40:00* Test Item Value Reference Range Interpretation Comments Mean Corpuscular Hemoglobin Concent (test code = 786-4) 33.6 31-35 [facility] CenterRed Cell Distribution Ugoeo2477-44-85 05:40:00* Test Item Value Reference Range Interpretation Comments Red Cell Distribution Width (test code = 57054-5) 14.0 11.7 -14.4 [facility] CenterPlatelet Xwxqs6659-02-63 05:40:00* Test Item Value Reference Range Interpretation Comments Platelet Count (test code = 777-3) 200 140-360 [facility] CenterNeutrophils (%) (Auto)2018-01-30 05:40:00 * Test Item Value Reference Range Interpretation Comments Neutrophils (%) (Auto) (test code = 31529-4) 60.8 38.7-80.0 [facility] CenterLymphocytes (%) (Auto)2018-01-30 05:40:00 * Test Item Value Reference Range Interpretation Comments Lymphocytes (%) (Auto) (test code = 736-9) 26.9 18.0-39.1 [facility] CenterMonocytes (%) (Auto)2018-01-30 05:40:00* Test Item Value Reference Range Interpretation Comments Monocytes (%) (Auto) (test code = 5905-5) 10.8 4.4-11.3 [facility] CenterEosinophils (%) (Auto)2018-01-30 05:40:00 * Test Item Value Reference Range Interpretation Comments Eosinophils (%) (Auto) (test code = 713-8) 0.5 0.0-6.0 [facility] CenterBasophils (%) (Auto)2018-01-30 05:40:00* Test Item Value Reference Range Interpretation Comments Basophils (%) (Auto) (test code = 706-2) 0.7 0.0-1.0 [facility] CenterIM GRANULOCYTES %2018-01-30 05:40:00* Test Item Value Reference Range Interpretation Comments IM GRANULOCYTES % (test code = IM GRANULOCYTES %) 0.3 0.0- 1.0 [facility] CenterNeutrophils # (Auto)2018-01-30 05:40:00* Test Item Value Reference Range Interpretation Comments Neutrophils # (Auto) (test code = 751-8) 4.6 2.1-6.9 [facility] CenterLymphocytes # (Auto)2018-01-30 05:40:00* Test Item Value Reference Range Interpretation Comments Lymphocytes # (Auto) (test code = 01566-4) 2.1 1.0-3.2 [facility] CenterMonocytes # (Auto)2018-01-30 05:40:00* Test Item Value Reference Range Interpretation Comments Monocytes # (Auto) (test code = 742-7) 0.8 0.2-0.8 [facility] CenterEosinophils # (Auto)2018-01-30 05:40:00* Test Item Value Reference Range Interpretation Comments Eosinophils # (Auto) (test code = 711-2) 0.0 0.0-0.4 [facility] CenterBasophils # (Auto)2018-01-30 05:40:00* Test Item Value Reference Range Interpretation Comments Basophils # (Auto) (test code = 704-7) 0.1 0.0-0.1 [facility] CenterAbsolute Immature Granulocyte (auto 2018-01-30 05:40:00* Test Item Value Reference Range Interpretation Comments Absolute Immature Granulocyte (auto (pema t code = Absolute Immature Granulocyte (auto) 0.02 0-0.1 [facility] CenterUrine HMY9322-51-66 16:13:00* Test Item Value Reference Range Interpretation Comments Urine WBC (test code = 5821-4) 6-10 0-5 H [facility] CenterUrine PBC8640-22-55 16:13:00* Test Item Value Reference Range Interpretation Comments Urine RBC (test code = 94431-7) 0-5 0-5 [facility] CenterUrine Zcrlcxdk6391-78-42 16:13:00* Test Item Value Reference Range Interpretation Comments Urine Bacteria (test code = 26671-2) NONE NONE [facility] CenterUrine Epithelial Ifbhx6139-30-77 16:13:00 * Test Item Value Reference Range Interpretation Comments Urine Epithelial Cells (test code = 17177-4) FEW NONE [facility] CenterUrine Calcium Oxalate Xxvflpbp6855-16-37 16:13:00* Test Item Value Reference Range Interpretation Comments Urine Calcium Oxalate Crystals (test code = 5774-5) MODERATE FE W H [facility] Medical CenterB-Type Natriuretic Rsgewqk4079-93-30 15:39:00* Test Item Value Reference Range Interpretation Comments B-Type Natriuretic Peptide (test code = 78741-6) 1384.9 0-100 [facility]CHE[facility] 2 ZYFFO7700-94-75 15:26:00 [facility] [address] [address] Patient Name: SEA LINDA MR #: [id number] : 1945 Age/Sex: 72/M Req #: [id number] Adm Physician: Ordered by: NELI MUNIZ MD Report #: [id number] Location: ER Room/Bed: Procedure: [id number] DX/C HEST 2 VIEWS Exam Date: 01/29/18 Exam Time: 1445 REPORT STATUS: Signed EXAMINATION: CHEST 2 VIEWS INDICATION: [id number] COMPARI SON: 01/23/2018 FINDINGS: PA and lateral views TUBES and LINES: None. LUNGS: Lungs are well inflated. Mild bibasilar hazy opacification. PLEURA: No pneumothorax. HEART AND MEDIASTINUM: The cardiomediastinal silhouette is enlarged. BONES AND SOFT TISSUES: No acute osseous le ajay. Degenerative changes of thoracic spine. Soft tissues are unremarkable. UPPER ABDOMEN: No free air under the diaphragm. IMPRESSION: Mild bibasilar hazy opacification, representing small effusions/atelectasis. Under lying infiltrate cannot be excluded. Signed by: Dr. Vincent Yoder MD on 01/29/2018 3:27 PM Dictated By: VINCENT YODER MD 1527 Transcribed By: SUMEET on 01/29/18 1527 COPY TO: NELI MUNIZ MD Urine Jwumj0915-90-84 15:13:00* Test Item Value Reference Range Interpretation Comments Urine Color (test code = 5778-6) YELLOW YELLOW [facility] Center[facility] Mhlxuqm1126-55-14 15:13:00* Test Item Value Reference Range Interpretation Comments Urine Clarity (test code = 92676-2) CLEAR CLEAR [facility] CenterU[facility] Specific Cksdzjn5616-07-36 15:13:00 * Test Item Value Reference Range Interpretation Comments Urine Specific [place] (test code = 5811-5) 1.025 1.010-1.02 5 [facility] CenterU[facility] bX9620-51-40 15:13:00* Test Item Value Reference Range Interpretation Comments Urine pH (test code = 32536-5) 6 5-7 [facility] Center[facility] Leukocyte Hbfhrslx7798-84-71 15:13:00* Test Item Value Reference Range Interpretation Comments Urine Leukocyte Esterase (test code = 5799-2) NEGATIVE NEGATIVE [facility] CenterU[facility] Hnccdon2222-15-24 15:13:00* Test Item Value Reference Range Interpretation Comments Urine Nitrite (test code = 10394-7) NEGATIVE NEGATIVE [facility] CenterU[facility] Sszzxsg9656-98-76 15:13:00* Test Item Value Reference Range Interpretation Comments Urine Protein (test code = 5804-0) 2+ NEGATIVE H [facility] CenterUrine Glucose (UA)2018-01-29 15:13:00* Test Item Value Reference Range Interpretation Comments Urine Glucose (UA) (test code = 2349-9) 2+ NEGATIVE H [facility] CenterUrine Aiynaoe3006-37-36 15:13:00* Test Item Value Reference Range Interpretation Comments Urine Ketones (test code = 66535-3) NEGATIVE NEGATIVE [facility] Center[facility] Roetdoaxvxia5821-58-82 15:13:00* Test Item Value Reference Range Interpretation Comments Urine Urobilinogen (test code = 49327-2) 1 0.2-1 [facility] CenterU[facility] Jlzxlnvay1814-19-26 15:13:00* Test Item Value Reference Range Interpretation Comments Urine Bilirubin (test code = 1978-6) NEGATIVE NEGATIVE [facility] CenterU[facility] Zvjcj3819-39-40 15:13:00* Test Item Value Reference Range Interpretation Comments Urine Blood (test code = 78469-4) 1+ NEGATIVE H [facility] CenterMagnesium Udimf6950-53-18 15:06:00* Test Item Value Reference Range Interpretation Comments Magnesium Level (test code = 43427-0) 2.1 1.3-2.1 [facility] Fqcvcfexw5351-80-44 15:06:00* Test Item Value Reference Range Interpretation Comments Total Bilirubin (test code = 1975-2) 4.0 0.2-1.2 H [facility] CenterAspartate Amino Transf (AST/SGOT) 2018-01-29 15:06:00* Test Item Value Reference Range Interpretation Comments Aspartate Amino Transf (AST/SGOT) (test code = Aspartate Amino Transf (AST/SGOT)) 15 5-34 [facility] CenterAlanine Aminotransferase (ALT/SGPT) 2018-01-29 15:06:00* Test Item Value Reference Range Interpretation Comments Alanine Aminotransferase (ALT/SGPT) (test code = 1742-6) 23 0-55 [facility] CenterTotal Deippdw3763-69-21 15:06:00* Test Item Value Reference Range Interpretation Comments Total Protein (test code = 2885-2) 7.5 6.5-8.1 [facility] CenterAlbumin2018-12-25 15:06:00* Test Item Value Reference Range Interpretation Comments Albumin (test code = 1751-7) 4.0 3.5-5.0 [facility] CenterGlobulin2018-12-25 15:06:00* Test Item Value Reference Range Interpretation Comments Globulin (test code = 21807-4) 3.5 2.3-3.5 [facility] CenterAlbumin/Globulin Herci7531-26-25 15:06:00 * Test Item Value Reference Range Interpretation Comments Albumin/Globulin Ratio (test code = 1759-0) 1.1 0.8-2.0 [facility] CenterAlkaline Louihlpnscs5224-70-30 15:06:00* Test Item Value Reference Range Interpretation Comments Alkaline Phosphatase (test code = 6768-6) 77 40-150 [facility] CenterLipase2018-12-25 15:06:00* Test Item Value Reference Range Interpretation Comments Lipase (test code = 3040-3) 10 8-78 [facility] CenterProthrombin Nbyf1132-51-95 14:55:00* Test Item Value Reference Range Interpretation Comments Prothrombin Time (test code = 5902-2) 13.6 11.9-14.5 [facility] CenterProthromb Time International Ratio 2018-01-29 14:55:00* Test Item Value Reference Range Interpretation Comments Prothromb Time International Ratio (test code = 6301-6) 0.95 Oral Anticoagulant Therapy INR Values:1. Low Intensity Therapy 1.5 - 2.02 . Moderate Intensity Therapy 2.0 - 3.03. High Intensity Therapy(1) 2.5 - 3. 54. High Intensity Therapy(2) 3.0 - 4.05. Panic Value INR > 5.0 [facility] CenterActivated Partial Thromboplast Time 2018-01-29 14:55:00* Test Item Value Reference Range Interpretation Comments Activated Partial Thromboplast Time (test code = 61089-4) 30.3 23.8-35.5 [facility] CenterCHEST 2 VWIVW1557-19-86 14:54:00 [facility] [address] [place] [address] Patient Name: SEA LINDA MR #: [id number] : 1945 Age/Sex: 72/M Req #: [id number] Adm Physician: Ordered by: LISSET WATSON MD Report #: [id number] Location: ER Room/Bed: Procedure: [id number] DX /CHEST 2 VIEWS Exam Date: Exam [...] 2:56 PM Dictated By: EMMANUEL COLBERT MD 145 Transcribed By: Farzad CREWS on 01/23/18 145 COPY TO: LISSET WATSON MD Creatine Kinase EF1799-38-54 14:20:00* Test Item Value Reference Range Interpretation Comments Creatine Kinase MB (test code = 56434-0) 3.00 0-5.0 [facility] CenterTroponin S4919-92-44 14:20:00* Test Item Value Reference Range Interpretation Comments Troponin I (test code = UMJ5336) 0.036 0-0.300 [facility]odium Zaajo4599-35-36 14:10:00* Test Item Value Reference Range Interpretation Comments Sodium Level (test code = 2951-2) 138 136-145 [facility] CenterPotassium Pzbmh8927-59-21 14:10:00* Test Item Value Reference Range Interpretation Comments Potassium Level (test code = 2823-3) 3.6 3.5-5.1 [facility] CenterChloride Sywpp8178-32-97 14:10:00* Test Item Value Reference Range Interpretation Comments Chloride Level (test code = 2075-0) 104 98-107 [facility] CenterInfluenza Virus Types A,B Antigen 2018-01-23 14:10:00* Test Item Value Reference Range Interpretation Comments Influenza Virus Types A,B Antigen (test code = 11432-4) NEGATIVE NEGATIVE [facility] CenterCarbon Dioxide Wtqxg7466-03-90 14:10:00* Test Item Value Reference Range Interpretation Comments Carbon Dioxide Level (test code = 2028-9) 24 22-29 [facility] CenterAnion Bcp3280-66-95 14:10:00* Test Item Value Reference Range Interpretation Comments Anion Gap (test code = 51005-9) 13.6 8-16 [facility] CenterBlood Urea Zbtdpcnx3599-78-24 14:10:00* Test Item Value Reference Range Interpretation Comments Blood Urea Nitrogen (test code = 3094-0) 16 7-26 [facility] CenterCreatinine2018-12-19 14:10:00* Test Item Value Reference Range Interpretation Comments Creatinine (test code = 2160-0) 1.41 0.72-1.25 H [facility] CenterBUN/Creatinine Xfcuj0811-68-18 14:10:00* Test Item Value Reference Range Interpretation Comments BUN/Creatinine Ratio (test code = 3097-3) 11 6-25 [facility] CenterEstimat Glomerular Filtration Rate 2018-01-23 14:10:00* Test Item Value Reference Range Interpretation Comments Estimat Glomerular Filtration Rate (test code = 828349453) 50 >60 L Ranges were taken from the National Kidney Disease Education Program and the [facility] literature.Reference ranges:60 or greater: Hhnbjc02-39 ( for 3 consecutive months): Chronic kidney disease 15 or less: Kidney failurePeterson Regional Medical CenterGlucose Sgvhv1850-12-83 14:10:00* Test Item Value Reference Range Interpretation Comments Glucose Level (test code = MTO9857) 235 74-118 H [facility] CenterCalcium Itxfk4090-74-81 14:10:00* Test Item Value Reference Range Interpretation Comments Calcium Level (test code = 00789-1) 9.5 8.4-10.2 [facility] CenterTotal Ikvlfrzql3961-70-58 14:10:00* Test Item Value Reference Range Interpretation Comments Total Bilirubin (test code = 1975-2) 3.8 0.2-1.2 H [facility] CenterAspartate Amino Transf (AST/SGOT) 2018-01-23 14:10:00* Test Item Value Reference Range Interpretation Comments Aspartate Amino Transf (AST/SGOT) (test code = Aspartate Amino Transf (AST/SGOT)) 18 5-34 [facility] CenterAlanine Aminotransferase (ALT/SGPT) 2018-01-23 14:10:00* Test Item Value Reference Range Interpretation Comments Alanine Aminotransferase (ALT/SGPT) (test code = 1742-6) 31 0-55 [facility] CenterTotal Zzlnkbt7785-77-14 14:10:00* Test Item Value Reference Range Interpretation Comments Total Protein (test code = 2885-2) 7.3 6.5-8.1 [facility] CenterAlbumin2018-12-19 14:10:00* Test Item Value Reference Range Interpretation Comments Albumin (test code = 1751-7) 3.8 3.5-5.0 [facility] CenterGlobulin2018-12-19 14:10:00* Test Item Value Reference Range Interpretation Comments Globulin (test code = 16902-0) 3.5 2.3-3.5 [facility] CenterAlbumin/Globulin Pvotn8256-60-69 14:10:00 * Test Item Value Reference Range Interpretation Comments Albumin/Globulin Ratio (test code = 1759-0) 1.1 0.8-2.0 [facility] CenterAlkaline Tgvsqzsojfr7129-16-92 14:10:00* Test Item Value Reference Range Interpretation Comments Alkaline Phosphatase (test code = 6768-6) 91 40-150 [facility] CenterCreatine Cglpra8700-23-62 14:10:00* Test Item Value Reference Range Interpretation Comments Creatine Kinase (test code = 2157-6) 148 30-200 [facility] CenterInfluenza Virus Types A,B Antigen 2018-01-23 14:10:00* Test Item Value Reference Range Interpretation Comments Influenza Virus Types A,B Antigen (test code = 73259-9) NEGATIVE NEGATIVE [facility] CenterWhite Blood Xfmmf3310-24-48 13:52:00* Test Item Value Reference Range Interpretation Comments White Blood Count (test code = 6690-2) 7.95 4.8-10.8 [facility] CenterRed Blood Jhugc5928-59-96 13:52:00* Test Item Value Reference Range Interpretation Comments Red Blood Count (test code = 789-8) 4.17 4.3-5.7 L [facility] CenterHemoglobin2018-12-19 13:52:00* Test Item Value Reference Range Interpretation Comments Hemoglobin (test code = 74939-8) 13.1 14.0-18.0 L [facility] CenterHematocrit2018-12-19 13:52:00* Test Item Value Reference Range Interpretation Comments Hematocrit (test code = 4544-3) 39.4 38.2-49.6 [facility] CenterMean Corpuscular Tmftwc3897-10-84 13:52:00* Test Item Value Reference Range Interpretation Comments Mean Corpuscular Volume (test code = 787-2) 94.5 81-99 [facility] CenterMean Corpuscular Dtfqsbzeic1614-32-18 13:52:00* Test Item Value Reference Range Interpretation Comments Mean Corpuscular Hemoglobin (test code = 785-6) 31.4 28-32 [facility] CenterMean Corpuscular Hemoglobin Concent 2018-01-23 13:52:00* Test Item Value Reference Range Interpretation Comments Mean Corpuscular Hemoglobin Concent (test code = 786-4) 33.2 31-35 [facility] CenterRed Cell Distribution Javit0483-18-49 13:52:00* Test Item Value Reference Range Interpretation Comments Red Cell Distribution Width (test code = 04532-2) 14.2 11.7 -14.4 [facility] CenterPlatelet Stuay2169-30-61 13:52:00* Test Item Value Reference Range Interpretation Comments Platelet Count (test code = 777-3) 194 140-360 [facility] CenterNeutrophils (%) (Auto)2018-01-23 13:52:00 * Test Item Value Reference Range Interpretation Comments Neutrophils (%) (Auto) (test code = 85335-0) 70.8 38.7-80.0 [facility] CenterLymphocytes (%) (Auto)2018-01-23 13:52:00 * Test Item Value Reference Range Interpretation Comments Lymphocytes (%) (Auto) (test code = 736-9) 19.5 18.0-39.1 [facility] CenterMonocytes (%) (Auto)2018-01-23 13:52:00* Test Item Value Reference Range Interpretation Comments Monocytes (%) (Auto) (test code = 5905-5) 8.4 4.4-11.3 [facility] CenterEosinophils (%) (Auto)2018-01-23 13:52:00 * Test Item Value Reference Range Interpretation Comments Eosinophils (%) (Auto) (test code = 713-8) 0.5 0.0-6.0 [facility] CenterBasophils (%) (Auto)2018-01-23 13:52:00* Test Item Value Reference Range Interpretation Comments Basophils (%) (Auto) (test code = 706-2) 0.5 0.0-1.0 [facility] CenterIM GRANULOCYTES %2018-01-23 13:52:00* Test Item Value Reference Range Interpretation Comments IM GRANULOCYTES % (test code = IM GRANULOCYTES %) 0.3 0.0- 1.0 [facility] CenterNeutrophils # (Auto)2018-01-23 13:52:00* Test Item Value Reference Range Interpretation Comments Neutrophils # (Auto) (test code = 751-8) 5.6 2.1-6.9 [facility] CenterLymphocytes # (Auto)2018-01-23 13:52:00* Test Item Value Reference Range Interpretation Comments Lymphocytes # (Auto) (test code = 21288-0) 1.6 1.0-3.2 [facility] CenterMonocytes # (Auto)2018-01-23 13:52:00* Test Item Value Reference Range Interpretation Comments Monocytes # (Auto) (test code = 742-7) 0.7 0.2-0.8 [facility] CenterEosinophils # (Auto)2018-01-23 13:52:00* Test Item Value Reference Range Interpretation Comments Eosinophils # (Auto) (test code = 711-2) 0.0 0.0-0.4 [facility] CenterBasophils # (Auto)2018-01-23 13:52:00* Test Item Value Reference Range Interpretation Comments Basophils # (Auto) (test code = 704-7) 0.0 0.0-0.1 [facility] CenterAbsolute Immature Granulocyte (auto 2018-01-23 13:52:00* Test Item Value Reference Range Interpretation Comments Absolute Immature Granulocyte (auto (pema t code = Absolute Immature Granulocyte (auto) 0.02 0-0.1 [facility] CenterCHEST 2 VIEWS [facility] [address] [place] [address] Patient Name: SEA LINDA MR #: [id number] : 1945 Age/Sex: 71/M Req #: [id number] Adm Physician: Ordered by: CHRISTY MADISON MD Report #: [id number] Location: ER Room/Bed: Procedure: [id number] DX/CHEST 2 VIEWS Exam Date : 03/04/17 [...] TO: CHRISTY MADISON MD CHEST SINGLE (PORTABLE) [place] [address] Patient Name: SEA LINDA MR #: [id number] : 0 1945 Age/Sex: 71/M Req #: [id number] Adm Physician: BRIAN JOLLY MD Ordered by: PHONG TANG MD Report #: [id number] Loca tion: [facility] Room/Bed: [address] [place] [address] Procedure: [id number] DX/CHEST SINGLE (PORTABLE) Exam Date: 01/23/17 Exam [...] AM Dictated By: ES NOWAK MD 0 Transcr ibed By: SUMEET on 01/23/17700 COPY TO: PHONG TANG MD CHEST SINGLE (PORTABLE) [place] [address] Patient Name: SEA LINDA MR #: [id number] : 1945 Age/Sex: 71/M Req #: [id number] Adm Physician: BRIAN JOLLY MD Ordered by: PHONG TANG MD Report #: [id number] Location: [facility] Room/Bed: [address] [address] Procedure: [id number] DX/CHEST SINGLE (PORTABLE) Exam Date: Exam Time: [...]
[2020-01-05] MEDS ORDERED: TETANUS/DIPHTHERIA TOX ADULT 0.5 ML SYR IM ONE (12:15)
[2020-01-05 12:19] LABS: BASOPHILS # (AUTO) 0.1 (0.0-0.1); EOSINOPHILS % 0.7 % (0.0-6.0); HEMATOCRIT 34.7 % (38.2-49.6); HEMOGLOBIN 10.6 g/dL (14.0-18.0); LYMPHOCYTES # (AUTO) 1.6 (1.0-3.2); MEAN CORPUSCULAR HEMOGLOBIN 28.1 pg (28-32); MEAN CORPUSCULAR HGB CONC 30.5 g/dL (31-35); MONOCYTES # (AUTO) 0.7 (0.2-0.8); MONOCYTES % 10.9 % (4.4-11.3); NEUTROPHILS # (AUTO) 3.6 (2.1-6.9); NEUTROPHILS % 61.1 % (38.7-80.0); PLATELET COUNT 151 x10e3/uL (140-360); RED BLOOD COUNT 3.77 x10e6/uL (4.3-5.7)
[2020-01-05 12:27] LABS: INR 1.26; PROTHROMBIN TIME 16.4 seconds (11.9-14.5)
[2020-01-05 12:28] LABS: PARTIAL THROMBOPLASTIN TIME 26.3 seconds (23.8-35.5)
[2020-01-05 12:37] LABS: ALBUMIN 3.4 g/dL (3.5-5.0); ALBUMIN/GLOBULIN RATIO 1.2 (0.8-2.0); ANION GAP 14.4 mmol/L (8-16); CALCIUM 8.2 mg/dL (8.4-10.2); CREATININE, SERUM 1.35 mg/dL (0.72-1.25); MAGNESIUM 1.7 MG/DL (1.3-2.1); POTASSIUM 4.4 mmol/L (3.5-5.1)
[2020-01-05 12:44] LABS: CREATINE KINASE MB 1.1 ng/mL (0-5.0)
--- NOTE | 2020-01-05 13:24 | Diagnostic Imaging Report ---
EXAMINATION: CHEST SINGLE (PORTABLE) INDICATION: Fall shortness of breath COMPARISON: CT abdomen and pelvis of the same day FINDINGS: LINES/TUBES:Left chest AICD. EKG leads overlie the chest. LUNGS:The lungs are moderately inflated. Right basilar opacities. PLEURA:Small right pleural effusion. No pneumothorax. MEDIASTINUM:The cardiomediastinal silhouette appears normal in size and shape. Atherosclerotic calcifications of the thoracic aorta. BONES/SOFT TISSUES:No acute osseous injury. ABDOMEN:No free air under the diaphragm. IMPRESSION: Small right pleural effusion. Right basilar opacities, likely a combination of pleural effusion and subsegmental atelectasis. Signed by: Amber Higuera MD on 01/05/2020 1:20 PM
--- NOTE | 2020-01-05 13:28 | Diagnostic Imaging Report ---
Examination: CT head without contrast Clinical Indication: Falls. Technique: Transaxial noncontrast images from the skull base through the vertex were obtained. Sagittal and coronal reformatted images were done. Dose modulation, iterative reconstruction, and/or weight based adjustment of the mA/kV was utilized to reduce the radiation dose to as low as reasonably achievable. Comparison: None. Findings: Scalp: No abnormalities. Bones: Intact. No fractures. No blastic or lytic lesions. Brain sulci: Generalized volume loss. Ventricles: No hydrocephalus. Extra-axial space: No abnormalities. Parenchyma: There are patchy areas of low-attenuation within subcortical and periventricular white matter, nonspecific, but could represent microvascular ischemic disease. No masses, hemorrhage, or acute or chronic cortical based vascular insults. Suprasellar region: No abnormalities. Craniocervical junction: The foramen magnum is patent. No Chiari one malformation. Incidental findings: Atherosclerotic calcification of the cavernous and supraclinoid internal carotid and V4 segments of the bilateral vertebral arteries. Impression: 1. No acute intracranial finding. 2. Generalized volume loss and chronic microvascular ischemic change. Signed by: Dr. Faith Gold M.D. on 01/05/2020 1:25 PM
--- NOTE | 2020-01-05 13:32 | Diagnostic Imaging Report ---
EXAM: CT Abdomen and Pelvis WITHOUT intravenous contrast INDICATION: Cirrhosis, fall COMPARISON: Chest radiograph of the same day TECHNIQUE: Abdomen and pelvis were scanned utilizing a multidetector helical scanner from the lung base to the pubic symphysis without administration of IV contrast. Coronal and sagittal reformations were obtained. IV CONTRAST: None ORAL CONTRAST: Water COMPLICATIONS: None RADIATION DOSE: Total DLP: 783 mGy*cm Dose modulation, iterative reconstruction, and/or weight based adjustment of the mA/kV was utilized to reduce the radiation dose to as low as reasonably achievable. FINDINGS: LOWER THORAX: Small right and trace left pleural effusions. Bibasilar dependent subsegmental atelectasis. Multichamber cardiomegaly. HEPATOBILIARY: Cirrhotic shrunken liver. No focal mass lesion. Unremarkable gallbladder. SPLEEN: No splenomegaly. PANCREAS: Atrophic. No focal mass. ADRENALS: No adrenal nodules. KIDNEYS/URETERS: No hydronephrosis, stones, or solid mass lesions. PELVIC ORGANS/BLADDER: Unremarkable. PERITONEUM / RETROPERITONEUM: Moderate volume ascites. No free air. LYMPH NODES: No lymphadenopathy. VESSELS: Diffuse atherosclerotic calcifications of the nonaneurysmal abdominal aorta and major branches. GI TRACT: No abnormal bowel thickening. No bowel obstruction. BONES AND SOFT TISSUES: No acute osseous injury. No suspicious lytic or blastic lesions. Diffuse anasarca. IMPRESSION: Hepatic cirrhosis and moderate volume abdominal and pelvic ascites. Small right and trace left pleural effusions. Cardiomegaly. Diffuse anasarca. Signed by: Amber Higuera MD on 01/05/2020 1:28 PM
--- NOTE | 2020-01-05 14:16 | Diagnostic Imaging Report ---
Examination: CT CERVICAL SPINE WO CONTRAST HISTORY:Falls. COMPARISON:None. TECHNIQUE: Multidetector helical axial images were obtained without contrast from the foramen magnum to T1. Coronal and sagittal reformatted images were done. Bone and soft tissue windows were evaluated. Dose modulation, iterative reconstruction, and/or weight based adjustment of the mA/kV was utilized to reduce the radiation dose to as low as reasonably achievable. FINDINGS: Alignment:Normal alignment and lordosis. Vertebrae: Normal height and density. Possible C2 fracture. No infection or neoplasm. Disc space heights: Normal height. Caliber of spinal canal: Developmentally normal. Posterior fossa and craniocervical junction: Foramen magnum patent. No Chiari 1 malformation. Soft tissues: A double-lumen left jugular vein catheter. Atherosclerotic calcification of the bilateral carotid bifurcations and cervical internal carotid arteries.. Degenerative changes: Mild left neural foraminal narrowing at C3-C4 and C4-C5 due to uncovertebral and facet arthropathy. No right foraminal or canal stenosis. Diffuse disc osteophyte complex at C5-C6 and bilateral uncovertebral and facet arthropathy result in mild bilateral neural foraminal narrowing. No canal stenosis. Diffuse disc bulge at C6-C7 without canal or foraminal stenosis. Visualized lung apices: Large right greater than left pleural effusion. IMPRESSION: 1. No acute abnormalities. 2. Degenerative change as above. Signed by: Dr. Faith Gold M.D. on 01/05/2020 2:12 PM
[2020-01-05] MEDS ORDERED: ONDANSETRON HCL INJ 2MG/ML 2ML 2 MG/ML VIAL IV PRN (15:00)
--- NOTE | 2020-01-05 15:18 | Emergency Department Note ---
History of Present Illnes History of Present Illness Chief Complaint: General Medicine Complaints History of Present Illness This is a 74 year old male PATIENT IN FROM HOME WITH COMPLAINTS OF WEAKNESS AND SHORTNESS OF BREATH; STATES WAS SENT TO THE ER BY PCP FOR PARACENTESIS. PATIENT WITH CIRRHOSIS OF UNKNOWN ETIOLOGY. PATIENT ALERT AND ORIENTED, RESP NONLABORED, APPEARS IN NO DISTRESS, DENIES PAIN. Historian: Patient, Family Member Arrival Mode: Car Customer Orders Clerk Required: No Onset (how long ago): day(s) Location: abdominal Quality: swelling Radiation: Reports non-radiation Severity: severe Onset quality: gradual Timing of current episode: constant Progression: worsening Chronicity: new Context: Denies recent illness Relieving factors: none Exacerbating factors: none Associated symptoms: Reports denies other symptoms Past Medical/Family History Physician Review I have reviewed the patient's past medical and family history. Any updates have been documented here. Past Medical History Recent Fever: No Clinical Suspicion of Infectio: No New/Unexplained Change in Ment: No Past Medical History: Hypertension, Diabetes, CHF, Liver Disease, Chronic Kidney Disease Other Medical History: CIRRHOSIS Past Surgical History: None Social History Smoking Cessation: Unknown if ever smoked Counseling Performed: No Alcohol Use: None Any Illegal Drug Use: No Physically hurt or threatened: No Family History Family history of heart diseas: No Other Last Tetanus: UTD Any Pre-Existing Lines (PICC,: No Review of Systems Review of Systems Constitutional: Reports no symptoms EENTM: Reports no symptoms Cardiovascular: Reports no symptoms Respiratory: Reports as per HPI Gastrointestinal: Reports as per HPI; Denies abdominal pain Genitourinary: Reports no symptoms Musculoskeletal: Reports no symptoms Integumentary: Reports no symptoms Neurological: Reports no symptoms Psychological: Reports no symptoms Endocrine: Reports no symptoms Hematological/Lymphatic: Reports no symptoms Physical Exam Related Data Allergies: Coded Allergies: No Known Allergies (Unverified , 01/05/20) Triage Vital Signs Vital Signs Date Time Temp Pulse Resp B/P (MAP) Pulse Ox O2 Delivery O2 Flow Rate FiO2 01/05/20 11:34 97.7 114 24 111/75 100 Room Air Vital signs reviewed: Yes Physical Exam CONSTITUTIONAL Constitutional: Present well-developed, Present well-nourished HENT HENT: Present normocephalic, Present atraumatic, Present oropharynx clear/moist, Present nose normal HENT L/R: Present left ext ear normal, Present right ext ear normal EYES Eyes: Reports PERRL, Reports conjunctivae normal NECK Neck: Present ROM normal PULMONARY Pulmonary: Present other (DECR BS's BILAT BASES) CARDIOVASCULAR Cardiovascular: Present irregular rhythm, Present tachycardia GASTROINTESTINAL Abdominal: Present soft, Present nontender, Present distension (MARKED, WITH FLUID WAVE); Absent tender GENITOURINARY Genitourinary: Present exam deferred SKIN Skin: Present warm, Present dry MUSCULOSKELETAL Musculoskeletal: Present edema (3+ BILAT PITTING EDEMA) NEUROLOGICAL Neurological: Present alert, Present oriented x 3, Present no gross motor or sensory deficits PSYCHOLOGICAL Psychological: Present mood/affect normal, Present judgement normal Results Laboratory Result Diagram: 01/05/20 1155 01/05/20 1155 Laboratory Laboratory Tests Test 01/05/20 13:00 01/05/20 12:20 01/05/20 11:55 Ammonia 44 UG/DL (31-123) Coronavirus (PCR) Not detected (NOTDETECTED) White Blood Count 5.96 x10e3/uL (4.8-10.8) Red Blood Count 3.77 x10e6/uL (4.3-5.7) Hemoglobin 10.6 g/dL (14.0-18.0) Hematocrit 34.7 % (38.2-49.6) Mean Corpuscular Volume 92.0 fL (81-99) Mean Corpuscular Hemoglobin 28.1 pg (28-32) Mean Corpuscular Hemoglobin Concent 30.5 g/dL (31-35) Red Cell Distribution Width 20.0 % (11.7-14.4) Platelet Count 151 x10e3/uL (140-360) Neutrophils (%) (Auto) 61.1 % (38.7-80.0) Lymphocytes (%) (Auto) 26.0 % (18.0-39.1) Monocytes (%) (Auto) 10.9 % (4.4-11.3) Eosinophils (%) (Auto) 0.7 % (0.0-6.0) Basophils (%) (Auto) 1.0 % (0.0-1.0) Neutrophils # (Auto) 3.6 (2.1-6.9) Lymphocytes # (Auto) 1.6 (1.0-3.2) Monocytes # (Auto) 0.7 (0.2-0.8) Eosinophils # (Auto) 0.0 (0.0-0.4) Basophils # (Auto) 0.1 (0.0-0.1) Absolute Immature Granulocyte (auto 0.02 x10e3/uL (0-0.1) Prothrombin Time 16.4 seconds (11.9-14.5) Prothromb Time International Ratio 1.26 Activated Partial Thromboplast Time 26.3 seconds (23.8-35.5) Sodium Level 138 mmol/L (136-145) Potassium Level 4.4 mmol/L (3.5-5.1) Chloride Level 101 mmol/L (98-107) Carbon Dioxide Level 27 mmol/L (22-29) Anion Gap 14.4 mmol/L (8-16) Blood Urea Nitrogen 18 mg/dL (7-26) Creatinine 1.35 mg/dL (0.72-1.25) Estimat Glomerular Filtration Rate 52 ML/MIN (60-) BUN/Creatinine Ratio 13 (6-25) Glucose Level 144 mg/dL (74-118) Calcium Level 8.2 mg/dL (8.4-10.2) Magnesium Level 1.7 MG/DL (1.3-2.1) Total Bilirubin 3.0 mg/dL (0.2-1.2) Aspartate Amino Transf (AST/SGOT) 20 IU/L (5-34) Alanine Aminotransferase (ALT/SGPT) 40 IU/L (0-55) Alkaline Phosphatase 90 IU/L (40-150) Creatine Kinase 44 IU/L (30-200) Creatine Kinase MB 1.10 ng/mL (0-5.0) Troponin I 0.010 ng/mL (0-0.300) B-Type Natriuretic Peptide 3317.3 pg/mL (0-100) Total Protein 6.2 g/dL (6.5-8.1) Albumin 3.4 g/dL (3.5-5.0) Globulin 2.8 g/dL (2.3-3.5) Albumin/Globulin Ratio 1.2 (0.8-2.0) Lipase 113 U/L (8-78) Lab results reviewed: Yes Imaging Imaging results reviewed: Yes Procedures 12 Lead ECG Interpretation ECG Interpretation : ECG: ECG 1 Customer Orders Clerk: Interpreted by ED physician Date: Jan 05, 2020 Time: 12:08 Rhythm: atrial fibrillation Rate: tachycardia BPM: 126 QRS axis: normal ST segments normal: Yes T waves flattening: I, aVL, V6 Clinical Impression: abnormal ECG Critical Care Time Total Critical Care Time (min): 30 Critical care time exclusive o: separately billable procedures Critcal care necessary due to: other (a fib with rvr) Critcal care time spent by me: discussion w consultants, discussion w primary provider, examination of patient, order/perform tx or interventions, order/review laboratory studies, order/review radiographic studies, re-evalua tion of patient condition Assessment & Plan Medical Decision Making MDM cirrhotic pt with progressive abd swelling/LE edema and SOB, no abd pain, tachy IRIR heart sounds- check CBC, chem, PT/PTT, UA, cx's, cxr, ct abd/pelvis, COVID swab - r/o ascites, renal insuff, CHF, COVID19, electrolyte abnl, coagulopathy Reassessment Reassessment ADMIT TO DR MISTY JOLLY, WANTS IR TO DO PARACENTESIS - I spoke with IR Assessment & Plan Final Impression: (1) Ascites (2) Cirrhosis (3) Weakness (4) Falls (5) CHF (congestive heart failure) (6) Atrial fibrillation with RVR Depart Disposition: ADMITTED Last Vital Signs Date Time Temp Pulse Resp B/P (MAP) Pulse Ox O2 Delivery O2 Flow Rate FiO2 01/05/20 13:46 119 20 109/88 100 Room Air 01/05/20 11:34 97.7 Home Meds Active Scripts Acetaminophen With Codeine (TYLENOL WITH CODEINE #3 TABLET) 1 Each Tablet, 300 MG PO Q6H PRN for COUGH, #10 TAB Prov:LISSET CAMPBELL, DO 01/23/18 Reported Medications Digoxin (DIGOXIN) 125 Mcg Tablet, 0.125 MG PO DAILY, #30 TAB 01/09/20 Metoprolol Tartrate (METOPROLOL TARTRATE) 25 Mg Tablet, 25 MG PO Q8H, TAB 01/09/20 Mirtazapine (MIRTAZAPINE) 15 Mg Tab, 15 MG PO HS, TAB 01/05/20 Lisinopril (LISINOPRIL) 5 Mg Tablet, 2.5 MG PO DAILY, #30 TAB 01/05/20 Furosemide (LASIX) 40 Mg Tablet, 40 MG PO DAILY, #30 TAB 05/15/19 Spironolactone (SPIRONOLACTONE) 25 Mg Tablet, 25 MG PO BID, #60 TAB 05/15/19 Discontinued Reported Medications Amlodipine Besylate (AMLODIPINE BESYLATE) 10 Mg Tablet, 10 MG PO DAILY, #30 TAB 01/05/20 Levofloxacin (LEVOFLOXACIN) 250 Mg Tablet, 250 MG PO DAILY for 3 Days, TAB 11/06/19 Atorvastatin Calcium (LIPITOR) 20 Mg Tablet, 20 MG DAILY, #30 TAB 05/15/19 Amiodarone Hcl (AMIODARONE HCL) 200 Mg Tablet, DAILY 05/15/19 Carvedilol (CARVEDILOL) 12.5 Mg Tablet, 12.5 MG PO BID, #60 TAB 05/15/19 Glimepiride (GLIMEPIRIDE) 2 Mg Tablet, 2 MG PO DAILY 08/01/12 Glimepiride (GLIMEPIRIDE) 2 Mg Tablet, 2 MG PO DAILY, TAB 05/15/19 Medications in the ED Tetanus/ Diphtheria Toxoids 0.5 ml ONCE ONCE IM Last administered on 01/05/20at 13:39; Admin Dose 0.5 ML; Start 01/05/20 at 12:15; Stop 01/05/20 at 12:16; Status DC Ondansetron HCl 4 mg Q4H PRN IV NAUSEA; Start 01/05/20 at 15:00; Stop 02/04/20 at 14:59 NELI MUNIZ MD Jan 05, 2020 15:18
--- OUTSIDE RECORDS SUMMARY | 2020-01-05 15:25 | XMS REPORT | Continuity of Care Document ---
Author Author [facility] t Organization [facility] Address [address] [place] [address] Phone Unavailable Care Team Providers Care Oceanographer Physical Name Role Phone MD BRIAN JOLLY MD PCP Nabor MUNIZ Attphys Unavailable Roz JIM, Bobby Tucker Attphys Flynn Mo DO Attphys [phone] Zac JIM, Patricia Wyman Attphys Carlos JIM, Oneyda Bryant Attphys BRIAN JOLLY Attphys Unavailable Dalton WATSON Attphys Unavailable Joy MADISON Attphys Unavailable EDITH MO Admphys Unavailable BRIAN JOLLY Admphys Unavailable Payers Payer Name Policy Type Policy Number Effective Date Expiration Date S dunia [facility] [id number] 2018 00:00:00 [facility] Medicare [id number] 2018 00:00:00 [facility] [id number] 2017 00:00:00 [facility] Cdc Review Covid19 [id number] [facility] Medicare A & B [id number] 2012 00:00:00 C [facility] Problems Condition Name Condition Details Condition Category Status Onset Date Resolution Date Last Treatment Date Treating Clinician Comments Source Influenza due to influenza virus, type A, human Influenza A Problem Active [facility] Chest pain Chest pain Problem Active [facility] Dyspnea Dyspnea Problem Active [facility] Congestive heart failure New onset of congestive heart failure Proble m Active [facility] Pneumonia Pneumonia Problem Active [facility] Decompensation of cirrhosis of liver Problem Active [facility] Hypoglycemia Hypoglycemia Disease Resolved 2019-11-08 00:00:00 2 00:00:00 2019-11-10 09:38:16 [facility] Allergies, Adverse Reactions, Alerts Allergy Name Allergy Type Status Severity Reaction(s) Onset Date Inacti ve Date Treating Clinician Comments Source No Known Allergies DA Active U 2018-05-15 00:00:00 [facility] Social History Social Habit Start Date Stop Date Quantity Comments Source History SDOH Alcohol Std Drinks Gibson Choi History SDOH Alcohol Binge Gibson Choi Sex Assigned At Yanely jones Alev[facility] Tobacco use and exposure 2019-11-08 00:00:00 2019-11-08 [...] mg by mouth daily. Default OP ins Yanelymargaret jones Alevism furosemide (LASIX) 40 mg tablet 2019-11-10 12:55:59 Yes 40mg Q.5D Take 40 mg by mouth 2 (two) times a day. Ayesha maguire Alevism lisinopriL (PRINIVIL) 5 mg tablet 2019-11-10 12:55:59 Yes 5mg QD Take 5 mg by mouth daily. Arreaga Alevism carvediloL (COREG) 12.5 MG tablet 2019-11-10 12:55:59 Yes 12.5mg Q.5D Take 12.5 mg by mouth 2 (two) times a day with meals. Arreaga Alevism amIODarone (PACERONE) 200 MG tablet 2019-11-10 12:55:59 Yes 200mg QD Take 200 mg by mouth daily. Arreaga Hannah odist spironolactone (ALDACTONE) 25 MG tablet 2019-11-10 12:55:59 Yes 25mg QD Take 25 mg by mouth daily. Arreaga Metho dist Azithromycin (Zithromax Tri-Nathan) 500 Mg TABLET Azithro mycin (Zithromax Tri-Nathan) 500 Mg TABLET 2018-01-23 14:57:00 2019-11-04 00:00:00 No 500 Daily [facility] Acetaminophen With Codeine (Tylenol With Codeine #3 Ta blet) 1 Each TABLET Acetaminophen With Codeine (Tylenol With Codeine #3 Tablet) 1 Each TABLET 2018-01-23 14:56:00 Yes 300 Every 6 Hours as n eeded for Cough [facility] Amiodarone Hcl Amiodarone Hcl Yes Daily [facility] Atorvastatin Calcium (Lipitor) 20 Mg TABLET Atorvastat in Calcium (Lipitor) 20 Mg TABLET Yes 20 Daily [facility] Carvedilol Carvedilol Yes 12.5 Twice A Day [facility] Furosemide (Lasix) 40 Mg TABLET Furosemide (Lasix) 40 Mg TABLET Yes 40 Daily [facility] Glimepiride Glimepiride Yes 2 Daily [facility] Glimepiride Glimepiride Yes 2 Daily [facility] Levofloxacin Levofloxacin Yes 250 Daily [facility] Spironolactone Spironolactone Yes 25 Twice A Da y [facility] Levofloxacin Levofloxacin 2019-11-06 00:00:00 No 250 Daily [facility] Benzonatate (Tessalon Perle) 100 Mg CAPSULE Benzonatat e (Tessalon Perle) 100 Mg CAPSULE 2019-11-04 00:00:00 No 200 Three Times A Da y [facility] Amlodipine Besylate (Norvasc) 10 Mg TAB Amlodipine Besylate (Norvasc) 10 Mg TAB 2018-01-29 00:00:00 No 10 Daily [facility] Bone Health D3 Bone Health D3 2018-01-29 00:00:00 No 2000 Daily [facility] Carvedilol Carvedilol 2018-01-29 00:00:00 No 25 Twi ce A Day [facility] Ubidecarenone (Co Q-10) 300 Mg CAPSULE Ubidecarenone (Co Q-10) 3 00 Mg CAPSULE 2018-01-29 00:00:00 No 300 Twice A Day [facility] Vitamin B12 Vitamin B12 2018-01-29 00:00:00 No 1000 D aily [facility] Hydrochlorothiazide Hydrochlorothiazide 2017-01-24 00:00:00 No 25 Daily [facility] Vital Signs Vital Name Observation Time Observation Value Comments Source Systolic blood pressure 2019-11-10 10:15:07 133 mm[Hg] Gibson Choi Diastolic blood pressure 2019-11-10 10:15:07 68 mm[Hg] Gibson Choi Heart rate 2019-11-10 10:15:07 58 /min Gibson Choi Body temperature 2019-11-10 10:15:07 36.22 Marah Ayesha Choi Respiratory rate 2019-11-10 10:15:07 18 /min Ayesha Choi Oxygen saturation in Arterial blood by Pulse oximetry 2019-02 005 10:15:07 97 /min Gibson Choi Body height 2019-11-08 05:34:00 170.2 cm Gibson Choi Body weight 2019-11-08 05:34:00 99.791 kg Gibson Choi BMI 2019-11-08 05:34:00 34.46 kg/m2 Gibson Choi Body Temperature 2019-11-06 12:02:00 97.5 [degF] [facility] BMI (Body Mass Index) 2019-11-06 09:29:00 33.6 kg/m2 [facility] Weight 2019-11-04 18:02:00 214.31 [lb_av] [facility] Procedures Procedure Date / Time Performed Performing Clinician Sourc e POC GLUCOSE 2019-11-10 06:31:00 AbouelseoudZamzam ohamed A Gibson [facility] IONIZED CALCIUM 2019-11-09 21:20:00 Denisha Olivares Alevism POC GLUCOSE 2019-11-09 20:28:00 AbouelseoudZamzam ohamed A [facility] POC GLUCOSE 2019-11-09 15:56:00 Abouelseoud, Arashseem Patricia M ohamed A [facility] POC GLUCOSE 2019-11-09 11:31:00 Abouelseoud, Tanseem Hamad M ohamed A [facility] POC GLUCOSE 2019-11-09 10:16:00 Abouelseoud, Arashseem Hamad M ohamed A [facility] POC GLUCOSE 2019-11-09 07:42:00 Abouelseoud, Tanseem Hamad M ohamed A [facility] POC GLUCOSE 2019-11-09 06:18:00 Abouelseoud, Arashseem Loboad Robe ohamed A [facility] POC GLUCOSE 2019-11-09 03:41:00 Abouelseoud, Tanseem Hamad M ohamed A [facility] HC COMPLETE BLD COUNT W/AUTO DIFF 2019-11-09 03:34:00 Isrrael Lopez COMPREHENSIVE METABOLIC PANEL 2019-11-09 03:34:00 Jairo Lopez ESTIMATED GFR 2019-11-09 03:34:00 Jairo Lopez PHOSPHORUS LEVEL 2019-11-09 03:34:00 Jairo Lopez IONIZED CALCIUM 2019-11-09 03:34:00 Jairo Lopez [facility] MAGNESIUM LEVEL 2019-11-09 03:34:00 [facility] POC GLUCOSE 2019-11-08 23:31:00 Abouelseoud, Zamzam Diamondjelena Robe ohamed A [facility] POC GLUCOSE 2019-11-08 21:00:00 Abouelseoud, Arashsealfonzo Diamondjelena M ohamed A [facility] POC GLUCOSE 2019-11-08 19:22:00 Abouelseoud, Arashseem Loboad M ohamed A [facility] POC GLUCOSE 2019-11-08 18:25:00 Abouelseoud, Arashseem Loboad M ohamed A [facility] POC GLUCOSE 2019-11-08 17:32:00 Abouelseoud, Arashsealfonzo Diamondjelena M ohamed A [facility] POC GLUCOSE 2019-11-08 15:39:00 Abouelseoud, Arashsealfonzo Diamondjelena M ohamed A [facility] URINE CULTURE 2019-11-08 15:19:00 Abouelseoud, Arashsealfonzo Diamondjelena M ohamed A [facility] URINALYSIS SCREEN AND MICROSCOPY, WITH REFLEX TO CULTURE 202 15:19:00 Abouelseoud, Zamzam Gomez Mohamed A [facility] POC GLUCOSE 2019-11-08 15:05:00 Abouelseoud, Zamzam Diamondjelena M ohamed A [facility] POC GLUCOSE 2019-11-08 14:24:00 Abouelseoud, Zamzam Diamondjelena M ohamed A [facility] POC GLUCOSE 2019-11-08 12:12:00 Abouelseoud, Arashsealfonzo Diamondjelena M ohamed A [facility] POC GLUCOSE 2019-11-08 11:02:00 Abouelseoud, Arashsealfonzo Diamondad M ohamed A [facility] POC GLUCOSE 2019-11-08 10:16:00 Abouelseoud, Arashsealfonzo Patricia M ohamed A [facility] POC GLUCOSE 2019-11-08 09:20:00 Abouelseoud, Arashseem Loboad M ohamed A [facility] POC GLUCOSE 2019-11-08 08:45:00 Abouelseoud, Arashsealfonzo Gomez M ohamed A [facility] POC GLUCOSE 2019-11-08 06:45:00 Edith Mo Alevism POC GLUCOSE 2019-11-08 06:21:00 Edith Mo Alevism POC GLUCOSE 2019-11-08 05:51:00 Edith Mo [facility] HEMOGLOBIN A1C 2019-11-08 04:56:00 Katya Cullen [facility] HC COMPLETE BLD COUNT W/AUTO DIFF 2019-11-08 04:56:00 Garrett Courtney BASIC METABOLIC PANEL 2019-11-08 04:56:00 Garrett Courtneyu stoshaniqua Choi ESTIMATED GFR 2019-11-08 04:56:00 Garrett Courtney ethodist POC GLUCOSE 2019-11-08 03:48:00 Edith Mo Alevism POC GLUCOSE 2019-11-08 02:49:00 Edith Mo Alevism POC GLUCOSE 2019-11-08 02:04:00 Edith Mo Alevism COVID-19 QUALITATIVE PCR 2019-11-08 01:36:00 Garrett Courtney POC GLUCOSE 2019-11-08 01:34:00 Edith Mo Alevism POC GLUCOSE 2019-11-08 01:00:00 Garrett Courtney ethodist POC GLUCOSE 2019-11-08 00:24:00 Garrett Courtney ethodist POC GLUCOSE 2019-11-07 23:52:00 Garrett Courtney ethodist XR CHEST 1 VW 2019-11-07 23:45:17 Garrett Courtney ethodist ECG ED PRELIMINARY INTERPRETATION 2019-11-07 23:23:16 Garrett Courtney HC COMPLETE BLD COUNT W/AUTO DIFF 2019-11-07 23:23:00 Garrett Courtney COMPREHENSIVE METABOLIC PANEL 2019-11-07 23:23:00 Zhou MAGNESIUM LEVEL 2019-11-07 23:23:00 Garrett Courtney ethodist ESTIMATED GFR 2019-11-07 23:23:00 Garrett Courtney ethodist ECG 12-LEAD 2019-11-07 23:17:24 Garrett Courtney Gibson Acosta ethodist POC GLUCOSE 2019-11-07 23:08:00 Provider, Unknown Arreaga thodi X-ray of chest, two views 2019-11-06 00:00:00 [facility] US guided paracentesis 2019-11-06 00:00:00 [facility] US Liver 2019-11-06 00:00:00 [facility] Computed tomography of abdomen without contrast 2019-11-04 00:00 :00 [facility] Ultrasound of chest including mediastinum 2019-05-15 00:00:0 0 SOMMER GRIMES [facility] X-ray of chest, two views 2019-05-08 00:00:00 BRIAN JOLLY [facility] Plan of Care Planned Activity Planned Date Details Comments Source Future Scheduled Test 2019-09-06 00:00:00 INFLUENZA VACCINE [code = INFLUENZA VACCINE] [facility] Scheduled Test 2012 00:00:00 65+ PNEUMOCOCCAL V ACCINE (1 of - PPSV23) [code = 65+ PNEUMOCOCCAL VACCINE (1 of - PPSV23)] [facility] Scheduled Test 1997 00:00:00 COLONOSCOPY SCREEN ING [code = COLONOSCOPY SCREENING] [facility] Scheduled Test 1997 00:00:00 SHINGLES VACCINES (#1) [code = SHINGLES VACCINES (#1)] [facility] Instructions Type 2 Diabetes [facility] Instructions Diabetes and Diet [facility] Instructions Hypertension [facility] Instructions Low Sodium Diet [facility] Encounters Start Date/Time End Date/Time Encounter Type Admission Type Attendi [facility] Facility Care Department Encounter ID Source 2019-11-07 00:00:00 2019-11-10 00:00:00 Inpatient ZAMZAM CALLAHAN [facility] [id number] [facility] 2019-05-15 09:46:00 2019-05-17 15:26:00 Discharged Inpatient 1 JOLLY, SOUHEIL [id number] [facility] 2019-[facility]-14 16:30:00 2019-05-14 17:09:00 Departed Emergency Room [facility] [id number] [facility] 2019-05-08 12:40:00 2019-05-08 12:40:00 Registered Clinic 3 [id number] 2018-01-29 16:19:00 2018-02-06 18:05:00 Discharged Inpatient 1 JOHNY JOLLYKRISTY [facility] [id number] [facility]3] [facility]sh[facility] 2018-01-23 12:53:00 2018-01-23 16:31:00 Departed Emergency Room 1 [facility] [id number] [facility] Results Test Description Test Time Test Comments Results Result Comments Source CT CERVICAL SPINE 2020-01-05 13:25:00 [facility] 1945 Sex: [place] [id number] Patient Name: SEA LINDA MR #: [id number] : 1945 Age/Sex: 74/M Req #: [id number] Adm Physician: Ordered by: NELI MUNIZ MD Report #: [id number] Location: Room/Bed: Procedure: [id number] CT/CT CERVICAL SPINE WO Exam Date: 01/05/20 Exam Time: 1215 REPORT STATUS: Signed Examination: CT CERVICAL SPINE WO CONTRAST HISTORY:Falls. COMPARISON:None. TECHNIQUE: Multidetector helical axial images were obtained without contrast from the foramen magnum to T1. Coronal and sagittal reformatted images were done. Bone and soft tissue windows were evaluated. Dose modulation, iterative reconstruction, and/or weight based adjustment of the mA/kV was utilized to reduce the radiation dose to as low as reasonably achievable. FINDINGS: Alignment:Normal alignment and lordosis. Vertebrae: Normal height and density. Possible C2 fracture. No infection or neoplasm. Disc space heights: Normal height. Caliber of spinal canal: Developmentally normal. Posterior fossa and craniocervical junction: Foramen magnum patent. No Chiari 1 malformation. Soft tissues: A double-lumen left jugular vein catheter. Atherosclerotic calcification of the bilateral carotid bifurcations and cervical internal carotid arteries.. Degenerative changes: Mild left neural foraminal narrowing at C3-C4 and C4-C5 due to uncovertebral and facet arthropathy. No right foraminal or canal stenosis. Diffuse disc osteophyte complex at C5-C6 and bilateral uncovertebral and facet arthropathy result in mild bilateral neural foraminal narrowing. No canal stenosis. Diffuse disc bulge at C6-C7 without canal or foraminal stenosis. Visualized lung apices: Large right greater than left pleural effusion. IMPRESSION: 1. No acute abnormalities. 2. Degenerative change as above. Signed by: Dr. Faith Gold M.D. on 01/05/2020 2:12 PM Dictated By: FAITH LATIF MD 1412 Transcribed By: SUMEET on 01/05/20 1412 COPY TO: NELI MUNIZ MD CT ABDOMEN/PELVIS WO 2020-01-05 13:24:00 [facility] : 1945 Sex: [place] [id number] Patient Name: SEA LINDA MR #: [id number] : 1945 Age/Sex: 74/M Req #: [id number] Adm Physician: Ordered by: NELI MUNIZ MD Report #: [id number] Location: ER Room/Bed: Procedure: [id number] CT/CT ABDOMEN/PELVIS WO Exam Date: 01/05/20 Exam Time: 1215 REPORT STATUS: Signed EXAM: CT Abdomen and Pelvis WITHOUT intravenous contrast INDICATION: Cirrhosis, fall COMPARISON: Chest radiograph of the same day TECHNIQUE: Abdomen and pelvis were scanned utilizing a multidetector helical scanner from the lung base to the pubic symphysis without administration of IV contrast. Coronal and sagittal reformations were obtained. IV CONTRAST: None ORAL CONTRAST: Water COMPLICATIONS: None RADIATION DOSE: Total DLP: 783 mGy*cm Dose modulation, iterative reconstruction, and/or weight based adjustment of the mA/kV was utilized to reduce the radiation dose to as low as reasonably achievable. FINDINGS: LOWER THORAX: Small right and trace left pleural effusions. Bibasilar dependent subsegmental atelectasis. Multichamber cardiomegaly. HEPATOBILIARY: Cirrhotic shrunken liver. No focal mass lesion. Unremarkable gallbladder. SPLEEN: No splenomegaly. PANCREAS: Atrophic. No focal mass. ADRENALS: No adrenal nodules. KIDNEYS/URETERS: No hydronephrosis, stones, or solid mass lesions. PELVIC ORGANS/BLADDER: Unremarkable. PERITONEUM / RETROPERITONEUM: Moderate volume ascites. No free air. LYMPH NODES: No lymphadenopathy. VESSELS: Diffuse atherosclerotic calcifications of the nonaneurysmal abdominal aorta and major branches. GI TRACT: No abnormal bowel thickening. No bowel obstruction. BONES AND SOFT TISSUES: No acute osseous injury. No suspicious lytic or blastic lesions. Diffuse anasarca. IMPRESSION: Hepatic cirrhosis and moderate volume abdominal and pelvic ascites. Small right and trace left pleural ef fusions. Cardiomegaly. Diffuse anasarca. Signed by: Scooter Greenwood MD on 01/05/2020 1:28 PM Dictated By: SCOOTER GREENWOOD MD 27 Transcribed By: SUMEET on 01/05/201327 COPY TO: NELI MUNIZ MD CT BRAIN WO 2020-01-05 13:23:00 [facility] : 1945 Sex: [place] [phone] Patient Name: SEA LINDA MR #: [id number] : 1945 Age/Sex: 74/M Req #: [id number] Adm Physician: Ordered by: NELI MUNIZ MD Report #: [id number] Location: Room/Bed: Procedure: [id number] CT/CT BRAIN WO Exam Date: 01/05/20 Exam Time: 1215 REPORT STATUS: Signed Examination: CT head without contrast Clinical Indication: Falls. Technique: Transaxial noncontrast images from the skull base through the vertex were obtained. Sagittal and coronal reformatted images were done. Dose modulation, iterative reconstruction, and/or weight based adjustment of the mA/kV was utilized to reduce the radiation dose to as low as reasonably achievable. Comparison: None. Findings: Scalp: No abnormalities. Bones: Intact. No fractures. No blastic or lytic lesions. Brain sulci: Generalized volume loss. Ventricles: No hydrocephalus. Extra-axial space: No abnormalities. Parenchyma: There are patchy areas of low-attenuation within subcortical and periventricular white matter, nonspecific, but could represent microvascular ischemic disease. No masses, hemorrhage, or acute or chronic cortical based vascular insults. Suprasellar region: No abnormalities. Craniocervical junction: The foramen magnum is patent. No Chiari one malformation. Incidental findings: Atherosclerotic calcification of the cavernous and supraclinoid internal carotid and V4 segments of the bilateral vertebral arteries. Impression: 1. No acute intracranial finding. 2. Generalized volume loss and chronic microvascular ischemic change. Signed by: Dr. Faith Gold M.D. on 01/05/2020 1:25 PM Dictated By: FAITH LATIF MD 1325 Transcribed By: SUMEET on 01/05/20 1325 COPY TO: NELI MUNIZ MD CHEST SINGLE (PORTABLE) 2020-01-05 13:18:00 [facility] : 1945 Sex: M [place] [id number] Patient Name: SEA LINDA MR #: [id number] : 1945 Age/Sex: 74/M Req #: [id number] Adm Physician: Ordered by: NELI MUNIZ MD Report #: [id number] Location: ER Room/Bed: Procedure: [id number] DX/CHEST SINGLE (PORTABLE) Exam Date: 01/05/20 Exam Time: 1215 REPORT STATUS: Signed EXAMINATION: CHEST SINGLE (PORTABLE) INDICATION: Fall shortness of breath COMPARISON: CT abdomen and pelvis of the same day FINDINGS: LINES/TUBES:Left chest AICD. EKG leads overlie the chest. LUNGS:The lungs are moderately inflated. Right basilar opacities. PLEURA:Small right pleural effusion. No pneumothorax. MEDIASTINUM:The cardiomediastinal silhouette appears normal in size and shape. Atherosclerotic calcifications of the thoracic aorta. BONES/SOFT TISSUES:No acute osseous injury. ABDOMEN:No free air under the diaphragm. IMPRESSION: Small right pleural effusion. Right basilar opacities, likely a combination of pleural effusion and subsegmental atelectasis. Signed by: Scooter Greenwood MD on 01/05/2020 1:20 PM Dictated By: SCOOTER GREENWOOD MD 1320 Transcribed By: SUMEET on 01/05/20 1320 COPY TO: NELI MUNIZ MD ECG 12 lead 2019-11-12 23:14:22 Test Item Ventricular rate (test code = 253) 61 Atrial rate (test code = 255) 61 OR interval (test code = 266) 188 QRSD [...] , age undetermined-Abnormal ECG-No previous ECGs available- [facility] [id number] 06:40:20* Test Item Value Reference Range Interpretation Comments POC glucose (test code = 13533-1) 110 mg/dL 65-100 H Band Reamer Machine Operator Name: Beena Tan ID: [id number] Lab Interpretation (test code = 82507-2) Abnormal [facility] MethodistIonized [id number] 21:31:06* Test Item Value Reference Range Interpretation Comments pH (test code = 2753-2) 7.39 Ionized calcium (test code = 1994-0) 1.13 mmol/L 1.11-1.32 [facility] MethodistMagnesium [id number] 10:45:43* Test Item Value Reference Range Interpretation Comments Magnesium (test code = 12014-8) 1.80 mg/dL 1.6-2.4 [facility] MethodistComprehensive metabolic [id number] 07:54:07* Test Item Value Reference Range Interpretation Comments Sodium (test code = 2951-2) 136 135- 150 mEq/L Potassium (test code = 2823-3) 3.6 3.5- 5.0 mEq/L Chloride (test code = 5-0) 98 98- 112 mEq/L CO2 (test code = 2027-9) 28 mmol/L 24-31 Anion gap (test code = 43022-8) 10@ANIO 7- 15 mEq/L BUN (test code = 3094-0) 18 mg/dL 7-18 Creatinine (test code = 2160-0) 1.30 mg/dL 0.7-1.2 H Glucose (test code = 2345-7) 210 mg/dL 65-100 H Calcium (test code = 21959-9) 8.4 mg/dL 8.8-10.2 L Protein (test code = 2885-2) 5.6 g/dL 6.3-8.3 L Albumin (test code = 1751-7) 3.1 g/dL 3.5-5 L A/G ratio (test code = 1759-0) 1.2 0.7-3.8 Alkaline phosphatase (test code = 6768-6) 60 U/L 0-129 AST (test code = 1920-8) 10 U/L 10-50 ALT (test code = 1742-6) 5 U/L 5-50 Total bilirubin (test code = 1974-2) 2.9 mg/dL 0.2-1.2 H Lab Interpretation (test code = 30343-7) Abnormal [facility] MethodistPhosphorus [id number] 03:56:45* Test Item Value Reference Range Interpretation Comments Phosphorus (test code = 2777-1) 3.1 mg/dL 2.4-4.5 [facility] MethodistEstimated [id number] 03:56:45* Test Item Value Reference Range Interpretation Comments Estimated GFR (test code = 5488) 54 mL/min/1.73 m2 A Catergory Units InterpretationG1 >=90 Normal or highG2 60-89 Mildly snmbwuoqtX7z 45-59 Mildly to moderately jcqtdfveoS4d 30-44 Moderately to severely decreasedG4 15-29 Severely decreasedG5 <15 Kidney failureThe eGFR was calculated using the Chronic Kidney Disease Epidemiology Collaboration (CKD-EPI) equation. Interpretation is based on recommendations of the National Kidney Foundation-Kidney Disease Outcomes Quality Initiative (NKF-KDOQI) published in 2014. Lab Interpretation (test code = 04815-2) Abnormal [facility] MethodistCBC with platelet and [id number] 03:46:21* Test Item Value Reference Range Interpretation Comments WBC (test code = 18142-7) 7.1 4.2- 11.0 k/uL RBC (test code = 64812-3) 3.44 m/uL 4.04-5.86 L HGB (test code = 718-7) 10.5 g/dL 13-17.3 L HCT (test code = 4544-3) 31.8 % 34-45 L MCV (test code = 787-2) 92.4 fL 80-98 MCH (test code = 785-6) 30.5 pg 27-34 MCHC (test code = 786-4) 33.0 g/dL 31.5-36.5 RDW - SD (test code = 29041-7) 59.1 fL 37-51 H MPV (test code = 39651-0) 12.3 fL 7.4-10.4 H Platelet count (test code = 44059-2) 101 150- 400 k/uL L Nucleated RBC (test code = 56898-8) 0.00 /100 WBC Neutrophils (test code = 69147-5) 89.6 % 36-66 H Lymphocytes (test code = 74660-3) 8.4 % 24-44 L Monocytes (test code = 00922-7) 1.5 % 0-6 Eosinophils (test code = 08407-4) 0.0 % 0-6 Basophils (test code = 27570-0) 0.1 % 0-1.2 Immature granulocytes (test code = 96660-6) 0.4 % 0-1 Lab Interpretation (test code = 05005-4) Abnormal [facility] MethodistUrinalysis screen and microscopy, with reflex to culture 2019-11-08 15:53:49* Test Item Value Reference Range Interpretation Comments Specimen site (test code = 1396951) Catheterized Color, UA (test code = 5778-6) Yellow Appearance, UA (test code = 5767-9) Clear Specific gravity, UA (test code = 5811-5) 1.010 1.001-1.035 pH, UA (test code = 5803-2) 6.0 5.0-8.5 Protein, UA (test code = 91569-1) Negative Negative Glucose, UA (test code = 93350-3) Negative Negative Ketones, UA (test code = 2514-8) Negative Negative Bilirubin, UA (test code = 5770-3) Negative Negative Blood, UA (test code = 5794-3) Small Negative A Nitrite, UA (test code = 5802-4) Negative Negative Urobilinogen, UA (test code = 65765-1) 2.0 <2.0 A Leukocyte esterase, UA (test code = 5799-2) Negative Negative Epithelial cells, UA (test code = 5787-7) Few /HPF WBC, UA (test code = 5821-4) 1 0- 1 /HPF RBC, UA (test code = 03546-1) 2 0- 5 /HPF Bacteria, UA (test code = 94776-2) None seen None seen Yeast, UA (test code = 06587-4) None seen Yeast with pseudohyphae, UA (test code = 69836-7) None seen Lab Interpretation (test code = 01661-1) Abnormal [facility] MethodistUrine zfmkdba7373-41-12 15:50:21* Test Item Value Reference Range Interpretation Comments Urine culture (test code = 2741941) SEE COMMENT Bacteriuria screen negative. [facility] MethodistCOVID-19 qualitative CPF1705-89-50 09:57:13* Test Item Value Reference Range Interpretation Comments Interpretation (test code = 8959650) Negative results do not preclude 2019-nCoV infection and should not be used as the sole basis for treatment or other patient management decisions. Negative results must be combined with clinical observations, patient history, and epidemiological information. COVID-19 qualitative PCR result (test code = 03243-2) Not-Detect ed Not-Detected COVID-19 qualitative PCR (test code = 7070) See link below for P DF Lab Report [facility] MethodistBasic metabolic qsgtc9865-29-06 05:40:22* Test Item Value Reference Range Interpretation Comments Sodium (test code = 2951-2) 142 135- 150 mEq/L Potassium (test code = 2823-3) 3.4 3.5- 5.0 mEq/L L Chloride (test code = 2075-0) 101 98- 112 mEq/L CO2 (test code = 2027-9) 33 mmol/L 24-31 H Anion gap (test code = 30251-6) 8@ANIO 7- 15 mEq/L BUN (test code = 3094-0) 17 mg/dL 7-18 Creatinine (test code = 2160-0) 1.50 mg/dL 0.7-1.2 H Glucose (test code = 2345-7) 27 mg/dL 65-100 LL Results called to and read back by __KIAN MORENO RN at 11/08/2019 05:40 (date/time) by SM__. Calcium (test code = 97730-3) 8.7 mg/dL 8.8-10.2 L Lab Interpretation (test code = 17455-2) Abnormal [facility] MethodistHemoglobin U5u6559-33-41 05:31:17* Test Item Value Reference Range Interpretation Comments Hemoglobin A1C (test code = 88489-9) 5.7 % 4-5.6 H HbA1c cutoffs for diagnosing diabetes:4.0% - 5.6% = normal5.7% - 6.4% = increased risk for diabetes (prediabetes)9>=6.5% = wvplohnt1Jhnsm for glycemic control (ADA 2016)< 7.0% Target for non adults with diabetes. More or less stringent targets may be appropriate for individual patients. <7.5% Target for Children and adolescents with type 1 diabetes. Lab Interpretation (test code = 28974-6) Abnormal [facility] MethodistXR Chest 1 Ut0985-91-38 23:59:03Hm Interface, Radiology Results - 11/08/2019 12:02 [...] thoracic spine.Left cardiac device is in satisfactory location.[id number] [facility] Preliminary Interpretation - Not an Rcfsj6423-36-47 23:23:16Garrett Courtney MD 11/08/2019 1:42 [facility] Preliminary Interpretation - Not an OrderPerformed by: Garrett Courtney MDAuthorized by: Garrett Courtney MD ECG reviewed by ED Physician in the absence of a hardboard grinder: yes Interpretation: Interpretation: non-specific Rate: ECG rate: 61 ECG rate assessment: normal Rhythm: Rhythm: sinus rhythm Ectopy: Ectopy: none QRS: QRS axis: Normal QRS intervals: NormalConduction: Conduction: normal ST segments: ST segments: Non-specificT waves: T waves: non-specific Other findings: Other findings: poor R wave progression Comments: Low voltageHouston MethodistBody fluid glucose measurement (mass/volume)2019-11-06 15:07:00* Test Item Value Reference Range Interpretation Comments Body Fluid Glucose (test code = 2344-0) 72 [facility] CenterBody fluid protein measurement (mass/volume)2019-11-06 15:07:00* Test Item Value Reference Range Interpretation Comments Body Fluid Total Protein (test code = 2881-1) 3.1 [facility] CenterUS GUIDED JSFBFVQKAFHC2800-18-57 14:00:00 [facility] [address] [place] [address] Patient Name: SEA LINDA MR #: [id number] : 1945 Age/Sex: 74/M Req #: [id number] Adm Physician: BRIAN JOLLY MD Ordered by: JEANNE JOLLY MD R eport #: [id number] Location: MED/SURG Room /Bed: [facility] Procedure: [id number] US/US GUIDED PARACENTESIS Exam Date: 11/06/19 Exam [...] one-step, a image was saved. A 5 Vietnamese one-step catheter was inserted and removed from [...] JOLLY MD Specimen source identification of body giebl4904-98-60 13:26:00* Test Item Value Reference Range Interpretation Comments Body Fluid Type (test code = 61996-1) PERITONEAL [facility] CenterEvaluation of color of body fluid 2019-11-06 13:26:00* Test Item Value Reference Range Interpretation Comments Body Fluid Color (test code = 6824-7) STRAW AMBERThe University of [facility]. Anderson Cancer CenterDetermination of appearance of body apsho0943-97-75 13:26:00* Test Item Value Reference Range Interpretation Comments Body Fluid Appearance (test code = 9335-1) CLOUDY [facility] CenterManual body fluid leukocytes count (number/volume)2019-11-06 13:26:00* Test Item Value Reference Range Interpretation Comments Body Fluid WBC (test code = 6743-9) 356 [facility] body fluid erythrocytes count (number/volume)2019-11-06 13:26:00* Test Item Value Reference Range Interpretation Comments Body Fluid RBC (test code = 6741-3) 3940 [facility] CenterUS PNUOV0596-72-28 12:03:00 [facility] [address] [address] Patient Name: SEA LINDA MR #: [id number] : 1945 Age/Sex: 74/M Req #: [id number] Adm Physician: BRIAN JOLLY MD Ordered by: JEANNE JOLLY MD Report #: [id number] Location: MED/SURG Room/Bed: [facility] Procedure: [id number] US/US LIVER Exam Date: 11/06/19 Exam Time: 1052 REPORT STATUS: Signed EXAM: US LIVER DATE: 11/06/2019 10:52 AM INDICATION: R/O PORTAL VEIN THROMBOSIS [id number] 10 54 Y COMPARISON: CT dated 11/04/2019 [...] Si gned By: CORY CHE MD on 11/06/191204 Transcribed By: SUMEET on 11/06/191204 COPY TO: JEANNE JOLLY MD Serum or plasma iron measurement (mass/volume)2019-11-06 11:16:00* Test Item Value Reference Range Interpretation Comments Iron Level (test code = 2498-4) 34 65-175 [facility] or plasma iron binding capacity measurement (mass/volume)2019-11-06 11:16:00* Test Item Value Reference Range Interpretation Comments Total Iron Binding Capacity (test code = 2500-7) 251 261-4 78 [facility] Campuserum or plasma iron saturation measurement (mass fraction)2019-11-06 11:16:00* Test Item Value Reference Range Interpretation Comments Percent Iron Saturation (test code = 2502-3) 14 15-50 [facility]um or plasma transferrin measurement (mass/volume)2019-11-06 11:16:00* Test Item Value Reference Range Interpretation Comments Transferrin (test code = 3034-6) 179 174-364 [facility]um or plasma ferritin measurement (mass/volume)2019-11-06 11:16:00* Test Item Value Reference Range Interpretation Comments Ferritin (test code = 2276-4) 207.58 21.81-274.66 [facility]um or plasma triglyceride measurement (mass/volume)2019-11-06 11:16:00* Test Item Value Reference Range Interpretation Comments Triglycerides Level (test code = 2571-8) 86 0-149 [facility]um or plasma cholesterol measurement (mass/volume)2019-11-06 11:16:00* Test Item Value Reference Range Interpretation Comments Cholesterol Level (test code = 2093-3) 69 0-199 Less than 200 mg/dL Low Rcay011 - 239 mg/dL Borderline Kddo877 m g/dl and greater High Risk [facility]um or plasma cholesterol in LDL measurement (mass/volume) 2019-11-06 11:16:00* Test Item Value Reference Range Interpretation Comments LDL Cholesterol (test code = 2089-1) 24 60-130 [facility]um or plasma cholesterol in HDL measurement (mass/volume)2019-11-06 11:16:00* Test Item Value Reference Range Interpretation Comments HDL Cholesterol (test code = 2085-9) 28 40-60 [facility] Camp[facility]um or plasma total cholesterol/cholesterol in HDL mass ilbgq8620-81-50 11:16:00* Test Item Value Reference Range Interpretation Comments Cholesterol/HDL Ratio (test code = 9830-1) 2.5 3.9-4.7 [facility] CenterCHEST 2 ZYIBK3889-45-97 08:15:00 [facility] [address] [place] [address] Patient Name: SEA LINDA MR #: [id number] : 1945 Age/Sex: 74/M Req #: [id number] Adm Physician: MISTY JOLLY MD Ordered by: BRIAN JOLLY MD Report #: [id number] Location: MED/SURG Room/Bed: [facility] Procedure: [id number] DX/CHEST 2 V IEWS Exam Date: 11/06/19 Exam Time: 0640 REPORT STATUS: Signed Exam: CHEST 2 VIEWS Date: 11/06/2019 8:15 AM INDICATION: SOB [id number] Colt rison: 11/04/2019 FINDINGS: Lines/Tubes:Left chest [...] Count (test code = 6690-2) 5.40 4.8-10.8 [facility] CenterBlood erythrocytes automated count (number/volume)2019-11-06 07:36:00* Test Item Value Reference Range Interpretation Comments Red Blood Count (test code = 789-8) 3.91 4.3-5.7 [facility] CenterBlood hemoglobin measurement (moles/volume)2019-11-06 07:36:00* Test Item Value Reference Range Interpretation Comments Hemoglobin (test code = 78139-5) 11.5 14.0-18.0 [facility] CenterAutomated blood hematocrit (volume fraction)2019-11-06 07:36:00* Test Item Value Reference Range Interpretation Comments Hematocrit (test code = 4544-3) 36.1 38.2-49.6 [facility] CenterAutomated erythrocyte mean corpuscular hovirn6649-47-45 07:36:00* Test Item Value Reference Range Interpretation Comments Mean Corpuscular Volume (test code = 787-2) 92.3 81-99 [facility] CenterAutomated erythrocyte mean corpuscular hemoglobin (mass per erythrocyte)2019-11-06 07:36:00* Test Item Value Reference Range Interpretation Comments Mean Corpuscular Hemoglobin (test code = 785-6) 29.4 28-32 [facility] CenterAutomated erythrocyte mean corpuscular hemoglobin concentration measurement (mass/volume)2019-11-06 07:36:00* Test Item Value Reference Range Interpretation Comments Mean Corpuscular Hemoglobin Concent (test code = 786-4) 31.9 31-35 [facility] CenterRDW NcuSh-Vmu8418-44-01 07:36:00* Test Item Value Reference Range Interpretation Comments Red Cell Distribution Width (test code = 50844-0) 17.9 11.7 -14.4 [facility] CenterAutomated blood platelet count (count/volume)2019-11-06 07:36:00* Test Item Value Reference Range Interpretation Comments Platelet Count (test code = 777-3) 133 140-360 [facility] CenterAutamerican healthcare systemsed blood segmented neutrophil count as percentage of total ymagwhzock4564-33-69 07:36:00* Test Item Value Reference Range Interpretation Comments Neutrophils (%) (Auto) (test code = 97523-2) 65.2 38.7-80.0 [facility] Cancer CenterAutomated blood lymphocyte count as percentage ot total jvjseggtjv2297-51-41 07:36:00* Test Item Value Reference Range Interpretation Comments Lymphocytes (%) (Auto) (test code = 736-9) 23.7 18.0-39.1 [facility] Cancer CenterAutomated blood monocyte count as percentage of total odqslmodhl8050-15-51 07:36:00* Test Item Value Reference Range Interpretation Comments Monocytes (%) (Auto) (test code = 5905-5) 9.8 4.4-11.3 [facility] CenterAutomated blood eosinophil count as percentage of total jzchhzndxx1924-66-97 07:36:00* Test Item Value Reference Range Interpretation Comments Eosinophils (%) (Auto) (test code = 713-8) 0.7 0.0-6.0 [facility] Cancer CenterAutomated blood basophil count as percentage of total fqfqrmlwue6865-49-92 07:36:00* Test Item Value Reference Range Interpretation Comments Basophils (%) (Auto) (test code = 706-2) 0.4 0.0-1.0 [facility] Cancer CenterFluoroscopic procedure less than one hour onyohwpw0150-12-94 07:36:00* Test Item Value Reference Range Interpretation Comments IM GRANULOCYTES % (test code = IM GRANULOCYTES %) 0.2 0.0- 1.0 [facility] Cancer CenterAutomated blood neutrophil count 2019-11-06 07:36:00* Test Item Value Reference Range Interpretation Comments Neutrophils # (Auto) (test code = 751-8) 3.5 2.1-6.9 [facility] CenterBlood lymphocytes count (number/volume) 2019-11-06 07:36:00* Test Item Value Reference Range Interpretation Comments Lymphocytes # (Auto) (test code = 68071-6) 1.3 1.0-3.2 [facility] CenterBlnorth shore health monocytes automated count (number/volume)2019-11-06 07:36:00* Test Item Value Reference Range Interpretation Comments Monocytes # (Auto) (test code = 742-7) 0.5 0.2-0.8 [facility] Cancer CenterAutomated blood eosinophil count 2019-11-06 07:36:00* Test Item Value Reference Range Interpretation Comments Eosinophils # (Auto) (test code = 711-2) 0.0 0.0-0.4 [facility] CenterAutomated blood basophil count (count/volume)2019-11-06 07:36:00* Test Item Value Reference Range Interpretation Comments Basophils # (Auto) (test code = 704-7) 0.0 0.0-0.1 [facility] CenterFluoroscopic procedure less than one hour yrzgenln1860-51-61 07:36:00* Test Item Value Reference Range Interpretation Comments Absolute Immature Granulocyte (auto (pema t code = Absolute Immature Granulocyte (auto) 0.01 0-0.1 [facility]um or plasma sodium measurement (moles/volume)2019-11-06 05:15:00* Test Item Value Reference Range Interpretation Comments Sodium Level (test code = 2951-2) 138 136-145 [facility] Campuserum or plasma potassium measurement (moles/volume)2019-11-06 05:15:00* Test Item Value Reference Range Interpretation Comments Potassium Level (test code = 2823-3) 3.7 3.5-5.1 [facility] Campuserum or plasma chloride measurement (moles/volume)2019-11-06 05:15:00* Test Item Value Reference Range Interpretation Comments Chloride Level (test code = 2075-0) 104 98-107 [facility] Campuserum or plasma carbon dioxide, total measurement (moles/volume)2019-11-06 05:15:00* Test Item Value Reference Range Interpretation Comments Carbon Dioxide Level (test code = 2028-9) 23 22-29 [facility] Camp[facility]um or plasma anion jsm6512-89-86 05:15:00* Test Item Value Reference Range Interpretation Comments Anion Gap (test code = 79053-2) 14.7 8-16 [facility]um or plasma urea nitrogen measurement (mass/volume)2019-11-06 05:15:00* Test Item Value Reference Range Interpretation Comments Blood Urea Nitrogen (test code = 3094-0) 17 7-26 [facility]um or plasma creatinine measurement (mass/volume)2019-11-06 05:15:00* Test Item Value Reference Range Interpretation Comments Creatinine (test code = 2160-0) 1.23 0.72-1.25 [facility]um or plasma urea nitrogen/creatinine mass qseqy2799-77-48 05:15:00* Test Item Value Reference Range Interpretation Comments BUN/Creatinine Ratio (test code = 3097-3) 14 6-25 [facility] Cancer CenterEstimated glomerular filtration rate (GFR) jtkqjwattugns2656-48-17 05:15:00* Test Item Value Reference Range Interpretation Comments Estimat Glomerular Filtration Rate (test code = 909652162) 58 >60 Ranges were taken from the National Kidney Disease Education Program and the [facility] hospitalal Kidney Foundation literature.Reference ranges:60 or greater: Vmvlbo65-68 ( for 3 consecutive months): Chronic kidney disease 15 or less: Kidney failureThe University of Texas M.D. Anderson Cancer CenterGlucose ygwnvbfrkuo4979-75-46 05:15:00* Test Item Value Reference Range Interpretation Comments Glucose Level (test code = WGZ3950) 60 74-118 [facility]um or plasma calcium measurement (mass/volume)2019-11-06 05:15:00* Test Item Value Reference Range Interpretation Comments Calcium Level (test code = 36357-4) 8.5 8.4-10.2 [facility]um or plasma total bilirubin measurement (mass/volume)2019-11-06 05:15:00* Test Item Value Reference Range Interpretation Comments Total Bilirubin (test code = 1975-2) 5.7 0.2-1.2 [facility]um or plasma conjugated bilirubin measurement (mass/volume)2019-11-06 05:15:00* Test Item Value Reference Range Interpretation Comments Direct Bilirubin (test code = 40473-4) 0.8 0.0-0.5 [facility] or plasma indirect bilirubin measurement (mass/volume)2019-11-06 05:15:00* Test Item Value Reference Range Interpretation Comments Indirect Bilirubin (test code = 1971-1) 4.9 0.3-1.2 [facility] Cancer CenterFluoroscopic procedure less than one hour pesmkxdp0197-37-02 05:15:00* Test Item Value Reference Range Interpretation Comments Aspartate Amino Transf (AST/SGOT) (test code = Aspartate Amino Transf (AST/SGOT)) 13 5-34 [facility] Camp[facility]um or plasma alanine aminotransferase measurement (enzymatic activity/volume)2019-11-06 05:15:00* Test Item Value Reference Range Interpretation Comments Alanine Aminotransferase (ALT/SGPT) (test code = 1742-6) < 6 0-55 [facility] Camp[facility]um or plasma protein measurement (mass/volume)2019-11-06 05:15:00* Test Item Value Reference Range Interpretation Comments Total Protein (test code = 2885-2) 6.0 6.5-8.1 [facility] Campuserum or plasma albumin measurement (mass/volume)2019-11-06 05:15:00* Test Item Value Reference Range Interpretation Comments Albumin (test code = 1751-7) 3.5 3.5-5.0 [facility] Cancer CenterPlasma globulin measurement (mass/volume) 2019-11-06 05:15:00* Test Item Value Reference Range Interpretation Comments Globulin (test code = 79698-4) 2.5 2.3-3.5 [facility] Camp[facility]um or plasma albumin/globulin mass rzmeb3402-98-48 05:15:00* Test Item Value Reference Range Interpretation Comments Albumin/Globulin Ratio (test code = 1759-0) 1.4 0.8-2.0 [facility] Camp[facility]um or plasma alkaline phosphatase measurement (enzymatic activity/volume)2019-11-06 05:15:00* Test Item Value Reference Range Interpretation Comments Alkaline Phosphatase (test code = 6768-6) 69 40-150 [facility] Cancer CenterProthrombin time (PT) in platelet poor plasma by coagulation zmurm4174-72-08 15:40:00* Test Item Value Reference Range Interpretation Comments Prothrombin Time (test code = 5902-2) 17.2 11.9-14.5 [facility] CenterINR in Platelet poor plasma by Coagulation xnmbt1904-59-55 15:40:00* Test Item Value Reference Range Interpretation Comments Prothromb Time International Ratio (test code = 6301-6) 1.34 Oral Anticoagulant Therapy INR Values:1. Low Intensity Therapy 1.5 - 2.02 . Moderate Intensity Therapy 2.0 - 3.03. High Intensity Therapy(1) 2.5 - 3. 54. High Intensity Therapy(2) 3.0 - 4.05. Panic Value INR > 5.0 [facility] CenterFluoroscopic procedure less than one hour akqzqzlc1493-66-14 13:00:00* Test Item Value Reference Range Interpretation Comments Coronavirus (PCR) (test code = Coronavirus (PCR)) NOT DETECTED NOTD ETECTED SARS-CoV-2 PCRHologic Aptima SARS-CoV-2 assay is a nucleic amplification test in tended for the qualitative detection of RNA from SARS-CoV-2 from nasopharyngeal (COMMUNITY AFFAIRS DIRECTOR) specimens. It is used under Emergency Use [...] repr at testing oc clinically indicated.Tesing performed by:[facility] Laboratory Services[address] [place] [address] [id number], Jairo manrique MD, PhDThe [facility] of [facility]. Anderson Cancer CenterCT ABDOMEN MW0588-83-90 12:44:00 [facility] [address] [address] Patient Name: SEA LINDA MR #: [id number] : 1945 Age/Sex: 74/M Req #: [id number] Adm Physician: BRIAN JOLLY MD Ordered by: Edith Bean MD Report #: [id number] Location: [facility] Room/Bed: [address] [address] Procedure: [id number] CT/CT AB [facility] Exam Date: 11/04/19 Exam Time: 1200 REPORT [...] HILLARY BEAN MD CHEST SINGLE (PORTABLE)2019-11-04 12:10:[address] [address] Patient Name: SEA LINDA MR #: [id number] : 1945 Age/Sex: 74/M Req #: [id number] Adm Physician: Ordered by: Edith Bean MD Report #: [id number] Location: ER Room/Bed: Procedure: [id number] DX/CHEST SINGLE (PORTABLE) Exam Date: 11/04/19 Exam [...] 1213 COPY TO: EDITH BEAN MD Ammonia Spr-oDvy8838-07-29 11:16:00* Test Item Value Reference Range Interpretation Comments Ammonia (test code = 86007-5) 33 31-123 [facility] Cancer CenterBNP Qng-zAkx8296-80-29 11:16:00* Test Item Value Reference Range Interpretation Comments B-Type Natriuretic Peptide (test code = 38542-8) 4767.1 0-100 [facility] CenterTroponin I measurement by highly sensitive enzyme psysabvhqau7069-73-60 11:16:00* Test Item Value Reference Range Interpretation Comments Troponin I (test code = 22838-8) 0.026 0-0.300 [facility] SINGLE (PORTABLE)2019-05-17 12:56:00 [facility] [address] [address] Patient Name: SEA LINDA MR #: [id number] : 1945 Age/Sex: 74/M Req #: [id number] Adm Physician: BRIAN JOLLY MD Ordered by: SOMMER GRIMES MD Report #: [id number] Location: [facility] Room/Bed: [address] [address] Procedure: [id number] 5 DX/CHEST SINGLE (PORTABLE) Exam Date: 05/17/19 Brandonnabor m Time: 1210 REPORT STATUS: Signed EXAMINATION: CHEST [...] STACEY RINCON MD Electronically S igned By: STACEY RINCON MD on 05/17/19 1250 Transcribed By: SUMEET mcgovern 05/17/19 7572 COPY TO: SOMMER GRIMES MD, [facility] Coronavirus (PCR)2019-05-17 12:27:00* Test Item [...] to perform high complexity tests.Specimen sent to [facility] and testing performed by Clinical Pathology [address] [place] [address] [phone] Director: Jose Plata M.D.CLIA # [id number] University of [facility]. Anderson Cancer CenterBedside Evvihzr2318-00-39 08:52:00* Test Item Value Reference Range Interpretation Comments Bedside Glucose (test code = 56422-1) 142 70-120 H Meter ID: [id number] Texas [facility] CampusWhite Blood Count 2019-05-17 05:53:00* Test Item Value Reference Range Interpretation Comments White Blood Count (test code = 6690-2) 9.63 4.8-10.8 [facility] Cancer CenterRed Blood Rsynm8804-90-69 05:53:00* Test Item Value Reference Range Interpretation Comments Red Blood Count (test code = 789-8) 4.08 4.3-5.7 L [facility] Cancer CenterHemoglobin2020-04-11 05:53:00* Test Item Value Reference Range Interpretation Comments Hemoglobin (test code = 51756-6) 12.4 14.0-18.0 L [facility] Cancer CenterHematocrit2020-04-11 05:53:00* Test Item Value Reference Range Interpretation Comments Hematocrit (test code = 4544-3) 38.0 38.2-49.6 L [facility] CenterMean Corpuscular Ymzoas9741-12-10 05:53:00* Test Item Value Reference Range Interpretation Comments Mean Corpuscular Volume (test code = 787-2) 93.1 81-99 [facility] CenterMean Corpuscular Qlmpubetvd7728-63-83 05:53:00* Test Item Value Reference Range Interpretation Comments Mean Corpuscular Hemoglobin (test code = 785-6) 30.4 28-32 [facility] CenterMean Corpuscular Hemoglobin Concent 2019-05-17 05:53:00* Test Item Value Reference Range Interpretation Comments Mean Corpuscular Hemoglobin Concent (test code = 786-4) 32.6 31-35 [facility] CenterRed Cell Distribution Dtppr0154-22-38 05:53:00* Test Item Value Reference Range Interpretation Comments Red Cell Distribution Width (test code = 59281-3) 13.8 11.7 -14.4 [facility] CenterPlatelet Fdhxp5882-19-45 05:53:00* Test Item Value Reference Range Interpretation Comments Platelet Count (test code = 777-3) 231 140-360 [facility] CenterNeutrophils (%) (Auto)2019-05-17 05:53:00 * Test Item Value Reference Range Interpretation Comments Neutrophils (%) (Auto) (test code = 39172-5) 66.8 38.7-80.0 [facility] CenterLymphocytes (%) (Auto)2019-05-17 05:53:00 * Test Item Value Reference Range Interpretation Comments Lymphocytes (%) (Auto) (test code = 736-9) 19.2 18.0-39.1 [facility] CenterMonocytes (%) (Auto)2019-05-17 05:53:00* Test Item Value Reference Range Interpretation Comments Monocytes (%) (Auto) (test code = 5905-5) 12.3 4.4-11.3 H [facility] CenterEosinophils (%) (Auto)2019-05-17 05:53:00 * Test Item Value Reference Range Interpretation Comments Eosinophils (%) (Auto) (test code = 713-8) 1.0 0.0-6.0 [facility] CenterBasophils (%) (Auto)2019-05-17 05:53:00* Test Item Value Reference Range Interpretation Comments Basophils (%) (Auto) (test code = 706-2) 0.4 0.0-1.0 [facility] CenterIM GRANULOCYTES %2019-05-17 05:53:00* Test Item Value Reference Range Interpretation Comments IM GRANULOCYTES % (test code = IM GRANULOCYTES %) 0.3 0.0- 1.0 [facility] CenterNeutrophils # (Auto)2019-05-17 05:53:00* Test Item Value Reference Range Interpretation Comments Neutrophils # (Auto) (test code = 751-8) 6.4 2.1-6.9 [facility] CenterLymphocytes # (Auto)2019-05-17 05:53:00* Test Item Value Reference Range Interpretation Comments Lymphocytes # (Auto) (test code = 22915-3) 1.9 1.0-3.2 [facility] CenterMonocytes # (Auto)2019-05-17 05:53:00* Test Item Value Reference Range Interpretation Comments Monocytes # (Auto) (test code = 742-7) 1.2 0.2-0.8 H [facility] CenterEosinophils # (Auto)2019-05-17 05:53:00* Test Item Value Reference Range Interpretation Comments Eosinophils # (Auto) (test code = 711-2) 0.1 0.0-0.4 [facility] CenterBasophils # (Auto)2019-05-17 05:53:00* Test Item Value Reference Range Interpretation Comments Basophils # (Auto) (test code = 704-7) 0.0 0.0-0.1 [facility] CenterAbsolute Immature Granulocyte (auto 2019-05-17 05:53:00* Test Item Value Reference Range Interpretation Comments Absolute Immature Granulocyte (auto (pema t code = Absolute Immature Granulocyte (auto) 0.03 0-0.1 [facility] Campusodium Wyqxq3907-71-99 05:48:00* Test Item Value Reference Range Interpretation Comments Sodium Level (test code = 2951-2) 139 136-145 [facility] CenterPotassium Zikyh7957-55-42 05:48:00* Test Item Value Reference Range Interpretation Comments Potassium Level (test code = 2823-3) 3.8 3.5-5.1 [facility] CenterChloride Eawqh4746-70-02 05:48:00* Test Item Value Reference Range Interpretation Comments Chloride Level (test code = 2075-0) 101 98-107 [facility] CenterCarbon Dioxide Ylhvy4469-67-19 05:48:00* Test Item Value Reference Range Interpretation Comments Carbon Dioxide Level (test code = 2028-9) 28 22-29 [facility] CenterAnion Bfs6002-65-55 05:48:00* Test Item Value Reference Range Interpretation Comments Anion Gap (test code = 44839-8) 13.8 8-16 [facility] CenterBlood Urea Nlugamqf3723-00-70 05:48:00* Test Item Value Reference Range Interpretation Comments Blood Urea Nitrogen (test code = 3094-0) 28 7-26 H [facility] CenterCreatinine2020-04-11 05:48:00* Test Item Value Reference Range Interpretation Comments Creatinine (test code = 2160-0) 1.38 0.72-1.25 H [facility] CenterBUN/Creatinine Fmogl1038-09-51 05:48:00* Test Item Value Reference Range Interpretation Comments BUN/Creatinine Ratio (test code = 3097-3) 20 6-25 [facility] CenterEstimat Glomerular Filtration Rate 2019-05-17 05:48:00* Test Item Value Reference Range Interpretation Comments Estimat Glomerular Filtration Rate (test code = 088530440) 51 >60 L Ranges were taken from the National Kidney Disease Education Program and the [facility] Kidney Foundation literature.Reference ranges:60 or greater: Cgwpyy12-01 ( for 3 consecutive months): Chronic kidney disease 15 or less: Kidney failureThe [facility] of [facility] Cancer CenterGlucose Yxogc5322-01-61 05:48:00* Test Item Value Reference Range Interpretation Comments Glucose Level (test code = STP1850) 106 74-118 [facility] CenterCalcium Jxroj9417-45-41 05:48:00* Test Item Value Reference Range Interpretation Comments Calcium Level (test code = 06428-0) 9.2 8.4-10.2 [facility] CenterBlood Qzxlutn3162-60-46 18:58:00* Test Item Value Reference Range Interpretation Comments Blood Culture (test code = 08710509) NO GROWTH AFTER 48 HOURS [facility] CenterUrine MWM4878-62-03 09:47:00* Test Item Value Reference Range Interpretation Comments Urine WBC (test code = 5821-4) 6-10 0-5 H [facility] CenterUrine FAB9889-20-40 09:47:00* Test Item Value Reference Range Interpretation Comments Urine RBC (test code = 58424-1) 6-10 0-5 H [facility] CenterUrine Udvllbav1538-64-06 09:47:00* Test Item Value Reference Range Interpretation Comments Urine Bacteria (test code = 83414-1) FEW NONE [facility] CenterUrine Epithelial Hlykx4609-82-00 09:47:00 * Test Item Value Reference Range Interpretation Comments Urine Epithelial Cells (test code = 63930-3) FEW NONE [facility] CenterUrine Jixxo0254-41-11 09:37:00* Test Item Value Reference Range Interpretation Comments Urine Color (test code = 5778-6) YELLOW YELLOW [facility] CenterUrine Msmxdbm0963-16-38 09:37:00* Test Item Value Reference Range Interpretation Comments Urine Clarity (test code = 46512-4) CLEAR CLEAR [facility] CenterUrine Specific Kixwghs5589-66-14 09:37:00 * Test Item Value Reference Range Interpretation Comments Urine Specific Bath (test code = 5811-5) 1.025 1.010-1.02 5 [facility] CenterUrine hD0496-38-23 09:37:00* Test Item Value Reference Range Interpretation Comments Urine pH (test code = 64576-8) 5.5 5-7 [facility] CenterUrine Leukocyte Mmdklpne4414-50-05 09:37:00* Test Item Value Reference Range Interpretation Comments Urine Leukocyte Esterase (test code = 5799-2) NEGATIVE NEGATIVE [facility] CenterUrine Earzrhe2614-06-56 09:37:00* Test Item Value Reference Range Interpretation Comments Urine Nitrite (test code = 99215-9) NEGATIVE NEGATIVE [facility] CenterUrine Gkqzlhs9573-45-58 09:37:00* Test Item Value Reference Range Interpretation Comments Urine Protein (test code = 5804-0) 1+ NEGATIVE H [facility] CenterUrine Glucose (UA)2019-05-16 09:37:00* Test Item Value Reference Range Interpretation Comments Urine Glucose (UA) (test code = 2349-9) NEGATIVE NEGATIVE [facility] CenterUrine Kxurjms9994-56-69 09:37:00* Test Item Value Reference Range Interpretation Comments Urine Ketones (test code = 14418-6) NEGATIVE NEGATIVE [facility] CenterUrine Ghvrvpucvslz1762-76-06 09:37:00* Test Item Value Reference Range Interpretation Comments Urine Urobilinogen (test code = 48572-4) 0.2 0.2-1 [facility] CenterUrine Rcxxivckd3343-32-92 09:37:00* Test Item Value Reference Range Interpretation Comments Urine Bilirubin (test code = 1978-6) NEGATIVE NEGATIVE [facility] CenterUrine Ubnmc2844-16-88 09:37:00* Test Item Value Reference Range Interpretation Comments Urine Blood (test code = 90613-6) TRACE NEGATIVE [facility] CenterUrine color jtepsxcmmsdvw0128-68-01 09:20:00* Test Item Value Reference Range Interpretation Comments Urine Color (test code = 5778-6) YELLOW YELLOW [facility] CenterUrine wdpurmi4873-94-01 09:20:00* Test Item Value Reference Range Interpretation Comments Urine Clarity (test code = 66708-5) CLEAR CLEAR [facility] Campuspecific gravity of Urine by Test strip 2019-05-16 09:20:00* Test Item Value Reference Range Interpretation Comments Urine Specific Bath (test code = 5811-5) 1.025 1.010-1.02 5 [facility] CenterUrine pH measurement by automated test oqmqg9335-04-47 09:20:00* Test Item Value Reference Range Interpretation Comments Urine pH (test code = 96569-5) 5.5 5-7 [facility] CenterUrine leukocyte esterase detection by xazbvyve7963-14-73 09:20:00* Test Item Value Reference Range Interpretation Comments Urine Leukocyte Esterase (test code = 5799-2) NEGATIVE NEGATIVE [facility] CenterUrine nitrite scyehqtef9648-84-42 09:20:00* Test Item Value Reference Range Interpretation Comments Urine Nitrite (test code = 76419-3) NEGATIVE NEGATIVE [facility] CenterUrine protein measurement by test strip (mass/volume)2019-05-16 09:20:00* Test Item Value Reference Range Interpretation Comments Urine Protein (test code = 5804-0) 1+ NEGATIVE [facility] CenterUrine glucose ifqbdnhfe0011-84-13 09:20:00* Test Item Value Reference Range Interpretation Comments Urine Glucose (UA) (test code = 2349-9) NEGATIVE NEGATIVE [facility] CenterUrine ketones detection by automated test qgjkq1858-41-48 09:20:00* Test Item Value Reference Range Interpretation Comments Urine Ketones (test code = 24650-8) NEGATIVE NEGATIVE [facility] CenterUrine urobilinogen measurement by test strip (mass/volume)2019-05-16 09:20:00* Test Item Value Reference Range Interpretation Comments Urine Urobilinogen (test code = 35120-0) 0.2 0.2-1 [facility] CenterUrine total bilirubin measurement (mass/volume)2019-05-16 09:20:00* Test Item Value Reference Range Interpretation Comments Urine Bilirubin (test code = 1978-6) NEGATIVE NEGATIVE [facility] CenterUrine erythrocytes avnxsvdqa8250-98-03 09:20:00* Test Item Value Reference Range Interpretation Comments Urine Blood (test code = 62630-2) TRACE NEGATIVE [facility] CenterAutomated urine sediment leukocyte count by microscopy (number/high power field)2019-05-16 09:20:00* Test Item Value Reference Range Interpretation Comments Urine WBC (test code = 5821-4) 6-10 0-5 [facility] CenterErythrocytes detection in urine sediment by light aancodfrod7493-42-47 09:20:00* Test Item Value Reference Range Interpretation Comments Urine RBC (test code = 61137-3) 6-10 0-5 [facility] CenterBacteria detection in urine sediment by light amvychqpkd6779-79-34 09:20:00* Test Item Value Reference Range Interpretation Comments Urine Bacteria (test code = 87440-1) FEW NONE [facility] CenterEpithelial cells detection in urine sediment by light osplqxcvbe1351-03-87 09:20:00* Test Item Value Reference Range Interpretation Comments Urine Epithelial Cells (test code = 52195-4) FEW NONE [facility] Campusodium Rziih6372-95-21 05:30:00* Test Item Value Reference Range Interpretation Comments Sodium Level (test code = 2951-2) 139 136-145 [facility] CenterPotassium Kxqgu1424-25-53 05:30:00* Test Item Value Reference Range Interpretation Comments Potassium Level (test code = 2823-3) 3.8 3.5-5.1 [facility] CenterChloride Bpuev7010-88-39 05:30:00* Test Item Value Reference Range Interpretation Comments Chloride Level (test code = 2075-0) 102 98-107 [facility] CenterCarbon Dioxide Eaovm7085-96-16 05:30:00* Test Item Value Reference Range Interpretation Comments Carbon Dioxide Level (test code = 2028-9) 25 22-29 [facility] CenterAnion Xec2330-88-62 05:30:00* Test Item Value Reference Range Interpretation Comments Anion Gap (test code = 71703-9) 15.8 8-16 [facility] CenterBlood Urea Tmhmzmhk0026-73-07 05:30:00* Test Item Value Reference Range Interpretation Comments Blood Urea Nitrogen (test code = 3094-0) 18 7-26 [facility] CenterCreatinine2020-04-10 05:30:00* Test Item Value Reference Range Interpretation Comments Creatinine (test code = 2160-0) 1.25 0.72-1.25 [facility] CenterBUN/Creatinine Yflmt5907-06-63 05:30:00* Test Item Value Reference Range Interpretation Comments BUN/Creatinine Ratio (test code = 3097-3) 14 6-25 [facility] CenterEstimat Glomerular Filtration Rate 2019-05-16 05:30:00* Test Item Value Reference Range Interpretation Comments Estimat Glomerular Filtration Rate (test code = 442670793) 57 >60 L Ranges were taken from the National Kidney Disease Education Program and the [facility] Kidney Foundation literature.Reference ranges:60 or greater: Gscapf92-02 ( for 3 consecutive months): Chronic kidney disease 15 or less: Kidney failureThe [facility] of [facility]. Anderson Cancer CenterGlucose Twbjt9772-57-28 05:30:00* Test Item Value Reference Range Interpretation Comments Glucose Level (test code = LHA7285) 107 74-118 [facility] CenterCalcium Vcvjt8147-46-32 05:30:00* Test Item Value Reference Range Interpretation Comments Calcium Level (test code = 73215-6) 9.2 8.4-10.2 [facility] CenterWhite Blood Jyqfd8184-01-34 05:06:00* Test Item Value Reference Range Interpretation Comments White Blood Count (test code = 6690-2) 9.24 4.8-10.8 [facility] CenterRed Blood Ymuib2120-76-99 05:06:00* Test Item Value Reference Range Interpretation Comments Red Blood Count (test code = 789-8) 4.21 4.3-5.7 L [facility] CenterHemoglobin2020-04-10 05:06:00* Test Item Value Reference Range Interpretation Comments Hemoglobin (test code = 13377-8) 12.9 14.0-18.0 L [facility] CenterHematocrit2020-04-10 05:06:00* Test Item Value Reference Range Interpretation Comments Hematocrit (test code = 4544-3) 40.2 38.2-49.6 [facility] CenterMean Corpuscular Urjfpl5636-71-64 05:06:00* Test Item Value Reference Range Interpretation Comments Mean Corpuscular Volume (test code = 787-2) 95.5 81-99 [facility] CenterMean Corpuscular Xuuceazzqg6294-99-06 05:06:00* Test Item Value Reference Range Interpretation Comments Mean Corpuscular Hemoglobin (test code = 785-6) 30.6 28-32 [facility] CenterMean Corpuscular Hemoglobin Concent 2019-05-16 05:06:00* Test Item Value Reference Range Interpretation Comments Mean Corpuscular Hemoglobin Concent (test code = 786-4) 32.1 31-35 [facility] CenterRed Cell Distribution Yjisq0571-34-13 05:06:00* Test Item Value Reference Range Interpretation Comments Red Cell Distribution Width (test code = 29046-8) 13.8 11.7 -14.4 [facility] CenterPlatelet Csioh9807-70-14 05:06:00* Test Item Value Reference Range Interpretation Comments Platelet Count (test code = 777-3) 163 140-360 [facility] CenterNeutrophils (%) (Auto)2019-05-16 05:06:00 * Test Item Value Reference Range Interpretation Comments Neutrophils (%) (Auto) (test code = 73190-8) 67.4 38.7-80.0 [facility] CenterLymphocytes (%) (Auto)2019-05-16 05:06:00 * Test Item Value Reference Range Interpretation Comments Lymphocytes (%) (Auto) (test code = 736-9) 19.7 18.0-39.1 [facility] CenterMonocytes (%) (Auto)2019-05-16 05:06:00* Test Item Value Reference Range Interpretation Comments Monocytes (%) (Auto) (test code = 5905-5) 11.4 4.4-11.3 H [facility] CenterEosinophils (%) (Auto)2019-05-16 05:06:00 * Test Item Value Reference Range Interpretation Comments Eosinophils (%) (Auto) (test code = 713-8) 0.6 0.0-6.0 [facility] CenterBasophils (%) (Auto)2019-05-16 05:06:00* Test Item Value Reference Range Interpretation Comments Basophils (%) (Auto) (test code = 706-2) 0.5 0.0-1.0 [facility] CenterIM GRANULOCYTES %2019-05-16 05:06:00* Test Item Value Reference Range Interpretation Comments IM GRANULOCYTES % (test code = IM GRANULOCYTES %) 0.4 0.0- 1.0 [facility] CenterNeutrophils # (Auto)2019-05-16 05:06:00* Test Item Value Reference Range Interpretation Comments Neutrophils # (Auto) (test code = 751-8) 6.2 2.1-6.9 [facility] CenterLymphocytes # (Auto)2019-05-16 05:06:00* Test Item Value Reference Range Interpretation Comments Lymphocytes # (Auto) (test code = 67951-2) 1.8 1.0-3.2 [facility] CenterMonocytes # (Auto)2019-05-16 05:06:00* Test Item Value Reference Range Interpretation Comments Monocytes # (Auto) (test code = 742-7) 1.1 0.2-0.8 H [facility] CenterEosinophils # (Auto)2019-05-16 05:06:00* Test Item Value Reference Range Interpretation Comments Eosinophils # (Auto) (test code = 711-2) 0.1 0.0-0.4 [facility] CenterBasophils # (Auto)2019-05-16 05:06:00* Test Item Value Reference Range Interpretation Comments Basophils # (Auto) (test code = 704-7) 0.1 0.0-0.1 [facility] CenterAbsolute Immature Granulocyte (auto 2019-05-16 05:06:00* Test Item Value Reference Range Interpretation Comments Absolute Immature Granulocyte (auto (pema t code = Absolute Immature Granulocyte (auto) 0.04 0-0.1 [facility] CenterBlood Jvuvtio0681-66-75 18:58:00* Test Item Value Reference Range Interpretation Comments Blood Culture (test code = 11876451) NO GROWTH AFTER 24 HOURS [facility] CenterUS CHEST (INCL MEDIASTINUM)2019-05-15 15:18:00 [facility] [address] [address] Patient Name: ESA LINDA MR #: [id number] : 1945 Age/Sex: 74/M Req #: [id number] Adm Physician: BRIAN JOLLY MD Ordered by: SOMMER GRIMES MD Report #: [id number] Location: [facility] Room/Bed: [place] [address] Procedure: 0409-000 5 US/US CHEST (INCL MEDIASTINUM) [...] 05/15/19 1521 COPY TO: SOMMER GRIMES MD, [facility] Capillary blood glucose measurement by glucometer (mass/volume)2019-05-15 15:00:00* Test Item Value Reference Range Interpretation Comments Bedside Glucose (test code = 27868-3) 143 70-120 Meter ID: [id number] [facility] of [facility]. Anderson Cancer CenterCreatine Kinase MB 2019-05-15 13:03:00* Test Item Value Reference Range Interpretation Comments Creatine Kinase MB (test code = 78529-0) 1.70 0-5.0 [facility] CenterTroponin H1071-79-22 13:03:00* Test Item Value Reference Range Interpretation Comments Troponin I (test code = 41976-9) 0.018 0-0.300 [facility] CenterCreatine Kinase NT3245-25-54 13:03:00* Test Item Value Reference Range Interpretation Comments Creatine Kinase MB (test code = 89050-7) 1.70 0-5.0 [facility] CenterTrmusc health [facility] emergencyn G7885-75-88 13:03:00* Test Item Value Reference Range Interpretation Comments Troponin I (test code = 65972-0) 0.018 0-0.300 [facility] CenterCreatine Aryied9032-28-20 12:20:00* Test Item Value Reference Range Interpretation Comments Creatine Kinase (test code = 2157-6) 46 30-200 [facility] CenterCreatine Jcfasn4197-46-40 12:20:00* Test Item Value Reference Range Interpretation Comments Creatine Kinase (test code = 2157-6) 46 30-200 [facility] Campuserum or plasma creatine kinase measurement (enzymatic activity/volume)2019-05-15 11:15:00* Test Item Value Reference Range Interpretation Comments Creatine Kinase (test code = 2157-6) 46 30-200 [facility] Campuserum or plasma creatine kinase MB measurement (mass/volume)2019-05-15 11:15:00* Test Item Value Reference Range Interpretation Comments Creatine Kinase MB (test code = 81350-9) 1.70 0-5.0 [facility] CenterCHEST SINGLE (PORTABLE)2019-05-15 10:49:[address] [address] Patient Name: SEA LINDA MR #: [id number] : 1945 Age/Sex: 74/M Req #: [id number] Adm Physician: BRIAN JOLLY MD Ordered by: SOMMER GRIMES MD Report #: [id number] Location: [facility] Room/Bed: [place] [address] Procedure: 0409-000 8 DX/CHEST SINGLE (PORTABLE) Exam [...] TO: SOMMER GRIMES MD, ABI Free Thyroxine Vvcrp7854-06-25 07:22:00* Test Item Value Reference Range Interpretation Comments Free Thyroxine Index (test code = 11268-7) 2.6102 1.4-3.8 [facility] CenterThyroxine (T4)2019-05-15 07:22:00* Test Item Value Reference Range Interpretation Comments Thyroxine (T4) (test code = 3026-2) 7.61 4.5-10.9 [facility] CenterTriiodothyronine (T3) Csvwjq9580-86-99 07:22:00* Test Item Value Reference Range Interpretation Comments Triiodothyronine (T3) Uptake (test code = 3050-2) 34.30 22.5 -37.0 [facility] CenterThyroid Stimulating Hormone (TSH) 2019-05-15 07:22:00* Test Item Value Reference Range Interpretation Comments Thyroid Stimulating Hormone (TSH) (test code = 14506-3) 1.961 0.350-4.940 [facility] CenterFree Thyroxine Xhiyx6257-74-34 07:22:00* Test Item Value Reference Range Interpretation Comments Free Thyroxine Index (test code = 31909-4) 2.6102 1.4-3.8 [facility] CenterThyroxine (T4)2019-05-15 07:22:00* Test Item Value Reference Range Interpretation Comments Thyroxine (T4) (test code = 3026-2) 7.61 4.5-10.9 [facility] CenterTriiodothyronine (T3) Uqxnzr9779-53-35 07:22:00* Test Item Value Reference Range Interpretation Comments Triiodothyronine (T3) Uptake (test code = 3050-2) 34.30 22.5 -37.0 [facility] CenterThyroid Stimulating Hormone (TSH) 2019-05-15 07:22:00* Test Item Value Reference Range Interpretation Comments Thyroid Stimulating Hormone (TSH) (test code = 69129-8) 1.961 0.350-4.940 [facility] CenterMagnesium Jftrm4692-74-03 06:58:00* Test Item Value Reference Range Interpretation Comments Magnesium Level (test code = 89223-1) 2.0 1.3-2.1 [facility] CenterMaesium Qgezq6929-68-86 06:58:00* Test Item Value Reference Range Interpretation Comments Magnesium Level (test code = 46374-4) 2.0 1.3-2.1 [facility] CenterB-Type Natriuretic Bpjepnb3533-67-31 06:25:00* Test Item Value Reference Range Interpretation Comments B-Type Natriuretic Peptide (test code = 71805-7) 890.9 0-100 H [facility] CenterB-Type Natriuretic Nynxapr3883-64-68 06:25:00* Test Item Value Reference Range Interpretation Comments B-Type Natriuretic Peptide (test code = 38715-2) 890.9 0-100 H [facility] Camp[facility]um or plasma magnesium measurement (mass/volume)2019-05-15 04:50:00* Test Item Value Reference Range Interpretation Comments Magnesium Level (test code = 64080-0) 2.0 1.3-2.1 [facility] CenterFree thyroxine hxhnb5132-86-65 04:50:00* Test Item Value Reference Range Interpretation Comments Free Thyroxine Index (test code = 77924-1) 2.6102 1.4-3.8 [facility] Campuserum or plasma thyroxine (T4) measurement (mass/volume)2019-05-15 04:50:00* Test Item Value Reference Range Interpretation Comments Thyroxine (T4) (test code = 3026-2) 7.61 4.5-10.9 [facility] Campuserum or plasma triiodothyronine resin uptake (T3RU)2019-05-15 04:50:00* Test Item Value Reference Range Interpretation Comments Triiodothyronine (T3) Uptake (test code = 3050-2) 34.30 22.5 -37.0 [facility] Campuserum or plasma thyrotropin measurement by detection limit <= 0.005 miu/l (units/volume)2019-05-15 04:50:00* Test Item Value Reference Range Interpretation Comments Thyroid Stimulating Hormone (TSH) (test code = 84895-5) 1.961 0.350-4.940 [facility] CenterCHEST SINGLE (PORTABLE)2019-05-14 20:29:00 [place] [address] Patient Name: SEA LINDA MR #: [id number] : 1945 Age/Sex: 74/M Req #: [id number] Adm Physician: BRIAN JOLLY MD Ordered by: NELI MUNIZ MD Report #: [id number] Location: [facility] Room/Bed: [place] [address] Procedure: [id number] DX/CHEST SINGLE (PORTABLE) Exam Date: 05/14/19 Exam [...] 8:32 PM Dictated By: STACEY RINCON MD 032 Transcribed By: SUMEET on 05/14/192031 COPY TO: NELI MUNIZ MD Aspartate Amino Transf (AST/SGOT)2019-05-14 20:12:00* Test Item Value Reference Range Interpretation Comments Aspartate Amino Transf (AST/SGOT) (test code = Aspartate Amino Transf (AST/SGOT)) 11 5-34 [facility] CenterAlanine Aminotransferase (ALT/SGPT) 2019-05-14 20:12:00* Test Item Value Reference Range Interpretation Comments Alanine Aminotransferase (ALT/SGPT) (test code = 1742-6) 10 0-55 [facility] CenterAspartate Amino Transf (AST/SGOT) 2019-05-14 20:12:00* Test Item Value Reference Range Interpretation Comments Aspartate Amino Transf (AST/SGOT) (test code = Aspartate Amino Transf (AST/SGOT)) 11 5-34 [facility] CenterAlanine Aminotransferase (ALT/SGPT) 2019-05-14 20:12:00* Test Item Value Reference Range Interpretation Comments Alanine Aminotransferase (ALT/SGPT) (test code = 1742-6) 10 0-55 [facility] CenterInfluenza Virus Types A,B Antigen 2019-05-14 19:53:00* Test Item Value Reference Range Interpretation Comments Influenza Virus Types A,B Antigen (test code = 59583-0) NEGATIVE NEGATIVE [facility] CenterInfluenza Virus Types A,B Antigen 2019-05-14 19:53:00* Test Item Value Reference Range Interpretation Comments Influenza Virus Types A,B Antigen (test code = 15629-3) NEGATIVE NEGATIVE [facility] CenterGroup A Streptococcus Nwjetp6040-93-52 19:46:00* Test Item Value Reference Range Interpretation Comments Group A Streptococcus Screen (test code = 10009-3) NEGATIVE NEG ATIVE [facility] CenterGroup A Streptococcus Gtlatl9808-17-79 19:46:00* Test Item Value Reference Range Interpretation Comments Group A Streptococcus Screen (test code = 14462-3) NEGATIVE NEG ATIVE [facility] CenterProthrombin Yyha0056-07-75 19:27:00* Test Item Value Reference Range Interpretation Comments Prothrombin Time (test code = 5902-2) 14.3 11.9-14.5 [facility] CenterProthromb Time International Ratio 2019-05-14 19:27:00* Test Item Value Reference Range Interpretation Comments Prothromb Time International Ratio (test code = 6301-6) 1.05 Oral Anticoagulant Therapy INR Values:1. Low Intensity Therapy 1.5 - 2.02 . Moderate Intensity Therapy 2.0 - 3.03. High Intensity Therapy(1) 2.5 - 3. 54. High Intensity Therapy(2) 3.0 - 4.05. Panic Value INR > 5.0 [facility] CenterActivated Partial Thromboplast Time 2019-05-14 19:27:00* Test Item Value Reference Range Interpretation Comments Activated Partial Thromboplast Time (test code = 46461-5) 32.0 23.8-35.5 [facility] CenterProthrombin Jjpe6687-92-43 19:27:00* Test Item Value Reference Range Interpretation Comments Prothrombin Time (test code = 5902-2) 14.3 11.9-14.5 [facility] CenterProthromb Time International Ratio 2019-05-14 19:27:00* Test Item Value Reference Range Interpretation Comments Prothromb Time International Ratio (test code = 6301-6) 1.05 Oral Anticoagulant Therapy INR Values:1. Low Intensity Therapy 1.5 - 2.02 . Moderate Intensity Therapy 2.0 - 3.03. High Intensity Therapy(1) 2.5 - 3. 54. High Intensity Therapy(2) 3.0 - 4.05. Panic Value INR > 5.0 [facility] CenterActivated Partial Thromboplast Time 2019-05-14 19:27:00* Test Item Value Reference Range Interpretation Comments Activated Partial Thromboplast Time (test code = 18049-2) 32.0 23.8-35.5 [facility] CenterTotal Jddvudwxg5315-54-60 19:24:00* Test Item Value Reference Range Interpretation Comments Total Bilirubin (test code = 1975-2) 2.8 0.2-1.2 H [facility] CenterTotal Cqjgnhy9996-58-83 19:24:00* Test Item Value Reference Range Interpretation Comments Total Protein (test code = 2885-2) 7.1 6.5-8.1 [facility] CenterAlbumin2020-04-08 19:24:00* Test Item Value Reference Range Interpretation Comments Albumin (test code = 1751-7) 3.5 3.5-5.0 [facility] CenterGlobulin2020-04-08 19:24:00* Test Item Value Reference Range Interpretation Comments Globulin (test code = 78037-5) 3.6 2.3-3.5 H [facility] CenterAlbumin/Globulin Kyihh7923-81-79 19:24:00 * Test Item Value Reference Range Interpretation Comments Albumin/Globulin Ratio (test code = 1759-0) 1.0 0.8-2.0 [facility] CenterAlkaline Ejxtxfdthto4312-07-34 19:24:00* Test Item Value Reference Range Interpretation Comments Alkaline Phosphatase (test code = 6768-6) 105 40-150 [facility] CenterTotal Upirkiprf4642-51-33 19:24:00* Test Item Value Reference Range Interpretation Comments Total Bilirubin (test code = 1975-2) 2.8 0.2-1.2 H [facility] CenterTotal Dvznont4371-90-21 19:24:00* Test Item Value Reference Range Interpretation Comments Total Protein (test code = 2885-2) 7.1 6.5-8.1 [facility] CenterAlbumin2020-04-08 19:24:00* Test Item Value Reference Range Interpretation Comments Albumin (test code = 1751-7) 3.5 3.5-5.0 [facility] CenterGlobulin2020-04-08 19:24:00* Test Item Value Reference Range Interpretation Comments Globulin (test code = 96107-1) 3.6 2.3-3.5 H [facility] CenterAlbumin/Globulin Njimv4596-46-03 19:24:00 * Test Item Value Reference Range Interpretation Comments Albumin/Globulin Ratio (test code = 1759-0) 1.0 0.8-2.0 [facility] CenterAlkaline Llgfwqnsdwu4524-24-94 19:24:00* Test Item Value Reference Range Interpretation Comments Alkaline Phosphatase (test code = 6768-6) 105 40-150 [facility] CenterInfluenza virus A and B antigen identification by adbmmaawrbfvvvvpcj6823-09-40 19:18:00* Test Item Value Reference Range Interpretation Comments Influenza Virus Types A,B Antigen (test code = 61345-9) NEGATIVE NEGATIVE [facility] Campustreptococcus pyogenes antigen detection in pqinsj4644-07-67 19:18:00* Test Item Value Reference Range Interpretation Comments Group A Streptococcus Screen (test code = 96755-5) NEGATIVE NEG ATIVE [facility] CenterActivated partial thromboplastin time (aPTT) in platelet poor plasma by coagulation bebrn7208-53-94 18:48:00* Test Item Value Reference Range Interpretation Comments Activated Partial Thromboplast Time (test code = 02334-5) 32.0 23.8-35.5 [facility] CenterBlood ubgbqnh2682-20-40 18:48:00* Test Item Value Reference Range Interpretation Comments Blood Culture (test code = 33206753) NO GROWTH AFTER 5 DAYS, FINAL REPORT [facility] CenterCHEST 2 ZTJHG9101-72-74 13:40:00 [place] [address] Patient Name: SEA LINDA MR #: [id number] : 1945 Age/Sex: 74/M Req #: [id number] Adm Physician: Ordered by: BRIAN JOLLY MD Report #: [id number] Location: [facility] Room/Bed: Procedure: [id number] D X/CHEST 2 VIEWS Exam Date: 05/08/19 Exam Time: 1257 REPORT STATUS: Signed EXAM: [facility] ST 2 VIEWS DATE: 05/08/2019 12:00 [...] 1:47 PM Dictated By: DOMO GILLILAND MD COPY TO: OJHNY JOLLY MD AKUVIA4576-24-43 08:27:00* Test Item Value Reference Range Interpretation Comments GLUBED (test code = GLUBED) 153 mg/dL 74-106 H Performed by certified rubber covering machine operator at [facility] BWXWTL1776-04-21 20:48:00* Test Item Value Reference Range Interpretation Comments GLUBED (test code = GLUBED) 110 mg/dL 74-106 H Performed by certified rubber covering machine operator at [facility] MJROFU9240-12-84 16:06:00* Test Item Value Reference Range Interpretation Comments GLUBED (test code = GLUBED) 159 mg/dL 74-106 H Performed by certified rubber covering machine operator at [facility] FYLYTT3656-37-11 12:58:00* Test Item Value Reference Range Interpretation Comments GLUBED (test code = GLUBED) 89 mg/dL 74-106 N Performed by certified rubber covering machine operator at [facility] - XR CHEST 1 Q3613-63-55 11:32:00 FAX: Brian Ortez MD [phone] [place]: B St: REG FAX: Lio Zuniga [phone] Name: SEA LINDA [facility] : 1945 Age/S: 73/M Christian Carpio Unit #: [id number] Loc: [place] [address] Phys: Lio Segura MD Acct: [id number] Dis Date: Status: REG SDC PHONE #: [phone] Exam Date: 05/17/2018 1112 FAX #: [phone] Reason: ICD EXAMS: CPT CODE: [id number] XR CHEST 1 V 91950 HISTORY: ICD placement. COMPARISON: May 15, 2018. [...] Jolly MD; Lio Segura MD Technologist: Shama Pacheco(R) Trnscrd Date/Time/By: 05/17/2018 (1132) : By: [email or web address] Orig Print D/T: S: 05/17/2018 (3552) PAGE 1 Signed Report [id number] 09:22:00* Test Item Value Reference Range Interpretation Comments GLUBED (test code = GLUBED) 126 mg/dL 74-106 H Performed by certified rubber covering machine operator at [facility] COMPREHENSIVE METABOLIC NKRRG9136-69-50 09:52:00* Test Item Value Reference Range Interpretation [...] result is a direct measurement.========= THYROID STIMULATING WZBOHQN7977-81-15 09:52:00* Test Item Value Reference Range Interpretation Comments THYROID STIMULATING HORMONE (test code = TSH) 3.520 uIU/mL 0.36-3.7 4 N TSH REFERENCE RANGES: EUTHYROID: 0.35 - 4.3 mIU/mL HYPO : > 5.5 mIU/mL HYPER : < 0.35 mIU/mL COMPREHENSIVE METABOLIC OGNHK8672-18-45 09:37:00* Test Item Value Reference Range Interpretation [...] code = LDL) mg/dL 100-129 THYROID STIMULATING IYTQMMU6574-98-31 09:37:00* Test Item Value Reference Range Interpretation Comments THYROID STIMULATING HORMONE (test code = TSH) uIU/mL 0.36-3.7 4 PROTHROMBIN HRMH5074-97-04 09:30:00* Test Item Value Reference Range Interpretation [...] Mechanical prosthetic heart valves (2.5-3.5) THROMBOPLASTIN TIME UOLARST6058-39-98 09:30:00* Test Item Value Reference Range Interpretation Comments THROMBOPLASTIN TIME PARTIAL (test code = PTT) 35.4 seconds 25.0-36. 5 N CBC W/AUTO CSVH8405-83-74 09:01:00* Test Item Value Reference Range Interpretation [...] = MDIFF) NO - XR CHEST 2 [id number] 07:31:00 FAX: Brian Ortez MD [phone] [place]: O St: PRE FAX: Lio Zuniga [phone] Name: JOYCEMARY ELLENSEALUCIANO CAMPOS [facility] : 1945 Age/S: 73/M [address] [facility] Unit #: [id number] Loc: [place] [address] Phys: Lio Segura MD Acct: [id number] Dis Date: Status: PRE [facility] PHONE #: [phone] Exam Date: 05/15/2018 0840 FAX #: [phone] Reason: PRE OP EXAMS: CPT CODE: [id number] XR CHEST 2 V 48608 EXAM: Chest x-ray, 2 views; INFORMATION: I50.22; [...] Papi rnsdeepti Date/Time/By: 05/15/2018 (0731) : By: FortinoGRW Orig Print D/T: S: 05/15/2018 (0840) PAGE 1 Sign ed Report Stress Test - Treadmill KPVP2664-77-32 11:53:00 [place] [address] Patient Name : SEA LINDA MR #: [id number] : 1945 Age/Sex: 72/M Adm Physician : BRIAN JOLLY MD Admit Date : 01/29/18 Location : [facility] Room/Bed : [facility] REPORT: Ca rdiology Report DATE OF STUDY: January 29, 2018 NUCLEAR GATED MYOC ARDIAL PERFUSION SCAN Nuclear gated myocardial perfusion scan performed as per protocol at nuclear medicine lab at [facility]. I supervised and interpreted the [...] stress test described above. 11: 53 Job#: [id number] TA Signature Date Dictated By: JOHNNA HERNANDEZ MD Transcribed By: SMEDS on 02/08/18 < Electronically signed by JOHNNA HERNANDEZ MD><<Signature on File>>02/20/181911 COPY TO: Bedside Gutzeuy4463-39-53 16:09:00* Test Item Value Reference Range Interpretation Comments Bedside Glucose (test code = 89181-4) 140 70-120 H Meter ID: [id number] University of [facility] M.[facility]. Anderson Cancer CenterActivated Clotting Wjba9564-58-72 10:29:00* Test Item Value Reference Range Interpretation Comments Activated Clotting Time (test code = RFK2772) 241 Line pull <170 sec or baselinePeripheral and Neuroradiology <400 secAngioplasty 220 secWise Health System East Campusodium Mywye6397-94-76 07:13:00* Test Item Value Reference Range Interpretation Comments Sodium Level (test code = 2951-2) 136 136-145 [facility] CenterPotassium Fbggu4615-72-98 07:13:00* Test Item Value Reference Range Interpretation Comments Potassium Level (test code = 2823-3) 3.6 3.5-5.1 [facility] CenterChloride Raakb1082-51-62 07:13:00* Test Item Value Reference Range Interpretation Comments Chloride Level (test code = 2075-0) 102 98-107 [facility] CenterCarbon Dioxide Pcfxz6308-99-07 07:13:00* Test Item Value Reference Range Interpretation Comments Carbon Dioxide Level (test code = 2028-9) 23 22-29 [facility] CenterAnion Vjw9370-59-19 07:13:00* Test Item Value Reference Range Interpretation Comments Anion Gap (test code = 87369-5) 14.6 8-16 [facility] CenterBlood Urea Handfaql6488-88-26 07:13:00* Test Item Value Reference Range Interpretation Comments Blood Urea Nitrogen (test code = 3094-0) 22 7-26 [facility] CenterCreatinine2018-12-30 07:13:00* Test Item Value Reference Range Interpretation Comments Creatinine (test code = 2160-0) 1.30 0.72-1.25 H [facility] CenterBUN/Creatinine Vpbmt1063-87-87 07:13:00* Test Item Value Reference Range Interpretation Comments BUN/Creatinine Ratio (test code = 3097-3) 17 6- [facility] CenterEstimat Glomerular Filtration Rate 2018-02-03 07:13:00* Test Item Value Reference Range Interpretation Comments Estimat Glomerular Filtration Rate (test code = 584911313) 55 >60 L Ranges were taken from the National Kidney Disease Education Program and the [facility] Kidney Foundation literature.Reference ranges:60 or greater: Yffuwh88-19 ( for 3 consecutive months): Chronic kidney disease 15 or less: Kidney failureThe University of Texas M.D. Anderson Cancer CenterGlucose Lbknj5049-84-28 07:13:00* Test Item Value Reference Range Interpretation Comments Glucose Level (test code = WJB5754) 165 74-118 H [facility] CenterCalcium Uqxau7189-82-01 07:13:00* Test Item Value Reference Range Interpretation Comments Calcium Level (test code = 70655-5) 9.1 8.4-10.2 [facility] CenterProstate Specific Wuzqzgc6919-26-42 07:44:00* Test Item Value Reference Range Interpretation Comments Prostate Specific Antigen (test code = 2857-1) 0.6 0.0-4.0 Talib ECLIA methodology.According to the [place] [employer], Serum PSAshould decrease and remain at undetectable levels afterradical prostatectomy. The AUA defines biochemicalrecurrence as an initial PSA value 0.2 ng/mL or grea terfollowed by a subsequent confirmatory PSA value 0.2 ng/mLor greater. Values o btained with different assay methods orkits cannot be used interchangeably. Resu lts cannot beinterpreted as absolute evidence of the presence or absenceof malig nant disease.Performed at: [facility] [address] [place], [place] [id number] Director: Dany Carr MD, Phone: [phone] [facility]anoUS ABDOMEN JMVHAMMM2613-43-85 13:13:00 [facility] [address] [place] [address] Patient Name: SEA LINDA MR #: [id number] : 1945 Age/Sex: 72/M Req #: [id number] Adm Physician: BRIAN JOLLY MD Ordered by: JOHNNA HERNANDEZ MD Report #: [id number] Location: [facility]: [facility] Procedure: 1226- 0001 US/US ABDOMEN COMPLETE Exam [...] 1317 COPY TO: JOHNNA HERNANDEZ MD Triglycerides Oyqli2806-43-40 06:57:00* Test Item Value Reference Range Interpretation Comments Triglycerides Level (test code = 2571-8) 142 0-149 [facility] Cancer CenterLDL Friumbnizxf0674-17-21 06:57:00* Test Item Value Reference Range Interpretation Comments LDL Cholesterol (test code = 2089-1) 32 60-130 L [facility] CenterCholesterol Nlnoz0911-66-22 06:38:00* Test Item Value Reference Range Interpretation Comments Cholesterol Level (test code = 2093-3) 93 0-199 Less than 200 mg/dL Low Pvhw695 - 239 mg/dL Borderline Btyf813 m g/dl and greater High Risk [facility] CenterHDL Ektgpdueoym2454-26-86 06:38:00* Test Item Value Reference Range Interpretation Comments HDL Cholesterol (test code = 2085-9) 33 40-60 L [facility] CenterCholesterol/HDL Hioco7310-55-34 06:38:00 * Test Item Value Reference Range Interpretation Comments Cholesterol/HDL Ratio (test code = 9830-1) 2.8 3.9-4.7 L [facility] CenterCreatine Ettbcd6267-24-31 06:21:00* Test Item Value Reference Range Interpretation Comments Creatine Kinase (test code = 2157-6) 60 30-200 [facility] CenterCreatine Kinase JF6508-22-25 06:21:00* Test Item Value Reference Range Interpretation Comments Creatine Kinase MB (test code = 00642-5) 2.20 0-5.0 [facility] CenterTroponin X5441-95-25 06:21:00* Test Item Value Reference Range Interpretation Comments Troponin I (test code = NMO3699) 0.173 0-0.300 [facility] CenterWhite Blood Onauk7037-39-68 05:40:00* Test Item Value Reference Range Interpretation Comments White Blood Count (test code = 6690-2) 7.61 4.8-10.8 [facility] CenterRed Blood Djztl1077-53-51 05:40:00* Test Item Value Reference Range Interpretation Comments Red Blood Count (test code = 789-8) 4.19 4.3-5.7 L [facility] CenterHemoglobin2018-12-26 05:40:00* Test Item Value Reference Range Interpretation Comments Hemoglobin (test code = 03966-0) 13.2 14.0-18.0 L [facility] CenterHematocrit2018-12-26 05:40:00* Test Item Value Reference Range Interpretation Comments Hematocrit (test code = 4544-3) 39.3 38.2-49.6 [facility] CenterMean Corpuscular Oeyoia4296-45-60 05:40:00* Test Item Value Reference Range Interpretation Comments Mean Corpuscular Volume (test code = 787-2) 93.8 81-99 [facility] CenterMean Corpuscular Zwzyhdihbd5132-45-94 05:40:00* Test Item Value Reference Range Interpretation Comments Mean Corpuscular Hemoglobin (test code = 785-6) 31.5 28-32 [facility] CenterMean Corpuscular Hemoglobin Concent 2018-01-30 05:40:00* Test Item Value Reference Range Interpretation Comments Mean Corpuscular Hemoglobin Concent (test code = 786-4) 33.6 31-35 [facility] CenterRed Cell Distribution Ieyfe2070-42-99 05:40:00* Test Item Value Reference Range Interpretation Comments Red Cell Distribution Width (test code = 97301-9) 14.0 11.7 -14.4 [facility] CenterPlatelet Boxxg4588-94-32 05:40:00* Test Item Value Reference Range Interpretation Comments Platelet Count (test code = 777-3) 200 140-360 [facility] CenterNeutrophils (%) (Auto)2018-01-30 05:40:00 * Test Item Value Reference Range Interpretation Comments Neutrophils (%) (Auto) (test code = 12843-0) 60.8 38.7-80.0 [facility] CenterLymphocytes (%) (Auto)2018-01-30 05:40:00 * Test Item Value Reference Range Interpretation Comments Lymphocytes (%) (Auto) (test code = 736-9) 26.9 18.0-39.1 [facility] CenterMonocytes (%) (Auto)2018-01-30 05:40:00* Test Item Value Reference Range Interpretation Comments Monocytes (%) (Auto) (test code = 5905-5) 10.8 4.4-11.3 [facility] CenterEosinophils (%) (Auto)2018-01-30 05:40:00 * Test Item Value Reference Range Interpretation Comments Eosinophils (%) (Auto) (test code = 713-8) 0.5 0.0-6.0 [facility] CenterBasophils (%) (Auto)2018-01-30 05:40:00* Test Item Value Reference Range Interpretation Comments Basophils (%) (Auto) (test code = 706-2) 0.7 0.0-1.0 [facility] CenterIM GRANULOCYTES %2018-01-30 05:40:00* Test Item Value Reference Range Interpretation Comments IM GRANULOCYTES % (test code = IM GRANULOCYTES %) 0.3 0.0- 1.0 [facility] CenterNeutrophils # (Auto)2018-01-30 05:40:00* Test Item Value Reference Range Interpretation Comments Neutrophils # (Auto) (test code = 751-8) 4.6 2.1-6.9 [facility] CenterLymphocytes # (Auto)2018-01-30 05:40:00* Test Item Value Reference Range Interpretation Comments Lymphocytes # (Auto) (test code = 88157-7) 2.1 1.0-3.2 [facility] CenterMonocytes # (Auto)2018-01-30 05:40:00* Test Item Value Reference Range Interpretation Comments Monocytes # (Auto) (test code = 742-7) 0.8 0.2-0.8 [facility] CenterEosinophils # (Auto)2018-01-30 05:40:00* Test Item Value Reference Range Interpretation Comments Eosinophils # (Auto) (test code = 711-2) 0.0 0.0-0.4 [facility] CenterBasophils # (Auto)2018-01-30 05:40:00* Test Item Value Reference Range Interpretation Comments Basophils # (Auto) (test code = 704-7) 0.1 0.0-0.1 [facility] CenterAbsolute Immature Granulocyte (auto 2018-01-30 05:40:00* Test Item Value Reference Range Interpretation Comments Absolute Immature Granulocyte (auto (pema t code = Absolute Immature Granulocyte (auto) 0.02 0-0.1 [facility] CenterUrine USH5427-16-33 16:13:00* Test Item Value Reference Range Interpretation Comments Urine WBC (test code = 5821-4) 6-10 0-5 H [facility] CenterUrine RTU9066-59-73 16:13:00* Test Item Value Reference Range Interpretation Comments Urine RBC (test code = 37150-9) 0-5 0-5 [facility] CenterUrine Bzqtqrsf9497-52-11 16:13:00* Test Item Value Reference Range Interpretation Comments Urine Bacteria (test code = 63512-4) NONE NONE [facility] CenterUrine Epithelial Zfblu8672-62-97 16:13:00 * Test Item Value Reference Range Interpretation Comments Urine Epithelial Cells (test code = 77694-0) FEW NONE [facility] CenterUrine Calcium Oxalate Wdytztvv5800-49-06 16:13:00* Test Item Value Reference Range Interpretation Comments Urine Calcium Oxalate Crystals (test code = 5774-5) MODERATE FE W H [facility] CenterB-Type Natriuretic Ajhkngm1947 15:39:00* Test Item Value Reference Range Interpretation Comments B-Type Natriuretic Peptide (test code = 55552-2) 1384.9 0-100 H [facility] UIVTC5196-02-22 15:26:00 [facility] [address] [address] Patient Name: SEA LINDA MR #: [id number] : 1945 Age/Sex: 72/M Req #: [id number] Adm Physician: Ordered by: NELI MUNIZ MD Report #: [id number] Location: ER Room/Bed: Procedure: [id number] DX/C HEST 2 VIEWS Exam Date: 01/29/18 Exam Time: 1445 REPORT STATUS: Signed EXAMINATION: CHEST 2 VIEWS INDICATION: [id number] COMPARI SON: 01/23/2018 FINDINGS: PA and [...] 1527 COPY TO: NELI MUNIZ MD Urine Wmqhw7826-77-90 15:13:00* Test Item Value Reference Range Interpretation Comments Urine Color (test code = 5778-6) YELLOW YELLOW [facility] CenterUrine Qxmfbey6010-14-26 15:13:00* Test Item Value Reference Range Interpretation Comments Urine Clarity (test code = 53833-0) CLEAR CLEAR [facility] CenterUrine Specific Yqrnebc9399-46-16 15:13:00 * Test Item Value Reference Range Interpretation Comments Urine Specific Bath (test code = 5811-5) 1.025 1.010-1.02 5 [facility] CenterUrine eX0445-71-02 15:13:00* Test Item Value Reference Range Interpretation Comments Urine pH (test code = 59077-7) 6 5-7 [facility] CenterUrine Leukocyte Maqjxccu1468-06-23 15:13:00* Test Item Value Reference Range Interpretation Comments Urine Leukocyte Esterase (test code = 5799-2) NEGATIVE NEGATIVE [facility] CenterUrine Ssxgrtq9143-83-75 15:13:00* Test Item Value Reference Range Interpretation Comments Urine Nitrite (test code = 70658-6) NEGATIVE NEGATIVE [facility] CenterUrine Ocinnep3750-68-76 15:13:00* Test Item Value Reference Range Interpretation Comments Urine Protein (test code = 5804-0) 2+ NEGATIVE H [facility] Glucose (UA)2018-01-29 15:13:00* Test Item Value Reference Range Interpretation Comments Urine Glucose (UA) (test code = 2349-9) 2+ NEGATIVE H [facility] CenterUrine Xajqykf9190-86-37 15:13:00* Test Item Value Reference Range Interpretation Comments Urine Ketones (test code = 27844-7) NEGATIVE NEGATIVE [facility] CenterUrine Khrlvxxfxqpm9267-51-74 15:13:00* Test Item Value Reference Range Interpretation Comments Urine Urobilinogen (test code = 90868-5) 1 0.2-1 [facility] CenterUrine Fwaaovqww9491-80-19 15:13:00* Test Item Value Reference Range Interpretation Comments Urine Bilirubin (test code = 1978-6) NEGATIVE NEGATIVE [facility] CenterUrine Mwltr5520-21-20 15:13:00* Test Item Value Reference Range Interpretation Comments Urine Blood (test code = 60128-3) 1+ NEGATIVE H [facility] CenterMagnesium Wlsww3268-01-38 15:06:00* Test Item Value Reference Range Interpretation Comments Magnesium Level (test code = 22724-2) 2.1 1.3-2.1 [facility] CenterTotal Gofkioqmg3343-58-38 15:06:00* Test Item Value Reference Range Interpretation Comments Total Bilirubin (test code = 1975-2) 4.0 0.2-1.2 H [facility] CenterAspartate Amino Transf (AST/SGOT) 2018-01-29 15:06:00* Test Item Value Reference Range Interpretation Comments Aspartate Amino Transf (AST/SGOT) (test code = Aspartate Amino Transf (AST/SGOT)) 15 5-34 [facility] CenterAlanine Aminotransferase (ALT/SGPT) 2018-01-29 15:06:00* Test Item Value Reference Range Interpretation Comments Alanine Aminotransferase (ALT/SGPT) (test code = 1742-6) 23 0-55 [facility] CenterTomountain [facility] hospital Nkspuhk4589-69-22 15:06:00* Test Item Value Reference Range Interpretation Comments Total Protein (test code = 2885-2) 7.5 6.5-8.1 [facility] CenterAlbumin2018-12-25 15:06:00* Test Item Value Reference Range Interpretation Comments Albumin (test code = 1751-7) 4.0 3.5-5.0 [facility] CenterGlobulin2018-12-25 15:06:00* Test Item Value Reference Range Interpretation Comments Globulin (test code = 67651-7) 3.5 2.3-3.5 [facility] CenterAlbumin/Globulin Gtzro9927-45-35 15:06:00 * Test Item Value Reference Range Interpretation Comments Albumin/Globulin Ratio (test code = 1759-0) 1.1 0.8-2.0 [facility] CenterAlkaline Ersabhsrclp7610-78-26 15:06:00* Test Item Value Reference Range Interpretation Comments Alkaline Phosphatase (test code = 6768-6) 77 40-150 [facility] CenterLipase2018-12-25 15:06:00* Test Item Value Reference Range Interpretation Comments Lipase (test code = 3040-3) 10 8-78 [facility] CenterProthrombin Exxw7712-48-82 14:55:00* Test Item Value Reference Range Interpretation Comments Prothrombin Time (test code = 5902-2) 13.6 11.9-14.5 [facility] CenterProthromb Time International Ratio 2018-01-29 14:55:00* Test Item Value Reference Range Interpretation Comments Prothromb Time International Ratio (test code = 6301-6) 0.95 Oral Anticoagulant Therapy INR Values:1. Low Intensity Therapy 1.5 - 2.02 . Moderate Intensity Therapy 2.0 - 3.03. High Intensity Therapy(1) 2.5 - 3. 54. High Intensity Therapy(2) 3.0 - 4.05. Panic Value INR > 5.0 [facility] CenterActivated Partial Thromboplast Time 2018-01-29 14:55:00* Test Item Value Reference Range Interpretation Comments Activated Partial Thromboplast Time (test code = 95971-9) 30.3 23.8-35.5 [facility] CenterCHEST 2 ASHJP8607-72-17 14:54:00 [facility] [address] [place] [address] Patient Name: SEA LINDA MR #: [id number] : 1945 Age/Sex: 72/M Req #: [id number] Adm Physician: Ordered by: LISSET WATSON MD Report #: [id number] Location: Room/Bed: Procedure: [id number] DX /CHEST 2 VIEWS Exam Date: Exam [...] 2:56 PM Dictated By: EMMANUEL COLBERT MD 1456 Transcribed By: Farzad CREWS on 01/23/18 1456 COPY TO: LISSET WATSON MD Creatine Kinase KH1007-66-62 14:20:00* Test Item Value Reference Range Interpretation Comments Creatine Kinase MB (test code = 82625-2) 3.00 0-5.0 [facility] CenterTroponin N9432-94-41 14:20:00* Test Item Value Reference Range Interpretation Comments Troponin I (test code = RWC7261) 0.036 0-0.300 [facility] Campusodium Nomnm4365-84-39 14:10:00* Test Item Value Reference Range Interpretation Comments Sodium Level (test code = 2951-2) 138 136-145 [facility] CenterPotassium Egpzq4502-78-93 14:10:00* Test Item Value Reference Range Interpretation Comments Potassium Level (test code = 2823-3) 3.6 3.5-5.1 [facility] CenterChloride Hbivd0122-99-82 14:10:00* Test Item Value Reference Range Interpretation Comments Chloride Level (test code = 2075-0) 104 98-107 [facility] CenterInfluenza Virus Types A,B Antigen 2018-01-23 14:10:00* Test Item Value Reference Range Interpretation Comments Influenza Virus Types A,B Antigen (test code = 05937-4) NEGATIVE NEGATIVE [facility] CenterCarbon Dioxide Tuoft2336-00-60 14:10:00* Test Item Value Reference Range Interpretation Comments Carbon Dioxide Level (test code = 2028-9) 24 - [facility] CenterAnion Pvg4042-88-69 14:10:00* Test Item Value Reference Range Interpretation Comments Anion Gap (test code = 26748-9) 13.6 8-16 [facility] CenterBlood Urea Szyfdolk4654-69-80 14:10:00* Test Item Value Reference Range Interpretation Comments Blood Urea Nitrogen (test code = 3094-0) 16 - [facility] CenterCreatinine2018-12-19 14:10:00* Test Item Value Reference Range Interpretation Comments Creatinine (test code = 2160-0) 1.41 0.72-1.25 H [facility] CenterBUN/Creatinine Zserw4890-86-82 14:10:00* Test Item Value Reference Range Interpretation Comments BUN/Creatinine Ratio (test code = 3097-3) 11 07-30 [facility] CenterEstimat Glomerular Filtration Rate 2018-01-23 14:10:00* Test Item Value Reference Range Interpretation Comments Estimat Glomerular Filtration Rate (test code = 108362202) 50 >60 L Ranges were taken from the National Kidney Disease Education Program and the [facility] Kidney Foundation literature.Reference ranges:60 or greater: Clttkt44-48 ( for 3 consecutive months): Chronic kidney disease 15 or less: Kidney failureThe [facility] of [facility]. Anderson Cancer CenterGlucose Eqbrc3042-07-73 14:10:00* Test Item Value Reference Range Interpretation Comments Glucose Level (test code = WIB9454) 235 74-118 H [facility] CenterCalcium Necwu0233-83-45 14:10:00* Test Item Value Reference Range Interpretation Comments Calcium Level (test code = 07989-5) 9.5 8.4-10.2 [facility] CenterTotal Kqcfndlec9585-88-00 14:10:00* Test Item Value Reference Range Interpretation Comments Total Bilirubin (test code = 1975-2) 3.8 0.2-1.2 H [facility] CenterAspartate Amino Transf (AST/SGOT) 2018-01-23 14:10:00* Test Item Value Reference Range Interpretation Comments Aspartate Amino Transf (AST/SGOT) (test code = Aspartate Amino Transf (AST/SGOT)) 18 5-34 [facility] CenterAlanine Aminotransferase (ALT/SGPT) 2018-01-23 14:10:00* Test Item Value Reference Range Interpretation Comments Alanine Aminotransferase (ALT/SGPT) (test code = 1742-6) 31 0-55 [facility] CenterTotal Zegjrxh9629-67-99 14:10:00* Test Item Value Reference Range Interpretation Comments Total Protein (test code = 2885-2) 7.3 6.5-8.1 [facility] CenterAlbumin2018-12-19 14:10:00* Test Item Value Reference Range Interpretation Comments Albumin (test code = 1751-7) 3.8 3.5-5.0 [facility] CenterGlobulin2018-12-19 14:10:00* Test Item Value Reference Range Interpretation Comments Globulin (test code = 41477-1) 3.5 2.3-3.5 [facility] CenterAlbumin/Globulin Tskok1600-55-26 14:10:00 * Test Item Value Reference Range Interpretation Comments Albumin/Globulin Ratio (test code = 1759-0) 1.1 0.8-2.0 [facility] CenterAlkaline Xjlbphoqbvr1380-02-43 14:10:00* Test Item Value Reference Range Interpretation Comments Alkaline Phosphatase (test code = 6768-6) 91 40-150 [facility] CenterCreatine Muglib8417-05-40 14:10:00* Test Item Value Reference Range Interpretation Comments Creatine Kinase (test code = 2157-6) 148 30-200 [facility] CenterInfluenza Virus Types A,B Antigen 2018-01-23 14:10:00* Test Item Value Reference Range Interpretation Comments Influenza Virus Types A,B Antigen (test code = 14511-0) NEGATIVE NEGATIVE [facility] CenterWhite Blood Vqkmz4371-44-35 13:52:00* Test Item Value Reference Range Interpretation Comments White Blood Count (test code = 6690-2) 7.95 4.8-10.8 [facility] CenterRed Blood Zwkqj8141-75-86 13:52:00* Test Item Value Reference Range Interpretation Comments Red Blood Count (test code = 789-8) 4.17 4.3-5.7 L [facility] CenterHemoglobin2018-12-19 13:52:00* Test Item Value Reference Range Interpretation Comments Hemoglobin (test code = 19773-0) 13.1 14.0-18.0 L [facility] CenterHematocrit2018-12-19 13:52:00* Test Item Value Reference Range Interpretation Comments Hematocrit (test code = 4544-3) 39.4 38.2-49.6 [facility] CenterMean Corpuscular Ltzgar3847-84-66 13:52:00* Test Item Value Reference Range Interpretation Comments Mean Corpuscular Volume (test code = 787-2) 94.5 81-99 [facility] CenterMean Corpuscular Oaqxwulvuv3685-76-91 13:52:00* Test Item Value Reference Range Interpretation Comments Mean Corpuscular Hemoglobin (test code = 785-6) 31.4 28-32 [facility] CenterMean Corpuscular Hemoglobin Concent 2018-01-23 13:52:00* Test Item Value Reference Range Interpretation Comments Mean Corpuscular Hemoglobin Concent (test code = 786-4) 33.2 31-35 [facility] CenterRed Cell Distribution Mwsdu7309-43-01 13:52:00* Test Item Value Reference Range Interpretation Comments Red Cell Distribution Width (test code = 63502-3) 14.2 11.7 -14.4 [facility] CenterPlatelet Xekat7014-46-84 13:52:00* Test Item Value Reference Range Interpretation Comments Platelet Count (test code = 777-3) 194 140-360 [facility] CenterNeutrophils (%) (Auto)2018-01-23 13:52:00 * Test Item Value Reference Range Interpretation Comments Neutrophils (%) (Auto) (test code = 04845-9) 70.8 38.7-80.0 [facility] CenterLymphocytes (%) (Auto)2018-01-23 13:52:00 * Test Item Value Reference Range Interpretation Comments Lymphocytes (%) (Auto) (test code = 736-9) 19.5 18.0-39.1 [facility] CenterMonocytes (%) (Auto)2018-01-23 13:52:00* Test Item Value Reference Range Interpretation Comments Monocytes (%) (Auto) (test code = 5905-5) 8.4 4.4-11.3 [facility] CenterEosinophils (%) (Auto)2018-01-23 13:52:00 * Test Item Value Reference Range Interpretation Comments Eosinophils (%) (Auto) (test code = 713-8) 0.5 0.0-6.0 [facility] CenterBasophils (%) (Auto)2018-01-23 13:52:00* Test Item Value Reference Range Interpretation Comments Basophils (%) (Auto) (test code = 706-2) 0.5 0.0-1.0 [facility] CenterIM GRANULOCYTES %2018-01-23 13:52:00* Test Item Value Reference Range Interpretation Comments IM GRANULOCYTES % (test code = IM GRANULOCYTES %) 0.3 0.0- 1.0 [facility] CenterNeutrophils # (Auto)2018-01-23 13:52:00* Test Item Value Reference Range Interpretation Comments Neutrophils # (Auto) (test code = 751-8) 5.6 2.1-6.9 [facility] CenterLymphocytes # (Auto)2018-01-23 13:52:00* Test Item Value Reference Range Interpretation Comments Lymphocytes # (Auto) (test code = 21408-6) 1.6 1.0-3.2 [facility] CenterMonocytes # (Auto)2018-01-23 13:52:00* Test Item Value Reference Range Interpretation Comments Monocytes # (Auto) (test code = 742-7) 0.7 0.2-0.8 [facility] CenterEosinophils # (Auto)2018-01-23 13:52:00* Test Item Value Reference Range Interpretation Comments Eosinophils # (Auto) (test code = 711-2) 0.0 0.0-0.4 [facility] CenterBasophils # (Auto)2018-01-23 13:52:00* Test Item Value Reference Range Interpretation Comments Basophils # (Auto) (test code = 704-7) 0.0 0.0-0.1 [facility] CenterAbsolute Immature Granulocyte (auto 2018-01-23 13:52:00* Test Item Value Reference Range Interpretation Comments Absolute Immature Granulocyte (auto (pema t code = Absolute Immature Granulocyte (auto) 0.02 0-0.1 [facility] CenterCHEST 2 VIEWS [place] [address] Patient Name: SEA LINDA MR #: [id number] : 1945 Age/Sex: 71/M Req #: [id number] Adm Physician: Ordered by: CHRISTY MADISON MD Report #: [id number] Location: ER Room/Bed: Procedure: [id number] DX/CHEST 2 VIEWS Exam Date : 03/04/17 [...] TO: CHRISTY MADISON MD CHEST SINGLE (PORTABLE) [address] [address] Patient Name: SEA LINDA MR #: [id number] : 0 1945 Age/Sex: 71/M Req #: [id number] Adm Physician: BRIAN JOLLY MD Ordered by: PHONG TANG MD Report #: [id number] Loca tion: [facility] Room/Bed: [address] [address] Procedure: [id number] DX/CHEST SINGLE (PORTABLE) Exam Date: 01/23/17 Exam [...] TO: PHONG TANG MD CHEST SINGLE (PORTABLE) [place] [address] Patient Name: SEA LINDA MR #: [id number] : 1945 Age/Sex: 71/M Req #: [id number] Adm Physician: BRIAN JOLLY MD Ordered by: PHONG TANG MD Report #: [id number] Location: [facility] Room/Bed: [address] [address] Procedure: [id number] DX/CHEST SINGLE (PORTABLE) Exam Date: Exam Time: [...]
--- OUTSIDE RECORDS SUMMARY | 2020-01-05 15:25 | XMS REPORT | Clinical Summary ---
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 [facility] POC glucose 110 (H) 65 - 100 mg/dL [place] Comment: SABIANIST Civil Engineering Drafter Name: Beena Islas [place] Device ID: [id number] HOSPITAL Specimen Blood Performing Organization Address City/[facility] [place] [address] PATHOLOGY AND GENOMIC MEDICINE [address] * Ionized calcium (11/09/2019 9:20 PM CDT) Only the most recent of 2 results within the time period is included. [facility] pH 7.39 [facility] Ionized calcium 1.13 1.11 - 1.32 mmol/L [facility] Specimen Blood Performing Organization Address City/[facility] [place] [address] PATHOLOGY AND GENOMIC MEDICINE [address] * Estimated GFR (11/09/2019 3:34 AM CDT) Only the most recent of 3 results within the time period is included. [facility] Estimated GFR 54 (A) mL/min/1.73 m2 [place] Comment: SABIANIST Catergory Units [facility] G1 >=90 Normal or high G2 60-89 [...] Organization Address City/State/ZIP Code P beck Number [facility] [address] [place] [address] PATHOLOGY AND GENOMIC MEDICINE [facility] [address] [place] [id number] HOSPITAL * CBC with platelet and differential (11/09/2019 3:34 AM CDT) Only the most recent of 3 results within the time period is included. WBC 7.1 4.2 - 11.0 k/uL [facility] RBC 3.44 (L) 4.04 - 5.86 m/uL [facility] HGB 10.5 (L) 13.0 - 17.3 g/dL [facility] HCT 31.8 (L) 34.0 - 45.0 % [facility] MCV 92.4 80.0 - 98.0 fL [facility] MCH 30.5 27.0 - 34.0 pg [facility] MCHC 33.0 31.5 - 36.5 g/dL [facility] RDW - SD 59.1 (H) 37.0 - 51.0 fL [facility] MPV 12.3 (H) 7.4 - 10.4 fL [facility] Platelet count 101 (L) 150 - 400 k/uL [facility] Nucleated RBC 0.00 /100 WBC [facility] Neutrophils 89.6 (H) 36.0 - 66.0 % [facility] Lymphocytes 8.4 (L) 24.0 - 44.0 % [facility] Monocytes 1.5 0.0 - 6.0 % [facility] Eosinophils 0.0 0.0 - 6.0 % [facility] Basophils 0.1 0.0 - 1.2 % [facility] Immature 0.4 0.0 - 1.0 % [place] granulocytes [facility] Specimen Blood Performing Organization Address City/[facility] P bcek Number [facility] [address] [place] [address] PATHOLOGY AND GENOMIC MEDICINE [facility] [address] [place] [address] * Phosphorus level (11/09/2019 3:34 AM CDT) Phosphorus 3.1 2.4 - 4.5 mg/dL [facility] Specimen Performing Organization Address [facility] P beck Number [facility] [address] [place] [address] PATHOLOGY AND GENOMIC MEDICINE [address] * Magnesium level (11/09/2019 3:34 AM CDT) Only the most recent of 2 results within the time period is included. Magnesium 1.80 1.60 - 2.40 mg/dL [facility] Specimen Blood Performing Organization Address [facility] P beck Number [facility] [place] [address] PATHOLOGY AND GENOMIC MEDICINE [address] * Comprehensive metabolic panel (11/09/2019 3:34 AM CDT) Only the most recent of 2 results within the time period is included. Sodium 136 135 - 150 mEq/L [facility] Potassium 3.6 3.5 - 5.0 mEq/L [facility] Chloride 98 98 - 112 mEq/L [facility] CO2 28 24 - 31 mmol/L [facility] Anion gap 10@ANIO 7 - 15 mEq/L [facility] BUN 18 7 - 18 mg/dL [facility] Creatinine 1.30 (H) 0.70 - 1.20 mg/dL [facility] Glucose 210 (H) 65 - 100 mg/dL [facility] Calcium 8.4 (L) 8.8 - 10.2 mg/dL [facility] Protein 5.6 (L) 6.3 - 8.3 g/dL [facility] Albumin 3.1 (L) 3.5 - 5.0 g/dL [facility] A/G ratio 1.2 0.7 - 3.8 [facility] Alkaline 60 0 - 129 U/L [place] phosphatase [facility] AST 10 10 - 50 U/L [facility] ALT 5 5 - 50 U/L [facility] Total bilirubin 2.9 (H) 0.2 - 1.2 mg/dL [facility] Specimen Blood Performing Organization Address City/State/ZIP Code P beck Number [facility] [address] [facility] [place] [address] PATHOLOGY AND GENOMIC MEDICINE [facility] [address] [facility] [address] * Urinalysis screen and microscopy, with reflex to culture (11/08/2019 3:19 PM CDT) Specimen site Catheterized [facility] Color, UA Yellow [facility] Appearance, UA Clear [facility] Specific 1.010 1.001 - 1.035 [place] gravity, [facility] pH, UA 6.0 5.0 - 8.5 [facility] Protein, UA Negative Negative [facility] Glucose, UA Negative Negative [facility] Ketones, UA Negative Negative [facility] Bilirubin, UA Negative Negative [facility] Blood, UA Small (A) Negative [facility] Nitrite, UA Negative Negative [facility] Urobilinogen, 2.0 (A) <2.0 [facility] Leukocyte Negative Negative [place] esterase, [facility] Epithelial Few /HPF [place] cells, UA [facility] WBC, UA 1 0 - 1 /HPF [facility] RBC, UA 2 0 - 5 /HPF [facility] Bacteria, UA None seen None seen [facility] Yeast, UA None seen [facility] Yeast with None seen [place] pseudohyphae, SABIANIST [facility] Specimen Urine Performing Organization Address City/State/ZIP Code P beck Number [facility] [address] [place] [address] PATHOLOGY AND GENOMIC MEDICINE [facility] [address] * Urine culture (11/08/2019 3:19 PM CDT) Urine culture SEE COMMENTComment: [place] Bacteriuria screen negative. [facility] Specimen Urine Performing Organization Address City/[facility] P beck Number [facility] [place] [address] [place] [address] PATHOLOGY AND GENOMIC MEDICINE [facility] [address] [place] [address] * Hemoglobin A1c (11/08/2019 4:56 AM CDT) Hemoglobin A1C 5.7 (H) 4.0 - 5.6 % [place] Comment: SABIANIST HbA1c cutoffs for diagnosing [place] diabetes: HOSPITAL 4.0% - 5.6% = normal 5.7% - 6.4% = increased risk for diabetes (prediabetes)9 >=6.5% = diabetes9 Goals for glycemic control (ADA 2016) < 7.0% Target for non adults with diabetes. More or less stringent targets may be appropriate for individual patients. <7.5% Target for Children and adolescents with type 1 diabetes. Specimen Blood Performing Organization Address City/[facility] P beck Number [facility] [address] [place] [address] PATHOLOGY AND GENOMIC MEDICINE [facility] [address] * Basic metabolic panel (11/08/2019 4:56 AM CDT) Sodium 142 135 - 150 mEq/L [facility] Potassium 3.4 (L) 3.5 - 5.0 mEq/L [facility] Chloride 101 98 - 112 mEq/L [facility] CO2 33 (H) 24 - 31 mmol/L [facility] Anion gap 8@ANIO 7 - 15 mEq/L [facility] BUN 17 7 - 18 mg/dL [facility] Creatinine 1.50 (H) 0.70 - 1.20 mg/dL [facility] Glucose 27 (LL) 65 - 100 mg/dL [place] Comment: SABIANIST Results called to and read [place] back by __KIAN MORENO RN HOSPITAL at 11/08/2019 05:40 (date/time) by SM__. Calcium 8.7 (L) 8.8 - 10.2 mg/dL [facility] Specimen Blood Performing Organization Address City/[facility]/ZIP Code P beck Number [facility] [address] [place] [address] PATHOLOGY AND GENOMIC MEDICINE [facility] [address] * COVID-19 qualitative PCR (11/08/2019 1:36 AM CDT) Interpretation Negative results do not ARREAGA preclude 2019-nCoV infection SABIANIST and should not be used as the HOSPITAL sole basis for treatment or other patient management decisions. Negative results must be combined with clinical observations, patient history, and epidemiological information. COVID-19 Not-Detected Not-Detected [place] qualitative PCR SABIANIST result HOSPITAL COVID-19 See link below for PDF Lab [place] qualitative PCR ReportComment: Case Number: SABIANIST [id number] HOSPITAL Specimen Nasal swab Performing Organization Address [facility] P beck Number [facility] DEPARTMENT OF [address] [place] [address] PATHOLOGY AND GENOMIC MEDICINE [facility] [address] [place] [address] [facility] * XR Chest 1 Vw (11/07/2019 11:45 [...] Left cardiac device is in satisfactory location. [facility]-[id number] Procedure Note Hm Interface, Radiology Results Incoming [...] Left cardiac device is in satisfactory location. [facility]-[id number] Performing Organization Address City/[facility]/ZIP Code [facility]ck [facility] [address] [place] [address] * ECG ED Preliminary Interpretation - Not an Order (11/07/2019 11:23 PM CDT) Narrative Performed At Garrett Courtney MD 11/08/2019 1:42 PM ECG ED Preliminary Interpretation - Not an Order Performed by: Garrett Courtney MD Authorized by: Garrett Courtney MD ECG reviewed by ED Physician in the abs ence of a social media marketing specialist: yes Interpretation: Interpretation: non-specific Rate: ECG rate: [...] MUSE rate Atrial rate 61 [facility] MUSE DE interval 188 [facility] MUSE QRSD interval 102 [...] Organization Address City/State/ZIP Code P beck Number [facility] MUSE [address] [place] [address] after 01/04/2019 Insurance Type Payer Benefit Subscriber ID Effective Phone Address Plan / Dates Group HMO HUMANA MEDICARE HUMANA HMO [id number] 2018-P GOLD PLUS resent MEDICARE [id number] Advance Directives For more information, please contact: [phone] 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
[2020-01-05] MEDS ORDERED: DIGOXIN INJ 0.25 MG/ML 2 ML AMP IV ONE (15:30)
[2020-01-05] MEDS ORDERED: ALBUMIN 25% 12.5GM 50ML 150 ML IV ONE (15:55)
--- NOTE | 2020-01-05 16:41 | Diagnostic Imaging Report ---
PROCEDURE: Ultrasound-guided paracentesis Procedural Personnel Attending physician(s): Amber Higuera MD Pre-procedure diagnosis: Ascites Post-procedure diagnosis: Unchanged Indication: Ascites with pain or pressure symptoms Additional clinical history: None Complications: No immediate complications. IMPRESSION: Ultrasound-guided paracentesis with drainage of 5200 mL of nya serous fluid. Plan: Resume care by clinical team. PROCEDURE SUMMARY: - Limited abdominal ultrasound - Ultrasound-guided paracentesis - Additional procedure(s): None PROCEDURE DETAILS: Pre-procedure Consent: Informed consent for the procedure including risks, benefits and alternatives was obtained and time-out was performed prior to the procedure. Preparation: The site was prepared and draped using maximal sterile barrier technique including cutaneous antisepsis. Anesthesia/sedation Level of anesthesia/sedation: None Initial abdominal ultrasound Initial abdominal ultrasound was performed. Findings: Large ascites. A safe window for paracentesis was identified. Paracentesis Local anesthesia was administered. The peritoneal cavity was accessed and fluid return confirmed position. Ascites was drained. The catheter was then removed, and a sterile bandage was applied. Paracentesis access technique: Real-time ultrasound guidance. Catheter placed: 5Fr Yueh Post-drainage ultrasound: Small ascites Additional Details Additional description of procedure: None Equipment details: None Specimens removed: Abdominal fluid Estimated blood loss (mL): Minimal (<10cc) Standardized report: [email or web address] Attestation Signer name: Amber Higuera MD I attest that I was present for the entire procedure. I reviewed the stored images and agree with the report as written. Signed by: Amber Higuera MD on 01/05/2020 4:38 PM
--- NOTE | 2020-01-05 16:45 | NUR ---
Pt received from radiology department at this time. Pt had us guided paracentesis, 5.2L was removed. Pt had dressing to left lower quadrant no drainage noted. Pt is aox4 and able to verbalize needs. Denies any pain at this time. Denies SOB, breaths are even and unlabored on room air. Pt is able to ambulate with minimum assistance.
[2020-01-05 17:28] VITALS: BP 116/85
[2020-01-05 17:31] VITALS: BP 116/85
[2020-01-05 17:40] VITALS: BP 116/85
[2020-01-05 18:02] LABS: AMYLASE,BODY FLUID 3; GLUCOSE,BODY FLUID 129 mg/dL
[2020-01-05] MEDS ORDERED: AMLODIPINE BESY10 MG PO (18:06)
[2020-01-05] MEDS ORDERED: MIRTAZAPINE15 MG PO (18:06)
[2020-01-05] MEDS ORDERED: LISINOPRIL5 MG PO (18:06)
--- NOTE | 2020-01-05 18:13 | NUR ---
History&Physical Chief Complaint - shortness of breath, abdominal fullness History of Present Illness Mr Linda is a 74 yo M with PMH significant for Idiopathic Cirrhosis, T2DM, HFrEF due to ischemic heart disease, hx of CAD s/p RCA stent who presents from [facility] with complaints of weakness, shortness of breath, and worsening abdominal distension. He is currently being worked up outpatient with Dr Robe Avelar for idio pathic cirrhosis and so far has no obvious cause. He was admitted last month for similar presentation and had large volume paracentesis. Today he presents with similar complaints of shortness of breath and weakness, however he has also had 3 falls over the last 2 days. He may have hit his head, but is unsure. In ED, vitals were stable, CT head and c-spine without fractures or bleeding. CXR with right pleural effusion and possible compressive atelectasis. Labs large ly unremarkable. Admitted for further management. Home Medications - see medication reconciliation Review of Systems General: No fever, chills, or fatigue HEENT: Denies visual changes, hearing loss, congestion, rhinorrhea, or bleeding Respiratory: + SOB, No cough, or hemoptysis Cardiovascular: +leg edema; No chest pain, palpitations, JOHNSON, orthopnea, PND, or claudication Gastrointestinal: +abdominal pain; No nausea, vomiting, diarrhea, constipation G/U: Denies dysuria, hematuria, incontinence, or discharge Musculoskeletal: No myalgias or arthralgias Neurological: No syncope, seizures, headaches, changes in sensation, or weakness Hematology: No bruising, bleeding, or lymphadenopathy Endocrine: No heat or cold intolerance, hair loss, or weight changes Skin: No rashes, sores, itching, bruising Psychiatric: Denies depression or elevated mood, or anxiety Past Medical History T2DM, HFrEF due to ischemic heart disease, hx of CAD s/p RCA stent, Idiopathic cirrhosis Past Surgical History none Family History non contributory Social History Does not drink, does not smoke, does not use drugs Allergies NKDA Physical Exam Vitals: Temp: 97.7P: 117BP: 116/85RR: 20SpO2: 97% General Appearance: The patient is alert, oriented and in no acute distress. Appears euvolemic. Skin: Warm and hydrated without any rash. HEENT: Head is normocephalic, atraumatic. Nontender sinuses. Pupils are equal and reactive. The nares are patent. Oropharynx is moist and clear without lesion s. Neck: Supple without lymphadenopathy. +JVD. Thyroid NV/EDITOR PUBLICATIONS Heart / Cardiovascular: Tachycardic but regular rhythm. Normal S1 and S2 without S3/S4. No murmurs, rubs or gallops. Peripheral pulses symmetric +2. Respiratory / Chest: No crackles or wheezes are heard. Symmetric breath sounds. Preserved chest expansion. Abdomen: Soft, nontender, nondistended with good bowel sounds heard. No clinical organomegaly. Renal: There is no costovertebral angle tenderness. Extremities:2+ pitting edema bilateral lower extremities. Without cyanosis, clubbing. Preserved ROM. Neurological: Gross nonfocal. Patient oriented x 3. Cranial nerves II - XII Grossly intact. DTRs +2. MS: 5/5 globally. Labs/Imaging: all pertinent labs and diagnostic imaging were reviewed Assessment/Plan #idiopathic decompensated cirrhosis - s/p 5L paracentesis with IR, fluid studies sent; past studies were transudative - Lasix 40mg IV BID started - resume home meds including aldactone, lisinopril - strict I/O - will monitor overnight and likely discharge tomorrow #T2DM - hold home PO meds - sliding scale insulin I have spent 70 minutes [id number] time with patient, reviewing clinical data, and formulating plan of treatment. Sid Avelar MD Internal Medicine
[2020-01-05] MEDS ORDERED: DEXTROSE 50% SYRINGE 50 ML IV PRN (18:15)
--- NOTE | 2020-01-05 19:00 | NUR ---
Resumed care of patient. Patient awake and resting in bed, no s/s of distress at this time. Bed locked and in lowest position, side rails upx2, alarm on, call light placed within reach. Patient instructed to call for assistance if needed, verbalized understanding. All safety measures in place.
[2020-01-05 19:42] LABS: BODY FLUID APPEARANCE CLOUDY; BODY FLUID COLOR YELLOW; BODY FLUID TYPE PERITONEAL
[2020-01-05 19:44] LABS: RBC,BODY FLUID 4155 cells/uL; WBC,BODY FLUID 152 cells/uL
[2020-01-05 19:55] LABS: LYMPHOCYTES,BODY FLUID 90 %; MONO/MACROPHG,BODY FLUID 2 %; NEUTROPHILS,BODY FLUID 2 %; OTHER CELLS,BODY FLUID 6 %
[2020-01-05] MEDS: INSULIN LISPRO 100 UNIT/1 ML 3ML VIAL SQ SCH (20:16)
[2020-01-05 20:57] VITALS: BP 109/83
[2020-01-05] MEDS: MIRTAZAPINE 15 MG TAB PO SCH (20:57)
[2020-01-05] MEDS: FUROSEMIDE INJ 10 MG/ML 4 ML VIAL IV SCH (20:57)
[2020-01-05 21:29] VITALS: BP 109/83
--- NOTE | 2020-01-05 22:48 | NUR ---
Dr. Shekhar Avelar on unit. States that he is no longer on case. Addendum: 01/05/20 at 2316 by Frances Corrales RN Per he spoke with attending; if patient needs endoscopy it can be done outpatient.
[2020-01-06] VITALS (10 sets, daily range): BP systolic 101–126; BP diastolic 77–93
--- NOTE | 2020-01-06 01:27 | NUR ---
Patient keeps trying to get out of bed, stating that he is uncomfortable. Bed alarm alerting and patient found intermediate out of bed, unable to pull himself up. Patient currently back in bed, denies needing to use restroom at this time. Urinal provided at bedside. Education provided on safety and fall precautions in light of patient's recent history of falls at home. Yellow non-skid socks applied, bed locked and in lowest position, side rails upx3, alarm on, call light placed within reach. Patient instructed to call for assistance if needed, verbalized understanding. All safety measures in place.
--- NOTE | 2020-01-06 03:15 | NUR ---
At 0300 patient called saying he needed to use restroom. Helped patient stand up from bed and take a few steps before he said, "I feel like I'm going to fall." Assisted patient to floor in a sitting position. No injuries or s/s of distress noted. Patient was able to stand back up with 3 person assistance. Returned to bed and instructed to use urinal. Bed locked and in lowest position, side rails upx3, alarm on, call light placed within reach. All safety measures in place.
--- NOTE | 2020-01-06 03:26 | NUR ---
Spoke to daughter Billie to let her know of assisted fall. Called Dr. Julissa Avelar and left voice message.
[2020-01-06 06:57] LABS: BASOPHILS # (AUTO) 0.1 (0.0-0.1); EOSINOPHILS % 0.4 % (0.0-6.0); HEMATOCRIT 35.1 % (38.2-49.6); HEMOGLOBIN 10.3 g/dL (14.0-18.0); LYMPHOCYTES # (AUTO) 1.3 (1.0-3.2); LYMPHOCYTES % 24.6 % (18.0-39.1); MEAN CORPUSCULAR HEMOGLOBIN 27.6 pg (28-32); MEAN CORPUSCULAR HGB CONC 29.3 g/dL (31-35); MEAN CORPUSCULAR VOLUME 94.1 fL (81-99); MONOCYTES # (AUTO) 0.7 (0.2-0.8); MONOCYTES % 13.3 % (4.4-11.3); NEUTROPHILS # (AUTO) 3.1 (2.1-6.9); NEUTROPHILS % 60.5 % (38.7-80.0); PLATELET COUNT 118 x10e3/uL (140-360); RED BLOOD COUNT 3.73 x10e6/uL (4.3-5.7); RED CELL DISTRIBUTION WIDTH 20.2 % (11.7-14.4)
--- NOTE | 2020-01-06 06:57 | NUR ---
Bedside report given to oncoming nurse. Patient awake and resting in bed, no s/s of distress at this time. All safety measures in place.
[2020-01-06 07:13] LABS: ALBUMIN 3.3 g/dL (3.5-5.0); ALBUMIN/GLOBULIN RATIO 1.4 (0.8-2.0); ANION GAP 15.9 mmol/L (8-16); CALCIUM 8.3 mg/dL (8.4-10.2); CREATININE, SERUM 1.53 mg/dL (0.72-1.25); POTASSIUM 3.9 mmol/L (3.5-5.1)
[2020-01-06] MEDS: INSULIN LISPRO 100 UNIT/1 ML 3ML VIAL SQ SCH ×4 (07:30→21:00)
[2020-01-06 07:45] LABS: MAGNESIUM 1.8 MG/DL (1.3-2.1)
[2020-01-06] MEDS ORDERED: CARVEDILOL 12.5 MG TAB PO SCH (09:00)
[2020-01-06] MEDS: FUROSEMIDE INJ 10 MG/ML 4 ML VIAL IV SCH (09:06)
[2020-01-06] MEDS: SPIRONOLACTONE 25 MG TAB PO SCH ×2 (09:06→17:05)
[2020-01-06] MEDS: AMIODARONE HCL 200 MG TAB PO SCH (09:07)
[2020-01-06] MEDS: ATORVASTATIN 20 MG TAB PO SCH (09:07)
[2020-01-06] MEDS: LISINOPRIL 2.5 MG TAB PO SCH (09:08)
--- NOTE | 2020-01-06 09:18 | NUR ---
Followed up with pt at bedside regarding his paracentesis done yesterday 01-05-2020. Pt states "he feels better and that his stomach is still small". No distress noted. Pt sitting up in bed taking meds with bedside nurse. No issues or questions at this time.
[2020-01-06] MEDS ORDERED: METOLAZONE 5 MG TAB PO NR (10:15)
--- NOTE | 2020-01-06 15:52 | NUR ---
Progress note Subjective 01/05: Feeling better today, however overnight he had an incident where he was being assisted to the bathroom and he felt weak, had to be sat down on the ground and 2 other people had to assist the nurse to stand him up. Patient states he just feels very weak at times but overall feeling a bit better than yesterday. Had 5L ascitic fluid removed yesterday but still has a significant amount of fluid seen in his pitting edema in his legs along with BNP 3000 on admission, indicating a CHF exacerbation. Will continue diuresis today. Walked with PT today about 200 ft and did well. Like home PT on discharge vs eval for inpatient rehab. History of Present Illness Mr Linda is a 74 yo M with PMH significant for Idiopathic Cirrhosis, T2DM, HFrEF due to ischemic heart disease, hx of CAD s/p RCA stent [facility] complaints of weakness, shortness of breath, and worsening abdominal distension. He is currently being worked up outpatient with Dr Robe Avelar for idio pathic cirrhosis and so far has no obvious cause. He was admitted last month for similar presentation and had large volume paracentesis. Today he presents with similar complaints of shortness of breath and weakness, however he has also had 3 falls over the last 2 days. He may have hit his head, but is unsure. In ED, vitals were stable, CT head and c-spine without fractures or bleeding. CXR with right pleural effusion and possible compressive atelectasis. Labs large ly unremarkable. Admitted for further management. Physical Exam Vitals: Temp: 97.4P: 116BP: 105/77RR: 18SpO2: 95% General Appearance: The patient is alert, oriented and in no acute distress. Appears euvolemic. Skin: Warm and hydrated without any rash. HEENT: Head is normocephalic, atraumatic. Nontender sinuses. Pupils are equal and reactive. The nares are patent. Oropharynx is moist and clear without lesion s. Neck: Supple without lymphadenopathy. +JVD. Thyroid NV/LIME BURNER Heart / Cardiovascular: Tachycardic but regular rhythm. Normal S1 and S2 without S3/S4. No murmurs, rubs or gallops. Peripheral pulses symmetric +2. Respiratory / Chest: No crackles or wheezes are heard. Symmetric breath sounds. Preserved chest expansion. Abdomen: Soft, nontender, nondistended with good bowel sounds heard. No clinical organomegaly. Renal: There is no costovertebral angle tenderness. Extremities:2+ pitting edema bilateral lower extremities. Without cyanosis, clubbing. Preserved ROM. Neurological: Gross nonfocal. Patient oriented x 3. Cranial nerves II - XII Grossly intact. DTRs +2. MS: 5/5 globally. Labs/Imaging: all pertinent labs and diagnostic imaging were reviewed Assessment/Plan #idiopathic decompensated cirrhosis - s/p 5L paracentesis with IR, fluid studies sent; past studies were transudative - Lasix 40mg IV BID started - resume home meds including aldactone, lisinopril - strict I/O - will monitor overnight and likely discharge tomorrow #CHF exacerbation #Systolic heart failure EF <20% with AICD in place - as above, lasix 40mg IV BID - 1x dose of 5mg metolazone today - daily weights - on discharge will increase his lasix to 40mg daily #Paroxysmal atrial fibrillation - his HR is elevated today to 110s, will increase his coreg to 25mg BID for now and assess for improvement #T2DM - hold home PO meds - sliding scale insulin Sid Avelar MD Internal Medicine
[2020-01-06] MEDS ORDERED: ONDANSETRON HCL 4 MG ORAL DISINTEGRATING TAB PO PRN (16:00)
[2020-01-06] MEDS ORDERED: FUROSEMIDE INJ 10 MG/ML 4 ML VIAL IV ONE (16:20)
[2020-01-06] MEDS: CARVEDILOL 12.5 MG TAB PO SCH (17:05)
[2020-01-06 18:25] LABS: ANION GAP 16.2 mmol/L (8-16); CALCIUM 8.1 mg/dL (8.4-10.2); CREATININE, SERUM 1.65 mg/dL (0.72-1.25); POTASSIUM 4.2 mmol/L (3.5-5.1)
--- NOTE | 2020-01-06 19:00 | NUR ---
Resumed care of patient. Patient resting quietly in bed, respirations even and unlabored on room air, no s/s of distress at this time. Bed locked and in lowest position, side rails upx3, alarm on, call light placed within reach. All safety measures in place.
--- NOTE | 2020-01-06 19:45 | NUR ---
Patient moved to room 295. All belongings with patient. Yellow non-skid socks applied, bed locked and in lowest position, side rails upx3, alarm on, call light placed within reach. Patient instructed to call for assistance if needed, verbalized understanding. All safety measures in place.
[2020-01-06] MEDS ORDERED: MAGNESIUM OXIDE 400 MG TAB PO ONE (20:30)
[2020-01-06] MEDS ORDERED: CALCIUM GLUCONATE 10% INJ 4.65 MEQ in SODIUM CHLORIDE 0.9% 50ML 50 ML IV ONE (20:30)
[2020-01-06] MEDS ORDERED: FUROSEMIDE INJ 10 MG/ML 4 ML VIAL IV SCH (21:00)
[2020-01-06] MEDS: MIRTAZAPINE 15 MG TAB PO SCH (21:36)
[2020-01-06] MEDS ORDERED: CALCIUM GLUCONATE 10% INJ 0.465 MEQ/ML VIAL ONE (21:48)
[2020-01-06] MEDS ORDERED: SODIUM CHLORIDE 0.9% 50ML 50 ML ONE (21:52)
[2020-01-07] VITALS (10 sets, daily range): BP systolic 89–110; BP diastolic 52–75
[2020-01-07 05:21] LABS: EOSINOPHILS # (AUTO) 0.1 (0.0-0.4); EOSINOPHILS % 1.4 % (0.0-6.0); HEMOGLOBIN 10.1 g/dL (14.0-18.0); LYMPHOCYTES % 23.6 % (18.0-39.1); MEAN CORPUSCULAR HEMOGLOBIN 27.7 pg (28-32); MEAN CORPUSCULAR HGB CONC 30.6 g/dL (31-35); MEAN CORPUSCULAR VOLUME 90.4 fL (81-99); MONOCYTES # (AUTO) 0.5 (0.2-0.8); NEUTROPHILS # (AUTO) 2.6 (2.1-6.9); NEUTROPHILS % 61.8 % (38.7-80.0); PLATELET COUNT 112 x10e3/uL (140-360); RED BLOOD COUNT 3.65 x10e6/uL (4.3-5.7); RED CELL DISTRIBUTION WIDTH 19.4 % (11.7-14.4)
[2020-01-07 05:40] LABS: ALBUMIN 2.7 g/dL (3.5-5.0); ALBUMIN/GLOBULIN RATIO 1.3 (0.8-2.0); ANION GAP 14.5 mmol/L (8-16); CALCIUM 7.9 mg/dL (8.4-10.2); CREATININE, SERUM 1.58 mg/dL (0.72-1.25); MAGNESIUM 1.6 MG/DL (1.3-2.1); PHOSPHORUS 3.8 MG/DL (2.3-4.7); POTASSIUM 3.5 mmol/L (3.5-5.1)
[2020-01-07 06:31] LABS: CALCIUM IONIZED 1.2 mmol/L (1.09-1.30)
--- NOTE | 2020-01-07 07:04 | NUR ---
Bedside report given to oncoming nurse. Patient awake and resting in bed, respirations even and unlabored on room air. All safety measures in place.
--- NOTE | 2020-01-07 07:05 | NUR ---
Received report from offgoing nurse. Patient in stable condition. No signs or symptoms of respiratory distress. No complaints of pain. Bed alarm on and bed in lowest position. Call light in reach and patient verbalized understanding to call for assistance.
[2020-01-07] MEDS: INSULIN LISPRO 100 UNIT/1 ML 3ML VIAL SQ SCH ×4 (07:30→20:34)
[2020-01-07] MEDS: AMIODARONE HCL 200 MG TAB PO SCH (08:19)
[2020-01-07] MEDS: SPIRONOLACTONE 25 MG TAB PO SCH ×2 (08:19→17:00)
[2020-01-07] MEDS: CARVEDILOL 12.5 MG TAB PO SCH ×2 (08:19→17:00)
[2020-01-07] MEDS: FUROSEMIDE 40 MG TAB PO SCH (08:20)
[2020-01-07] MEDS: ATORVASTATIN 20 MG TAB PO SCH (08:20)
[2020-01-07] MEDS: LISINOPRIL 2.5 MG TAB PO SCH (08:20)
--- NOTE | 2020-01-07 08:25 | NUR ---
Report given at bedside to nurse at taking over assignment. Patient in stable condition. No signs of respiratory distress. Patient denies pain. Bed alarm on and bed in lowest position with call light in reach. Patient instructed to continue to use call light for assistance; patient verbalized understanding.
[2020-01-07] MEDS ORDERED: FUROSEMIDE 40 MG TAB PO SCH (09:00)
--- NOTE | 2020-01-07 09:15 | NUR ---
This nurse called tele to confirm rate and rhythm: Sinus Tach at 114
[2020-01-07] MEDS ORDERED: POTASSIUM CHLORIDE 20 MEQ TAB CR PO ONE (09:30)
--- NOTE | 2020-01-07 10:59 | NUR ---
SPOKE WITH PT ABOUT INPATIENT REHAB ORDER, SIGNED CHOICE FOR [facility]. FILED IN CHART AND FAXED CLINICALS TO FACILITY, NOTIFIED REP AND STARTED MOT
--- NOTE | 2020-01-07 12:06 | NUR ---
Progress note Subjective 01/06: Doing well today. Urinated a lot yesterday with recorded 2.1L output along with 1 unmeasured void. Will not give another metolazone today, switch back to PO lasix. Patient pending transfer to [facility] inpatient rehab for further PT rehab. 01/05: Feeling better today, however overnight he had an incident where he was being assisted to the bathroom and he felt weak, had to be sat down on the ground and 2 other people had to assist the nurse to stand him up. Patient states he just feels very weak at times but overall feeling a bit better than yesterday. Had 5L ascitic fluid removed yesterday but still has a significant amount of fluid seen in his pitting edema in his legs along with BNP 3000 on admission, indicating a CHF exacerbation. Will continue diuresis today. Walked with PT today about 200 ft and did well. Like home PT on discharge vs eval for inpatient rehab. History of Present Illness Mr Linda is a 74 yo M with PMH significant for Idiopathic Cirrhosis, T2DM, HFrEF due to ischemic heart disease, hx of CAD s/p RCA stent who [facility] complaints of weakness, shortness of breath, and worsening abdominal distension. He is currently being worked up outpatient with Dr Robe Avelar for idio pathic cirrhosis and so far has no obvious cause. He was admitted last month for similar presentation and had large volume paracentesis. Today he presents with similar complaints of shortness of breath and weakness, however he has also had 3 falls over the last 2 days. He may have hit his head, but is unsure. In ED, vitals were stable, CT head and c-spine without fractures or bleeding. CXR with right pleural effusion and possible compressive atelectasis. Labs large ly unremarkable. Admitted for further management. Physical Exam Vitals: Temp: 97.5P: 108BP: 105/74RR: 18SpO2: 94% General Appearance: The patient is alert, oriented and in no acute distress. Appears euvolemic. Skin: Warm and hydrated without any rash. HEENT: Head is normocephalic, atraumatic. Nontender sinuses. Pupils are equal and reactive. The nares are patent. Oropharynx is moist and clear without lesion s. Neck: Supple without lymphadenopathy. JVD improved. Thyroid NV/TRASH COLLECTOR Heart / Cardiovascular: Tachycardic but regular rhythm. Normal S1 and S2 without S3/S4. No murmurs, rubs or gallops. Peripheral pulses symmetric +2. Respiratory / Chest: No crackles or wheezes are heard. Symmetric breath sounds. Preserved chest expansion. Abdomen: Soft, nontender, nondistended with good bowel sounds heard. No clinical organomegaly. Renal: There is no costovertebral angle tenderness. Extremities:2+ pitting edema bilateral lower extremities. Without cyanosis, clubbing. Preserved ROM. Neurological: Gross nonfocal. Patient oriented x 3. Cranial nerves II - XII Grossly intact. DTRs +2. MS: 5/5 globally. Labs/Imaging: all pertinent labs and diagnostic imaging were reviewed Assessment/Plan #idiopathic decompensated cirrhosis - s/p 5L paracentesis with IR, fluid studies sent; past studies were transudative - s/p lasix IV, switched to PO - resume home meds including aldactone, lisinopril - strict I/O #CHF exacerbation #Systolic heart failure EF <20% with AICD in place - s/p 1x dose metolazone 5mg on 01/05 with good output - switch lasix IV to PO 40mg daily (double his home dose on admission) - daily weights - on discharge will increase his lasix to 40mg daily #Paroxysmal atrial fibrillation - his HR is elevated today to 110s, will increase his coreg to 25mg BID for now and assess for improvement - switched coreg back to 12.5mg as BP was low; HR improved however as we remove volume #T2DM - hold home PO meds - sliding scale insulin ==Disposition== - pending inpatient rehab placement Sid Avelar MD Internal Medicine
--- NOTE | 2020-01-07 12:11 | NUR ---
Addendum to Progress Note In addition to problems outlined in today's progress note: - regarding his Afib, patient is not on anticoagulation as he is at high risk for fall #NANI on CKD3 - slight bump in his creatinine during IV lasix diuresis, now improving; likely cardiorenal component - will continue to monitor Sid Avelar MD
[2020-01-07] MEDS ORDERED: POLYETHYLENE GLYCOL 3350 17 GM PACK PO ONE (12:15)
--- NOTE | 2020-01-07 12:46 | NUR ---
Spoke with nurse whom said she spoke with pt and he is a bit confused and asked me if I spoke with the daughter, I replied no because he was able to answer my questions when I was in room, called and left message for daughter Billie to return call.
--- NOTE | 2020-01-07 12:53 | NUR ---
DAUGHTER STANLEY, SHE STATES TO CONTINUE WITH THE REHAB ORDER, AND SHE WILL SPEAK WITH HER DAD.
[2020-01-07 14:25] LABS: BILIRUBIN,URINE NEGATIVE (NEGATIVE); CLARITY,URINE CLEAR (CLEAR); COLOR,URINE YELLOW (YELLOW); KETONES,URINE NEGATIVE (NEGATIVE); LEUKOCYTE ESTERASE ,URINE NEGATIVE (NEGATIVE); NITRITE,URINE NEGATIVE (NEGATIVE); PROTEIN,URINE DIPSTICK NEGATIVE (NEGATIVE); URINE UROBILINOGEN 0.2 mg/dL (0.2 - 1)
[2020-01-07 14:36] LABS: BACTERIA,URINE RARE /HPF; EPITHELIAL CELLS,URINE RARE /LPF; RBC,URINE 0-5 /HPF (0-5); WBC,URINE (MAN) 0-5 /HPF (0-5)
--- NOTE | 2020-01-07 15:28 | NUR ---
Manual BP is 98/65. Denies dizziness. Patient stated he is feeling okay. Assisted to the toilet with walker and non-skid socks. Urinated large amount of urine in the toilet. Call light within reach. Bed alarm placed and patient is advised to call for assistance if he needs to use the toilet. Verbalized understanding.
--- NOTE | 2020-01-07 15:52 | NUR ---
Notified Dr. Sid Avelar regarding low blood pressure. Verbal order given to check BP and heart rate in 1 hour and call him back.
--- NOTE | 2020-01-07 15:55 | NUR ---
Notified Dr. Sid Avelar about the repeat blood pressure and vital signs. BP 96/70 HR 112. Stated to just monitor blood pressure and hold any BP due at 1700 today. Addendum: 01/07/20 at 1807 by Lucia Shen RN Patient denies dizziness. Patient states "I'm feeling fine". Call light in reach.
--- NOTE | 2020-01-07 16:31 | NUR ---
Nutrition Screen Note RD Recommendation for Physician: -Recommend ADA/cardiac diet Plan of Care: RD following, monitoring for tolerance and adequacy Nutrition reason for involvement: Nutrition Risk Trigger Primary Diagnose(s): ascites, cirrhosis, falls, weakness PMH: Idiopathic Cirrhosis, T2DM, HFrEF due to ischemic heart disease, hx of CAD s/p RCA Ht: 67 in Wt:187 lb BMI: 29.3 kg/m2 IBW:[address] Assessment: (01/07/20) Chart reviewed. Labs and meds reviewed. Pt is a 74 year old male admitted with ascites, cirrhosis, falls, and weakness. Pt reports he is eating 50 to >50% of his meals. 50-75% meal intake recorded in chart. Pt mentioned he had lost 5 lbs in the past 2-3 weeks. No N/V/D/C or chewing/swallowing issues. Pt denied the need for diet education. Will continue to monitor. Current Diet: renal Malnutrition Evaluation (01/07/20) The patient does not meet criteria for a specified degree of malnutrition at this time. Will re-evaluate at follow-up as appropriate. Diet Education Needs Assessment: pt denied the need for diet education Nutrition Care Level: low Signed: Oneyda Zaldivar, RD, LD
--- NOTE | 2020-01-07 19:15 | NUR ---
Bedside report given to night nurse. Lying in bed with eyes open. Respiration even and unlabored without SOB. Call light in reach.
--- NOTE | 2020-01-07 19:30 | NUR ---
PT IN BED, USES WALKER TO GO TO BATHROOM WITH ONE PERSON ASSIST, TELE ON PT, RIGHT IJ INTACT, NO DISTRESS NOTED, VS WNL, CALL LIGHT IN REACH
[2020-01-07] MEDS: MIRTAZAPINE 15 MG TAB PO SCH (20:51)
--- NOTE | 2020-01-07 23:00 | NUR ---
PT UP TO BATHROOM WITH WALKER AND ONE ASSIST, NO DISTRESS NOTED, CALL LIGHT IN REACH,
[2020-01-08] VITALS (7 sets, daily range): BP systolic 91–105; BP diastolic 65–71
--- NOTE | 2020-01-08 04:20 | NUR ---
PT AWAKE EASILY FOR VS, VS WNL, CALL LIGHT IN REACH, TELE ON PT , WILL CONTINUE TO MONITOR PT.
[2020-01-08 06:25] LABS: BASOPHILS % 0.5 % (0.0-1.0); EOSINOPHILS # (AUTO) 0.1 (0.0-0.4); EOSINOPHILS % 1.3 % (0.0-6.0); HEMATOCRIT 32.2 % (38.2-49.6); HEMOGLOBIN 9.8 g/dL (14.0-18.0); LYMPHOCYTES # (AUTO) 1.1 (1.0-3.2); LYMPHOCYTES % 19.7 % (18.0-39.1); MEAN CORPUSCULAR HEMOGLOBIN 27.7 pg (28-32); MEAN CORPUSCULAR HGB CONC 30.4 g/dL (31-35); MONOCYTES # (AUTO) 0.6 (0.2-0.8); MONOCYTES % 11.6 % (4.4-11.3); NEUTROPHILS # (AUTO) 3.7 (2.1-6.9); NEUTROPHILS % 66.5 % (38.7-80.0); PLATELET COUNT 134 x10e3/uL (140-360); RED BLOOD COUNT 3.54 x10e6/uL (4.3-5.7); RED CELL DISTRIBUTION WIDTH 19.2 % (11.7-14.4)
[2020-01-08 06:58] LABS: ANION GAP 12.5 mmol/L (8-16); CREATININE, SERUM 1.65 mg/dL (0.72-1.25); MAGNESIUM 1.5 MG/DL (1.3-2.1); POTASSIUM 3.5 mmol/L (3.5-5.1)
[2020-01-08] MEDS: INSULIN LISPRO 100 UNIT/1 ML 3ML VIAL SQ SCH ×4 (07:30→21:00)
[2020-01-08] MEDS: LISINOPRIL 2.5 MG TAB PO SCH (09:00)
--- NOTE | 2020-01-08 09:04 | NUR ---
Progress note Subjective 01/07: BP slightly low yesterday and overnight due to increased coreg dose, will decrease it today. He was asymptomatic however and was able to work with PT without issues. Back to PO lasix and awaiting transfer to inpatient rehab. 01/06: Doing well today. Urinated a lot yesterday with recorded 2.1L output along with 1 unmeasured void. Will not give another metolazone today, switch back to PO lasix. Patient pending transfer to [facility] inpatient rehab for further PT rehab. 01/05: Feeling better today, however overnight he had an incident where he was being assisted to the bathroom and he felt weak, had to be sat down on the ground and 2 other people had to assist the nurse to stand him up. Patient states he just feels very weak at times but overall feeling a bit better than yesterday. Had 5L ascitic fluid removed yesterday but still has a significant amount of fluid seen in his pitting edema in his legs along with BNP 3000 on admission, indicating a CHF exacerbation. Will continue diuresis today. Walked with PT today about 200 ft and did well. Like home PT on discharge vs eval for inpatient rehab. History of Present Illness Mr Linda is a 74 yo M with PMH significant for Idiopathic Cirrhosis, T2DM, HFrEF EF <20% due to ischemic heart disease with AICD in place, hx of CAD s/p RCA stent, Paroxysmal Afib not on anticoagulation due to cirrhosis and fall risk, and CKD3 who presents from home with complaints of weakness, shortness of breath, and worsening abdominal distension. He is currently being worked up outpatient with Dr Robe Avelar for idiopathic cirrhosis and so far has no obvious cause. He was admitted last month for similar presentation and had large volume paracentesis. Today he presents with similar complaints of shortness of breath and weakness, however he has also had 3 falls over the last 2 days. He may have hit his head, but is unsure. In ED, vitals were stable, CT head and c-spine without fractures or bleeding. CXR with right pleural effusion and possible compressive atelectasis. Labs largely unremarkable. Admitted for further management. Physical Exam Vitals: Temp: 98.2P: 113BP: 105/71RR: 18SpO2: 95% General Appearance: The patient is alert, oriented and in no acute distress. Appears euvolemic. Skin: Warm and hydrated without any rash. HEENT: Head is normocephalic, atraumatic. Nontender sinuses. Pupils are equal and reactive. The nares are patent. Oropharynx is moist and clear without lesions. Neck: Supple without lymphadenopathy. JVD improved. Thyroid NV/BLOCK PAVER Heart / Cardiovascular: Irregularly irregular rhythm. Normal S1 and S2 without S3/S4. No murmurs, rubs or gallops. Peripheral pulses symmetric +2. Respiratory / Chest: No crackles or wheezes are heard. Symmetric breath sounds. Preserved chest expansion. Abdomen: Soft, nontender, nondistended with good bowel sounds heard. No clinical organomegaly. Renal: There is no costovertebral angle tenderness. Extremities:2+ pitting edema bilateral lower extremities but improved. Without cyanosis, clubbing. Preserved ROM. Neurological: Gross nonfocal. Patient oriented x 3. Cranial nerves II - XII Grossly intact. DTRs +2. MS: 5/5 globally. Labs/Imaging: all pertinent labs and diagnostic imaging were reviewed Assessment/Plan #idiopathic decompensated cirrhosis - s/p 5L paracentesis with IR, fluid studies sent; past studies were transudative - s/p lasix IV, switched to PO - resume home meds including aldactone, lisinopril - strict I/O #CHF exacerbation, improved #Systolic heart failure EF <20% with AICD in place - s/p 1x dose metolazone 5mg on 01/05 with good output - switch lasix IV to PO 40mg daily (double his home dose on admission) - will discharge on this dose - daily weights #Paroxysmal atrial fibrillation - his HR is fluctuates throughout the day with some rates up to 110s - follows Cardiology outpatient, they have been planning to send him to EP for conduction study and possible ablation in the future #T2DM - hold home PO meds - sliding scale insulin #CKD3 - Renal function is close to his baseline at this time - renally dose all medications ==Disposition== - pending inpatient rehab placement - I will continue to follow him on discharge =Bowel ppx - miralax =diet - renal and diabetic Sid Avelar MD Internal Medicine
[2020-01-08] MEDS: AMIODARONE HCL 200 MG TAB PO SCH (09:22)
[2020-01-08] MEDS: CARVEDILOL 12.5 MG TAB PO SCH (09:22)
[2020-01-08] MEDS: DOCUSATE SODIUM 100 MG CAP PO SCH (09:22)
[2020-01-08] MEDS: ATORVASTATIN 20 MG TAB PO SCH (09:22)
[2020-01-08] MEDS: SPIRONOLACTONE 25 MG TAB PO SCH (09:23)
[2020-01-08] MEDS: POLYETHYLENE GLYCOL 3350 17 GM PACK PO SCH (09:23)
[2020-01-08] MEDS: FUROSEMIDE 40 MG TAB PO SCH (09:23)
--- NOTE | 2020-01-08 10:56 | NUR ---
SPOKE WITH REP SNEHA FRANCIS HE STATES MEDICALLY ACCEPTED PENDING INSURANCE AUTH.
[2020-01-08] MEDS ORDERED: SODIUM CHLORIDE 0.9% 250ML 250 ML IV ONE (14:30)
[2020-01-08] MEDS ORDERED: DIGOXIN INJ 0.25 MG/ML 2 ML AMP IV ONE (17:15)
--- NOTE | 2020-01-08 17:50 | NUR ---
ADMINISTERED DIGOXIN SCHEDULED. MEDICATION PUSHED OVER 2 MINUTES. PATIENT TOLERATED IT WELL.
--- NOTE | 2020-01-08 19:22 | NUR ---
walking rounds complete report given to on coming nurse.
--- NOTE | 2020-01-08 20:40 | Consultation ---
DATE OF CONSULTATION: 01/08/2020 REASON FOR CONSULTATION: Atrial fibrillation with rapid ventricular response, hypotension. CHIEF COMPLAINT: Generalized swelling, shortness of breath. HISTORY OF PRESENT ILLNESS: This is a 74-year-old male known to practice with history of CAD, status post PCI RCA in 01/2018, with Dr. Rodriguez, systolic heart failure, status post ICD; hypertension, hyperlipidemia, diabetes, and recently atrial fibrillation in 11/2019. The patient apparently presents to his PCP with complaints of generalized swelling and shortness of breath, was noted with anasarca, was sent to [facility] for paracentesis in which the patient underwent a large volume paracentesis, 5.2 L on 01/05/2020. Since then, the patient has been progressing slowly, however, was noted to be slightly tachycardic, atrial fibrillation with RVR, and hypotensive. Cardiology was consulted to evaluate the patient. The patient is seen in room. He reports that he is breathing comfortably, however, does appear volume overloaded on exam. Denies any chest pains. PAST MEDICAL HISTORY: CAD, status post PCI RCA on 02/04/2018, Dr. Rodriguez; CHF, hypertension, hyperlipidemia, diabetes, [facility] ICD in 05/2018, and atrial fibrillation noted in 11/2019. PAST SURGICAL HISTORY: PCI in 2017 and ICD, [facility] in 05/2018. FAMILY HISTORY: His mother , history of hypertension and diabetes. Father , also with history of hypertension and diabetes. SOCIAL HISTORY: He is . 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 He is a former smoker, quit in 1970s. Denies any alcohol use. ALLERGIES: NO KNOWN ALLERGIES. HOME MEDICATIONS: Include aspirin 81 mg daily, Eliquis 5 mg b.i.d., atorvastatin 20 mg daily, amiodarone 200 mg daily, Plavix 75 mg daily, amlodipine 10 mg daily, carvedilol 25 mg b.i.d., lisinopril 5 mg daily, spironolactone 25 mg daily, furosemide 40 mg b.i.d., glimepiride 2 mg daily. REVIEW OF SYSTEMS: GENERAL: Reports positive for weight gain. Positive for fatigue, weakness. Denies any fevers, chills, or night sweats. SKIN: No rashes. Positive for bruising. HEENT: Denies any nausea, vomiting, vision change, blurred vision, double vision, epistaxis, sore throat, or swollen neck. HEART: Denies any chest pain. Positive for intermittent palpitation. Positive for dyspnea on exertion. Positive for orthopnea. Denies any PND. Positive for generalized edema. RESPIRATORY: Positive for shortness of breath. Denies any coughing, wheezing, or hemoptysis. GI: Reports good appetite. Denies any nausea, vomiting, diarrhea, constipation, melena, or tarry bloody stools. URINARY: Positive for frequency, urgency. Denies any hematuria or dysuria. VASCULAR: Positive for generalized edema, swelling. MUSCULOSKELETAL: Positive for generalized joint pains, back pain. NEUROLOGIC: Denies any numbness, tingling, blackouts, or seizures. ENDOCRINE: Denies heat or cold intolerance, polyuria, polydipsia, or polyphagia. PHYSICAL EXAMINATION: VITAL SIGNS: Height 67 inches, weight 187 pounds. Current vital signs are temperature 98.5, pulse 106, respiratory rate 17, blood pressure 93/69, and pulse ox 96% on room air. GENERAL: Reliable informant, in no acute distress. Chronically ill-appearing. SKIN: No rashes or bruises. HEENT: Normocephalic. Pupils are equal and reactive. Extraocular movements are intact. Trachea is midline. No JVD. No carotid bruit. Oral mucosa pink. HEART: Irregular rhythm. Soft systolic murmur heard in the right upper sternal border. ICD on left chest wall scar. LUNGS: Bilateral breath sounds clear, diminished at the bases. ABDOMEN: Distended. No organomegaly noted. VASCULAR: +2 radial pulses bilaterally and +1 DP/PT pulses bilaterally. MUSCULOSKELETAL: +1 to 2 lower extremity edema. NEUROLOGIC: Cranial nerves II through XII seem intact. LABORATORY DATA: White count 5, hemoglobin 9.8, hematocrit 32.2, and platelets 134. Chemistry; sodium 138, potassium 3.5, BUN 28, creatinine 1.6, total protein 6.2, albumin 3.4, AST 20, ALT 40, alkaline phosphatase 90, total bilirubin 3. COVID PCR not detected. Abdominal CT showing hepatic cirrhosis with moderate volume abdominal and pelvic ascites on right and trace left pleural effusion. Diffuse anasarca. Chest x-ray showing a small right pleural effusion with right basilar opacities. EKG showing atrial fibrillation with a heart rate of 120. ASSESSMENT AND PLAN: 1. Liver cirrhosis. 2. Anasarca. 3. Status post large volume paracentesis, 5.2 L. 4. [id number] systolic heart failure. 5. Coronary artery disease, status post PCI RCA in 01/2018. 6. Status post ICD. 7. History of hypertension, however, currently hypotensive. 8. Hyperlipidemia. 9. Diabetes. 10. Atrial fibrillation. PLAN: 1. The patient initially presented to the [facility] ER with generalized swelling, shortness of breath noted with anasarca, liver cirrhosis, status post large volume paracentesis of 5.2 L, since then the patient has been progressed slowly, however, has been noted to be tachycardic with marginal blood pressure. Cardiology was consulted. 2. We will give him digoxin IV 0.5 mg now and digoxin 0.125 mg daily. 3. We will go ahead and stop his Lipitor, amiodarone given his liver cirrhosis. 4. We will change his Coreg to metoprolol for heart rate control. 5. We will continue gentle diuresis and observe volume status. 6. We will continue to follow and adjust cardiac therapies as clinic course dictates. Thank you very much for this consult. Seen and examined Known to our service Agree with above Dictated by Harlan George NP Lio Segura MD [id number] /[id number] JUANI
[2020-01-08] MEDS: METOPROLOL TARTRATE 25 MG TAB PO SCH (22:29)
[2020-01-08] MEDS: MIRTAZAPINE 15 MG TAB PO SCH (22:29)
[2020-01-09 00:20] VITALS: BP 107/67
[2020-01-09 04:00] VITALS: BP 103/75
[2020-01-09] MEDS: METOPROLOL TARTRATE 25 MG TAB PO SCH ×2 (06:45→14:19)
[2020-01-09 07:13] LABS: ALBUMIN 2.8 g/dL (3.5-5.0); ALBUMIN/GLOBULIN RATIO 1.3 (0.8-2.0); ANION GAP 10.7 mmol/L (8-16); CALCIUM 8.2 mg/dL (8.4-10.2); CREATININE, SERUM 1.56 mg/dL (0.72-1.25); POTASSIUM 3.7 mmol/L (3.5-5.1)
--- NOTE | 2020-01-09 07:15 | NUR ---
Received report from manager shift nurse at bedside. Patient stable and in no respiratory distress. No complaints of pain. Patient readjusted in bed for comfort. Call light in reach.
[2020-01-09] MEDS: INSULIN LISPRO 100 UNIT/1 ML 3ML VIAL SQ SCH ×3 (07:30→16:24)
[2020-01-09 08:08] VITALS: BP 122/84
[2020-01-09 08:49] VITALS: BP 122/84
[2020-01-09] MEDS ORDERED: SPIRONOLACTONE 25 MG TAB PO SCH (09:00)
[2020-01-09] MEDS ORDERED: DIGOXIN 0.125 MG TAB PO SCH (09:00)
[2020-01-09] MEDS: DOCUSATE SODIUM 100 MG CAP PO SCH (09:16)
--- NOTE | 2020-01-09 09:17 | NUR ---
Tele reports rate and rhythm of fluctuating A-fib and 87.
[2020-01-09] MEDS: FUROSEMIDE 40 MG TAB PO SCH (09:18)
[2020-01-09] MEDS: LISINOPRIL 2.5 MG TAB PO SCH (09:19)
[2020-01-09] MEDS: POLYETHYLENE GLYCOL 3350 17 GM PACK PO SCH (09:19)
[2020-01-09 11:47] VITALS: BP 102/84
--- NOTE | 2020-01-09 12:11 | NUR ---
This nurse spoke with Dr. Avelar about maintaining IV access as current IV is an 18 gauge in the EJ is occluded. states IV access is no longer required as vital signs are stable and awaiting insurance approval for inpatient rehab.
--- NOTE | 2020-01-09 12:31 | NUR ---
EJ IV access removed. Tip intact but slightly kinked.
--- NOTE | 2020-01-09 13:20 | NUR ---
Physical therapist reports patient is sitting up in chair. Upon purposeful hourly rounding patient is educated to call for assistance when patient is ready to get back in bed or to get out of chair. Patient sitting up in chair, verbalized understanding and demonstrates how he has his call light in hand and will call for assistance when he is ready.
[2020-01-09 16:10] VITALS: BP 124/71
--- NOTE | 2020-01-09 16:11 | NUR ---
SPOKE WITH REP FROM [facility], STILL PENDING AUTH, STATES IF HAVE TO DISCHARGE THEY WILL CONTINUE TO WORK AND PLACE FROM HOME, HE STATES HE HAS COMMUNICATED WITH DR Eboni JOLLY. PACKET IN CM OFFICE
--- NOTE | 2020-01-09 17:10 | NUR ---
This nurse received call from Dr. Avelar that patient is to be discharged to go home and await placement for inpatient rehab as the patient is medically stable and solely waiting for insurance approval. states he spoke with patient and patient's daughter and agreed to this plan of action and daughter to arrive at 1930 to take patient home. Discharge order placed and process initiated.
[2020-01-09] MEDS ORDERED: DIGOXIN125 MCG PO (17:32)
[2020-01-09] MEDS ORDERED: METOPROLOL TART25 MG PO (17:32)
--- NOTE | 2020-01-09 19:13 | NUR ---
Discharge Summary Patient: Miguel Linda Admission date: 01/04 Discharge date: 01/08 Attending physician: Sid Avelar MD Consultation: Dr Autumn Segura, cardiology; Dr Amber Higuera, interventional radiology Admitting Diagnosis: Idiopathic decompensated cirrhosis, acute on chronic systolic heart failure, paroxysmal atrial fibrillation, type 2 diabetes mellitus, CKD stage 3b, CAD with history of stent placement Discharge Diagnosis: Idiopathic decompensated cirrhosis, acute on chronic systolic heart failure, paroxysmal atrial fibrillation, type 2 diabetes mellitus, CKD stage 3b, CAD with history of stent placement Procedures: 01/04 Paracentesis IMPRESSION: Ultrasound-guided paracentesis with drainage of 5200 mL of nya serous fluid. Hospital Course: Mr Linda is a 74 yo M with PMH significant for Idiopathic Cirrhosis, T2DM, HFrEF EF <20% due to ischemic heart disease with AICD in place, hx of CAD s/p RCA stent, Paroxysmal Afib not on anticoagulation due to cirrhosis and fall risk, and CKD3 who presents from home with complaints of weakness, shortness of breath, and worsening abdominal distension. He is currently being worked up outpatient with Dr Robe Avelar for idiopathic cirrhosis and so far has no obvious cause. He was admitted last month for similar presentation and had large volume paracentesis. This admission he presented with shortness of breath and weakness with significant ascites affecting his breathing. In ED, vitals were stable, CT head and c-spine without fractures or bleeding. CXR with right pleural effusion and possible compressive atelectasis. Labs largely unremarkable. Admitted for further management. He underwent paracentesis with 5.2L of fluid removed and immediately felt relief with regards to his breathing. However he was also noted to have borderline low BP and elevated HR, on EKG was afib with RVR up to 120s. He was diuresed with IV lasix along with 1x dose of metolazone with good urine output however his HR remained elevated with low BP. Cardiology consulted and decision made to add digoxin due to his lower BP, switch coreg to metoprolol, and stop amiodarone and statin due to his liver failure. After 1 day of digoxin his HR improved and BP increased to normal range. Patient has been working with PT and is able to walk further now with less exhaustion, however decision was made to refer to inpatient rehab to continue his strengthening with PT. His insurance was taking an extended period of time to clear so his family and I decided he would be safe to go home with family assistance until he is admitted to inpatient rehab. Physical Exam Vitals: Temp: 97.5P: 75BP: 124/71RR: 18SpO2: 100% General Appearance: The patient is alert, oriented and in no acute distress. Appears euvolemic. Skin: Warm and hydrated without any rash. HEENT: Head is normocephalic, atraumatic. Nontender sinuses. Pupils are equal and reactive. The nares are patent. Oropharynx is moist and clear without lesions. Neck: Supple without lymphadenopathy. JVD improved. Thyroid NV/[employer] Heart / Cardiovascular: Irregularly irregular rhythm. Normal S1 and S2 without S3/S4. No murmurs, rubs or gallops. Peripheral pulses symmetric +2. Respiratory / Chest: No crackles or wheezes are heard. Symmetric breath sounds. Preserved chest expansion. Abdomen: Soft, nontender, nondistended with good bowel sounds heard. No clinical organomegaly. Renal: There is no costovertebral angle tenderness. Extremities:2+ pitting edema bilateral lower extremities but improved. Without cyanosis, clubbing. Preserved ROM. Neurological: Gross nonfocal. Patient oriented x 3. Cranial nerves II - XII Grossly intact. DTRs +2. MS: 5/5 globally. Discharge medications: see medication reconciliation Discharge plan: Condition on discharge: good Activity: as tolerated with assistance Diet: low sodium and diabetic diet Follow-up: patient will go home then be admitted to inpatient rehab. I will follow up with him there. After inpatient rehab he is to follow up with Dr Corrina hansen in clinic and Dr Robe Avelar within 1-2 weeks. Time spent on discharge: 45 minutes
--- NOTE | 2020-01-09 19:19 | NUR ---
Discharge instructions and medications reviewed with daughter at bedside. All belongings collected and taken by daughter. Tele removed and patient wheeled down by PCT via wheelchair. Patient stable and in no respiratory distress.
== END 2020-01-09 19:18 | disposition home or self-care (01) | DRG 432 ==
LOC: ER 11:43 → ERHOLD 14:53 → MED/SURG3 16:51
PROVIDERS: ADMIT Internal Medicine; ATTEND Internal Medicine
PROC: 0W9G30Z Drainage of Peritoneal Cavity with Drainage Device, Percutaneous Approach (ICD-10-PCS; principal; 2020-01-05)
DX: K74.69 Other cirrhosis of liver (principal); I50.23 Acute on chronic systolic (congestive) heart failure; I13.0 Hypertensive heart and chronic kidney disease with heart failure and stage 1 through stage 4 chronic kidney disease, or unspecified chronic kidney disease; R18.8 Other ascites; I48.91 Unspecified atrial fibrillation; Z79.01 Long term (current) use of anticoagulants; I25.10 Atherosclerotic heart disease of native coronary artery without angina pectoris; E78.5 Hyperlipidemia, unspecified; Z91.81 History of falling; I48.0 Paroxysmal atrial fibrillation; Z95.810 Presence of automatic (implantable) cardiac defibrillator; E11.22 Type 2 diabetes mellitus with diabetic chronic kidney disease; N18.30 Chronic kidney disease, stage 3 unspecified; Z79.4 Long term (current) use of insulin; Z20.828 Contact with and (suspected) exposure to other viral communicable diseases
CPT/HCPCS: 36415; 49083; 70450; 71045; 72125; 74176; 74470; 80048; 80053; 81001; 82040; 82140; 82150; 82550; 82553; 82945; 82948; 83690; 83735; 83880; 84100; 84484; 85025; 85610; 85730; 86850; 86900; 87040; 87086; 89051; 90714; 93005; 97139; 99284; J0610; J1160; J1940; J2405; U0002

== ENCOUNTER → 2020-02-13 | Outpatient (CLI) | payer MEDICARE ==
[~2020-02-13] MED LIST changes: +ALBUMIN 25% 12.5GM 50ML 150 ML IV ONE; +AMLODIPINE BESY10 MG PO; +DIGOXIN125 MCG PO; +LISINOPRIL5 MG PO; +METOPROLOL TART25 MG PO; +MIRTAZAPINE15 MG PO
[2020-02-13 14:01] LABS: HEMOGLOBIN 12.7 g/dL (14.0-18.0)
[2020-02-13 14:19] LABS: INR 1.45; PROTHROMBIN TIME 18.7 seconds (11.9-14.5)
[2020-02-13 14:20] LABS: PARTIAL THROMBOPLASTIN TIME 33.9 seconds (23.8-35.5)
== END ==
LOC: US 13:26
PROVIDERS: ATTEND Internal Medicine
DX: R18.8 Other ascites (principal)
CPT/HCPCS: 36415; 49083; 85014; 85049; 85610; 85730

== ENCOUNTER 2020-07-14 10:51 | Inpatient (IN) | payer BC, MEDICARE ==
[~2020-07-14] VITALS: Ht 170.2 cm; Wt 68.2 kg
[~2020-07-14 10:51] MED LIST changes: -ALBUMIN 25% 12.5GM 50ML 150 ML IV ONE
[2020-07-14 11:48] LABS: BASOPHILS % 0.8 % (0.0-1.0); EOSINOPHILS % 0.6 % (0.0-6.0); HEMATOCRIT 38.8 % (38.2-49.6); HEMOGLOBIN 12.1 g/dL (14.0-18.0); LYMPHOCYTES # (AUTO) 0.8 (1.0-3.2); LYMPHOCYTES % 22.2 % (18.0-39.1); MEAN CORPUSCULAR HEMOGLOBIN 28.5 pg (28-32); MEAN CORPUSCULAR HGB CONC 31.2 g/dL (31-35); MEAN CORPUSCULAR VOLUME 91.3 fL (81-99); MONOCYTES # (AUTO) 0.3 (0.2-0.8); MONOCYTES % 9.4 % (4.4-11.3); NEUTROPHILS # (AUTO) 2.4 (2.1-6.9); NEUTROPHILS % 66.7 % (38.7-80.0); RED BLOOD COUNT 4.25 x10e6/uL (4.3-5.7); RED CELL DISTRIBUTION WIDTH 18.5 % (11.7-14.4)
[2020-07-14 11:51] LABS: PLATELET COUNT 71 x10e3/uL (140-360)
[2020-07-14 12:25] LABS: ALANINE AMINOTRANSFERASE < 6 IU/L (0-55); ALBUMIN 3.7 g/dL (3.5-5.0); ALBUMIN/GLOBULIN RATIO 1.2 (0.8-2.0); ALKALINE PHOSPHATASE 70 IU/L (40-150); ANION GAP 19.3 mmol/L (8-16); BLOOD UREA NITROGEN 32 mg/dL (7-26); BUN/CREATININE RATIO 17 (6-25); CALCIUM 9.2 mg/dL (8.4-10.2); CARBON DIOXIDE 23 mmol/L (22-29); CHLORIDE 101 mmol/L (98-107); CREATINE KINASE 62 IU/L (30-200); CREATININE, SERUM 1.91 mg/dL (0.72-1.25); EST GLOMERULAR FILTRATION RATE 35 ML/MIN (60-); GLUCOSE 78 mg/dL (74-118); POTASSIUM 4.3 mmol/L (3.5-5.1); SODIUM 139 mmol/L (136-145)
[2020-07-14 12:37] LABS: B-TYPE NATRIURETIC PEPTIDE2 13870.1 pg/mL (0-100)
[2020-07-14] MEDS ORDERED: CEFTRIAXONE 1 GM VIAL IV ONE (12:45)
[2020-07-14] MEDS ORDERED: FUROSEMIDE INJ 10 MG/ML 2 ML VIAL IV ONE (12:45)
[2020-07-14] MEDS ORDERED: CEFTRIAXONE 1 GM in SODIUM CHLORIDE 0.9% 50ML 50 ML IV ONE (13:15)
[2020-07-14 14:13] LABS: INR 1.41; PROTHROMBIN TIME 17.9 seconds (11.9-14.5)
[2020-07-14 14:14] LABS: PARTIAL THROMBOPLASTIN TIME 37.1 seconds (23.8-35.5)
[2020-07-14 16:12] LABS: BODY FLUID APPEARANCE CLOUDY; BODY FLUID COLOR YELLOW; BODY FLUID TYPE PERITONEAL; RBC,BODY FLUID 3000 cells/uL; WBC,BODY FLUID 139 cells/uL
[2020-07-14 16:30] LABS: GLUCOSE,BODY FLUID 82 mg/dL
[2020-07-14 16:55] LABS: LYMPHOCYTES,BODY FLUID 36 %; MONO/MACROPHG,BODY FLUID 51 %; NEUTROPHILS,BODY FLUID 13 %
[2020-07-14] MEDS ORDERED: FUROSEMIDE INJ 10 MG/ML 2 ML VIAL IV SCH (17:00)
[2020-07-14 18:31] VITALS: BP 102/74
[2020-07-14 20:47] VITALS: BP 111/84
[2020-07-14] MEDS: FUROSEMIDE INJ 10 MG/ML 2 ML VIAL IV SCH (21:00)
[2020-07-14 22:45] VITALS: BP 111/84
[2020-07-14 23:35] VITALS: BP 111/84
[2020-07-14 23:38] VITALS: BP 111/83
[2020-07-15 05:14] VITALS: BP 103/80
[2020-07-15 05:23] LABS: BASOPHILS % 0.8 % (0.0-1.0); EOSINOPHILS # (AUTO) 0.1 (0.0-0.4); EOSINOPHILS % 1.7 % (0.0-6.0); HEMATOCRIT 32.5 % (38.2-49.6); LYMPHOCYTES # (AUTO) 1.1 (1.0-3.2); LYMPHOCYTES % 31.4 % (18.0-39.1); MEAN CORPUSCULAR HEMOGLOBIN 31.4 pg (28-32); MEAN CORPUSCULAR HGB CONC 33.8 g/dL (31-35); MEAN CORPUSCULAR VOLUME 92.9 fL (81-99); MONOCYTES # (AUTO) 0.5 (0.2-0.8); MONOCYTES % 13.1 % (4.4-11.3); NEUTROPHILS # (AUTO) 1.9 (2.1-6.9); NEUTROPHILS % 52.4 % (38.7-80.0); PLATELET COUNT 56 x10e3/uL (140-360); RED CELL DISTRIBUTION WIDTH 20.2 % (11.7-14.4)
[2020-07-15 06:26] LABS: CALCIUM IONIZED 1.1 mmol/L (1.09-1.30)
[2020-07-15 06:47] LABS: ANION GAP 14.7 mmol/L (8-16); CALCIUM 8.4 mg/dL (8.4-10.2); CREATININE, SERUM 1.86 mg/dL (0.72-1.25); POTASSIUM 3.7 mmol/L (3.5-5.1)
[2020-07-15 07:13] LABS: MAGNESIUM 1.9 MG/DL (1.3-2.1)
[2020-07-15] MEDS ORDERED: SODIUM CHLORIDE 0.9% 50ML 50 ML ONE (07:49)
[2020-07-15 08:31] VITALS: BP 99/79
[2020-07-15 08:41] VITALS: BP 99/79
[2020-07-15] MEDS: CEFTRIAXONE 1 GM in SODIUM CHLORIDE 0.9% 50ML 50 ML IV SCH (09:00)
[2020-07-15] MEDS: FUROSEMIDE INJ 10 MG/ML 2 ML VIAL IV SCH (10:54)
[2020-07-15 12:42] VITALS: BP 106/74
[2020-07-15] MEDS: DIGOXIN 0.125 MG TAB PO SCH (14:15)
[2020-07-15] MEDS: METOPROLOL TARTRATE 50 MG TAB PO SCH (17:01)
[2020-07-15 19:45] VITALS: BP 108/76
[2020-07-15 20:00] VITALS: BP 108/76
[2020-07-15] MEDS: FUROSEMIDE INJ 10 MG/ML 4 ML VIAL IV SCH (20:34)
[2020-07-16] VITALS (9 sets, daily range): BP systolic 88–176; BP diastolic 67–131
[2020-07-16 04:11] LABS: CLARITY,URINE CLEAR (CLEAR); COLOR,URINE YELLOW (YELLOW); KETONES,URINE NEGATIVE (NEGATIVE); LEUKOCYTE ESTERASE ,URINE TRACE (NEGATIVE); NITRITE,URINE NEGATIVE (NEGATIVE); PROTEIN,URINE DIPSTICK 1+ (NEGATIVE); URINE UROBILINOGEN 0.2 mg/dL (0.2 - 1)
[2020-07-16 04:16] LABS: BACTERIA,URINE FEW /HPF; EPITHELIAL CELLS,URINE MODERATE /LPF; RBC,URINE 0-5 /HPF (0-5)
[2020-07-16 05:55] LABS: BASOPHILS # (AUTO) 0.1 (0.0-0.1); BASOPHILS % 1.2 % (0.0-1.0); HEMATOCRIT 36.6 % (38.2-49.6); HEMOGLOBIN 11.6 g/dL (14.0-18.0); LYMPHOCYTES # (AUTO) 1.1 (1.0-3.2); LYMPHOCYTES % 25.7 % (18.0-39.1); MEAN CORPUSCULAR HEMOGLOBIN 29.3 pg (28-32); MEAN CORPUSCULAR HGB CONC 31.7 g/dL (31-35); MEAN CORPUSCULAR VOLUME 92.4 fL (81-99); MONOCYTES # (AUTO) 0.6 (0.2-0.8); MONOCYTES % 14.3 % (4.4-11.3); NEUTROPHILS # (AUTO) 2.4 (2.1-6.9); NEUTROPHILS % 57.3 % (38.7-80.0); PLATELET COUNT 53 x10e3/uL (140-360); RED BLOOD COUNT 3.96 x10e6/uL (4.3-5.7); RED CELL DISTRIBUTION WIDTH 18.2 % (11.7-14.4)
[2020-07-16 06:20] LABS: ALBUMIN 2.9 g/dL (3.5-5.0); ALBUMIN/GLOBULIN RATIO 1.1 (0.8-2.0); ANION GAP 17.8 mmol/L (8-16); CALCIUM 8.4 mg/dL (8.4-10.2); CREATININE, SERUM 2.02 mg/dL (0.72-1.25); MAGNESIUM 1.9 MG/DL (1.3-2.1)
[2020-07-16 06:29] LABS: POTASSIUM 4.8 mmol/L (3.5-5.1)
[2020-07-16] MEDS: CEFTRIAXONE 1 GM in SODIUM CHLORIDE 0.9% 50ML 50 ML IV SCH (09:00)
[2020-07-16] MEDS: FUROSEMIDE INJ 10 MG/ML 4 ML VIAL IV SCH (09:00)
[2020-07-16] MEDS: DIGOXIN 0.125 MG TAB PO SCH (09:00)
[2020-07-16] MEDS: CLOPIDOGREL BISULFATE 75 MG TAB PO SCH (09:00)
[2020-07-16] MEDS: METOPROLOL TARTRATE 50 MG TAB PO SCH ×2 (09:00→17:00)
[2020-07-16] MEDS: FUROSEMIDE INJ 10 MG/ML 2 ML VIAL IV SCH (20:35)
[2020-07-17] VITALS (8 sets, daily range): BP systolic 87–107; BP diastolic 68–81
[2020-07-17] MEDS: LEVOTHYROXINE SODIUM 50 MCG TAB PO SCH (05:29)
[2020-07-17 06:42] LABS: BASOPHILS % 0.6 % (0.0-1.0); EOSINOPHILS % 0.6 % (0.0-6.0); HEMATOCRIT 36.6 % (38.2-49.6); HEMOGLOBIN 11.3 g/dL (14.0-18.0); LYMPHOCYTES % 20.7 % (18.0-39.1); MEAN CORPUSCULAR HEMOGLOBIN 29.3 pg (28-32); MEAN CORPUSCULAR HGB CONC 30.9 g/dL (31-35); MEAN CORPUSCULAR VOLUME 94.8 fL (81-99); MONOCYTES # (AUTO) 0.6 (0.2-0.8); MONOCYTES % 12.6 % (4.4-11.3); NEUTROPHILS # (AUTO) 3.2 (2.1-6.9); NEUTROPHILS % 65.1 % (38.7-80.0); PLATELET COUNT 55 x10e3/uL (140-360); RED BLOOD COUNT 3.86 x10e6/uL (4.3-5.7); RED CELL DISTRIBUTION WIDTH 18.4 % (11.7-14.4)
[2020-07-17 07:10] LABS: ALBUMIN 2.8 g/dL (3.5-5.0); ALBUMIN/GLOBULIN RATIO 1.1 (0.8-2.0); ANION GAP 15.4 mmol/L (8-16); CALCIUM 7.8 mg/dL (8.4-10.2); CREATININE, SERUM 2.14 mg/dL (0.72-1.25); MAGNESIUM 1.9 MG/DL (1.3-2.1); POTASSIUM 4.4 mmol/L (3.5-5.1)
[2020-07-17] MEDS: CEFTRIAXONE 1 GM in SODIUM CHLORIDE 0.9% 50ML 50 ML IV SCH (09:00)
[2020-07-17] MEDS: FUROSEMIDE INJ 10 MG/ML 2 ML VIAL IV SCH ×2 (09:00→20:41)
[2020-07-17] MEDS: CLOPIDOGREL BISULFATE 75 MG TAB PO SCH (09:00)
[2020-07-17] MEDS: METOPROLOL TARTRATE 50 MG TAB PO SCH ×2 (09:00→16:36)
[2020-07-17] MEDS: LACTULOSE SYRUP 20 GM/30 ML UDC PO SCH ×3 (14:17→20:41)
[2020-07-17] MEDS: LACTULOSE SYRUP 20 GM/30 ML UDC PO PRN (14:17)
[2020-07-18] VITALS (8 sets, daily range): BP systolic 90–105; BP diastolic 67–81
[2020-07-18] MEDS: LEVOTHYROXINE SODIUM 50 MCG TAB PO SCH (05:41)
[2020-07-18 06:14] LABS: BASOPHILS % 0.8 % (0.0-1.0); HEMATOCRIT 39.1 % (38.2-49.6); HEMOGLOBIN 12.4 g/dL (14.0-18.0); LYMPHOCYTES # (AUTO) 0.9 (1.0-3.2); LYMPHOCYTES % 24.1 % (18.0-39.1); MEAN CORPUSCULAR HGB CONC 31.7 g/dL (31-35); MEAN CORPUSCULAR VOLUME 91.4 fL (81-99); MONOCYTES # (AUTO) 0.4 (0.2-0.8); MONOCYTES % 10.8 % (4.4-11.3); NEUTROPHILS # (AUTO) 2.5 (2.1-6.9); PLATELET COUNT 58 x10e3/uL (140-360); RED BLOOD COUNT 4.28 x10e6/uL (4.3-5.7); RED CELL DISTRIBUTION WIDTH 18.3 % (11.7-14.4)
[2020-07-18 06:42] LABS: ALBUMIN 2.8 g/dL (3.5-5.0); CALCIUM 7.8 mg/dL (8.4-10.2); CREATININE, SERUM 2.18 mg/dL (0.72-1.25)
[2020-07-18] MEDS: METOPROLOL TARTRATE 50 MG TAB PO SCH ×2 (09:00→16:06)
[2020-07-18] MEDS: CEFTRIAXONE 1 GM in SODIUM CHLORIDE 0.9% 50ML 50 ML IV SCH (09:44)
[2020-07-18] MEDS: LACTULOSE SYRUP 20 GM/30 ML UDC PO SCH ×3 (09:44→19:54)
[2020-07-18] MEDS: CLOPIDOGREL BISULFATE 75 MG TAB PO SCH (10:01)
[2020-07-18] MEDS: FUROSEMIDE INJ 10 MG/ML 2 ML VIAL IV SCH (10:01)
[2020-07-19] VITALS (9 sets, daily range): BP systolic 92–106; BP diastolic 66–75
[2020-07-19 05:49] LABS: BASOPHILS % 0.8 % (0.0-1.0); EOSINOPHILS % 0.8 % (0.0-6.0); HEMATOCRIT 36.9 % (38.2-49.6); HEMOGLOBIN 11.7 g/dL (14.0-18.0); LYMPHOCYTES # (AUTO) 0.9 (1.0-3.2); LYMPHOCYTES % 18.9 % (18.0-39.1); MEAN CORPUSCULAR HEMOGLOBIN 28.9 pg (28-32); MEAN CORPUSCULAR HGB CONC 31.7 g/dL (31-35); MEAN CORPUSCULAR VOLUME 91.1 fL (81-99); MONOCYTES # (AUTO) 0.6 (0.2-0.8); MONOCYTES % 12.2 % (4.4-11.3); NEUTROPHILS # (AUTO) 3.2 (2.1-6.9); NEUTROPHILS % 67.1 % (38.7-80.0); PLATELET COUNT 61 x10e3/uL (140-360); RED BLOOD COUNT 4.05 x10e6/uL (4.3-5.7); RED CELL DISTRIBUTION WIDTH 18.5 % (11.7-14.4)
[2020-07-19 05:59] LABS: ANION GAP 14.3 mmol/L (8-16); CALCIUM 7.9 mg/dL (8.4-10.2); CREATININE, SERUM 2.09 mg/dL (0.72-1.25); POTASSIUM 3.3 mmol/L (3.5-5.1)
[2020-07-19] MEDS: LEVOTHYROXINE SODIUM 50 MCG TAB PO SCH (06:05)
[2020-07-19] MEDS: CLOPIDOGREL BISULFATE 75 MG TAB PO SCH (08:25)
[2020-07-19] MEDS: LACTULOSE SYRUP 20 GM/30 ML UDC PO SCH ×3 (08:25→19:46)
[2020-07-19] MEDS: METOPROLOL TARTRATE 50 MG TAB PO SCH ×2 (08:29→17:00)
[2020-07-19] MEDS: FUROSEMIDE INJ 10 MG/ML 2 ML VIAL IV SCH (08:30)
[2020-07-19] MEDS: CEFTRIAXONE 1 GM in SODIUM CHLORIDE 0.9% 50ML 50 ML IV SCH (09:00)
[2020-07-19] MEDS ORDERED: POTASSIUM CHLORIDE 20 MEQ TAB CR PO ONE (10:30)
[2020-07-20] VITALS (7 sets, daily range): BP systolic 100–114; BP diastolic 72–86
[2020-07-20] MEDS: LEVOTHYROXINE SODIUM 50 MCG TAB PO SCH (05:39)
[2020-07-20 06:00] LABS: EOSINOPHILS # (AUTO) 0.1 (0.0-0.4); EOSINOPHILS % 1.9 % (0.0-6.0); HEMATOCRIT 33.2 % (38.2-49.6); HEMOGLOBIN 10.6 g/dL (14.0-18.0); LYMPHOCYTES # (AUTO) 0.9 (1.0-3.2); LYMPHOCYTES % 22.8 % (18.0-39.1); MEAN CORPUSCULAR HGB CONC 31.9 g/dL (31-35); MONOCYTES # (AUTO) 0.5 (0.2-0.8); MONOCYTES % 12.4 % (4.4-11.3); NEUTROPHILS # (AUTO) 2.5 (2.1-6.9); NEUTROPHILS % 61.2 % (38.7-80.0); PLATELET COUNT 61 x10e3/uL (140-360); RED BLOOD COUNT 3.65 x10e6/uL (4.3-5.7); RED CELL DISTRIBUTION WIDTH 18.4 % (11.7-14.4)
[2020-07-20 06:26] LABS: ALBUMIN 2.9 g/dL (3.5-5.0); ALBUMIN/GLOBULIN RATIO 1.1 (0.8-2.0); ANION GAP 15.6 mmol/L (8-16); CALCIUM 7.6 mg/dL (8.4-10.2); CREATININE, SERUM 2.01 mg/dL (0.72-1.25); POTASSIUM 3.6 mmol/L (3.5-5.1)
[2020-07-20] MEDS: FUROSEMIDE INJ 10 MG/ML 2 ML VIAL IV SCH (08:36)
[2020-07-20] MEDS: LACTULOSE SYRUP 20 GM/30 ML UDC PO SCH ×3 (08:36→22:19)
[2020-07-20] MEDS: CEFTRIAXONE 1 GM in SODIUM CHLORIDE 0.9% 50ML 50 ML IV SCH (08:36)
[2020-07-20] MEDS: METOPROLOL TARTRATE 50 MG TAB PO SCH ×2 (08:36→16:55)
[2020-07-20] MEDS: BALSAM PERU/CASTOR OIL 60 GM OINT...G. TP SCH (14:19)
[2020-07-20] MEDS ORDERED: MAGNESIUM OXIDE 400 MG TAB PO NR (15:00)
[2020-07-21] VITALS (8 sets, daily range): BP systolic 97–108; BP diastolic 68–76
[2020-07-21 05:56] LABS: EOSINOPHILS # (AUTO) 0.1 (0.0-0.4); EOSINOPHILS % 2.4 % (0.0-6.0); HEMATOCRIT 30.4 % (38.2-49.6); HEMOGLOBIN 9.7 g/dL (14.0-18.0); LYMPHOCYTES # (AUTO) 1.2 (1.0-3.2); LYMPHOCYTES % 28.1 % (18.0-39.1); MEAN CORPUSCULAR HEMOGLOBIN 28.8 pg (28-32); MEAN CORPUSCULAR HGB CONC 31.9 g/dL (31-35); MEAN CORPUSCULAR VOLUME 90.2 fL (81-99); MONOCYTES # (AUTO) 0.5 (0.2-0.8); MONOCYTES % 12.5 % (4.4-11.3); NEUTROPHILS # (AUTO) 2.3 (2.1-6.9); NEUTROPHILS % 55.8 % (38.7-80.0); PLATELET COUNT 51 x10e3/uL (140-360); RED BLOOD COUNT 3.37 x10e6/uL (4.3-5.7); RED CELL DISTRIBUTION WIDTH 18.1 % (11.7-14.4)
[2020-07-21] MEDS: LEVOTHYROXINE SODIUM 50 MCG TAB PO SCH (06:00)
[2020-07-21 06:19] LABS: CALCIUM 7.4 mg/dL (8.4-10.2); CREATININE, SERUM 1.86 mg/dL (0.72-1.25); MAGNESIUM 1.8 MG/DL (1.3-2.1)
[2020-07-21] MEDS: CEFTRIAXONE 1 GM in SODIUM CHLORIDE 0.9% 50ML 50 ML IV SCH (08:02)
[2020-07-21] MEDS: LACTULOSE SYRUP 20 GM/30 ML UDC PO SCH ×3 (08:03→20:47)
[2020-07-21] MEDS: METOPROLOL TARTRATE 50 MG TAB PO SCH ×2 (08:03→16:18)
[2020-07-21] MEDS: FUROSEMIDE INJ 10 MG/ML 4 ML VIAL IV SCH (08:57)
[2020-07-21] MEDS ORDERED: MAGNESIUM OXIDE 400 MG TAB PO ONE (14:30)
[2020-07-21] MEDS ORDERED: POTASSIUM CHLORIDE 20 MEQ TAB CR PO ONE (14:30)
[2020-07-21] MEDS: BALSAM PERU/CASTOR OIL 60 GM OINT...G. TP SCH (15:30)
[2020-07-22] VITALS (7 sets, daily range): BP systolic 99–110; BP diastolic 70–82
[2020-07-22] MEDS: LEVOTHYROXINE SODIUM 50 MCG TAB PO SCH (05:45)
[2020-07-22 06:25] LABS: BASOPHILS % 0.5 % (0.0-1.0); EOSINOPHILS # (AUTO) 0.1 (0.0-0.4); EOSINOPHILS % 1.3 % (0.0-6.0); HEMATOCRIT 28.6 % (38.2-49.6); HEMOGLOBIN 9.5 g/dL (14.0-18.0); LYMPHOCYTES # (AUTO) 1.2 (1.0-3.2); LYMPHOCYTES % 30.5 % (18.0-39.1); MEAN CORPUSCULAR HEMOGLOBIN 29.3 pg (28-32); MEAN CORPUSCULAR HGB CONC 33.2 g/dL (31-35); MEAN CORPUSCULAR VOLUME 88.3 fL (81-99); MONOCYTES # (AUTO) 0.4 (0.2-0.8); MONOCYTES % 10.6 % (4.4-11.3); NEUTROPHILS # (AUTO) 2.1 (2.1-6.9); NEUTROPHILS % 56.8 % (38.7-80.0); RED BLOOD COUNT 3.24 x10e6/uL (4.3-5.7)
[2020-07-22 06:39] LABS: PLATELET COUNT 46 x10e3/uL (140-360)
[2020-07-22 06:47] LABS: ANION GAP 13.6 mmol/L (8-16); CALCIUM 7.8 mg/dL (8.4-10.2); CREATININE, SERUM 1.77 mg/dL (0.72-1.25); POTASSIUM 3.6 mmol/L (3.5-5.1)
[2020-07-22] MEDS: LACTULOSE SYRUP 20 GM/30 ML UDC PO SCH ×3 (09:04→21:03)
[2020-07-22] MEDS: BALSAM PERU/CASTOR OIL 60 GM OINT...G. TP SCH (09:04)
[2020-07-22] MEDS: METOPROLOL TARTRATE 50 MG TAB PO SCH ×2 (09:04→16:09)
[2020-07-22] MEDS: FUROSEMIDE INJ 10 MG/ML 4 ML VIAL IV SCH (09:04)
[2020-07-23] VITALS: BP 105/77
[2020-07-23 04:00] VITALS: BP 109/80
[2020-07-23 05:58] LABS: BASOPHILS % 0.5 % (0.0-1.0); EOSINOPHILS # (AUTO) 0.1 (0.0-0.4); EOSINOPHILS % 2.1 % (0.0-6.0); HEMATOCRIT 31.5 % (38.2-49.6); HEMOGLOBIN 9.8 g/dL (14.0-18.0); LYMPHOCYTES # (AUTO) 1.4 (1.0-3.2); LYMPHOCYTES % 35.8 % (18.0-39.1); MEAN CORPUSCULAR HEMOGLOBIN 28.1 pg (28-32); MEAN CORPUSCULAR HGB CONC 31.1 g/dL (31-35); MEAN CORPUSCULAR VOLUME 90.3 fL (81-99); MONOCYTES # (AUTO) 0.5 (0.2-0.8); MONOCYTES % 12.5 % (4.4-11.3); NEUTROPHILS # (AUTO) 1.8 (2.1-6.9); NEUTROPHILS % 48.8 % (38.7-80.0); RED BLOOD COUNT 3.49 x10e6/uL (4.3-5.7); RED CELL DISTRIBUTION WIDTH 18.6 % (11.7-14.4)
[2020-07-23] MEDS: LEVOTHYROXINE SODIUM 50 MCG TAB PO SCH (05:59)
[2020-07-23 06:22] LABS: ANION GAP 15.9 mmol/L (8-16); CALCIUM 7.8 mg/dL (8.4-10.2); CREATININE, SERUM 1.83 mg/dL (0.72-1.25); POTASSIUM 3.9 mmol/L (3.5-5.1)
[2020-07-23 06:27] LABS: PLATELET COUNT 46 x10e3/uL (140-360)
[2020-07-23 08:31] VITALS: BP 100/77
[2020-07-23 08:45] VITALS: BP 100/77
[2020-07-23] MEDS: BALSAM PERU/CASTOR OIL 60 GM OINT...G. TP SCH (09:00)
[2020-07-23] MEDS: METOPROLOL TARTRATE 50 MG TAB PO SCH ×2 (09:00→16:34)
[2020-07-23] MEDS: FUROSEMIDE INJ 10 MG/ML 4 ML VIAL IV SCH (09:24)
[2020-07-23] MEDS: LACTULOSE SYRUP 20 GM/30 ML UDC PO SCH ×2 (09:24→15:00)
[2020-07-23] MEDS ORDERED: ONDANSETRON HCL 4 MG ORAL DISINTEGRATING TAB PO PRN (11:15)
[2020-07-23 12:17] VITALS: BP 99/71
[2020-07-23] MEDS ORDERED: ONDANSETRON HCL INJ 2MG/ML 2ML 2 MG/ML VIAL IV STA (14:33)
[2020-07-23 16:51] VITALS: BP 100/76
[2020-07-24] MEDS ORDERED: SPIRONOLACTONE 25 MG TAB PO SCH (09:00)
[2020-07-24] MEDS ORDERED: FUROSEMIDE 40 MG TAB PO SCH (09:00)
== END 2020-07-23 17:58 | DRG 432 ==
LOC: ER 11:38 → ERHOLD 12:40 → MED/SURG3 18:14
PROVIDERS: ADMIT Internal Medicine; ATTEND Internal Medicine
PROC: 0W9G3ZZ Drainage of Peritoneal Cavity, Percutaneous Approach (ICD-10-PCS; principal; 2020-07-14)
DX: K74.60 Unspecified cirrhosis of liver (principal); I50.23 Acute on chronic systolic (congestive) heart failure; I13.0 Hypertensive heart and chronic kidney disease with heart failure and stage 1 through stage 4 chronic kidney disease, or unspecified chronic kidney disease; E44.0 Moderate protein-calorie malnutrition; R18.8 Other ascites; G93.40 Encephalopathy, unspecified; N17.9 Acute kidney failure, unspecified; E11.22 Type 2 diabetes mellitus with diabetic chronic kidney disease; N18.32 Chronic kidney disease, stage 3b; Z95.810 Presence of automatic (implantable) cardiac defibrillator; I25.10 Atherosclerotic heart disease of native coronary artery without angina pectoris; Z95.5 Presence of coronary angioplasty implant and graft; I48.0 Paroxysmal atrial fibrillation; Z82.49 Family history of ischemic heart disease and other diseases of the circulatory system; R53.81 Other malaise; Z91.81 History of falling; E78.5 Hyperlipidemia, unspecified; E03.9 Hypothyroidism, unspecified; Z20.822 Contact with and (suspected) exposure to COVID-19; K72.90 Hepatic failure, unspecified without coma
CPT/HCPCS: 36415; 49083; 71045; 74470; 76700; 80048; 80053; 81001; 82040; 82105; 82140; 82550; 82553; 82945; 82948; 83605; 83615; 83735; 83880; 84443; 84484; 85025; 85610; 85730; 87040; 87070; 87205; 88112; 88305; 89051; 92523; 93005; 93306; 96376; 97139; 99251; 99285; J0696; J1940; J2405; Q0162; U0002

== ENCOUNTER 2020-08-03 14:25 | Emergency (ER) | payer BC, MEDICARE ==
[~2020-08-03] VITALS: Ht 170.2 cm; Wt 68.0 kg
[2020-08-03] MEDS ORDERED: ONDANSETRON HCL INJ 2MG/ML 2ML 2 MG/ML VIAL IV STA (15:53)
[2020-08-03] MEDS ORDERED: SODIUM CHLORIDE 0.9% 1000ML 1,000 ML IV STA (15:53)
[2020-08-03] MEDS ORDERED: OCTREOTIDE ACETATE 0.05 MG/ML AMP IV STA (16:17)
[2020-08-03] MEDS ORDERED: OCTREOTIDE ACETATE 500 MCG in SODIUM CHLORIDE 0.9% 250ML 250 ML IV SCH (16:30)
[2020-08-03 16:46] LABS: BASOPHILS % 0.2 % (0.0-1.0); HEMATOCRIT 34.3 % (38.2-49.6); HEMOGLOBIN 10.9 g/dL (14.0-18.0); LYMPHOCYTES # (AUTO) 0.7 (1.0-3.2); LYMPHOCYTES % 15.4 % (18.0-39.1); MEAN CORPUSCULAR HGB CONC 31.8 g/dL (31-35); MEAN CORPUSCULAR VOLUME 91.2 fL (81-99); MONOCYTES # (AUTO) 0.6 (0.2-0.8); MONOCYTES % 12.2 % (4.4-11.3); NEUTROPHILS # (AUTO) 3.3 (2.1-6.9); NEUTROPHILS % 71.8 % (38.7-80.0); RED BLOOD COUNT 3.76 x10e6/uL (4.3-5.7); RED CELL DISTRIBUTION WIDTH 20.9 % (11.7-14.4)
[2020-08-03 16:50] LABS: PLATELET COUNT 71 x10e3/uL (140-360)
[2020-08-03 16:54] LABS: INR 1.42; PARTIAL THROMBOPLASTIN TIME 34.1 seconds (23.8-35.5); PROTHROMBIN TIME 18.1 seconds (11.9-14.5)
[2020-08-03 18:06] LABS: ALBUMIN 2.8 g/dL (3.5-5.0); ALBUMIN/GLOBULIN RATIO 1.1 (0.8-2.0); ANION GAP 17.5 mmol/L (8-16); CALCIUM 7.8 mg/dL (8.4-10.2); CREATININE, SERUM 3.35 mg/dL (0.72-1.25); POTASSIUM 4.5 mmol/L (3.5-5.1)
[2020-08-03] MEDS ORDERED: DEXTROSE 50% SYRINGE 50 ML IV STA (18:08)
[2020-08-03] MEDS ORDERED: DEXTROSE 50% SYRINGE 50 ML IV ONE ×2 (18:21→19:30)
[2020-08-03] MEDS ORDERED: DEXTROSE 5% 1,000 ML IV ONE (18:45)
[2020-08-03] MEDS ORDERED: CEFEPIME 1 GM in SODIUM CHLORIDE 0.9% 50ML 50 ML IV ONE (18:45)
[2020-08-03 19:27] LABS: CLARITY,URINE SL CLOUDY (CLEAR); COLOR,URINE YELLOW (YELLOW); LEUKOCYTE ESTERASE ,URINE SMALL (NEGATIVE)
[2020-08-03 19:28] LABS: KETONES,URINE NEGATIVE (NEGATIVE); NITRITE,URINE NEGATIVE (NEGATIVE); PROTEIN,URINE DIPSTICK 2+ (NEGATIVE); URINE UROBILINOGEN 0.2 mg/dL (0.2 - 1)
[2020-08-03 19:29] LABS: BACTERIA,URINE FEW /HPF; CALCIUM OXALATE CRYSTALS,UR RARE (FEW); EPITHELIAL CELLS,URINE RARE /LPF; WBC,URINE (MAN) 0-5 /HPF (0-5)
[2020-08-03 19:30] LABS: YEAST,URINE MANY
== END 2020-08-03 22:23 | disposition other institution (70) ==
LOC: ER 14:46
DX: K92.2 Gastrointestinal hemorrhage, unspecified (principal); K74.60 Unspecified cirrhosis of liver; E11.649 Type 2 diabetes mellitus with hypoglycemia without coma; N17.9 Acute kidney failure, unspecified; I50.9 Heart failure, unspecified; D69.6 Thrombocytopenia, unspecified; E87.1 Hypo-osmolality and hyponatremia; I10 Essential (primary) hypertension; R94.31 Abnormal electrocardiogram [ECG] [EKG]; Z20.822 Contact with and (suspected) exposure to COVID-19
CPT/HCPCS: 36415; 36558; 71045 ×2; 74176; 80053; 81001; 82140; 82550; 82553; 82948; 83605; 83690; 83880; 84484; 85025; 85610; 85730; 86850; 86900; 87040; 87086; 93005; 99285; C9113; J0692; J2353; J2405; J7030; J7050; J7070; J7799; U0002